=== PATIENT | female | born 1985 | race Caucasian/White ===

== ENCOUNTER → 2017-06-23 10:08 | Outpatient (CLI) | payer MEDICAID, SELFPAY ==
[2017-06-27 20:08] LABS: Alternaria tenuis <0.10 kU/L (Class 0); Ash, White <0.10 kU/L (Class 0); Aspergillus fumigatus <0.10 kU/L (Class 0); Bermuda Grass <0.10 kU/L (Class 0); Birch <0.10 kU/L (Class 0); Black Walnut <0.10 kU/L (Class 0); Cat Hair / Dander,Stand 5.62 kU/L (Class IV); Cedar, Mountain <0.10 kU/L (Class 0); Cladosporium herbarum <0.10 kU/L (Class 0); Cockroach, American <0.10 kU/L (Class 0); Cottonwood <0.10 kU/L (Class 0); D farinae Mite 0.44 kU/L (Class I); D pteronyssinus <0.10 kU/L (Class 0); Dog Epithelia 3.47 kU/L (Class III); Elm, American White <0.10 kU/L (Class 0); Immunoglobulin E 83 IU/mL (0-100); Maple/Box Elder <0.10 kU/L (Class 0); Mulberry, White <0.10 kU/L (Class 0); Oak, White <0.10 kU/L (Class 0); Pecan <0.10 kU/L (Class 0); Penicillium Notatum <0.10 kU/L (Class 0); Pigweed, Rough <0.10 kU/L (Class 0); Ragweed, Short/Common 0.79 kU/L (Class II); Russian Thistle <0.10 kU/L (Class 0); Sheep Sorrel <0.10 kU/L (Class 0); Sycamore, American <0.10 kU/L (Class 0); Timothy Grass 0.29 kU/L (Class 0/I)
[2017-06-28 13:19] LABS: Mouse Urine <0.10 kU/L (Class 0)
== END ==
PROVIDERS: Family Provider Family Medicine; PCP Family Medicine; Visit Provider Otolaryngology
DX: T78.40XA Allergy, unspecified, initial encounter (principal)
CPT/HCPCS: 36415; 82785; 86003

== ENCOUNTER → 2017-07-23 12:04 | Outpatient (CLI) | payer MEDICAID, SELFPAY ==
--- NOTE | 2017-07-23 12:05 | CT_ITS ---
STUDY: CT MAXILLOFACIAL SINUSES REASON FOR EXAM: Female, 31 years old. Sinusitis. RADIATION DOSAGE (If Supplied By Facility): CTDIvol = ( 33.06 ) mGy, DLP = ( 813.19 ) mGycm TECHNIQUE: The patient was scanned in a multi detector CT scanner. High resolution axial imaging was performed without the administration of intravenous contrast material. Sagittal and coronal images were reconstructed. Individualized dose optimization techniques were used for this CT. COMPARISON: None. FINDINGS: FRONTAL SINUSES: Normal aeration, without mucosal inflammatory disease. ETHMOIDAL SINUSES: Minimal mucoperiosteal reaction within the anterior air cells. MAXILLARY SINUSES: Small mucous retention cyst in the right maxillary sinus. SPHENOIDAL SINUSES: Normal aeration, without mucosal inflammatory disease. There is patency of the bilateral maxillary infundibuli with normal uncinate processes, ethmoid bullae, and hiatus semilunaris. There is engorgement of the right middle turbinate. Normal bilateral inferior turbinates. There is a left sided nasal septal deviation with a left sided nasal septal spur. There is narrowing of the left upper nasal airway. The visualized osseous structures are normal. The visualized bilateral orbital contents are normal. CT/Sinus/Facial Bone IMPRESSION: Minimal ethmoid and right maxillary sinusitis. Electronically Signed: Wes De La Vega DO at 12:44 EDT Tel [phone], Service support ,
== END ==
PROVIDERS: Family Provider Family Medicine; PCP Family Medicine; Visit Provider Otolaryngology
DX: J32.9 Chronic sinusitis, unspecified (principal)
CPT/HCPCS: 70486

== ENCOUNTER → 2017-08-05 11:10 | Outpatient (CLI) | payer MEDICAID, SELFPAY ==
[2017-08-05 15:46] LABS: Absolute Lymphocyte Count 1.82 X10^3/ul (0.83-4.51); Absolute Neutrophil Count 3.2 X10^3/uL (2.0-7.7); Basophil# 0.01 X10^3/uL; Basophil% 0.2 % (0-1); Eosinophil# 0.28 X10^3/uL; Eosinophils% 4.9 % (0-5); Hematocrit 38.4 % (37-47); Hemoglobin 12.4 g/dl (12.0-15.0); Lymphocyte # 1.82 X10^3/ul (4.0); Lymphocyte % 31.8 % (19-41); Mean Corp Hgb Conc 32.3 g/gl (32-36); Mean Corpuscular Hgb 24.9 pg (27.0-32.0); Mean Corpuscular Volume 77.1 fL (81-99); Mean Platelet Vol. 10.3 fl (6.2-12.0); Monocyte# 0.39 X10^3/uL; Monocyte% 6.8 % (0-10); Neutrophil # 3.21 X10^3/uL (2.7-7.7); Neutrophil % 56.1 % (47-70); Platelet Count 306 K/mm3 (150-450); RBC Distribution Width CV 14.3 % (11.6-14.6); RBC Distribution Width SD 40.4 fl (35.1-43.9); Red Blood Count 4.98 M/mm3 (4.2-5.4); White Blood Count 5.7 K/mm3 (4.4-11.0)
[2017-08-05 15:52] LABS: POSITIVE COUNT NO; POSITIVE DIFFERENTIAL NO; POSITIVE MORPHOLOGY NO
[2017-08-05 16:28] LABS: ALB/GLOB Ratio 0.7 RATIO (0.9-2.4); AST(SGOT) 23 U/L (15-37); Alanine Aminotransfer ALT/SGPT 31 U/L (13-56); Albumin, Serum 3.1 g/dL (3.2-5.0); Alkaline Phosphatase 87 U/L (45-117); Anion Gap 8 (5-15); BUN 9 mg/dL (7-18); BUN/Creat Ratio 12.1 RATIO (10-20); Calcium,Total 8.2 mg/dL (8.5-10.1); Chloride 106 mmol/L (98-107); Creatinine, Serum 0.74 mg/dL (0.55-1.02); EST Glomerular Filtration Rate 96 mL/min (>60); Est Glom Filt Rate - Afr Amer 116 mL/min (>60); Globulin 4.2 g/dL (2.2-4.2); Glucose 74 mg/dL (74-106); Potassium 4.1 mmol/L (3.5-5.1); Protein, Total 7.3 g/dL (6.4-8.2); Sodium Level 139 mmol/L (136-145); T4 Free Direct 1.23 ng/dL (0.76-1.46); Thyroid Stim Hormone (TSH) 0.98 uIU/mL (0.358-3.74)
[2017-08-06 08:39] LABS: Vitamin D,25 Hydroxy 24.2 ng/mL (29.95-100.01)
== END ==
PROVIDERS: Family Provider Family Medicine; PCP Family Medicine; Visit Provider Family Medicine
DX: L93.0 Discoid lupus erythematosus (principal); E55.9 Vitamin D deficiency, unspecified; E03.9 Hypothyroidism, unspecified
CPT/HCPCS: 36415; 80053; 82306; 84439; 84443; 85025

== ENCOUNTER → 2018-10-14 | Outpatient (CLI) | payer MEDICAID, SELFPAY ==
[2018-10-14 08:06] VITALS: BMI 46.5
--- NOTE | 2018-10-14 08:15 | RAD_ITS ---
STUDY: X-RAY - RIGHT KNEE REASON FOR EXAM: Female, 33 years old. Chronic pain. TECHNIQUE: 4 view(s) of the knee. COMPARISON: None. FINDINGS: Normal visualized distal femur. Normal visualized proximal tibia and fibula. Normal proximal tibiofibular articulation. Normal medial femorotibial compartment. Normal lateral femorotibial compartment. Normal patellofemoral articulation. Small joint effusion. RAD/Knee 4 or More Views IMPRESSION: Small joint effusion. Electronically Signed: Yasmany Oquendo, at 13:47 EDT , Service support ,
== END | disposition home or self-care (01) ==
LOC: HPRAD 08:14
PROVIDERS: Family Provider Family Medicine; PCP Family Medicine; Referring Provider Orthopaedic Surgery; Visit Provider Orthopaedic Surgery
DX: M25.561 Pain in right knee (principal)
CPT/HCPCS: 73564

== ENCOUNTER 2018-10-22 20:56 | Observation (INO) | payer MEDICAID, SELFPAY ==
[2018-10-15 14:38] VITALS: BMI 46.5
[2018-10-22 21:00] VITALS: BP 124/86; PULSE 102; RESP 16; TEMP 37.7; O2SAT 98; BMI 48.0
[2018-10-22 21:14] VITALS: BMI 48.0
--- NOTE | 2018-10-22 21:22 | PCM.HP.STD ---
History of Present Illness Date of Admission: 10/22/18 Chief Complaint: transfer from [facility] The patient is a 33 year old F with past medical history of GERD, Graves' disease and suspected lupus. She was admitted as a transfer from [facility] on 10/22/2018. Patient had EGD and colonoscopy as part of work-up for lupus and GERD and [place] on day of admission. She states she woke up from the procedure coughing. She was discharged home also on the way home started having severe chills and worsening cough which was nonproductive. She also had mild fever. She therefore went to [facility] where she was also found to be tachycardic as well. She also complained of chest pain which was pressure-like. She denied any nausea or vomiting or palpitations. CT of the chest done in [place] was negative for any PE but showed a left-sided upper and lower broad lobe pneumonia which was suspicious for aspiration pneumonia. CBC done in [place] showed elevated white cell count of 13.8 with a left shift. Initial lactic acid was 2.3 but trended down to 1.1. BMP was unremarkable at [place]. She was started on IV Unasyn and transferred to [facility]. Patient seen and examined. Shortness of breath is improved though she still had mild chest pain. Still had a cough which was nonproductive. She denied any fever chills, diarrhea vomiting. Review of systems otherwise negative. [] Past Medical History Medical History: Medical History (Last Updated 10/15/18 @ 13:45 by Susy Arauz) Anemia D64.9 Anxiety and depression F41.9, F32.9 Asthma J45.909 Back problem M53.9 Frequent headaches R51 Lupus M32.9 Seasonal allergies J30.2 UTI (urinary tract infection) N39.0 Vitamin deficiency E56.9 Allergies No Known Allergies Allergy (Verified 10/15/18 13:40) Home Medications: Ambulatory Orders Medication Instructions Recorded Albuterol Inhaler [Ventolin Hfa 1 - 2 puff INHALATION Q4H PRN PRN 04/13/14 (SP)] diphenhydramine 25 mg tablet 25 mg PO DAILY PRN tab 10/15/18 Surgical History: Surgical History (Last Updated 10/15/18 @ 13:46 by Susy Arauz) History of knee surgery Z98.890 History of tubal ligation Z98.51 Psychiatric History: No pertinent psych hx Lives: Alone Smoking Status: Never smoker Alcohol: None Drugs: None - *Family History Maternal Family History: Family History (Last Updated 10/15/18 @ 13:48 by Susy Arauz) Other Anxiety Depressed Diabetes Psychiatric care Suicide attempt Thyroid disorder Review of Systems Constitutional: Reports: Chills, Fever. Denies: Anorexia, Malaise, Weakness, Fatigue Eyes: Denies: Blurred vision HEENT: Denies: Head Aches, Sinus Congestion, Sinus Drainage Cardiovascular: Reports: Chest Pain, Chest Pressure. Denies: Chest Tightness, Heaviness, Light Headedness, Orthopnea, Palpitations Respiratory: Reports: Cough, Shortness of Breath, Shortness of breath at rest, Shortness of breath upon exertion. Denies: Pleuritic Pain, Sputum production, Wheezing Gastrointestinal: Denies: Abdominal Pain, Nausea, Vomiting Genitourinary: Denies: Dysuria Musculoskeletal: Denies: Joint Pain, Joint Tenderness Skin: Denies: Rash, Wounds Neurological: Denies: Numbness, Tingling, Focal weakness Psychiatric: Denies: Anxiety, Depression, Homicidal Ideations, Suicidal Ideations Hematologic/ Lymphatic: Denies: Easy Bruising, Easy Bleeding VTE Information - Inpt Only VTE Present on Admission: No VTE Pharm Prophylaxis ordered?: Yes - Physical Exam General: Alert, Oriented x3, Cooperative, No apparent distress, Non-Cooperative, - - super morbid obesity HEENT: Atraumatic, PERRLA, EOMI, Normocephalic Oral: Moist Mucosa Neck: Supple, No JVD, Negative Carotid Bruits Lungs: - - Decreased breath sounds bibasilarly. No wheezes or crackles. Cardiovascular: Regular rate, Regular Rhythm, Normal S1, Normal S2, No murmurs Abdomen: Bowel Sounds Present, Soft, Non Tender, Non-Distended, No Hepato-splenomegaly Extremities: No clubbing, No cyanosis, No edema, Capillary Refill Less than 3 Seconds Skin: No rashes, No breakdown Musculoskeletal: No Tenderness to Palpation of Joints or Extremities Lymphatic: No Cervical, Supraclavicular, or Inguinal Adenopathy Neurological: Cranial nerves II-XII grossly intact, Neuro grossly intact, Motor Exam 5/5 strength throughout Psych/Mental Status: Normal Affect, Appropriate, Alert and oriented to time, place, person, mood and affect Vital Signs Temp Pulse Resp BP Pulse Ox 99.8 F H 102 H 16 124/86 H 98 10/22/18 21:00 10/22/18 21:00 10/22/18 21:00 10/22/18 21:00 10/22/18 21:00 Oxygen Delivery Method Room Air Weight: 288 lb 9.361 oz Body Mass Index (BMI) 48.0 Assessment/Plan 33-year-old admitted as a transfer from [place] with a complaint of fever and chills as well as shortness of breath was started after she had EGD and colonoscopy in the early hours of day of presentation. 1. Aspiration pneumonia admit to med surg with telemetry patient likely aspirated during EGD and colonoscopy. Says she woke up with a severe cough CTA done at [place] was negative for PE, but showed left upper and lower lobe pneumonia wbc was 13.8 at [place] started on IV unasyn; will continue hydrate gently with IVF 2.GERD: had EGD and colonoscopy today. Stable 3. SLE: stable. 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 Graves disease: stable DVT prophylaxis: lovenox Code Visit OBSV E&M: 64618 Initial observation care L3
[2018-10-22 22:00] VITALS: PULSE 105
[2018-10-22] MEDS: 0.9% Normal Saline 1,000 ML 75 ML IV (22:13)
[2018-10-23 02:42] VITALS: BP 94/55; PULSE 85; RESP 18; TEMP 36.6; O2SAT 94
[2018-10-23 03:16] VITALS: PULSE 81
[2018-10-23 06:08] LABS: Absolute Lymphocyte Count 1.71 X10^3/uL (0.83-4.51); Absolute Neutrophil Count 8.5 X10^3/uL (2.0-7.7); Basophil# 0.03 X10^3/uL; Basophil% 0.3 % (0-1); Eosinophil# 0.09 X10^3/uL; Eosinophils% 0.8 % (0-5); Hematocrit 33.4 % (37-47); Hemoglobin 10.6 g/dL (12.0-15.0); Lymphocyte # 1.71 X10^3/ul (4.0); Lymphocyte % 15.7 % (19-41); Mean Corp Hgb Conc 31.7 g/dL (32-36); Mean Corpuscular Hgb 23.9 pg (27.0-32.0); Mean Corpuscular Volume 75.2 fL (81-99); Mean Platelet Vol. 10.3 fl (6.2-12.0); Monocyte# 0.55 X10^3/uL; NRBC Flagged by Analyzer 0 % (0-5); Neutrophil # 8.48 X10^3/uL (2.7-7.7); Neutrophil % 77.7 % (47-70); Platelet Count 303 K/mm3 (150-450); RBC Distribution Width CV 14.9 % (11.6-14.6); RBC Distribution Width SD 40.7 fl (35.1-43.9); Red Blood Count 4.44 M/mm3 (4.2-5.4); White Blood Count 10.9 K/mm3 (4.4-11.0)
[2018-10-23 06:28] LABS: Anion Gap 5 (5-15); BUN 7 mg/dL (7-18); BUN/Creat Ratio 9.8 RATIO (10-20); Calcium,Total 7.8 mg/dL (8.5-10.1); Chloride 112 mmol/L (98-107); Creatinine, Serum 0.72 mg/dL (0.55-1.02); EST Glomerular Filtration Rate 99 mL/min (>60); Est Glom Filt Rate - Afr Amer 120 mL/min (>60); Estimated Creatinine Clearance 99.07 ml/min; Glucose 88 mg/dL (74-106); Potassium 3.5 mmol/L (3.5-5.1); Sodium Level 141 mmol/L (136-145)
[2018-10-23 06:56] VITALS: PULSE 81
--- NOTE | 2018-10-23 07:29 | PCM.PN.HOSP ---
Subjective: 33-year-old lady admitted with fever chills and shortness of breath following EGD and colonoscopy imaging studies demonstrated findings consistent with aspiration pneumonia Objective: GENERAL: cooperative HEENT: Atraumatic; moist oral mucosa EYES; Anicteric, Normal Conjunctiva NECK; supple, normal thyroid, RESPIRATORY: Diminished to auscultation CARDIOVASCULAR: Regular S1 S2, GI: soft, non-tender, normoactive bowel sounds, : No Renal angle tenderness; EXTREMITIES: No edema, no clubbing, MUSCULOSKELETAL: No Joint Tenderness; NEURO: Awake; no lateralizing signs. SKIN: No Rash PSYCH; Normal affect Vitals/I&O's: Vital Signs Temp Pulse Resp BP Pulse Ox 97.9 F 81 18 94/55 L 94 10/23/18 02:42 10/23/18 03:16 10/23/18 02:42 10/23/18 02:42 10/23/18 02:42 Oxygen Delivery Method Room Air Weight: 130.9 kg Body Mass Index (BMI) 48.0 Intake and Output for Last 24 Hours 10/21/18 10/22/18 10/23/18 23:59 23:59 23:59 Intake Total 730 / 730 Balance 730 / 730 Laboratory Results 10/23/18 05:50: WBC 10.9, RBC 4.44, Hgb 10.6 L, Hct 33.4 L, MCV 75.2 L, MCH 23.9 L, MCHC 31.7 L, RDW Std Deviation 40.7, RDW Coeff of Rosas 14.9 H, Plt Count 303, MPV 10.3, Immature Gran % (Auto) 0.500, Neut % (Auto) 77.7 H, Lymph % (Auto) 15.7 L, [place] % (Auto) 5.0, Eos % (Auto) 0.8, Baso % (Auto) 0.3, Absolute Neuts (auto) 8.5 H, Absolute Lymphs (auto) 1.71, Nucleated RBC % 0 10/23/18 05:50: Sodium 141, Potassium 3.5, Chloride 112 H, Carbon Dioxide 24.0, Anion Gap 5, BUN 7, Creatinine 0.72, Estim Creat Clear Calc 99.07, Est GFR (MDRD) Af Amer 120, Est GFR (MDRD) Non-Af 99, BUN/Creatinine Ratio 9.8 L, Glucose 88, Calcium 7.8 L Current Medications Albuterol Sulfate (Ventolin Aerosols) 2.5 mg INHALATION Q2H PRN PRN PRN Reason: Shortness of Breath/Wheezing Dextrose (D50w Syringe) 0 gm IV X1 PRN; Protocol PRN Reason: Hypoglycemia Diphenhydramine HCl (Benadryl) 25 mg PO DAILY PRN PRN PRN Reason: ALLERGIES Enoxaparin Sodium (Lovenox) 40 mg SC DAILY@1000 LY Glucagon () 1 mg IM .X1 PRN PRN Reason: Hypoglycemia Sodium Chloride () 1,000 mls @ 75 mls/hr IV .[id number] LY Stop: 10/23/18 10:54 Last Admin: 10/22/18 22:13 Dose: 75 mls/hr Documented by: Ampicillin Sodium/Sulbactam Sodium 3,000 mg/ Sodium Chloride 100 mls @ 150 mls/hr IV Q8 LY Last Admin: 10/23/18 05:34 Dose: 150 mls/hr Documented by: Ondansetron HCl (Zofran) 4 mg IV Q8H PRN PRN PRN Reason: NAUSEA/VOMITING Medical Necessity - Tobacco Use Smoking Status: Never smoker Assessment/Plan 33-year-old lady admitted with fever chills and shortness of breath following EGD and colonoscopy imaging studies demonstrated findings consistent with aspiration pneumonia 1. Aspiration pneumonia: Following EGD. Admitted to regular nursing floor started on broad-spectrum antibiotic therapy with Unasyn. Patient was also placed on breathing treatment as well as supplemental oxygen 2. GERD patient had EGD as a result apparently no pathological findings were present 3. Graves' disease: Per history 4. SLE really not on any immunosuppressant agent 5. Moderate intermittent asthma patient uses aerosol treatments at home 6. Obesity with BMI of 48 weight loss advised 7. DVT prophylaxis SC Lovenox Active Medications Albuterol Sulfate (Ventolin Aerosols) 2.5 mg INHALATION Q2H PRN PRN PRN Reason: Shortness of Breath/Wheezing Dextrose (D50w Syringe) 0 gm IV X1 PRN; Protocol PRN Reason: Hypoglycemia Diphenhydramine HCl (Benadryl) 25 mg PO DAILY PRN PRN PRN Reason: ALLERGIES Enoxaparin Sodium (Lovenox) 40 mg SC DAILY@1000 LY Glucagon () 1 mg IM .X1 PRN PRN Reason: Hypoglycemia Sodium Chloride () 1,000 mls @ 75 mls/hr IV .[id number] [facility] Stop: 10/23/18 10:54 Last Admin: 10/22/18 22:13 Dose: 75 mls/hr Documented by: Ampicillin Sodium/Sulbactam Sodium 3,000 mg/ Sodium Chloride 100 mls @ 150 mls/hr IV Q8 LY Last Admin: 10/23/18 05:34 Dose: 150 mls/hr Documented by: Ondansetron HCl (Zofran) 4 mg IV Q8H PRN PRN PRN Reason: NAUSEA/VOMITING Code Visit Inpatient E&M: 85540 Subs Hosp L3
[2018-10-23 09:00] VITALS: BP 148/74; PULSE 85; RESP 18; TEMP 36.6; O2SAT 97
--- NOTE | 2018-10-23 10:19 | DCINST_ITS ---
You will use the following diet at home:: No restrictions Discharge Activity: Return to Normal Activity Call your doctor if you observe: Fever of 101 or Higher, Shortness of breath, Chest pain Allergies/Adverse Reactions: Allergies No Known Allergies Allergy (Verified 10/15/18 13:40) Medications to take at Discharge Albuterol Inhaler [Ventolin Hfa] 1 - 2 puff INHALATION Q4H PRN PRN 04/13/14 diphenhydramine 25 mg tablet 25 mg PO DAILY PRN tab 10/15/18 Amoxicillin/Potassium Clav [Augmentin 875-125 Tablet] 1 ea PO BIDCM #14 tab 10/23/18 The following prescriptions were given: Amoxicillin/Potassium Clav [Augmentin 875-125 Tablet] 1 ea PO BIDCM #14 tab Transmission Status: Pending to [facility] Primary Care Physician: Adriano Uriostegui MD [Primary Care Provider] - Please follow up with your Primary Care Physician in: [place] 5-7 DAYS Test Results: Test results from this visit will be discussed in further detail at your follow- up appointment, if applicable. Proposed Discharge Date: 10/23/18
--- NOTE | 2018-10-23 10:22 | DS.PCM_ITS ---
Discharge Date and Diagnosis - Problem List Patient Problems: Active and Suspected Problems (Last Updated 10/15/18 @ 13:45 by Susy Arauz) Aspiration pneumonia (Acute) Date of Admission: 10/22/18 Date of Discharge: 10/23/18 - Primary Discharge Diagnosis Active and Suspected Problems (Last Updated 10/15/18 @ 13:45 by Susy Arauz) Aspiration pneumonia (Acute) - Secondary Discharge Diagnosis Chronic Problems (Last Updated 10/15/18 @ 13:45 by Susy Arauz) Asthma (Chronic) Hospital Course and Treatment Summary of Care Provided: 33-year-old lady admitted with fever chills and shortness of breath following EGD and colonoscopy imaging studies demonstrated findings consistent with aspiration pneumonia 1. Aspiration pneumonia: Following EGD. Admitted to regular nursing floor started on broad-spectrum antibiotic therapy with Unasyn. Patient was also placed on breathing treatment as well as supplemental oxygen and did experience rapid improvement in the condition after her admission. She requested to be discharged home she was discharged home on Augmentin 875 mg p.o. twice daily for 7 days 2. GERD patient had EGD as a result apparently no pathological findings were present 3. Graves' disease: Per history 4. SLE really not on any immunosuppressant agent 5. Moderate intermittent asthma patient uses aerosol treatments at home 6. Obesity with BMI of 48 weight loss advised 7. DVT prophylaxis SC Lovenox Patient Problems: Active and Suspected Problems (Last Updated 10/15/18 @ 13:45 by Susy Arauz) Aspiration pneumonia (Acute) Objective: GENERAL: cooperative HEENT: Atraumatic; moist oral mucosa EYES; Anicteric, Normal Conjunctiva NECK; supple, normal thyroid, RESPIRATORY: Diminished to auscultation CARDIOVASCULAR: Regular S1 S2, GI: soft, non-tender, normoactive bowel sounds, : No Renal angle tenderness; EXTREMITIES: No edema, no clubbing, MUSCULOSKELETAL: No Joint Tenderness; NEURO: Awake; no lateralizing signs. SKIN: No Rash PSYCH; Normal affect - Physical Exam Vital Signs Temp Pulse Resp BP Pulse Ox 97.9 F 85 18 148/74 H 97 10/23/18 09:00 10/23/18 09:00 10/23/18 09:00 10/23/18 09:00 10/23/18 09:00 Oxygen Delivery Method Room Air Weight: 130.9 kg Body Mass Index (BMI) 48.0 Intake and Output for Last 24 Hours 10/21/18 10/22/18 10/23/18 23:59 23:59 23:59 Intake Total 730 / 730 Balance 730 / 730 Laboratory Tests Past 24 Hrs 10/23/18 10/23/18 05:50 05:50 WBC 10.9 RBC 4.44 Hgb 10.6 L Hct 33.4 L MCV 75.2 L MCH 23.9 L MCHC 31.7 L RDW Std Deviation 40.7 RDW Coeff of Rosas 14.9 H Plt Count 303 MPV 10.3 Immature Gran % (Auto) 0.500 Neut % (Auto) 77.7 H Lymph % (Auto) 15.7 L [place] % (Auto) 5.0 Eos % (Auto) 0.8 Baso % (Auto) 0.3 Absolute Neuts (auto) 8.5 H Absolute Lymphs (auto) 1.71 Nucleated RBC % 0 Sodium 141 Potassium 3.5 Chloride 112 H Carbon Dioxide 24.0 Anion Gap 5 BUN 7 Creatinine 0.72 Estim Creat Clear Calc 99.07 Est GFR (MDRD) Af Amer 120 Est GFR (MDRD) Non-Af 99 BUN/Creatinine Ratio 9.8 L Glucose 88 Calcium 7.8 L Discharge Diet: No Restrictions Discharge Activity: Return to Normal Activity Call your doctor if you observe: Fever of 101 or Higher, Shortness of breath, Chest pain Home Medications: Medications to take at Discharge Albuterol Inhaler [Ventolin Hfa] 1 - 2 puff INHALATION Q4H PRN PRN 04/13/14 diphenhydramine 25 mg tablet 25 mg PO DAILY PRN tab 10/15/18 Amoxicillin/Potassium Clav [Augmentin 875-125 Tablet] 1 ea PO BIDCM #14 tab 10/23/18 Following Prescrptions Were Given to Patient: Amoxicillin/Potassium Clav [Augmentin 875-125 Tablet] 1 ea PO BIDCM #14 tab Transmission Status: Pending to [facility] Primary Care Physician: Adriano Uriostegui MD [Primary Care Provider] - Please follow up with your Primary Care Physician in: [place] 5-7 DAYS Disposition: Home Minutes spent on discharge:: 45 Patient Condition:: Stable Medical Necessity - Tobacco Use Smoking Status: Never smoker Meaningful Use Info Meaningful Use Diagnoses (Choose all that apply): None applicable Code Visit OBSV E&M: 87047 Observation care discharge
== END 2018-10-23 11:33 | disposition home or self-care (01) ==
PROVIDERS: Admitting Provider Student in an Organized Health Care Education/Training Program; Family Provider Family Medicine; PCP Family Medicine; Visit Provider Internal Medicine
DX: J69.0 Pneumonitis due to inhalation of food and vomit (principal); K21.9 Gastro-esophageal reflux disease without esophagitis; M32.9 Systemic lupus erythematosus, unspecified; E05.00 Thyrotoxicosis with diffuse goiter without thyrotoxic crisis or storm; F41.9 Anxiety disorder, unspecified; F32.9 Major depressive disorder, single episode, unspecified; R51 Headache; E56.9 Vitamin deficiency, unspecified; J45.20 Mild intermittent asthma, uncomplicated; E66.9 Obesity, unspecified; Z68.42 Body mass index [BMI] 45.0-49.9, adult; Z79.899 Other long term (current) drug therapy; M94.261 Chondromalacia, right knee; M25.561 Pain in right knee
CPT/HCPCS: 36415; 73721; 80048; 85025; 96361; 96365; 96366; 99218; J7030; G0378

== ENCOUNTER → 2018-10-23 | Outpatient (CLI) | payer MEDICAID, SELFPAY ==
[2018-10-15 14:38] VITALS: BMI 46.5
[2018-10-22 21:00] VITALS: BMI 48.0
--- NOTE | 2018-10-23 16:58 | MRI_ITS ---
STUDY: MRI RIGHT KNEE REASON FOR EXAM: Female, 33 years old. Right knee locks. Prior surgery to repair torn patellar tendon. TECHNIQUE: Standardized fat and water weighted pulse sequences were obtained in all 3 orthogonal planes. COMPARISON: X-ray 10/14/2018. MRI 04/06/2014. FINDINGS: Normal medial meniscus. Normal hyaline cartilage of the medial femorotibial compartment. Normal medial femoral condyle and tibial plateau. Normal medial collateral ligamentous complex (MCL). Normal distal semimembranosus, gracilis and semitendinosus tendons. Mild narrowing of the lateral compartment. Normal lateral meniscus. There is signal heterogeneity in the lateral tibial cartilage without significant thinning and with an intact articular cartilage surface. Normal lateral femoral condyle and tibial plateau. Mild lateral spurring. Normal proximal tibiofibular articulation. Normal lateral collateral (fibular) ligament. Normal popliteus tendon. Normal biceps femoris tendon. Normal anterior cruciate ligament (ACL). Normal posterior cruciate ligament (PCL). Mild lateral patellar subluxation and moderate lateral tilt. Screw tract in the patella from prior surgery. Normal hyaline cartilage of the patellofemoral compartment. Normal medial and lateral patellar retinaculum. Normal quadriceps tendon. Normal patellar tendon. Normal Hoffa's fat pad. Small joint effusion. MRI/Lower Ext Joint Only (Routine) IMPRESSION: 1. Small joint effusion. 2. Heterogeneous lateral tibial cartilage, possible contusion or low-grade chondromalacia. 3. Lateral patellar subluxation and tilt. Electronically Signed: Mag Reid MD at 22:41 EDT Tel , Service support ,
== END | disposition home or self-care (01) ==
LOC: MRI 16:57
PROVIDERS: Family Provider Family Medicine; PCP Family Medicine; Referring Provider Orthopaedic Surgery; Visit Provider Orthopaedic Surgery
DX: M94.261 Chondromalacia, right knee (principal); M25.561 Pain in right knee
CPT/HCPCS: 73721

== ENCOUNTER 2018-11-27 05:19 | Day surgery (SDC) | payer MEDICAID, SELFPAY ==
--- NOTE | 2018-11-26 23:55 | PCM.HP.BLA ---
History and Physical Date of Admission: 11/27/18 HISTORY OF PRESENT ILLNESS 33 year old woman presents with painful soft tissue masses left parietal scalp and left top of scalp that have increased in size over the last several months. She states there has been intermittent drainage. She denies fever. She denies trauma. She denies recent infection. She presents at this time for further evaluation and treatment. PAST MEDICAL HISTORY Anemia Anxiety and depression Asthma Back problem Frequent headaches Lupus UTI (urinary tract infection) Vitamin deficiency PAST SURGICAL HISTORY knee surgery tubal ligation ALLERGIES No Known Allergies MEDICATIONS Albuterol Inhaler [Ventolin Hfa] diphenhydramine Amoxicillin/Potassium Clav [Augmentin 875-125 Tablet] FAMILY HISTORY Other - Anxiety, Depressed, Diabetes, Psychiatric care, Suicide attempt, Thyroid disorder SOCIAL HISTORY Smoking Status: Never smoker alcohol intake: never substance use type: does not use REVIEW OF SYSTEMS General - Denies fever, fatigue, and weight loss. Eyes - Denies cataracts and glaucoma. ENT - Denies nasal congestion and sore throat. Has chronic sinus problems. Endocrine - Denies excessive thirst and urination. Skin - Denies skin cancer. Has painful enlarging soft tissue mases scalp. Musculoskeletal - Has joint pain, joint stiffness, weakness of muscles and joints, back pain. Denies arthritis. Neuro - Denies headaches. Cardiovascular - Denies chest pain, fatigue, and shortness of breath with exertion. Psych - Denies anxiety. Has depression. Respiratory - Denies chronic cough and shortness of breath. Has asthma. Gastrointestinal - Denies nausea, vomiting, and constipation. Has diarrhea. Hematologic - Denies abnormal bruising and bleeding. Has anemia. Genitourinary - Denies hematuria and urinary frequency. PHYSICAL EXAMINATION General - Alert and Oriented. Bra size is 40 DDD. HEENT - PERRL. EOMI. Throat is clear. On the left parietal scalp is a soft tissue mass that measures 2 cm. Mobile. Minimal alopecia noted. Mild tenderness to palpation. No evidence of infection. No ulceration. On the left top of scalp is a soft tissue mass that measures 1.5 cm. Mobile. Minimal alopecia noted. Mild tenderness to palpation. No evidence of infection. No ulceration. Neck - Supple and nontender. No cervical adenopathy. No suspicious lesions noted. Lungs - Clear to auscultation. Heart - Regular rate and rhythm. Abdomen - Soft and nondistended. Extremities - FROM. No axillary adenopathy. Radial pulses are palpable. No suspicious lesions noted. Neuro - CN II-XII grossly intact. Psych - Normal mood and affect. ASSESSMENT 1. 2 cm painful soft tissue mass left parietal scalp. 2. 1.5 cm painful soft tissue mass left top of scalp. PLAN Recommend excision of these painful soft tissue masses left parietal scalp and left top of scalp and send them to Pathology for analysis to rule out carcinoma. If pus is seen then a culture will be obtained. A positive culture will necessitate antibiotic therapy. If carcinoma is present then further excision will be done with skin grafting reconstruction. Depending on how much overlying skin is adherent and would need to be removed to minimize recurrence, will determine if primary closure can be done or if we need skin grafting or skin flap reconstruction. Surgery will be done under local anesthesia and IV sedation on an outpatient basis. Patient was informed of the risks and complications of the procedure including alternatives to surgery. These were discussed with the patient personally. Patient voices understanding and wishes to proceed. Some of the risks and complications were included in a form from the [employer]. She is also interested in a breast reduction. After healing has occurred with these scalp masses, will continue our discussion about breast reduction mammaplasty surgery. She states she has seen a Chiropractor in the past.
[2018-11-27] VITALS (8 sets, daily range): BP systolic 104–117; BP diastolic 63–72; PULSE 74–82; RESP 14–16; TEMP 36.1–36.5; O2SAT 95–100; BMI 47.2
[2018-11-27] MEDS: Lactated Ringers 1,000 ML 100 ML IV (06:18)
--- NOTE | 2018-11-27 07:30 | SOF_PTH ---
PATIENT: CAR YEH LOC: [facility] [place] U#:[id number] AGE/SX: 33/F ROOM: RE11/27/[address]: Dr. Bc Vallejo MD : 1985 BED: DIS: 11/27/2018 SPEC #: [id number] RECD: 11/27/18 09:28 STATUS: MARIA TERESA BELLA #: [id number] SHIRLEY: 11/27/18 07:[address]: Bc Vallejo DEPT: SURGICAL PATHOLOGY RECD BY: Zia Benoit ENTERED: 11/27/18 13:00 SP TYPE: SOFT TISS OTHR DR: Dr. Adriano Uriostegui MD Tissues: A - Scalp, NOS B - Scalp, NOS Procedures: Surgery Specimen Level III HEADER OPERATION: Excision soft tissue masses, parietal scalp and top scalp PRE-OP DIAGNOSIS: 2 cm painful soft tissue mass left parietal scalp; 1.5 cm painful soft tissue mass left top of scalp TISSUE SUBMITTED: A - 2 cm painful soft tissue mass left parietal scalp, B - 1.5 cm painful soft tissue mass left top of scalp MICROSCOPIC DIAGNOSIS A. 2 cm painful soft tissue mass left parietal scalp, biopsy: Trichilemmal cyst. B. 1.5 cm painful soft tissue mass left top of scalp, biopsy: Trichilemmal cyst with focal calcifications. SJ:lia 11/30/18 MICROSCOPIC DESCRIPTION Slides are reviewed. GROSS DESCRIPTION A - Received in fixative is one container labeled with the patient's name and designated 2 cm painful soft tissue mass left parietal scalp. The specimen consists of an irregular fragment of light pink-white soft tissue measuring 1 cm in diameter. The specimen is bisected and totally submitted in one cassette. B - Received in fixative is one container labeled with the patient's name and designated 1.5 cm painful soft tissue mass left top of scalp. The specimen consists of an irregular fragment of pink-yellow soft tissue measuring 1 x 1 x 0.5 cm. The specimen is bisected and totally submitted in one cassette. / AM:lia 11/27/18 TC:5 CPT: 20612 x2
--- NOTE | 2018-11-27 08:24 | PCM.OPRPT ---
Report of Operation Date of Procedure: 11/27/18 Pre-Operative Diagnosis: 1. 2 cm painful soft tissue mass left parietal scalp. 2. 1.5 cm painful soft tissue mass left top of scalp. Post-Operative Diagnosis: Same. Surgery/Procedure Performed:: 1. Excision 2 cm painful soft tissue mass left parietal scalp with 2 cm layered closure. 2. Excision 1.5 cm painful soft tissue mass left top of scalp with 1.5 cm layered closure. Description of Surgical Findings:: 33 year old woman presents with painful soft tissue masses left parietal scalp and left top of scalp that have increased in size over the last several months. She states there has been intermittent drainage. She denies fever. She denies trauma. She denies recent infection. Patient was informed of the risks and complications of the procedure including alternatives to surgery. These were discussed with the patient personally. Patient voices understanding and wishes to proceed. Some of the risks and complications were included in a form from the [employer]. 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 Specimen's removed: 1. Painful soft tissue mass left parietal scalp to Pathology. 2. Painful soft tissue mass left top of scalp to Pathology. Drains: None. Estimated Blood Loss (mL): 20 ml. Description of Procedure: Patient was taken to OR in supine position and was given IV sedation. She was placed in the lateral position. Excess hair was cut around the masses on the left parietal scalp and left top of scalp. The left scalp was prepped and draped in the usual fashion. SCD's were placed for DVT prophylaxis. Perioperative antibiotics were given intravenously. The soft tissue masses on the left temporal scalp and left top of scalp were infiltrated with xylocaine and epinephrine. After waiting 5 minutes for the anesthetic to take effect, oblique excisions were made over the masses. Dissection was carried into the subcutaneous tissue. The masses were well encapsulated and dissected off the underlying galea. Lesions were marked with suture at the 12 oclock position for pathology orientation. The masses were sent to Pathology separately for analysis to rule out carcinoma. Hemostasis was obtained with electrocautery. The wounds were irrigated with saline. The wounds were then closed in a layered fashion with 4-0 Monocryl interrupted sutures for the deep dermis and subcutaneous tissue. The skin was approximated with 5-0 Monocryl simple interrupted sutures. Antibiotic ointment was applied to the suture lines. The length of the layered closure for the left parietal scalp area was 2 cm and for the left top of scalp area was 1.5 cm. Patient tolerated the procedure well and was sent to PACU in satisfactory condition. Patient will be sent home on antibiotics and pain medication. She will keep her head elevated during the initial postop period. Patient will followup in a week for a wound check and for discussion of the pathology report. Grafts/Implants Used: None. - Complications None. - Admit VTE Documentation VTE Present on Admission: No VTE Mechan Device Prophylaxis: SCD's VTE Pharm Prophylaxis ordered?: No Code Visit Surgery Charges CPT - 49876 ICD-10 - R22.0, R20.8 02270 R22.0, R20.8 48401 R22.0, R20.8
--- NOTE | 2018-11-27 08:31 | DCINST_ITS ---
You will use the following diet at home:: No restrictions Discharge Activity: May not drive while taking narcotic pain medications., May Shower - in two days., - - keep head elevated. no heavy lifting. May shower in (days): 2 May resume sexual activity in: No Restrictions Weight Bearing Status: Weight bearing as tolerated Lifting Restrictions: 20 lbs. Keep extremity elevated above heart level: - - elevate head. Call your doctor if your incision/area has: Continuous Slow Oozing, Sudden Increased Bleeding, Increased Pain/ Swelling, Increased Redness, Foul Smelling Discharge, Swelling at the incision site Call your doctor if you observe: Fever of 101 or Higher, Coldness, Increased Pain, Shortness of breath, Chest pain, Calf discomfort, Uncontrolled pain Suture Line Care: - - apply bactroban ointment to suture ilne daily. Cleanse incision/area with: - - may get incisions wet in the shower in two days. Allergies/Adverse Reactions: Allergies No Known Allergies Allergy (Verified 11/27/18 06:05) Medications to take at Discharge Albuterol Inhaler [Ventolin Hfa] 1 - 2 puff INHALATION Q4H PRN PRN 04/13/14 Clindamycin HCl [Cleocin] 300 mg PO TID #15 cap 11/27/18 Oxycodone HCl/Acetaminophen [Percocet 5/325] 1 tab PO TID PRN PRN 7 Days #20 tab 11/27/18 The following prescriptions were given: Clindamycin HCl [Cleocin] 300 mg PO TID #15 cap Prescription Printed Oxycodone HCl/Acetaminophen [Percocet 5/325] 1 tab PO TID PRN PRN 7 Days #20 tab PRN Reason: Pain Prescription Printed Primary Care Physician: Adriano Uriostegui MD [Primary Care Provider] - Test Results: Test results from this visit will be discussed in further detail at your follow- up appointment, if applicable. Please Follow Up With: Bc Vallejo MD When: one week. call [phone] for appt. Proposed Discharge Date: 11/27/18
== END 2018-11-27 09:46 | disposition home or self-care (01) ==
LOC: SDC 05:20 → AC 05:21
PROVIDERS: Family Provider Family Medicine; PCP Family Medicine; Referring Provider Surgery; Visit Provider Surgery
PROC: (CPT 11424; principal; 2018-11-27 07:15)
DX: L72.12 Trichodermal cyst (principal); J45.909 Unspecified asthma, uncomplicated; M32.9 Systemic lupus erythematosus, unspecified; Z86.2 Personal history of diseases of the blood and blood-forming organs and certain disorders involving the immune mechanism; Z87.440 Personal history of urinary (tract) infections
CPT/HCPCS: 11424; 12032; 88304; 88305; J7120

== ENCOUNTER → 2019-01-12 16:18 | Outpatient (CLI) | payer MEDICAID, SELFPAY ==
[2018-12-18 15:26] VITALS: BMI 47.2
--- NOTE | 2019-01-12 16:20 | RAD_ITS ---
STUDY: X-RAY - LUMBAR SPINE REASON FOR EXAM: Female, 33 years old. Lumbar strain TECHNIQUE: 5 view(s) of the lumbar spine were obtained. COMPARISON: None FINDINGS: Normal lumbar lordosis. There is no substantial scoliosis. There is a normal alignment of the vertebrae. Normal vertebral bodies and endplates. Normal disc space heights. There is no demonstrated fracture. The soft tissue structures are unremarkable. RAD/L/S Spine Min 4 Views IMPRESSION: Normal x-ray examination of the lumbar spine. Electronically Signed: Carlos Dial MD at 22:54 EST , Service support ,
--- NOTE | 2019-01-12 16:25 | RAD_ITS ---
STUDY: X-RAY - CERVICAL SPINE REASON FOR EXAM: Female, 33 years old. Pain. TECHNIQUE: 5 view(s) of the cervical spine were obtained. COMPARISON: None FINDINGS: Normal anterior atlantoaxial articulation. Normal odontoid process. Normal cervical lordosis. Normal vertebral bodies and endplates. Normal disc space heights. Normal visualized intervertebral neuroforamina. The soft tissue structures are unremarkable. There is no demonstrated fracture of the cervical spine. RAD/Cerv Spine 4 or 5 Views IMPRESSION: Normal x-ray examination of the visualized cervical spine. Electronically Signed: Carlos Dial MD at 22:49 EST , Service support ,
== END ==
PROVIDERS: Family Provider Family Medicine; PCP Family Medicine; Referring Provider Chiropractor; Visit Provider Chiropractor
DX: S13.4XXA Sprain of ligaments of cervical spine, initial encounter (principal); S33.5XXA Sprain of ligaments of lumbar spine, initial encounter
CPT/HCPCS: 72050; 72110

== ENCOUNTER → 2021-09-24 | Outpatient (CLI) | payer MEDICAID, SELFPAY ==
--- NOTE | 2021-09-24 11:42 | US_ITS ---
STUDY: THYROID ULTRASOUND REASON FOR EXAM: Female, 36 years old. NODULES TECHNIQUE: Ultrasound evaluation of the thyroid was performed with real-time and static peraza-scale imaging. COMPARISON: 07/23/2016 FINDINGS: RIGHT LOBE: The right lobe of the thyroid gland measures 4.7 x 2.0 x 1.5 cm. There is a heterogeneous echotexture. Nodule 1: No change in the 5 x 3 x 3 mm solid hypoechoic wider than tall ill-defined marginated nodule with no echogenic foci (TR 4) in the mid right lobe consistent with a small adenoma. LEFT LOBE: The left lobe of the thyroid gland measures 4.9 x 1.5 x 1.3 cm. There is a heterogeneous echotexture. There are no demonstrated solid, cystic or complex lesions. ISTHMUS: The isthmus measures 3 mm thick. . The regional lymph nodes are normal. US/Thyroid IMPRESSION: Thyroiditis with no change in the small adenoma in the right lobe. Electronically Signed: Saul Carrasco MD at 17:06 EDT ,
== END | disposition home or self-care (01) ==
LOC: US 11:41
PROVIDERS: PCP Family Medicine; Referring Provider Family Medicine; Visit Provider Family Medicine
DX: E04.2 Nontoxic multinodular goiter (principal)
CPT/HCPCS: 76536

== ENCOUNTER 2021-10-05 10:01 | Outpatient (CLI) | payer MEDICAID, SELFPAY ==
--- NOTE | 2021-10-05 10:03 | MRI_ITS ---
STUDY: MRI LEFT KNEE REASON FOR EXAM: Left knee pain, decreased range of motion, popping, and locking for 2 weeks. TECHNIQUE: Standardized fat and water weighted pulse sequences were obtained in all 3 orthogonal planes. COMPARISON: Radiographs 09/24/2021. FINDINGS: Normal medial meniscus. Normal hyaline cartilage of the medial femorotibial compartment. There is a very small focus of subchondral bone edema of the medial tibial plateau (T2 coronal images 10-15), a stress phenomenon. Normal medial collateral ligamentous complex (MCL). Normal distal semimembranosus, gracilis and semitendinosus tendons. Normal lateral meniscus. There is a focal chondral defect of the lateral femoral condyle (T2 sagittal image 17) measuring approximately 1.3 x 0.7 cm (AP x transverse). There is a small focal chondral defect of the mesial aspect of the lateral tibial plateau (T2 coronal image 13) measuring 0.4 cm in transverse and AP dimensions. Normal lateral femoral condyle and tibial plateau. Normal proximal tibiofibular articulation. Normal lateral collateral (fibular) ligament. Normal popliteus tendon. Normal biceps femoris tendon. Normal anterior cruciate ligament (ACL). Normal posterior cruciate ligament (PCL). There is lateral subluxation and mild lateral tilt of the patella (T2 axial image 11). Normal hyaline cartilage of the patellofemoral compartment. Normal medial and lateral patellar retinaculum. Normal quadriceps tendon. Normal patellar tendon. Normal Hoffa''s fat pad. There is a moderate-sized joint effusion. There is edema in the anterior subcutis adipose space. The otherwise visualized osseous structures are unremarkable. MRI/Lower Ext Joint Only (Routine) IMPRESSION: Focal chondral defect of the lateral femoral condyle and small focal chondral defect of the lateral tibial plateau. Lateral subluxation and mild lateral tilt of the patella. Very small focus of subchondral bone edema of the medial tibial plateau, a stress phenomenon. Joint effusion. The TT-TG distance is 11 mm. Electronically Signed: Miller Jonas MD at 11:18 EDT ,
== END 2021-10-05 23:59 | disposition home or self-care (01) ==
LOC: MRI 10:03
PROVIDERS: PCP Family Medicine; Referring Provider Nurse Practitioner; Visit Provider Nurse Practitioner
DX: M23.92 Unspecified internal derangement of left knee (principal)
CPT/HCPCS: 73721

== ENCOUNTER 2022-03-07 07:30 | Outpatient (RCR) | payer MEDICAID, SELFPAY ==
--- NOTE | 2021-10-22 15:35 | HP.PTEVAL ---
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 Date of Evaluation: 10/22/21 Physical Therapist: Brenna Corona DPT - Visit Plan Frequency: 2x /Week Duration: 4 Weeks Plan: Focus on LE and core strength/stabilization with functional mobility - Subjective Patient reports that her left knee cap dislocated- first time was about a month pushing a clutch in the truck- and has happened a few times since then. She was able to get home from her trip in the [place] and went to see the MD. They did x-rays and checked mobility- sent her for an MRI. The MRI said the knee cap was out of position and damaged the cartilage and think the knee cap will continue to dislocate. The goal is to strengthen to decrease the subluxation. She sees the surgeon in 2 weeks. She was here for her right knee before for the same thing- thinking that she probably dislocated. She is currently still doing exercises. VMO straight leg raise, SLR, hamstring stool scoots. Currently she feels pain that radiates on the outside of the knee. She feels that the knee cap pops it feels unstable. Has been using crutches and cane to help her get around. Is not currently wearing a knee brace due to the fact that they are not fitting. Describes the pain as sharp. She is now dislocating more than weekly- any possibly daily. She walks on it until it goes back in. Worst: -09/16. Agg: stairs (up), sleep, uneven terrain. Eases: relocation of the patella into place. Best: 05/17. No N/T. She has hip pain bilateral- but no ankle pains. Sleep: disturbed when she rolls side to side and when the muscle spasm. 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 They think aquatic therapy- to strengthen as they are already doing a home exercise program. She is not currently in the correct alignment. PMHx/Meds: no changes since she saw ortho 10/11/21 - Objective Posture: FH, RS- can correct with verbal cues but does not maintain. Gait: straight cane- antalgic- decreased stance on the left LE- poor heel/toe pattern. Stairs: asc/desc 8 non-recip with 2 HR per pt report HR/TR: able pain with TR. SLS: weight shift but was unable to SLS- increased pain with increased instability. Sit to Stand: no UE A- mild weight shift to the right. Palpation: tender to touch throughout lateral knee joint- moderate patellar instability ROM: 10-120 degrees. Strength: Core: fair minus, Hip: 4+/5, Knee: 4+/5, Ankle: 5/5. Flex:HS: severe, Gastroc: moderate - Special Tests L Knee Valgus - MCL: Positive L Knee Varus - LCL: Positive L Knee Patellar Apprehension - PFS: Positive L Knee Patellar Grind - PFS: Positive - Balance/Special Test Scores Lower Extremity Functional Score: 31 - Goals Goal 1:: Patient will be I with HEP and progression Goal Time Frame: 4-6 Weeks Goal 2:: Patient will report 80% improvement Goal Time Frame: 4-6 Weeks Goal 3:: Patient will demo full extension in the left knee Goal Time Frame: 4-6 Weeks Goal 4:: Patient will maintain proper posture t/o tx session to demo increased core s/s Goal Time Frame: 4-6 Weeks - Rehabilitation Potential Physical Therapy Diagnosis: Patient presents with hypomobility- she has decreased LE and core strength/stabilization, flex, proprioception, ROM and muscular endurance leading to poor posture and increased pain with ADL's. Rehabilitation Potential: Fair - Anticipated Interventions Patient/Client Instruction: Educate patient on: Benefits of Fitness Program Therapeutic Exercise to Include: Strength training, Endurance training, Balance training, Coordination, Agility training, Body mechanics, Postural training, Flexibilty training, Gait and locomotor training, Neuromotor development, In an aquatic setting, Passive ROM, Active ROM, Dynamic Lumbar Stabilization, Scapular Strength/Stabilization For the Purpose of:: To improve muscle performance and motor function Thank you for the opportunity to evaluate your patient. For Medicare and Medicare HMO plans, please review the plan of care and approve it. It will need to be FAXED BACK to us at [phone] for Medicare purposes. For Medicare only, by signing this I certify the plan of care. Please let me know if there are questions or concerns regarding this plan of care. Physician Signature: Date:
--- NOTE | 2021-12-12 12:49 | HP.PTREVAL_ITS ---
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 Please see the progress note below for an update on the physical therapy plan of care! Subjective: Patient reports that the knee is still snap crackling and popping- gave out on her the other day. Went to see ortho if he does anything its elective so it won't cover it- she plans to get a second opinion. She is not able to do her job. She has not had any severe dislocatoins but it does sublux. Wants to do it the most at night so sleep is hard. ADL's are okay but working is impossible. She is not back to work. She feels that she is getting stronger and feels that PT is helping. Objective/Function: Posture: FH, RS- can correct with verbal cues but does not maintain. Gait: straight cane into clinic but can ambulate without- antalgic- decreased stance on the left LE- poor heel/toe pattern. Stairs: asc/desc 8 non- recip with 2 HR per pt report HR/TR: able. SLS: 5 seconds- increased pain with increased instability. Sit to Stand: no UE A- mild weight shift to the right. Palpation: tender to touch throughout lateral knee joint- moderate patellar instability ROM: 0-120 degrees. Strength: Core: fair minus, Hip: 4+/5, Knee: 4+/5, Ankle: 5/5. Flex:HS: severe, Gastroc: moderate Plan Plan: 12/12/21: Working towards progression to land- 1x a week aquatic and 1x a week land- gentle on land! *f/u with supervising PT next. Would recommend continued AT at this time. However, has been given all pages and ed. on I pool program. Leaning towards this option when formal PT concludes, however, has also been given significant land HEP also. *f/u with new HEP tasks. Focus on LE and core strength/stabilization with functional mobility Balance/Gait/Functional tests - Balance/Special Test Scores Lower Extremity Functional Score: 39 Goals Goal 1:: Patient will be I with HEP and progression Goal Time Frame: 4-6 Weeks Goal Progress: Progressing Goal 2:: Patient will report 80% improvement Goal Time Frame: 4-6 Weeks Goal Progress: Progressing Goal 3:: Patient will demo full extension in the left knee Goal Time Frame: 4-6 Weeks Goal Progress: Goal Met Goal 4:: Patient will maintain proper posture t/o tx session to demo increased core s/s Goal Time Frame: 4-6 Weeks Goal Progress: Progressing Anticipated Interventions Patient/Client Instruction: Educate patient on: Benefits of Fitness Program Therapeutic Exercise to Include: Strength training, Endurance training, Balance training, Coordination, Agility training, Body mechanics, Postural training, Flexibilty training, Gait and locomotor training, Neuromotor development, In an aquatic setting, Passive ROM, Active ROM, Dynamic Lumbar Stabilization, Scapular Strength/Stabilization For the Purpose of:: To improve muscle performance and motor function Please do not hesitate to contact me at [phone] by phone or if you have questions or concerns regarding this new plan of care! Sincerely, Brenna Corona DPT
--- NOTE | 2022-03-07 07:44 | HP.PTDCSUM ---
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 Discharge Date: Please see the following information for a summary of their discharge status. Subjective: Patient reports that her knee still hates her. The knee is still dislocating a couple of times a week. She is waiting to get an apt with the second opinion MD. this morning and its located on the inside and the quad is tight L knee Pain Intensity (Out of 10): 0 L thigh Pain Intensity (Out of 10): 6 RLE Pain Intensity (Out of 10): 0 Lumbar Spine Pain Intensity (Out of 10): 0 % Improvement: 25 Objective/Function: Posture: FH, RS- can correct with verbal cues but does not maintain. Gait: no AD- no deviation noted Stairs: asc/desc 8 recip with reports of pain with asc HR/TR: able. SLS: 30 secondsSit to Stand: no UE A Palpation: tender to touch throughout lateral and medial knee joint- ROM: 0-120 degrees. Strength: Core: fair minus, Hip: 4+/5, Knee: Flexion: 18 lbs of force Extn: 14 lbs of forceeAnkle: 5/5. Flex:HS: severe, Gastroc: moderate Goal 1:: Patient will be I with HEP and progression Goal Progress: Progressing Goal 2:: Patient will report 80% improvement Goal Progress: Progressing Goal 3:: Patient will demo full extension in the left knee Goal Progress: Goal Met Goal 4:: Patient will maintain proper posture t/o tx session to demo increased core s/s Goal Progress: Progressing Plan: 03/07/22: Discharge and return to MD for further evaluation. *12/12/21: Working towards progression to land- 1x a week aquatic and 1x a week land- gentle on land! Focus on LE and core strength/stabilization with functional mobility If there are questions or concerns regarding this patient's physical therapy, please feel free to call me at [phone]. Thank you for the referral of this patient. Sincerely, Brenna Corona, DPT Balance/Gait/Functional tests - Balance/Special Test Scores Lower Extremity Functional Score: 33
== END 2022-03-07 10:11 | disposition home or self-care (01) ==
LOC: PT 07:30
PROVIDERS: PCP Family Medicine; Referring Provider Nurse Practitioner; Visit Provider Nurse Practitioner
DX: M94.8X6 Other specified disorders of cartilage, lower leg (principal); S83.09 Other subluxation and dislocation of patella
CPT/HCPCS: 97110; 97113; 97162; 97164

== ENCOUNTER → 2022-05-06 | Outpatient (CLI) | payer MEDICAID, SELFPAY ==
[2022-05-06 12:10] LABS: Erythrocyte Sedimentation Rate 17 mm/hr (0-30)
[2022-05-06 12:12] LABS: Absolute Lymphocyte Count 1.63 X10^3/uL (0.83-4.51); Absolute Neutrophil Count 4.2 X10^3/uL (2.0-7.7); Basophil# 0.03 X10^3/uL; Basophil% 0.5 % (0-1); Eosinophil# 0.22 X10^3/uL; Eosinophils% 3.4 % (0-5); Hematocrit 39.9 % (37-47); Hemoglobin 12.4 g/dL (12.0-15.0); Lymphocyte # 1.63 X10^3/ul (0.83-4.51); Mean Corp Hgb Conc 31.1 g/dL (32-36); Mean Corpuscular Hgb 24.2 pg (27.0-32.0); Mean Corpuscular Volume 77.9 fL (81-99); Mean Platelet Vol. 10.3 fl (6.2-12.0); Monocyte# 0.43 X10^3/uL; Monocyte% 6.6 % (0-10); NRBC Flagged by Analyzer 0 % (0-5); Neutrophil % 64.2 % (47-70); Platelet Count 323 K/mm3 (150-450); RBC Distribution Width CV 16.4 % (11.6-14.6); RBC Distribution Width SD 46.3 fl (35.1-43.9); Red Blood Count 5.12 M/mm3 (4.2-5.4); White Blood Count 6.5 K/mm3 (4.4-11.0)
[2022-05-06 12:30] LABS: T3 Total - Triiodothyronine 1.28 ng/mL (0.6-1.81)
[2022-05-06 12:52] LABS: ALB/GLOB Ratio 0.8 RATIO (0.9-2.4); AST(SGOT) 9 U/L (15-37); Alanine Aminotransfer ALT/SGPT 17 U/L (13-56); Albumin, Serum 3.3 g/dL (3.2-5.0); Alkaline Phosphatase 82 U/L (45-117); Anion Gap 2 (5-15); BUN 12 mg/dL (7-18); BUN/Creat Ratio 17.3 RATIO (10-20); CRP 3.51 mg/L (0.0-3.0); Calcium,Total 8.8 mg/dL (8.5-10.1); Chloride 107 mmol/L (98-107); Creatinine, Serum 0.69 mg/dL (0.55-1.02); EST Glomerular Filtration Rate 101 mL/min (>60); Est Glom Filt Rate - Afr Amer 122 mL/min (>60); Glucose 77 mg/dL (74-106); Potassium 3.8 mmol/L (3.5-5.1); Protein, Total 7.3 g/dL (6.4-8.2); Sodium Level 136 mmol/L (136-145); T4 Free Direct 1.11 ng/dL (0.76-1.46); Thyroid Stim Hormone (TSH) 2.08 uIU/mL (0.358-3.74)
[2022-05-07 15:08] LABS: ANTINUCLEAR ANTIBODIES DIRECT Positive (Negative); Anti-Centromere B Ab <0.2 AI (0.0-0.9); Anti-Chromatin 0.3 AI (0.0-0.9); Anti-Jo 0.9 AI (0.0-0.9); Anti-Scleroderma-70 AB 1.4 AI (0.0-0.9); RNP Ab 0.2 AI (0.0-0.9); SJOGREN'S Anti-SS-A test 0.8 AI (0.0-0.9); SJOGREN'S Anti-SS-B test < 0.2 AI (0.0-0.9); Smith Ab 1.7 AI (0.0-0.9)
[2022-05-07 19:42] LABS: Anti-dsDNA Ab 4 IU/mL (0-9)
== END | disposition home or self-care (01) ==
LOC: BIMLAB 11:06
PROVIDERS: PCP Internal Medicine; Visit Provider Internal Medicine
DX: M25.50 Pain in unspecified joint (principal)
CPT/HCPCS: 36415; 80053; 84439; 84443; 84480; 85025; 85652; 86038; 86140; 86225; 86235

== ENCOUNTER 2022-05-24 14:16 | Emergency (ER) | payer MEDICAID, SELFPAY ==
[2022-05-24 14:17] VITALS: BP 136/102; PULSE 90; RESP 16; TEMP 36.6; O2SAT 100; BMI 46.5
[2022-05-24 15:01] LABS: Squamous Epithelial Cells - UA 0 SEEN /hpf (5-10)
[2022-05-24 15:13] LABS: Color, Urine Yellow (Yellow); Glucose, Dipstick Normal (Normal); Ketone-Dipstick 5 mg/dl (Negative); Leukocyte Esterase-Dipstick 25 /ul (Negative); Nitrite-Dipstick Negative (Negative); Occult Blood-Urine 250 /ul (Negative); Protein-Dipstick 30 mg/dl (Negative); Urine Bilirubin Dipstick Negative (Negative); Urine Clarity Sl. Cloudy (Clear); Urine Urobilinogen 1 mg/dl (Normal); Urine pH 6.5 (5.0 - 8.0)
[2022-05-24 15:19] LABS: Mucous, Urine 2+ /hpf (<or=2+); Red Blood Cells-Urine 25-50 SEEN /hpf (0-5); White Blood Cells 0-5 SEEN /hpf (0-5)
[2022-05-24 15:20] LABS: Bacteria 1+ /hpf (None Seen)
[2022-05-24 15:50] LABS: Internal QC Validated? YES +Cl - CLEAR BKGD; Pregnancy, Serum, hCG Quali. NEGATIVE Negative
--- NOTE | 2022-05-24 16:01 | CT_ITS ---
EXAM: CT ABDOMEN AND PELVIS WITHOUT INTRAVENOUS CONTRAST CLINICAL INDICATION: Pain TECHNIQUE: Helically acquired images were obtained of the abdomen and pelvis without intravenous contrast. This CT exam was performed using one or more of the following dose reduction techniques: automated exposure control, adjustment of the mA and/or kV according to patient size, and/or use of iterative reconstruction technique. This report was created using [employer] report generation technology. COMPARISON: None. FINDINGS: LOWER THORAX: There is a small hiatal hernia. Lung bases are clear. No cardiomegaly. No significant pericardial effusion. ABDOMEN: LIVER: Unremarkable. Homogeneous. GALLBLADDER AND BILE DUCTS: Unremarkable. No calcified gallstones. No gallbladder distention or wall edema. No intra- or extrahepatic biliary ductal dilation. PANCREAS: Unremarkable. No focal cystic mass. SPLEEN: Unremarkable. Normal size without focal cystic or solid mass. ADRENALS: Unremarkable. No nodules. KIDNEYS AND URETERS: There is right-sided hydronephrosis and hydroureter. There is a 3 mm stone at the right UVJ. Normal renal size and position. STOMACH AND BOWEL: Unremarkable. No stomach or bowel distention. No focal inflammatory change. PELVIS: APPENDIX: No evidence of acute appendicitis. BLADDER: Unremarkable. REPRODUCTIVE: Unremarkable as visualized. No mass. ABDOMEN and PELVIS: INTRAPERITONEAL SPACE: Unremarkable. No ascites or other fluid collection. No free air. BONES/JOINTS: Unremarkable. No suspicious lytic or blastic abnormality. SOFT TISSUES: Unremarkable. No discrete abdominal or pelvic wall hernia. VASCULATURE: Unremarkable. Abdominal aorta is non-dilated. LYMPH NODES: Unremarkable. No enlarged lymph nodes. CT/Abdomen/Pelvis without Cont IMPRESSION: Obstruction of the right collecting system due to a 3 mm stone at the UVJ. There is mild right-sided hydronephrosis and hydroureter. There is a nonobstructing calyceal stone in the right kidney. Electronically Signed: Suhail Perez MD at 16:56 EDT ,
--- NOTE | 2022-05-24 16:05 | EDS_ITS ---
HPI <CHRISTIANA Lewis - Last Filed: 05/24/22 18:27> HPI - Female History of Present Illness Chief Complaint: Flank Pain Narrative Narrative: Patinent presents today with right-sided flank pain that started around 2 PM this afternoon. She states that the pain came on suddenly and is sharp and radiates somewhat into the right side of her abdomen. Patient also reports urinary hesitancy and nausea. She denies any dysuria, vomiting, abdominal pain, history of kidney stones, fever, and diarrhea. PMH includes lupus. PFSH <CHRISTIANA Lewis - Last Filed: 05/24/22 18:27> PFSH Medical History Anemia Anxiety and depression Articular cartilage disorder of left knee Aspiration pneumonia Asthma Back problem Derangement of left knee Dysesthesia of scalp Frequent headaches Lupus Seasonal allergies Subluxation of left patella Trichilemmal cyst UTI (urinary tract infection) Vitamin deficiency Home Medications amitriptyline 10 mg tablet 5 mg PO QHS 05/24/22 [History Last Taken Unknown] ondansetron 4 mg disintegrating tablet 4 mg PO Q8H PRN PRN Nausea #10 tabs 05/24/22 [Rx Last Taken Unknown] oxycodone-acetaminophen 5 mg-325 mg tablet (Percocet) 1 tab PO Q8H PRN pain 3 days #10 tabs 05/24/22 [Rx Last Taken Unknown] tamsulosin 0.4 mg capsule (Flomax) 0.4 mg PO DAILY #7 caps 05/24/22 [Rx Last Taken Unknown] Allergy/AdvReac Type Severity Reaction Status Date / Time No Known Allergies Allergy Verified 05/24/22 14:18 Family History Mother Anxiety Depressed Psychiatric care Suicide attempt Thyroid disorder Father Diabetes Surgical History H/O sinus surgery History of knee surgery History of tubal ligation Social History household members: significant other current occupational status: employed 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 [employer] Smoking Status: Never smoker Electronic Cigarette Use: not used alcohol intake: never substance use type: does not use what type of physical activity do you participate in: other details: CARDIOVASCULAR frequency: 5-6 times per week seatbelt use: always do you feel safe at home: Yes ROS <CHRISTIANA Lewis - Last Filed: 05/24/22 18:27> ROS ED Constitutional Constitutional ED: Denies chills, fever(s) or sweats Eyes Eyes: Denies blurry vision or diplopia Cardiovascular Cardiovascular: Denies chest pain or palpitations Respiratory/Chest Respiratory/Chest: Denies cough or dyspnea Gastrointestinal Gastrointestinal: Reports abdominal pain and nausea; Denies constipation, diarrhea or vomiting Genitourinary Genitourinary ED: Denies dysuria, hematuria or urinary urgency Musculoskeletal Musculoskeletal: Reports back pain; Denies arthralgias, myalgias or neck pain Integumentary Denies abscess, Abrasions or rash Neurologic Neurologic: Denies confusion, dizziness or paresthesias Psychiatric Psychiatric: Denies anxiety, depression, suicidal ideation or suicidal thoughts EXAM <CHRISTIANA Lewis - Last Filed: 05/24/22 18:27> Physical Exam Const Vital Signs: 05/24/22 14:17 05/24/22 16:11 05/24/22 17:50 Temperature 98 F Temperature Source Temporal Pulse Rate 90 65 Respiratory Rate 16 18 Respiratory Effort Normal Respiratory Pattern Normal Blood Pressure 136/102 H 137/90 H Blood Pressure Mean 113 Pulse Ox 100 Oxygen Delivery Method Room Air Positive well nourished, well developed and no apparent distress General Appearance ED: well developed HEENT Reports normocephalic and head/scalp atraumatic Mouth ED: Yes moist mucous membranes normal Eyes PERRL and EOMs intact bilaterally Neck full ROM and supple Chest Wall inspection of chest normal Resp normal respiratory effort and clear to auscultation bilaterally Cardio regular rate and regular rhythm GI soft to palpation, non-tender, non-distended and no masses Back/Spine normal ROM and normal to inspection General Back: CVA tenderness right Extremity normal to inspection and full ROM Neuro oriented x3, CN's II-XII intact bilaterally, moves all extremities, no focal motor deficits and no sensory deficits noted Sensorium / Orientation: awake and alert Psych mental status grossly normal and thought process normal Skin no rashes or lesions noted and no wounds <Dr. Jerome Yao DO - Last Filed: 05/24/22 18:29> Physical Exam Const Vital Signs: 05/24/22 14:17 05/24/22 16:11 05/24/22 17:50 Temperature 98 F Temperature Source Temporal Pulse Rate 90 65 Respiratory Rate 16 18 Respiratory Effort Normal Respiratory Pattern Normal Blood Pressure 136/102 H 137/90 H Blood Pressure Mean 113 Pulse Ox 100 Oxygen Delivery Method Room Air [facility] <CHRISTIANA Lewis - Last Filed: 05/24/22 18:27> [facility] Narrative Medical decision making narrative: Patient presenting with right-sided flank pain that started earlier this afternoon. She has been given Zofran, IV fluids, and morphine. CT of the abdomen pelvis without contrast will be obtained to rule out kidney stones and other abdominal etiology. CT scan shows a?3 mm stone at the UVJ. There is mild right-sided hydronephrosis and hydroureter. Patient was given additional pain control. On reexamination she states she is feeling much better. She will be discharged home with pain control, Flomax, Zofran. She has been given return precautions. She is agreeable with plan. Lab Data Attestation: I reviewed the patient's lab results. Lab results narrative: No leukocytosis, BMP unremarkable for any electrolyte abnormality or DIMITRI. Labs: Laboratory Results - last 24 hr 05/24/22 05/24/22 05/24/22 14:18 14:18 14:18 WBC RBC Hgb Hct MCV MCH MCHC RDW Std Deviation RDW Coeff of Rosas Plt Count MPV Immature Gran % (Auto) Neut % (Auto) Lymph % (Auto) [place] % (Auto) Eos % (Auto) Baso % (Auto) Absolute Neuts (auto) Absolute Lymphs (auto) Nucleated RBC % Sodium 139 Potassium 3.9 Chloride 107 Carbon Dioxide 25.0 Anion Gap 7 BUN 10 Creatinine 0.85 Estim Creat Clear Calc 81.54 Est GFR (MDRD) Af Amer 96 Est GFR (MDRD) Non-Af 79 BUN/Creatinine Ratio 11.7 Glucose 105 Calcium 9.0 Serum , Qual NEGATIVE Urine Color Yellow Urine Clarity Sl. Cloudy Urine pH 6.5 Ur Specific Eckley 1.020 Urine Protein 30 H Urine Glucose (UA) Normal Urine Ketones 5 H Urine Occult Blood 250 H Urine Nitrite Negative Urine Bilirubin Negative Urine Urobilinogen 1 H Ur Leukocyte Esterase 25 H Urine RBC 25-50 SEEN Urine WBC 0-5 SEEN Ur Squamous Epith Cells 0 SEEN Urine Bacteria 1+ Urine Mucus 2+ 05/24/22 16:19 WBC 6.7 RBC 5.52 H Hgb 13.2 Hct 42.5 MCV 77.0 L MCH 23.9 L MCHC 31.1 L RDW Std Deviation 45.4 H RDW Coeff of Rosas 16.1 H Plt Count 368 MPV 10.8 Immature Gran % (Auto) 0.400 Neut % (Auto) 69.0 Lymph % (Auto) 21.7 [place] % (Auto) 5.2 Eos % (Auto) 3.0 Baso % (Auto) 0.7 Absolute Neuts (auto) 4.7 Absolute Lymphs (auto) 1.46 Nucleated RBC % 0 Sodium Potassium Chloride Carbon Dioxide Anion Gap BUN Creatinine Estim Creat Clear Calc Est GFR (MDRD) Af Amer Est GFR (MDRD) Non-Af BUN/Creatinine Ratio Glucose Calcium Serum , Qual Urine Color Urine Clarity Urine pH Ur Specific Eckley Urine Protein Urine Glucose (UA) Urine Ketones Urine Occult Blood Urine Nitrite Urine Bilirubin Urine Urobilinogen Ur Leukocyte Esterase Urine RBC Urine WBC Ur Squamous Epith Cells Urine Bacteria Urine Mucus Radiography Chest X-Ray - ED: Read by ED Physician and Read by Radiologist Diagnostic Testing: Clinical Impression(s) from Imaging Studies Abdomen/Pelvis CT 05/24/22 16:01 IMPRESSION: Obstruction of the right collecting system due to a 3 mm stone at the UVJ. There is mild right-sided hydronephrosis and hydroureter. There is a nonobstructing calyceal stone in the right kidney. Electronically Signed: Suhail Perez MD at 16:56 EDT , <Dr. Jerome Yao, DO - Last Filed: 05/24/22 18:29> [facility] Narrative Medical decision making narrative: Patient presenting with right-sided flank pain that started earlier this afternoon. She has been given Zofran, IV fluids, and morphine. CT of the abdomen pelvis without contrast will be obtained to rule out kidney stones and other abdominal etiology. CT scan shows a?3 mm stone at the UVJ. There is mild right-sided hydronephrosis and hydroureter. Patient was given additional pain control. On reexamination she states she is feeling much better. She will be discharged home with pain control, Flomax, Zofran. She has been given return precautions. She is agreeable with plan. This patient was seen with a PA/SHEET ROCK TAPER HELPER Individually assessed they patient including history and physical. I have reviewed everything on the chart that is available and agree with the documentation provided by the PA/SHEET ROCK TAPER HELPER including discussion about the assessment, treatment plan, discussion, and return precautions. Patient with acute onset flank pain. High suspicion for renal or ureteral calculi. Differential includes nephritis, UTI, colitis. Patient medicated with morphine and Zofran. She feels improved. Urinalysis notes no evidence of infection. There is occult blood. Function electrolytes normal. Patient given follow-up with urology. Return precautions discussed. Lab Data Labs: Laboratory Results - last 24 hr 05/24/22 05/24/22 05/24/22 14:18 14:18 14:18 WBC RBC Hgb Hct MCV MCH MCHC RDW Std Deviation RDW Coeff of Rsoas Plt Count MPV Immature Gran % (Auto) Neut % (Auto) Lymph % (Auto) [place] % (Auto) Eos % (Auto) Baso % (Auto) Absolute Neuts (auto) Absolute Lymphs (auto) Nucleated RBC % Sodium 139 Potassium 3.9 Chloride 107 Carbon Dioxide 25.0 Anion Gap 7 BUN 10 Creatinine 0.85 Estim Creat Clear Calc 81.54 Est GFR (MDRD) Af Amer 96 Est GFR (MDRD) Non-Af 79 BUN/Creatinine Ratio 11.7 Glucose 105 Calcium 9.0 Serum , Qual NEGATIVE Urine Color Yellow Urine Clarity Sl. Cloudy Urine pH 6.5 Ur Specific Eckley 1.020 Urine Protein 30 H Urine Glucose (UA) Normal Urine Ketones 5 H Urine Occult Blood 250 H Urine Nitrite Negative Urine Bilirubin Negative Urine Urobilinogen 1 H Ur Leukocyte Esterase 25 H Urine RBC 25-50 SEEN Urine WBC 0-5 SEEN Ur Squamous Epith Cells 0 SEEN Urine Bacteria 1+ Urine Mucus 2+ 05/24/22 16:19 WBC 6.7 RBC 5.52 H Hgb 13.2 Hct 42.5 MCV 77.0 L MCH 23.9 L MCHC 31.1 L RDW Std Deviation 45.4 H RDW Coeff of Rosas 16.1 H Plt Count 368 MPV 10.8 Immature Gran % (Auto) 0.400 Neut % (Auto) 69.0 Lymph % (Auto) 21.7 [place] % (Auto) 5.2 Eos % (Auto) 3.0 Baso % (Auto) 0.7 Absolute Neuts (auto) 4.7 Absolute Lymphs (auto) 1.46 Nucleated RBC % 0 Sodium Potassium Chloride Carbon Dioxide Anion Gap BUN Creatinine Estim Creat Clear Calc Est GFR (MDRD) Af Amer Est GFR (MDRD) Non-Af BUN/Creatinine Ratio Glucose Calcium Serum , Qual Urine Color Urine Clarity Urine pH Ur Specific Eck[place] Urine Protein Urine Glucose (UA) Urine Ketones Urine Occult Blood Urine Nitrite Urine Bilirubin Urine Urobilinogen Ur Leukocyte Esterase Urine RBC Urine WBC Ur Squamous Epith Cells Urine Bacteria Urine Mucus Radiography Diagnostic Testing: Clinical Impression(s) from Imaging Studies Abdomen/Pelvis CT 05/24/22 16:01 IMPRESSION: Obstruction of the right collecting system due to a 3 mm stone at the UVJ. There is mild right-sided hydronephrosis and hydroureter. There is a nonobstructing calyceal stone in the right kidney. Electronically Signed: Suhail Perez MD at 16:56 EDT , Discharge Plan Triage Chief Complaint: Flank Pain ED Midlevel Provider: Jessica Santos ED Provider: Jerome Yao Dx/Rx/DC Orders Clinical Impression: Kidney stone Instructions: ED Kidney Stone w/ Colic Prescriptions: New oxycodone-acetaminophen [Percocet] 5-325 mg tablet 1 tab PO Q8H PRN (Reason: pain) 3 Days Qty: 10 0RF tamsulosin [Flomax] 0.4 mg capsule 0.4 mg PO DAILY Qty: 7 0RF Rx Instructions: Take with food. ondansetron 4 mg tablet,disintegrating 4 mg PO Q8H PRN PRN (Reason: Nausea) Qty: 10 0RF No Action amitriptyline 10 mg tablet 5 mg PO QHS Primary Care Provider: Virgie Donahue Referrals: Virgie Donahue MD [Primary Care Provider] - Hasmukh Barnett MD [Med Staff - Active Staff] - 5-7 Days Activity Restrictions/Additional Instructions: Please return for any worsening of symptoms. Disposition Disposition: Home, Self Care Discharge Date/Time: 05/24/22 18:12
[2022-05-24] MEDS: Morphine 4 MG/ML Syringe IV ×2 (16:10→17:45)
[2022-05-24] MEDS: Ondansetron 4 MG/2 ML Vial IV (16:10)
[2022-05-24] MEDS: 0.9% Normal Saline 1,000 ML 999 ML IV (16:15)
[2022-05-24 16:18] LABS: Absolute Lymphocyte Count 1.46 X10^3/uL (0.83-4.51); Absolute Neutrophil Count 4.7 X10^3/uL (2.0-7.7); Basophil# 0.05 X10^3/uL; Basophil% 0.7 % (0-1); Hematocrit 42.5 % (37-47); Hemoglobin 13.2 g/dL (12.0-15.0); Lymphocyte # 1.46 X10^3/ul (0.83-4.51); Lymphocyte % 21.7 % (19-41); Mean Corp Hgb Conc 31.1 g/dL (32-36); Mean Corpuscular Hgb 23.9 pg (27.0-32.0); Mean Platelet Vol. 10.8 fl (6.2-12.0); Monocyte# 0.35 X10^3/uL; Monocyte% 5.2 % (0-10); NRBC Flagged by Analyzer 0 % (0-5); Neutrophil # 4.65 X10^3/uL (2.7-7.7); Platelet Count 368 K/mm3 (150-450); RBC Distribution Width CV 16.1 % (11.6-14.6); RBC Distribution Width SD 45.4 fl (35.1-43.9); Red Blood Count 5.52 M/mm3 (4.2-5.4); White Blood Count 6.7 K/mm3 (4.4-11.0)
[2022-05-24 16:21] LABS: Anion Gap 7 (5-15); BUN 10 mg/dL (7-18); BUN/Creat Ratio 11.7 RATIO (10-20); Chloride 107 mmol/L (98-107); Creatinine, Serum 0.85 mg/dL (0.55-1.02); EST Glomerular Filtration Rate 79 mL/min (>60); Est Glom Filt Rate - Afr Amer 96 mL/min (>60); Estimated Creatinine Clearance 81.54 ml/min; Glucose 105 mg/dL (74-106); Potassium 3.9 mmol/L (3.5-5.1); Sodium Level 139 mmol/L (136-145)
[2022-05-24 17:50] VITALS: BP 137/90; PULSE 65; RESP 18
== END 2022-05-24 18:12 | disposition home or self-care (01) ==
PROVIDERS: Physician Assistant; Emergency Provider Student in an Organized Health Care Education/Training Program; PCP Internal Medicine; Visit Provider Student in an Organized Health Care Education/Training Program
DX: N13.2 Hydronephrosis with renal and ureteral calculous obstruction (principal); F41.8 Other specified anxiety disorders; Z79.899 Other long term (current) drug therapy
CPT/HCPCS: 74176; 80048; 81001; 84703; 85025; 96374; 96375; 96376; 99283; J7030; A4216; J2405

== ENCOUNTER → 2022-06-25 | Outpatient (CLI) | payer MEDICAID, SELFPAY ==
--- NOTE | 2022-06-25 12:49 | US_ITS ---
STUDY: THYROID ULTRASOUND REASON FOR EXAM: Female, 36 years old. Thyromegaly. TECHNIQUE: Ultrasound evaluation of the thyroid was performed with real-time and static peraza-scale imaging. COMPARISON: September 24, 2021 FINDINGS: RIGHT LOBE: The right lobe of the thyroid gland measures 5.0 x 1.9 x 1.6 cm. There is a homogeneous echotexture. In the upper medial aspect of the right lobe there is a 0.4 x 0.2 x 0.4 cm hypoechoic nodule. In the mid thyroid there is a 0.3 x 0.1 x 0.3 cm hypoechoic nodule. Normal vascularity on Doppler imaging. LEFT LOBE: The left lobe of the thyroid gland measures 5.2 x 1.5 x 1.4 cm. There is a homogeneous echotexture. There are no demonstrated solid, cystic or complex lesions. Normal vascularity on Doppler imaging. ISTHMUS: The isthmus measures 0.3 cm. The regional lymph nodes are normal. US/Thyroid IMPRESSION: Stable findings when compared to a study of September 24, 2021. The thyroid nodules on the right are considered moderately suspicious, TR 4 by TI-RADS categorization. No FNA or follow-up is necessary due to their small size. Electronically Signed: Wes De La Vega DO at 17:06 EDT ,
== END | disposition home or self-care (01) ==
LOC: US 12:48
PROVIDERS: PCP Internal Medicine; Referring Provider Internal Medicine; Visit Provider Internal Medicine
DX: E04.9 Nontoxic goiter, unspecified (principal)
CPT/HCPCS: 76536

== ENCOUNTER → 2022-06-26 | Outpatient (CLI) | payer MEDICAID, SELFPAY ==
--- NOTE | 2022-06-26 12:11 | RAD_ITS ---
STUDY: X-RAY - LUMBAR SPINE REASON FOR EXAM: Female, 36 years old. Radiating low back pain TECHNIQUE: 2 view(s) of the lumbar spine were obtained. COMPARISON: None FINDINGS: Normal lumbar lordosis. There is no substantial scoliosis. There is a normal alignment of the vertebrae. Normal vertebral bodies and endplates. Mild disc space narrowing throughout the lumbar spine.. There is no demonstrated fracture. The soft tissue structures are unremarkable. RAD/Lumbar Spine 2 or 3 Views IMPRESSION: Mild disc space narrowing throughout the lumbar spine. Electronically Signed: Mazin Lobato MD at 13:15 EDT ,
--- NOTE | 2022-06-26 12:15 | RAD_ITS ---
STUDY: X-RAY - CERVICAL SPINE REASON FOR EXAM: Female, 36 years old. Neck pain and headache TECHNIQUE: 3 view(s) of the cervical spine were obtained. COMPARISON: None FINDINGS: Normal anterior atlantoaxial articulation. Normal odontoid process. Normal cervical lordosis. Normal vertebral bodies and endplates. Normal disc space heights. Normal visualized intervertebral neuroforamina. The soft tissue structures are unremarkable. RAD/Cerv Spine 2 or 3 Views IMPRESSION: Normal x-ray examination of the visualized cervical spine. Electronically Signed: Mazin Lobato MD at 13:16 EDT ,
== END | disposition home or self-care (01) ==
LOC: RAD 12:04
PROVIDERS: PCP Internal Medicine; Referring Provider Anesthesiology Pain Medicine; Visit Provider Anesthesiology Pain Medicine
DX: M50.30 Other cervical disc degeneration, unspecified cervical region (principal); M54.30 Sciatica, unspecified side
CPT/HCPCS: 72040; 72100

== ENCOUNTER 2022-10-09 14:00 | Outpatient (RCR) | payer MEDICAID, SELFPAY ==
--- NOTE | 2022-08-02 16:22 | HP.PTEVAL_ITS ---
Patient's Visit Information CAR SANTOYO is a 37 year old F referred to Physical Therapy by Dr. Syed Casper MD with a diagnosis of Back Pain. Date of Evaluation: 08/02/22 Physical Therapist: Jt Mckeon PT, REGLA, SCS, CSCS - Visit Plan Frequency: 2x /Week Duration: 6 Weeks Plan: Intiate a aquatic program then transition to land if possible. - Subjective Mrs Santoyo was referred to our care by Dr Casper with a dx of back pain. Car said that she has been diagnosed previously lupus and that she has a lot of pain. Most of her pain now is B knee which she is seeing a joint preservation specialist in September and low back. We had previously treated her for a knee dislocation. 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 Side bending L/R increase appears to increase her pain. I did not appreciate a decrease in strength in her lower extremity. Negative slump but positive R SLR referred to r toe and mild L SLR to hip. In prone, compression of her spine at L4-S1 increased her familiar pain across buttocks. - Balance/Special Test Scores Oswestry Low Back Score: 31 - Goals Goal 1:: Return DEMo her HEP Goal Time Frame: 1 Week Goal 2:: Initiate a water based dynamic stabilization with emphasize on abdominals Goal Time Frame: 4-6 Weeks Goal 3:: Reduce Oswestry score by 105 Goal Time Frame: 4-6 Weeks - Rehabilitation Potential Physical Therapy Diagnosis: Primarily LBP with R Referral Rehabilitation Potential: Fair - Anticipated Interventions Patient/Client Instruction: Educate patient on: Condition, Plan of Care For the Purpose of:: To decrease pain, To increase ROM, To assume or resume ADL's Therapeutic Exercise to Include: Strength training, Coordination, In an aquatic setting, Dynamic Lumbar Stabilization For the Purpose of:: To decrease pain, To increase ROM, To assume or resume ADL's Ultrasound (thermal/non thermal): Yes For the Purpose of:: To decrease pain, To increase ROM, To assume or resume ADL's Thank you for the opportunity to evaluate your patient. For Medicare and Medicare HMO plans, please review the plan of care and approve it. It will need to be FAXED BACK to us at [phone] for Medicare purposes. For Medicare only, by signing this I certify the plan of care. Please let me know if there are questions or concerns regarding this plan of care. Physician Signature: Date:
--- NOTE | 2022-10-09 14:20 | HP.PTDCSUM ---
Discharge Summary D/C summary: It has been my pleasure to treat CAR YEH referred by Dr. Syed Casper MD, with the diagnosis of Back Pain for a total of 14 visit(s). Discharge Date: Please see the following information for a summary of their discharge status. Subjective Subjective: I am better than at beginning. feels much stronger in core strength adn balance but pain still present. 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 Does 2x/week. Hurts on off days at 5/10 no matter what she does. Sleep is OK most of time but wakes every 4-5 hours. Had visit with doctor this morning but she cancelled it. Is awaiting MRI but doctor forgot to order it. Feels MRI and injections are next step but none approved yet. May seek another pain doctor. Going to gym [employer] 3x/week. Pain Back: Pain Intensity (Out of 10): 5 BLE: Pain Intensity (Out of 10): 5 Overall Improvement % Improvement: 25 Objective Objective/Function: Walks slowly but without antalgia today. LB arom mod to max limited in ext with pain centrally, min limited flexion without hesitation, SB are full and painfree. Overall strength and funciton are slowly better but pain not improving. Pt missed doctor appointment this am but is awaiting MRI and injections and this is a good next step due to her lack of improvement. Goals Goal 1:: Return DEMo her HEP Goal Progress: gym with list Goal 2:: Initiate a water based dynamic stabilization with emphasize on abdominals Goal Progress: gym Goal 3:: Reduce Oswestry score by 105 Goal Progress: Not Progressing Plan Plan: d/c to I gym program.list given D/C Information d/c sentence: If there are questions or concerns regarding this patient's physical therapy, please feel free to call me at [phone]. Thank you for the referral of this patient. Sincerely, Del Cantu, DPT, OCS, CSCS Balance/Gait/Functional tests Balance/Special Test Scores Oswestry Low Back Score: 25
== END 2022-10-09 19:00 | disposition home or self-care (01) ==
LOC: PT 14:00
PROVIDERS: PCP Internal Medicine; Referring Provider Anesthesiology Pain Medicine; Visit Provider Anesthesiology Pain Medicine
DX: M54.9 Dorsalgia, unspecified (principal)
CPT/HCPCS: 97110; 97113; 97162; 97164

== ENCOUNTER → 2022-11-06 | Outpatient (CLI) | payer MEDICAID, SELFPAY ==
--- NOTE | 2022-11-06 10:00 | MRI_ITS ---
STUDY: MRI LUMBAR SPINE WITHOUT CONTRAST REASON FOR EXAM: Female, 37 years old. chronic pain TECHNIQUE: Standardized fat and water weighted pulse sequences were obtained in the sagittal and axial planes. Noncontrast images obtained. Contrast: No contrast administered COMPARISON: Plain film examination of 06/26/2022 FINDINGS: Vertebral bodies and alignment. 1. Vertebral body height and alignment are maintained. No evidence of marrow edema or occult fracture. Small hemangioma noted at L2. 2. Paraspinous soft tissue planes have normal appearance. Normal appearance of the muscular fascial planes of the erector spinae. 3. Normal appearance of the sacrum and sacroiliac joints. Intervertebral disks levels. T11-12: Disc desiccation, loss disc height, broad-based disc bulge/borderline protrusion osteophyte complex without cord compression. T12-L1: Disc desiccation, broad-based disc bulge without evidence canal stenosis or cord compression. L1-2: Normal endplates. Normal disc height, hydration and morphology. Normal bilateral facet joints. Normal central canal and bilateral lateral recesses. Normal bilateral intervertebral neural foramina. L2-3: Normal endplates. Normal disc height, hydration and morphology. Normal bilateral facet joints. Normal central canal and bilateral lateral recesses. Normal bilateral intervertebral neural foramina. L3-4: Normal endplates. Normal disc height, hydration and morphology. Normal bilateral facet joints. Normal central canal and bilateral lateral recesses. Normal bilateral intervertebral neural foramina. L4-5: Mild facet hypertrophic changes, no disc herniation or canal stenosis. Mild crowding of nerve roots in the lateral recesses. L5-S1: Disc desiccation, broad-based concentric disc protrusion, small central annular tear. There is compression of lateral recesses and crowding of nerve roots particularly on the LEFT including the LEFT S1 nerve root. No canal stenosis. Facet and ligamentum flavum hypertrophic changes are present. The neural foramina are widely patent. Spinal cord: Normal appearance of the spinal cord and conus. Conus is located at L1. Cauda equina has normal appearance. No evidence of cord compression or edema. No intramedullary signal abnormality noted. MRI/Spine Lumbar (Routine) IMPRESSION: 1. Broad-based disc protrusion at L5-S1, no evidence canal stenosis, however crowding of nerve roots in the lateral recesses greater on LEFT than RIGHT including the LEFT S1 nerve roots. 2. No other evidence of disc herniation or canal stenosis. 3. Mild multilevel facet hypertrophic changes. 4. Chronic disc changes at T11-12 and T12-L1. Broad-based disc bulge/borderline protrusion osteophyte complexes noted at these levels without canal stenosis or cord compression. 5. Normal appearance of visualized spinal cord and conus. Electronically Signed: Saul Calderon MD at 21:28 EDT ,
== END | disposition home or self-care (01) ==
LOC: MRI 09:16
PROVIDERS: PCP Internal Medicine; Referring Provider Internal Medicine; Visit Provider Internal Medicine
DX: M54.50 Low back pain, unspecified (principal); G89.29 Other chronic pain
CPT/HCPCS: 72148

== ENCOUNTER 2024-05-20 09:37 | Outpatient (RCR) | payer MEDICAID, SELFPAY | END 2024-06-07 23:59 | LOC: NS 09:37 | PROVIDERS: PCP Internal Medicine; Referring Provider Internal Medicine; Visit Provider Internal Medicine | DX: Z71.3 Dietary counseling and surveillance (principal); E66.01 Morbid (severe) obesity due to excess calories; Z68.42 Body mass index [BMI] 45.0-49.9, adult | CPT/HCPCS: 97802 ==

== ENCOUNTER → 2024-06-03 | Outpatient (CLI) | payer MEDICAID, SELFPAY ==
[2024-06-03 12:45] LABS: Absolute Lymphocyte Count 1.19 X10^3/uL (0.83-4.51); Absolute Neutrophil Count 2.8 X10^3/uL (2.0-7.7); Basophil# 0.04 X10^3/uL; Basophil% 0.9 % (0-1); Eosinophil# 0.11 X10^3/uL; Eosinophils% 2.4 % (0-5); Hematocrit 36.3 % (37-47); Hemoglobin 11.3 g/dL (12.0-15.0); Lymphocyte # 1.19 X10^3/ul (0.83-4.51); Lymphocyte % 26.4 % (19-41); Mean Corp Hgb Conc 31.1 g/dL (32-36); Mean Corpuscular Hgb 23.4 pg (27.0-32.0); Mean Corpuscular Volume 75.2 fL (81-99); Mean Platelet Vol. 11.1 fl (6.2-12.0); Monocyte# 0.37 X10^3/uL; Monocyte% 8.2 % (0-10); NRBC Flagged by Analyzer 0 % (0-5); Neutrophil # 2.79 X10^3/uL (2.7-7.7); Neutrophil % 61.9 % (47-70); Platelet Count 264 K/mm3 (150-450); RBC Distribution Width CV 16.9 % (11.6-14.6); RBC Distribution Width SD 45.3 fl (35.1-43.9); Red Blood Count 4.83 M/mm3 (4.2-5.4); White Blood Count 4.5 K/mm3 (4.4-11.0)
[2024-06-03 13:22] LABS: Iron 27 ug/dL (50-170); Iron Binding Capacity,Total 357 ug/dL (250-450); Iron Binding Capacity,Unsat 330 ug/dL (228-428)
[2024-06-03 13:25] LABS: Ferritin 7 ng/mL (22-378); Vitamin D,25 Hydroxy 19.9 ng/mL (30-100)
== END | disposition home or self-care (01) ==
LOC: BIMLAB 11:14
PROVIDERS: PCP Internal Medicine; Referring Provider Internal Medicine; Visit Provider Internal Medicine
DX: Z01.84 Encounter for antibody response examination (principal); E61.1 Iron deficiency; E55.9 Vitamin D deficiency, unspecified
CPT/HCPCS: 36415; 82306; 82728; 83540; 83550; 85025; 86765

== ENCOUNTER 2024-07-22 09:34 | Outpatient (RCR) | payer MEDICAID, SELFPAY | END 2024-08-07 23:59 | LOC: NS 09:34 | PROVIDERS: PCP Internal Medicine; Referring Provider Internal Medicine; Visit Provider Internal Medicine | DX: Z71.3 Dietary counseling and surveillance (principal); E66.01 Morbid (severe) obesity due to excess calories; Z68.42 Body mass index [BMI] 45.0-49.9, adult | CPT/HCPCS: 97803 ==

== ENCOUNTER 2024-08-17 12:04 | Outpatient (CLI) | payer MEDICAID, SELFPAY ==
[2024-08-17 12:45] VITALS: BP 141/74; PULSE 67; RESP 16; TEMP 36.3; O2SAT 99; BMI 48.2
[2024-08-17] MEDS: Sodium Ferric Gluconat/Sucrose 125 MG in 0.9% Normal Saline (100mL Bag) 100 ML 110 MG IV (12:52)
[2024-08-17 14:36] VITALS: BP 123/78; PULSE 65; RESP 16; TEMP 36.4; O2SAT 100
== END 2024-08-17 23:59 | disposition home or self-care (01) ==
LOC: MEDOUTP 12:04
PROVIDERS: PCP Internal Medicine; Referring Provider Internal Medicine; Visit Provider Internal Medicine
DX: D50.9 Iron deficiency anemia, unspecified (principal)
CPT/HCPCS: 96365; A4216; J2916

== ENCOUNTER → 2024-11-18 | Outpatient (CLI) | payer MEDICAID, SELFPAY ==
[2024-11-18 12:30] LABS: Hematocrit 37.5 % (37-47); Hemoglobin 11.8 g/dL (12.0-15.0); Immature Granulocytes Count 0.010 X10^3/uL (0.0-0.0); Mean Corp Hgb Conc 31.5 g/dL (32-36); Mean Corpuscular Volume 78.0 fL (81-99); Mean Platelet Vol. 10.8 fl (6.2-12.0); NRBC Flagged by Analyzer 0 % (0-5); Platelet Count 300 K/mm3 (150-450); RBC Distribution Width CV 15.8 % (11.6-14.6); RBC Distribution Width SD 45.0 fl (35.1-43.9); Red Blood Count 4.81 M/mm3 (4.2-5.4); White Blood Count 4.4 K/mm3 (4.4-11.0)
[2024-11-18 13:13] LABS: AST(SGOT) 16 U/L (<=31); Alanine Aminotransfer ALT/SGPT 11 U/L (<=34); Albumin, Serum 3.9 g/dL (3.5-5.0); Alkaline Phosphatase 66 U/L (35-104); Anion Gap 9 (5-15); BUN 8 mg/dL (4-19); BUN/Creat Ratio 11.1 RATIO (10-20); Calcium,Total 8.7 mg/dL (7.6-11.0); Carbon Dioxide 24.3 mmol/L (21.0-32.0); Chloride 106 mmol/L (98-108); Ferritin 13 ng/mL (22-378); Globulin 3.0 g/dL (2.2-4.2); Glucose 81 mg/dL (70-99); Iron 36 ug/dL (50-170); Iron Binding Capacity,Total 365 ug/dL (250-450); Iron Binding Capacity,Unsat 329 ug/dL (228-428); Potassium 3.9 mmol/L (3.3-5.1); Vitamin D,25 Hydroxy 24.6 ng/mL (30-100)
== END | disposition home or self-care (01) ==
LOC: BIMLAB 09:42
PROVIDERS: PCP Internal Medicine; Referring Provider Internal Medicine; Visit Provider Internal Medicine
DX: E61.1 Iron deficiency (principal); E55.9 Vitamin D deficiency, unspecified
CPT/HCPCS: 36415; 80053; 82306; 82728; 83540; 83550; 85025

== ENCOUNTER 2024-12-01 10:55 | Outpatient (CLI) | payer MEDICAID, SELFPAY ==
[2024-12-01 11:13] VITALS: BP 134/79; PULSE 71; RESP 16; TEMP 36.6; O2SAT 98; BMI 49.4
[2024-12-01] MEDS: 0.9% NaCl Peripheral Flush Adult IV (11:17)
[2024-12-01] MEDS: 0.9% NaCl IVPB Med Flush (100mL) 15 ML IV (11:17)
[2024-12-01] MEDS: Sodium Ferric Gluconat/Sucrose 125 MG in 0.9% Normal Saline (100mL Bag) 100 ML 110 MG IV (11:36)
[2024-12-01 13:13] VITALS: BP 108/71; PULSE 81; RESP 16; O2SAT 100
== END 2024-12-01 23:59 | disposition home or self-care (01) ==
LOC: MEDOUTP 10:55
PROVIDERS: PCP Internal Medicine; Referring Provider Internal Medicine; Visit Provider Internal Medicine
DX: D50.9 Iron deficiency anemia, unspecified (principal); M54.50 Low back pain, unspecified
CPT/HCPCS: 96365; 87086; 87088; A4216; J2916

== ENCOUNTER → 2024-12-01 | Outpatient (CLI) | payer MEDICAID, SELFPAY ==
--- OUTSIDE RECORDS SUMMARY | 2024-12-01 13:24 | XMS RPT_ITS | CCD ---
Author Organization [facility] Care Team Providers Care Hospice Nurse Practitioner Name Role Phone Dr. Adriano Uriostegui Primary Care Provider Dr. Adriano Uriostegui Referring Provider PACO Sousa Attending Provider [phone] Dr. Juan Morgan Attending Provider Dr. Adriano Uriostegui Primary Care Provider Dr. Adriano Uriostegui Referring Provider MD Adriano George Attending Provider Dr. Adriano Uriostegui Referring Provider Dr. Ap Donahue Primary Care Provider Dr. Ap Donahue Attending Provider Dr. Adriano Uriostegui Referring Provider Dr. Ap Donahue Primary Care Provider Dr. Ap Donahue Attending Provider [phone] Dr. Ap Donahue Referring Provider Adriano Uriostegui MD Primary Care Provider Dr. Ap Donahue Primary Care Provider Dr. Ap Donahue Attending Provider Ap Donahue MD Primary Care Provider Adriano Uriostegui MD Primary Care Provider [phone] Ap Donahue MD Primary Care Provider [phone] ROWAN, AP G Primary Care Unavailable NANCY LUKE Attending Unavailable ROWAN, AP G Primary Care Unavailable FABRICE STONE Referring Unavailable Nikki Gomez MD Unavailable [phone] NIKKI GOMEZ Attending Unavailable NIKKI GOMEZ Referring Unavailable ROWAN, AP G Primary Care Unavailable SANDRITA CHEN Admitting Unavailabl e SANDRITA CHEN Attending Unavailabl e CHEN, SANDRITA NESTOR Referring Unavailabl e ROWAN, AP G Primary Care Unavailable SANDRITA CHEN Attending Unavailabl e CHEN, SANDRITA NESTOR Referring Unavailabl e ROWAN, AP G Primary Care Unavailable ROWAN, AP G Primary Care Unavailable DUGLAS FISHER Attending Unavailable SANDRITA CHEN Attending Unavailabl e CHEN, SANDRITA NESTOR Referring Unavailabl e ROWAN, AP G Primary Care Unavailable GUSTAVO, SANDRITA NESTOR Referring Unavailabl e ROWAN, AP G Primary Care Unavailable FABRICE STONE Attending Unavailable ROWAN, AP G Primary Care Unavailable NIKKI GOMEZ Attending Unavailable ROWAN, AP G Primary Care Unavailable Rowan, Ap Attending Unavailable [place], Ap Primary Care Unavailable Rowan, Ap Referring Unavailable Rowan, Ap Referring Unavailable [place], Ap Attending Unavailable Rowan, Ap Primary Care Unavailable [place], Ap Referring Unavailable [place], Ap Attending Unavailable Rowan, Ap Primary Care Unavailable [place], Ap Attending Unavailable [place], Ap Referring Unavailable [place], Ap Primary Care Unavailable [place], Ap Referring Unavailable Rowan, Ap Primary Care Unavailable [place], Ap Attending Unavailable Rowan, Ap Primary Care Unavailable Dick Gordon Attending Unavailable Rowan, Ap Attending Unavailable Rowan, Ap Referring Unavailable [place], Ap Primary Care Unavailable [place], Ap Primary Care Unavailable Dick Gordon Attending Unavailable [place], Ap Attending Unavailable Rowan, Ap Primary Care Unavailable Rowan, Ap Referring Unavailable Rowan, Ap Attending Unavailable [place], Ap Primary Care Unavailable [place], Pa Referring Unavailable Rowan, Ap Attending Unavailable Rowan, Ap Referring Unavailable [place], Ap Primary Care Unavailable Rowan, Ap Attending Unavailable [place], Ap Referring Unavailable Rowan, Ap Primary Care Unavailable [place], Ap Attending Unavailable Rowan, Ap Referring Unavailable [place], Ap Primary Care Unavailable [place], Ap Attending Unavailable [place], Ap Referring Unavailable [place], Ap Primary Care Unavailable Rowan, Ap Attending Unavailable [place], Ap Referring Unavailable [place], Ap Primary Care Unavailable Allergies Allergy Classification Reported Allergen(s) Allergy Type Date of Onset Reaction(s) Facility Pollen (2 sources) Grass pollen Substance Allergy 4 Cough [facility] Work Phone: (6 sources) environmental allergies [Other] Propensity to adverse reactions 6 [facility] Work Phone: (13 sources) Grass pollen; Translations: [GRASS POLLEN] Drug Allergy 4 Cough [facility] Work Phone: Medications Current Medications Medication Drug Class(es) Dates Sig (Normalized) Sig (Original) 200 actuat albuterol 0.09 mg/actuat dry powder inhaler (20 sources) beta2-Adrenergic Agonist Start: 06-24-2022 Albuterol Sulfate Active 2 INH INHALATION EVERY 6 HOURS June 24, 2022 12:00am Start: 04-13-2014 End: 09-24-2021 take 1 puff(s) by inhalation every four hours as needed Albuterol Sulfate Discontinued 1 - 2 PUFF INHALATION EVERY 4 HOURS NEEDED April 13, 2014 1:00am September 24, 2021 8:59am Start: 09-02-2005 take 2 puff(s) by in halation every four hours as needed for cough ALBUTEROL 90 MCG/ACTUATION AEROSOL INHALER Indications: Extrinsic asthma, unspecified 2 puffs every four hours as needed for cough, wheezing , chest tightness or shortness of breath and 15-20 minutes pre-exercise. Use with spacer. 1 2 09/02/2005 Active Comment on above: 2 puffs every four h ours as needed for cough, wheezing , chest tightness or shortness of breath and 15-20 minutes pre-exercise. Use with spacer. amoxicillin 875 mg / clavulanate 125 mg oral tablet (1 source) Penicillin-class Antibacterial Start: 4 End: 4 take 1 tablet by mouth twice daily amoxicillin-clavul anate potassium (AUGMENTIN) 875-125 mg per tablet Take 1 tablet by mouth two times a day. 0 10/06/2023 10/16/2023 Active cetirizine hydrochloride 10 mg oral tablet (20 sources) Histamine-1 Receptor Antagonist Start: 3 cetirizine (ZYRTEC) 10 mg tablet Oral for 10 10/08/2022 Active Start: 04-13-2014 End: 10-15-2018 Cetirizine Discontinued 10 M G PO NEEDED April 13, 2014 1:00am October 15, 2018 1:41pm cholecalciferol 1.25 mg oral capsule (6 sources) Vitamin D Start: 04-14-2024 End: 09-28-2024 take 1 capsule by mouth every week cholecalciferol, Vitamin D3, (VITAMIN D3) 1,250 mcg (50,000 unit) cap capsule Take 1 capsule by mouth once a week 4 capsule 09/28/2024 Active diphenhydrAMINE (20 sources) Histamine-1 Receptor Antagonist diphenhydramine HCl (BENADRYL ALLERGY ORAL) Benadryl Allergy Oral Active diphenhydramine HCl (BENADRYL ALLERGY ORAL) Benadryl Allergy Oral 0 Active Comment on above: Benadryl Allergy Ora l fluticasone propionate 0.05 mg/actuat metered dose nasal spray (20 sources) Corticosteroid fluticasone (LIZZY NASE) 50 mcg/actuation nasal spray Nasal for 30 Active handicap placard (1 source) Start: 2022 handicap placard Active 0 .ROUTE .MEDSUPPLY August 06, 2022 12:00am Length of time: 6 months Dx: Impaired physical mobility Z74.09 hydrocortisone 25 mg/ml topical cream (3 sources) Corticosteroid Start: 2022 Hydrocortisone Active 1 APPLIC TOPICAL TWICE A DAY June 24, 2022 12:00am hydroxychloroquine sulfate 200 mg oral tablet (20 sources) Antimalarial, Antirheumatic Agent Start: 2023 End: 2024 take 1 tablet by mouth twice daily hydrOXYchloroQUINE (PLAQUENIL) 200 mg tablet Take 1 tablet by mouth two times a day. 180 tablet 1 11/24/2024 Active Comment on above: Take 1 tablet by slime th two times a day. methylphenidate hydrochloride 5 mg oral tablet (3 sources) Central Nervous System Stimulant Start: 2024 take 1 tablet by mouth once daily methylphenidate (RITALIN) 5 mg tablet Take 1 tablet by mouth once daily. 07/08/2024 Active pantoprazole 40 mg delayed release oral tablet (1 source) Proton Pump Inhibitor Start: 2022 take 1 tablet by mouth once daily Pantoprazole (Protonix) 40 mg tablet,delayed release (DR/EC) Active 40 MG PO DAILY October 08, 2022 12:00am pregabalin 75 mg oral capsule (20 sources) Start: 2023 pregabalin (LYRICA) 75 mg capsule 05/12/2023 Active proparacaine hydrochloride 5 mg/ml ophthalmic solution (2 sources) Local Anesthetic Start: 2024 End: 2024 proparacaine 0.5 % 1 drop (ALCAINE) Start: 07-26-2024 End: 07-27-2024 1 drop, BOTH EYES, DIRECT ED, Starting on Fri07/26/24 at 1330, Until Fri07/27/24 at 0129, Administer for pneumo tonometry, tonopen tonometry, or pachymetry. In the event of a proparacaine shortage, administer tetracaine 0.5% ophthalmic drops 1 drop in the left eye as directed for pneumo tonometry, tonopen tonometry, or pachymetry traZODone hydrochloride 50 mg oral tablet (20 sources) Serotonin Reuptake Inhibitor Start: 04-17-2023 traZODone (DESYREL) 50 mg tablet 04/17/2023 Active Completed/Discontinued Medications Medication Drug Class(es) Dates Sig (Normalized) Sig (Original) acetaminophen 325 mg / oxyCODONE hydrochloride 5 mg oral tablet (12 sources) Opioid Agonist Start: 05-24-2022 End: 06-24-2022 take 1 tablet by mouth every eight hours Oxycodone-Acetamino phen (Percocet) 5-325 mg tablet Discontinued 1 TABLET PO Q8H 10 3 May 24, 2022 June 24, 2022 10:30am Start: 11-27-2018 End: 12-07-2018 take 1 tablet by mouth three times daily as needed Oxycodone-Acetaminophen Discontinued 1 TABLET PO 3 TIMES DAILY NEEDED 26 09November 27, 2018 December 07, 2018 12:09am 20 tabs (twenty) amitriptyline hydrochloride 10 mg oral tablet (9 sources) Tricyclic Antidepressant Start: 05-24-2022 End: 06-24-2022 take 5 mg by mouth at bedtime Amitriptyline Discontinued 5 MG PO AT BEDTIME May 24, 2022 4:12pm June 24, 2022 10:29am Start: 05-06-2022 End: 05-24-2022 take 10 mg by mouth at bedtime Amitriptyline Discontin ued 10 MG PO AT BEDTIME May 06, 2022 1:00am May 24, 2022 4:12pm benoxinate hydrochloride 4 mg/ml / fluorescein sodium 2.5 mg/ml ophthalmic solution (2 sources) Diagnostic Dye Start: 07-26-2024 End: 07-26-2024 fluorescein-benoxinate 0.25-0.4 % 1 drop (FLURESS) Start: 07-26-2024 End: 07-26-2024 1 drop, BOTH EYES, ONCE, 1 d ose, On Fri07/26/24 at 1430, FOR THE EYE betamethasone 3 mg/ml / betamethasone acetate 3 mg/ml injectable suspension (2 sources) Corticosteroid Start: 04-14-2023 End: 04-14-2023 betamethasone acetate-betamethasone sodium phosphate 6 mg injection (CELESTONE) clindamycin 300 mg oral capsule (8 sources) Lincosamide Antibacterial Start: 11-27-2018 End: 09-24-2021 take 300 mg by mouth three times daily Clindamycin Hcl Discontinued 300 MG PO THREE TIMES A DAY November 27, 2018 12:00am September 24, 2021 8:59am ergocalciferol 1.25 mg oral capsule (8 sources) Provitamin D2 Compound Start: 09-06-2016 End: 10-15-2018 take 5000 [IU] by mouth once daily Ergocalciferol (Vitamin D2) Discontinued 5000 UNIT PO DAILY September 06, 2016 12:00am October 15, 2018 1:41pm escitalopram 5 mg oral tablet (3 sources) Serotonin Reuptake Inhibitor Start: 06-24-2022 End: 08-06-2022 take 1 tablet by mouth once daily Escitalopram Oxalate (Lexapro) 5 mg tablet Discontinued 5 MG PO DAILY June 24, 2022 12:00am August 06, 2022 10:37am Fluticasone Propion-Salmeterol (8 sources) Corticosteroid, beta2-Adrenergic Agonist Start: 04-13-2014 End: 10-15-2018 Fluticasone Propion-Salmeterol Discontinued 1 PUFF INHALATION NEEDED April 13, 2014 12:00am October 15, 2018 12:41pm Start: 04-13-2014 End: 10-15-2018 Fluticasone Propion-Salmeter ol Discontinued 1 PUFF INHALATION NEEDED April 13, 2014 1:00am October 15, 2018 1:41pm leucovorin 5 mg oral tablet (5 sources) Folate Analog Start: 06-08-2019 End: 10-23-2022 leucovorin (LEUCOVORIN) 5 mg tablet Take once weekly, 10 to 12 hours after methotrexate administration 12 tablet 3 06/08/2019 10/23/2022 Discontinued (Course of therapy completed) Comment on above: Take once weekly, 10 to 12 hours after methotrexate administration 10 ml lidocaine hydrochloride 10 mg/ml injection (2 sources) Antiarrhythmic, Amide Local Anesthetic Start: 04-14-2023 End: 04-14-2023 lidocaine (PF) 10 mg/mL (1 %) 5 mL injection (XYLOCAINE) MEDICATION, NON-DATABASE (17 sources) End: 04-14-2024 MEDICATION, NON-DATABASE [facility] medical marijuana card, gummies 04/14/2024 Discontinued (Other) MEDICATION, NON- DATABASE [facility] medical marijuana card, gummies Active MEDICATION, NON- DATABASE [facility] medical marijuana card, gummies 0 Active Comment on above: [employer] marilaly na card, gummies meloxicam 7.5 mg oral tablet (14 sources) Nonsteroidal Anti-inflammatory Drug Start: 2 End: take 7.5 mg by mouth once daily Meloxicam Discontinued 7.5 MG PO DAILY October 11, 2021 12:00am November 13, 2021 9:50am Take once daily, not in conjunction with other NSAIDS. Start: 09-24-2021 End: 11-13-2021 take 15 mg by mouth once daily for pain Meloxicam Discontinued 15 MG PO DAILY September 24, 2021 12:00am November 13, 2021 9:50am Take once daily, do not take in conjunction with other NSAIDS. Okay to take Tylenol for breakthrough pain. methotrexate 25 mg/ml injectable solution (5 sources) Folate Analog Metabolic Inhibitor Start: 09-27-2019 End: 10-23-2022 inject 10 mg by subcutaneous injection every week methotrexate sodium 25 mg/mL soln INJECT 10 MG (0.4ML) SUBCUTANEOUSLY ONCE WEEKLY 0 09/27/2019 10/23/2022 Discontinued (Course of therapy completed) Comment on above: INJECT 10 MG (0.4ML) SUBCUTANEOUSLY ONCE WEEKLY naproxen 500 mg oral tablet (8 sources) Nonsteroidal Anti-inflammatory Drug Start: 09-06-2016 End: 10-15-2018 take 500 mg by mouth twice daily as needed Naproxen Discontinued 500 MG PO TWICE DAILY NEEDED September 06, 2016 12:00am October 15, 2018 1:40pm ondansetron 4 mg disintegrating oral tablet (4 sources) Serotonin-3 Receptor Antagonist Start: 05-24-2022 End: 06-24-2022 take 4 mg by mouth every eight hours as needed Ondansetron Discontinued 4 MG PO EVERY 8 HOURS NEEDED May 24, 2022 12:00am June 24, 2022 10:30am phenylephrine hydrochloride 25 mg/ml ophthalmic solution (4 sources) alpha-1 Adrenergic Agonist Start: 07-26-2024 End: 07-26-2024 1 drop, BOTH EYES, ONCE, 1 dose, On Fri07/26/24 at 1430, FOR OPHTHALMIC USE ONLY PROTECT FROM LIGHT Start: 07-26-2024 End: 07-27-2024 PHENYLephrine 2.5 % 1 drop ( AK-DILATE, YUMI-SYNEPHRINE) Start: 07-26-2024 End: 07-27-2024 1 drop, BOTH EYES, DIRECT ED, Starting on Fri07/26/24 at 1330, Until Fri07/27/24 at 0129, Administer for dilation PROTECT FROM LIGHT predniSONE 5 mg oral tablet (6 sources) Start: 07-15-2022 End: 10-08-2022 take 5 mg by mouth once daily Prednisone Discontinued 5 MG PO DAILY July 15, 2022 12:00am October 08, 2022 1:03pm Start: 05-06-2022 take 5 mg by mouth e very other day Prednisone Active 5 MG PO every other day May 06, 2022 12:00am Start: 09-24-2021 Prednisone Act aminah 10 MG PO September 23, 2021 11:00pm tamsulosin hydrochloride 0.4 mg oral capsule (4 sources) alpha-Adrenergic [facility] Start: 05-24-2022 End: 06-24-2022 take 1 capsule by mouth once daily at mealtime Tamsulosin (Flomax) 0.4 mg capsule Discontinued 0.4 MG PO DAILY May 24, 2022 12:00am June 24, 2022 10:30am Take with food. tropicamide 10 mg/ml ophthalmic solution (4 sources) Anticholinergic Start: 07-26-2024 End: 07-26-2024 1 drop, BOTH EYES, ONCE, 1 dose, On Fri07/26/24 at 1430, FOR THE EYE Start: 07-26-2024 End: 07-27-2024 tropicamide 1 % 1 drop (MYDR IACYL) Start: 07-26-2024 End: 07-27-2024 1 drop, BOTH EYES, DIRECT ED, Starting on Fri07/26/24 at 1330, Until Fri07/27/24 at 0129, Administer for dilation venlafaxine 25 mg oral tablet (8 sources) Serotonin and Norepinephrine Reuptake Inhibitor Start: 09-06-2016 End: 10-15-2018 take 25 mg by mouth once daily Venlafaxine Discontinued 25 MG PO DAILY September 06, 2016 12:00am October 15, 2018 1:40pm Problems Active Problems Problem Classification Problem Date Documented Da te Episodic/Chronic Administrative/social admission (11 sources) Persons encountering health services in other specified circumstances; Translations: [Lack of adequate sleep] 05-06-2022 Episodic Anxiety disorders (20 sources) Mixed anxiety and depressive disorder; Translations: [Anxiety disorder, unspecified] Onset: 10-21-2018 10-21-2018 Chronic Asthma (20 sources) Asthma; Translations: [Unspecified asthma, uncomplicated] Onset: 10-21-2018 11-27-2018 Chronic Attention-deficit, conduct, and disruptive behavior disorders (1 source) Attention-deficit hyperactivity disorder, unspecified type; Translations: [Attention-deficit hyperactivity disorder, unspecified type] Onset: 07-08-2024 Chronic Blindness and vision defects (4 sources) Bilateral regular astigmatism; Translations: [Regular astigmatism, bilateral] Onset: 07-26-2024 07-26-2024 Episodic Calculus of urinary tract (10 sources) Kidney stone; Translations: [Calculus of kidney] 05-24-2022 Episodic Deficiency and other anemia (2 sources) Iron deficiency anemia; Translations: [Iron deficiency anemia, unspecified] 04-28-2024 Episodic Joint disorders and dislocations; trauma-related (19 sources) Derangement of left knee; Translations: [Unspecified internal derangement of left knee] Chronic Joint disorders and dislocations; trauma-related (10 sources) Subluxation of patellofemoral joint; Translations: [Unspecified subluxation of left patella, initial encounter] Episodic Malaise and fatigue (1 source) Malaise and fatigue; Translations: [Other malaise] 10-23-2022 Episodic Menstrual disorders (5 sources) Irregular menstruation, unspecified; Translations: [Irregular menstrual cycle] 06-24-2022 Chronic Mood disorders (9 sources) Mild depression; Translations: [Depression with somatization] 05-06-2022 Chronic Mood disorders (1 source) Mood disorders; Translations: [Depression, unspecified] Onset: 11-18-2024 Nutritional deficiencies (3 sources) Vitamin D deficiency; Translations: [Vitamin D deficiency, unspecified] Onset: 11-18-2024 10-23-2022 Chronic Nutritional deficiencies (1 source) Iron deficiency; Translations: [Iron deficiency] Onset: 11-30-2024 Episodic Osteoarthritis (4 sources) Osteoarthritis of left knee joint; Translations: [Unilateral primary osteoarthritis, left knee] Chronic Other aftercare (4 sources) Long-term current use of steroid; Translations: [Full-term infant] 05-06-2022 Episodic Other aftercare (4 sources) Encounter for therapeutic drug level monitoring; Translations: [Encounter for therapeutic drug monitoring] 05-06-2022 Episodic Other aftercare (3 sources) Drug therapy finding; Translations: [Other exterminator (current) drug therapy] Onset: 11-24-2024 04-14-2024 Episodic Other aftercare (1 source) Taking high risk medication; Translations: [Other exterminator (current) drug therapy] 07-26-2024 Episodic Other connective tissue disease (7 sources) Fibromyalgia; Translations: [Fibromyalgia] 05-06-2022 Episodic Other connective tissue disease (12 sources) Fibromyalgia; Translations: [Myalgia and myositis, unspecified] Onset: 04-14-2024 05-06-2022 Episodic Other connective tissue disease (1 source) Cramp and spasm; Translations: [Cramp of limb] 08-06-2022 Episodic Other connective tissue disease (2 sources) Hypermobility syndrome; Translations: [Hypermobility syndrome] Onset: 11-24-2024 11-24-2024 Episodic Other eye disorders (1 source) Unspecified disorder of eye and adnexa; Translations: [Other eye problems] 10-08-2022 Episodic Other female genital disorders (15 sources) Abnormal uterine bleeding; Translations: [Abnormal uterine and vaginal bleeding, unspecified] Onset: 01-12-2024 08-01-2023 Chronic Other female genital disorders (2 sources) Abnormal uterine and vaginal bleeding, unspecified; Translations: [Abnormal uterine bleeding] Onset: 11-27-2023 Chronic Other gastrointestinal disorders (2 sources) Heartburn; Translations: [Heartburn] Onset: 11-18-2024 10-08-2022 Episodic Other inflammatory condition of skin (1 source) Pruritus, unspecified; Translations: [Unspecified pruritic disorder] 10-08-2022 Episodic Other nervous system disorders (1 source) Other chronic pain; Translations: [Other chronic pain] Onset: 11-18-2024 Chronic Other nervous system disorders (8 sources) Dysesthesia of scalp; Translations: [Other disturbances of skin sensation] 05-06-2022 Episodic Other non-traumatic joint disorders (18 sources) Pain in right knee; Translations: [Pain in both knees] Onset: 11-18-2024 05-06-2022 Episodic Other non-traumatic joint disorders (12 sources) Pain in unspecified joint; Translations: [Pain in joint, multiple sites] Onset: 04-14-2024 05-06-2022 Episodic Other non-traumatic joint disorders (3 sources) Multiple joint pain; Translations: [Pain in unspecified joint] 10-23-2022 Episodic Other non-traumatic joint disorders (1 source) Joint pain Onset: 11-24-2024 Episodic Other non-traumatic joint disorders (1 source) Pain in left knee; Translations: [Pain in left knee] Onset: 11-18-2024 Episodic Other nutritional; endocrine; and metabolic disorders (20 sources) Morbid obesity; Translations: [Morbid (severe) obesity due to excess calories] Onset: 10-21-2018 10-21-2018 Chronic Other nutritional; endocrine; and metabolic disorders (8 sources) Body mass index 40+ - severely obese; Translations: [Morbid (severe) obesity due to excess calories] Onset: 12-25-2023 01-12-2024 Chronic Other nutritional; endocrine; and metabolic disorders (3 sources) Morbid (severe) obesity due to excess calories; Translations: [Obesity, Class III, BMI 40-49.9 (morbid obesity) (HCC)] Onset: 12-25-2023 Chronic Other screening for suspected conditions (not mental disorders or infectious disease) (1 source) Cancer cervix screening status; Translations: [Encounter for screening for malignant neoplasm of cervix] 08-01-2023 Episodic Other skin disorders (8 sources) Mass of head; Translations: [Localized swelling, mass and lump, head] 05-06-2022 Episodic Other skin disorders (8 sources) Trichilemmal cyst; Translations: [Trichodermal cyst] 05-06-2022 Episodic Other skin disorders (4 sources) Eruption; Translations: [Rash and other nonspecific skin eruption] 10-23-2022 Episodic Systemic lupus erythematosus and connective tissue disorders (20 sources) Autoimmune disease; 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 involvement of connective tissue, unspecified] Onset: 10-21-2018 10-21-2018 Chronic Thyroid disorders (20 sources) Nontoxic goiter, unspecified; Translations: [Goiter, unspecified] Onset: 10-21-2018 06-24-2022 Chronic Unclassified (1 source) Low back pain, unspecified; Translations: [Low back pain, unspecified] Onset: 11-18-2024 Past or Other Problems Problem Classification Problem Date Documented Date Episodic/Chronic Aspiration pneumonitis; food/vomitus (17 sources) Aspiration pneumonia; Translations: [Pneumonitis due to inhalation of food and vomit] Onset: 01-13-2024 05-02-2022 Episodic Deficiency and other anemia (1 source) Iron deficiency anemia, unspecified; Translations: [Iron deficiency anemia, unspecified] Onset: 08-20-2024 Episodic Immunizations and screening for infectious disease (6 sources) Anti-nuclear factor positive; Translations: [Other specified abnormal immunological findings in serum] Onset: 04-14-2024 10-13-2023 Episodic Other aftercare (3 sources) Other exterminator (current) drug therapy; Translations: [High risk medication use] Onset: 04-14-2024 Episodic Other ear and sense organ disorders (1 source) Unspecified acute noninfective otitis externa, bilateral; Translations: [Acute otitis externa of both ears, unspecified type] Onset: 05-16-2024 Episodic Other skin disorders (5 sources) Rash and other nonspecific skin eruption; Translations: [Rash and other nonspecific skin eruption] Onset: 04-14-2024 06-24-2022 Episodic Pneumonia (except that caused by tuberculosis or sexually transmitted disease) (1 source) Pneumonia, unspecified organism; Translations: [Community acquired pneumonia of right lower lobe of lung] Onset: 05-16-2024 Episodic Spondylosis; intervertebral disc disorders; other back problems (20 sources) Backache; Translations: [Dorsalgia, unspecified] Onset: 10-14-2005 10-14-2005 Episodic Results Test Name Value Interpretation Reference Range Facility Inital Evaluation (1) - PT 11-30-2024 Inital Evaluation (1) - PT [facility] [address] [place] [address]. [address] [place] [address] / REHABILITATION SERVICES INITIAL EVALUATION MR#: [id number] Acct: [id number] Name: CAR SANTOYO Rep #: [id number] : 1985 39 From: William Hamilton PT, ATC Referring Dr.: Dr. Ap Donahue MD Status: R EG RCR Insurance: [facility] S[employer] INSURANCE Patient's Visit Information Visit Information Visit Information: CAR SANTOYO is a 39 year old F referred to Physical Therapy by Dr. Ap Donahue MD with a diagnosis of B knee pain. Date of Evaluation: 11/30/24 Physical Therapist: William Hamilton, PT, ATC Visit Plan Frequency: 2x /Week Duration: 4-6 Weeks Plan: B LE strengthening, core stab ex's, HS stretching, nustep, and HEP Subjective Subjective: Pt notes B knee pain this date. Pt reports her L knee subluxes numerous times a day. Pt reports it happens when she is walking, and when she is just standing. Pt notes she has the same pain in R knee. Pt had surgery in R knee for this very reason in the past. Pt notes she has stairs at home which ar very difgficult to negotiate. 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 Pt also notes she has difficulty with getting into her truck. Pt notes she is limited with prolonged walking secondary to pain. Pt is also limited with house chores secondary to pain. Pt reports sleep difficulty at this time secondary to pain. Pt reports she has LBP that also radiates down her L LE to the mid calf region. Pt reports minimal pain at rest 6/10, increases to 9/10 at worst. Pain L knee: Pain Intensity (Out of 10): 6 Pain Intensity Range: 9 Objective Objective: TU sec Neuro: B LE sensation is WNL to light touch. ROM: R knee 0-10-115 degrees; L knee 0-10-115 degrees MMT: L knee flex= 32, ext= 47; R knee flex= 47, ext= 47 #F Special testing: Pos McConnels sign Balance/Special Test Scores Lower Extremity Functional Score: 23 Goals Goal 1:: Decrease B knee pain x 50% to aid with sleep Goal Time Frame: 4-6 Weeks Goal 2:: Increase L knee strength to equal R knee strength x 90% to aid with work duties Goal Time Frame: 4-6 Weeks Goal 3:: I with HEP Goal Time Frame: 4-6 Weeks Goal 4:: Return to work performing all required duties without limitaton Goal Time Frame: 4-6 Weeks Rehabilitation Potential Physical Therapy Diagnosis: Pt has B knee pain and 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 secondary to B patellar femoral syndrome Rehabilitation Potential: Good Anticipated Interventions Patient/Client Instruction: Educate patient on: Condition and Plan of Care For the Purpose of:: To improve self management Therapeutic Exercise to Include: Strength training, Flexibilty training, Active ROM and Dynamic Lumbar Stabilization For the Purpose of:: To decrease pain, To improve muscle performance and motor function and To increase tolerance to activity/condition/po sition Cryotherapy (ice pack, ice massage): Yes For the Purpose of:: To decrease pain Text: Thank you for the opportunity to evaluate your patient. For Medicare and Medicare HMO plans, please review the plan of care and approve it. It will need to be FAXED BACK to us at [phone] for Medicare purposes. For Medicare only, by signing this I certify the plan of care. Please let me know if there are questions or concerns regarding this plan of care. Physician Signature: Date : 11/30/24 1320 CC: Dr. Ap Donahue MD [facility] Signed Normal [facility] CBC W/Diff, Automatedon 11-08 Absolute Lymph 1.42 X10 3/uL Normal 0.83-4.[address] [facility] Comment on above: Performed By: #### L 500.4050, L503.6030, L503.6550, L506.1001, L100.0100 #### [facility] [address] [place], [address] Absolute Neut 2.5 X10 3/uL Normal 2.0-7.[address] [facility] Comment on above: Performed By: #### L 500.4050, L503.6030, L503.6550, L506.1001, L100.0100 #### [facility] [address] [place], [address] Basophils/100 WBC (Bld) 0.9 % Normal 0-[address] [facility] Comment on above: Performed By: #### L 500.4050, L503.6030, L503.6550, L506.1001, L100.0100 #### [facility] [address] [place], [address] Eosinophils/100 WBC (Bld) 4.3 % Normal 0-[address] [facility] Comment on above: Performed By: #### L 500.4050, L503.6030, L503.6550, L506.1001, L100.0100 #### [facility] [address] [place], [address] Erythrocyte distribution width (RBC) [Ratio] 15.8 % High 11.6-14.[address] [facility] Comment on above: Performed By: #### L 500.4050, L503.6030, L503.6550, L506.1001, L100.0100 #### [facility] [address] [place], [address] Hematocrit (Bld) [Volume fraction] 37.5 % Normal 37-[address] [facility] Comment on above: Performed By: #### L 500.4050, L503.6030, L503.6550, L506.1001, L100.0100 #### [facility] [address] [place], [address] Hemoglobin (Bld) [Mass/Vol] 11.8 g/dL Low 12.0-15.[address] [facility] Comment on above: Performed By: #### L 500.4050, L503.6030, L503.6550, L506.1001, L100.0100 #### [facility] [address] [place], [address] IG% 0.200 Normal 0.0-0.[address] [facility] Comment on above: Result Comment: IG% - Immature Granulocytes (promyelocytes, myelocytes and metamyelocytes) > 1% indicates that a LEFT SHIFT is Present. Performed By: #### L 500.4050, L503.6030, L503.6550, L506.1001, L100.0100 #### [facility] [address] [place], [address] Lymphocytes/100 WBC (Bld) 32.0 % Normal 19-[address] [facility] Comment on above: Performed By: #### L 500.4050, L503.6030, L503.6550, L506.1001, L100.0100 #### [facility] [address] [place], [address] MCH (RBC) [Entitic mass] 24.5 pg Low 27.0-32.[address] [facility] Comment on above: Performed By: #### L 500.4050, L503.6030, L503.6550, L506.1001, L100.0100 #### [facility] [address] [place], [address] MCHC (RBC) [Mass/Vol] 31.5 g/dL Low 32-36 [facility] Comment on above: Performed By: #### L 500.4050, L503.6030, L503.6550, L506.1001, L100.0100 #### [facility] [address] [place], [address] MCV (RBC) [Entitic vol] 78.0 fL Low 81-[address] [facility] Comment on above: Performed By: #### L 500.4050, L503.6030, L503.6550, L506.1001, L100.0100 #### [facility] [address] [place], [address] Monocytes/100 WBC (Bld) 7.0 % Normal 0-[address] [facility] Comment on above: Performed By: #### L 500.4050, L503.6030, L503.6550, L506.1001, L100.0100 #### [facility] [address] [place], [address] Neutrophils/100 WBC (Bld) 55.6 % Normal 47-[address] [facility] Comment on above: Performed By: #### L 500.4050, L503.6030, L503.6550, L506.1001, L100.0100 #### [facility] [address] [place], [address] Nucleated RBC (Bld) [#/Vol] 0 10*3/uL Normal 0-[address] [facility] Comment on above: Performed By: #### L 500.4050, L503.6030, L503.6550, L506.1001, L100.0100 #### [facility] [address] [place], [address] Platelet mean volume (Bld) [Entitic vol] 10.8 fL Normal 6.2-12.[address] [facility] Comment on above: Performed By: #### L 500.4050, L503.6030, L503.6550, L506.1001, L100.0100 #### [facility] [address] [place], [address] Platelets (Bld) [#/Vol] 300 10*3/uL Normal 150-[address] [facility] Comment on above: Performed By: #### L 500.4050, L503.6030, L503.6550, L506.1001, L100.0100 #### [facility] [address] [place], [address] RBC (Bld) [#/Vol] 4.81 10*6/uL Normal 4.2-5.4 [facility] Comment on above: Performed By: #### L 500.4050, L503.6030, L503.6550, L506.1001, L100.0100 #### [facility] [address] [place], [address] RDW SD 45.0 fl High 35.1-43.[address] [facility] Comment on above: Performed By: #### L 500.4050, L503.6030, L503.6550, L506.1001, L100.0100 #### [facility] [address] [place], [address] WBC (Bld) [#/Vol] 4.4 10*3/uL Normal 4.4-11.0 [facility] Comment on above: Performed By: #### L 500.4050, L503.6030, L503.6550, L506.1001, L100.0100 #### [facility] [address] [place], [address] Comprehensive Metabolic Prof [facility] 11-18-2024 Albumin [Mass/Vol] 3.9 g/dL Normal 3.5-5.0 [facility] Comment on above: Performed By: #### L 500.4050, L503.6030, L503.6550, L506.1001, L100.0100 #### [facility] [address] [place], [address] Albumin/Globulin [Mass ratio] 1.3 {ratio} Normal 0.9-2.[address] [facility] Comment on above: Performed By: #### L 500.4050, L503.6030, L503.6550, L506.1001, L100.0100 #### [facility] [address] [place], [address] ALK PHOS 66 U/L Normal 35-[address] [facility] Comment on above: Performed By: #### L 500.4050, L503.6030, L503.6550, L506.1001, L100.0100 #### [facility] [address] [place], [address] ALT [Catalytic activity/Vol] 11 U/L Normal <=[address] [facility] Comment on above: Performed By: #### L 500.4050, L503.6030, L503.6550, L506.1001, L100.0100 #### [facility] [address] [place], [address] AST [Catalytic activity/Vol] 16 U/L Normal <=[address] [facility] Comment on above: Performed By: #### L 500.4050, L503.6030, L503.6550, L506.1001, L100.0100 #### [facility] [address] [place], [address] Bilirubin [Mass/Vol] 0.38 mg/dL Normal 0.00-1.30 [facility] Comment on above: Performed By: #### L 500.4050, L503.6030, L503.6550, L506.1001, L100.0100 #### [facility] [address] [place], [address] BUN/CRE 11.1 RATIO Normal 10-[address] [facility] Comment on above: Performed By: #### L 500.4050, L503.6030, L503.6550, L506.1001, L100.0100 #### [facility] [address] [place], [address] Calcium [Mass/Vol] 8.7 mg/dL Normal 7.6-11.0 [facility] Comment on above: Performed By: #### L 500.4050, L503.6030, L503.6550, L506.1001, L100.0100 #### [facility] [address] [place], [address] Chloride [Moles/Vol] 106 mmol/L Normal 98-108 [facility] Comment on above: Performed By: #### L 500.4050, L503.6030, L503.6550, L506.1001, L100.0100 #### [facility] [address] [place], [address] CO2 [Moles/Vol] 24.3 mmol/L Normal 21.0-32.[address] [facility] Comment on above: Performed By: #### L 500.4050, L503.6030, L503.6550, L506.1001, L100.0100 #### [facility] [address] [place], [address] Creatinine [Mass/Vol] 0.76 mg/dL Normal 0.70-1.20 [facility] Comment on above: Performed By: #### L 500.4050, L503.6030, L503.6550, L506.1001, L100.0100 #### [facility] [address] [place], [address] GAP 9 Normal 5-[address] [facility] Comment on above: Performed By: #### L 500.4050, L503.6030, L503.6550, L506.1001, L100.0100 #### [facility] [address] [place], [address] GFR/1.73 sq M.predicted among non-blacks MDRD (S/P/Bld) [Vol rate/Area] 102 mL/min/{1.73_m2} Normal >[address] [facility] Comment on above: Result Comment: mL/m in/1.73m2 CKD-EPI Creatinine Equation (2020) Performed By: #### L 500.4050, L503.6030, L503.6550, L506.1001, L100.0100 #### [facility] [address] [place], [address] Globulin (S) [Mass/Vol] 3.0 g/dL Normal 2.2-4.2 [facility] Comment on above: Performed By: #### L 500.4050, L503.6030, L503.6550, L506.1001, L100.0100 #### [facility] [address] [place], [address] Glucose [Mass/Vol] 81 mg/dL Normal 70-99 [facility] Comment on above: Performed By: #### L 500.4050, L503.6030, L503.6550, L506.1001, L100.0100 #### [facility] [address] [place], [address] Potassium [Moles/Vol] 3.9 mmol/L Normal 3.3-5.1 [facility] Comment on above: Performed By: #### L 500.4050, L503.6030, L503.6550, L506.1001, L100.0100 #### [facility] [address] [place], [address] Sodium [Moles/Vol] 139 mmol/L Normal 133-145 [facility] Comment on above: Performed By: #### L 500.4050, L503.6030, L503.6550, L506.1001, L100.0100 #### [facility] [address] [place], [address] T PROT 6.9 g/dL Normal 5.9-8.[address] [facility] Comment on above: Performed By: #### L 500.4050, L503.6030, L503.6550, L506.1001, L100.0100 #### [facility] [address] [place], [address] Urea nitrogen [Mass/Vol] 8 mg/dL Normal 4-[address] [facility] Comment on above: Performed By: #### L 500.4050, L503.6030, L503.6550, L506.1001, L100.0100 #### [facility] [address] [place], [address] Ferritinon 11-18-2024 Ferritin [Mass/Vol] 13 ng/mL Low 22-378 [facility] Comment on above: Performed By: #### L 500.4050, L503.6030, L503.6550, L506.1001, L100.0100 ####[facility] [address] [place], [address] Iron+Iron Binding Capacityon 11-18-2024 Iron [Mass/Vol] 36 ug/dL Low 50-[address] [facility] Comment on above: Performed By: #### L 500.4050, L503.6030, L503.6550, L506.1001, L100.0100 ####[facility] [address] [place], [address] IRON SATURATION 10.0 Low 13-[address] [facility] Comment on above: Performed By: #### L 500.4050, L503.6030, L503.6550, L506.1001, L100.0100 ####[facility] [address] [place], [address] TIBC 365 ug/dL Normal 250-[address] [facility] Comment on above: Performed By: #### L 500.4050, L503.6030, L503.6550, L506.1001, L100.0100 ####[facility] [address] [place], [address] UIBC 329 ug/dL Normal 228-[address] [facility] Comment on above: Performed By: #### L 500.4050, L503.6030, L503.6550, L506.1001, L100.0100 ####[facility] [address] [place], [address] Vitamin D,25 Hydroxyon 11-18 Vitamin D 25-OH 24.6 ng/mL Low 30-[address] [facility] Comment on above: Result Comment: Holley min D Status Deficiency: <20 ng/mL (50nmol/L) Insufficiency: 20-30 ng/mL (50-75 nmol/L) Sufficiency: 30-100 ng/mL (75-250 nmol/L) Toxicity: >100 ng/mL (>250 nmol/L) Performed By: #### L 500.4050, L503.6091, L503.6550, L506.1001, L100.0100 ####[facility] [address] [place], [address] Internal Medicine Office Vis iton 11-16-2024 Internal Medicine Office Visit [facility] [address] [place] [address] [place] [address] OFFICE VISIT Date of Service: 11/18/24 MR#: [id number] Acct: [id number] Name: CAR SANTOYO Rep #: [id number] : 1985 Provider: Dr. Ap gonsalez MD Age/Sex: 39/F Location: [facility] Status: Signed Intake Vital Signs 08/17/24 12:45 11/18/24 09:09 Height 5 ft 5 in 5 ft 5 in Weight: 294 lb BMI 48.9 BP 136/90 H Blood Pressure Location Lt brachial Position Sitting Respiration 16 Pulse 64 Pulse Source Monitor Temp 97.2 F L Temp Source Temporal Pulse Oximetry (%) 99 Oxygen Delivery Method room air Intake Visit Reasons: MED FOLLOW UP Chief Complaint: 3M F/U Garnett Feeder Required: No Accompanied by: Is patient in pain?: Yes (general) Pain scale (1-10): 7 Allergies No Known Allergies Allergy (Verified 11/18/24 09:01) Medications ???Medication ???Instructions ???Recorded ???Confirmed ???Type hydrocortisone 2.5 % topical cream 1 applic topical BID PRN rash #2 0 06/24/22 11/18/24 Rx grams cetirizine 10 mg tablet (Zyrtec) 10 mg PO DAILY #10 tabs 10/08/22 0 11/18/24 Rx handicap placard #1 ea 04/17/23 11/18/24 Rx hydroxychloroquine 200 mg tablet 200 mg PO DAILY 04/17/23 11/18/24 History (Plaquenil) mometasone 50 mcg/actuation nasal 2 spray intranasal BID 11/14/23 0 11/18/24 History spray albuterol sulfate 90 mcg/actuation 2 inh inhalation Q6H PRN shortne ss 03/05/24 11/18/24 Rx breath activated powder inhaler of breath or wheezing #1 ea betamethasone valerate 0.1 % lotion 1 applic topical BID PRN rash # 60 04/29/24 11/18/24 Rx mL cyclobenzaprine 5 mg tablet 5 mg PO BID PRN muscle spasm #20 0 11/18/24 11/18/24 Rx tabs pregabalin 75 mg capsule 75 mg PO BID #60 caps 11/18/2402/01 Rx trazodone 50 mg tablet 25 mg (1/2 x 50 mg) PO QHS #15 02/0111/18/24 Rx TABLETS Nurse's Note: Pt states she is having a rough time w/ pain all over due to the weather being cold. Pt needs trazadone and lyrica- Pt states that she has missed refills as she was in a depression states but has been doing better and has no concerns PFSH Medical History ADHD Hx of renal calculi Articular cartilage disorder of left knee Subluxation of left patella Derangement of left knee Trichilemmal cyst Dysesthesia of scalp Aspiration pneumonia Vitamin deficiency Lupus Frequent headaches Anxiety and depression UTI (urinary tract infection) Back problem Asthma Anemia Seasonal allergies Surgical History History of endometrial ablation H/O sinus surgery History of knee surgery History of tubal ligation Family History Mother Anxiety Depressed Psychiatric care Suicide attempt Thyroid disorder Bipolar 1 disorder Father Diabetes Social History household members: significant other current occupational status: employed current occupation: [employer] Smoking Status: Never smoker Electronic Cigarette Use: not used alcohol intake: never substance use type: former substance user Date of last use: used marijuana what type of physical activity do you participate in: other details: CARDIOVASCULAR frequency: 5-6 times per week seatbelt use: always do you feel safe at home: Yes HPI HPI Chief Complaint: 3M F/U Details: CAR SANTOYO, is a 39 F who presents to the office today for a follow up.??? She is up to date on her routine blood work and screening. She isn't due for any immunizations.??? She doesn't smoke and does need refills today.??? She has been trying to eat healthy. She hasn't been very active nor exercising. The patient reports her pain is in the 7-8/10 range currently. She reports she hasn't taken her lyrica for about 3 weeks, but resumed it about a week ago. She states resuming it has helped a little. She continues to follow with the [facility] and gets plaquenil through them. She does get regular eye exams with the medication. She reports she wasn't able to see the orthopedist stating the [facility] was not in network. She states she plans on getting in to see somebody else for a second opinion and would like a new referral. She reports her back has been bothering her over the last week. She denies any falls or injuries. She reports it is in her lower back bilaterally. Aside from her prescription medications, she did use a TENS device which helped some. She denies any changes to her leg weakness/numbness/tin gling. She denies any bowel/bladder incontinence. She reports her heartburn has been doing alright. She still just uses as ne (more content not included)... Normal [facility] Internal Medicine Office Vis tyrone 08-10-2024 Internal Medicine Office Visit [facility] [address] [place] [address] [place] [address] OFFICE VISIT Date of Service: 08/11/24 MR#: [id number] Acct: [id number] Name: CAR SANTOYO Rep #: [id number] : 1985 Provider: Dr. Ap gonsalez MD Age/Sex: 39/F Location: [facility] Status: Signed Intake Vital Signs 04/29/24 12:50 07/22/24 09:39 08/11/24 13:11 Height 5 ft 5 in 5 ft 5 in 5 ft 5 in Weight: 290 lb 6 oz BMI 48.3 BP 128/74 H Blood Pressure Location Rt brachial Position Sitting Respiration 16 Pulse 80 Pulse Source Monitor Temp 96.4 F L Temp Source Temporal Pulse Oximetry (%) 95 Oxygen Delivery Method room air Intake Visit Reasons: 3 M FU Chief Complaint: 3M F/U Garnett Feeder Required: No Accompanied by: Is patient in pain?: No Allergies No Known Allergies Allergy (Verified 08/11/24 13:14) Medications ???Medication ???Instructions ???Recorded ???Confirmed ???Type hydrocortisone 2.5 % topical cream 1 applic topical BID PRN rash #2 0 06/24/22 08/11/24 Rx grams cetirizine 10 mg tablet (Zyrtec) 10 mg PO DAILY #10 tabs 10/08/22 0 08/11/24 Rx handicap placard #1 ea 04/17/23 08/11/24 Rx hydroxychloroquine 200 mg tablet 200 mg PO DAILY 04/17/23 08/11/24 History (Plaquenil) mometasone 50 mcg/actuation nasal 2 spray intranasal BID 11/14/23 0 08/11/24 History spray albuterol sulfate 90 mcg/actuation 2 inh inhalation Q6H PRN shortne ss 03/05/24 08/11/24 Rx breath activated powder inhaler of breath or wheezing #1 ea betamethasone valerate 0.1 % lotion 1 applic topical BID PRN rash # 60 04/29/24 08/11/24 Rx mL trazodone 50 mg tablet 25 mg (1/2 x 50 mg) PO QHS #15 08/0108/11/24 Rx TABLETS pregabalin 75 mg capsule 75 mg PO BID #60 caps 07/29/2407/02 Rx PFSH Medical History ADHD Hx of renal calculi Articular cartilage disorder of left knee Subluxation of left patella Derangement of left knee Trichilemmal cyst Dysesthesia of scalp Aspiration pneumonia Vitamin deficiency Lupus Frequent headaches Anxiety and depression UTI (urinary tract infection) Back problem Asthma Anemia Seasonal allergies Surgical History History of endometrial ablation H/O sinus surgery History of knee surgery History of tubal ligation Family History Mother Anxiety Depressed Psychiatric care Suicide attempt Thyroid disorder Bipolar 1 disorder Father Diabetes Social History household members: significant other current occupational status: employed current occupation: [employer] Smoking Status: Never smoker Electronic Cigarette Use: not used alcohol intake: never substance use type: former substance user Date of last use: used marijuana what type of physical activity do you participate in: other details: CARDIOVASCULAR frequency: 5-6 times per week seatbelt use: always do you feel safe at home: Yes HPI HPI Chief Complaint: 3M F/U Details: CAR SANTOYO, is a 39 F who presents to the office today for a follow up.??? She is up to date on her routine blood work and screening. She isn't due for any immunizations.??? She doesn't smoke and does need refills today.??? She has been trying to eat healthy. She hasn't been very active nor exercising. The patient reports her pain is in the 6-7/10 range currently. She states her pain seems to be getting worse. She reports her pain has progressed up into her hips now, which she was told would happen. She reports the medication does help and continues to follow with the [facility] digestive. She does still feel her medications are helping. She reports her heartburn has been doing better with adjusting her diet. She is no longer on the protonix. She will occasionally take a TUMS, but hasn't really needed much recently. Since the patient was last seen, she established with psychiatry for her mental health and ADHD. She has recently been placed on ritalin. She reports that she is struggling with when to take it in order to help with sleep. She does think her sleep is doing worse. She denies any concerns about her mood nor any thoughts of suicide. She reports she never heard anything about her iron infusions. Her rash has resolved. The patient reports she saw the component engineer for her weight. She states she feels like she is eating all of the time and just doesn't feel full. She has been doing better in terms of eating healthy. ROS Const Constitutional: Positive for headache(s), weight change (4 pound weight gain) and sleep problems; No body ache, excessive sweating, fatigue, fever(s), frequent falls, snoring, weakness or caballero (more content not included)... Normal [facility] OCT MACULA CIRRUS OU (BOTH E YES)on 07-26-2024 [facility] Radiology Study observation (narrative) [facility] VISUAL FIELD 10-2 OU (BOTH E YES)on 07-26-2024 [facility] Radiology Study observation (narrative) [facility] MR/BMS.BPon 07-08-2024 MR/BMS.BP [address], [address] [place] [address] OFFICE VISIT Date of Service: 07/08/24 MR#: [id number] Acct: [id number] Name: CAR SANTOYO Rep #: [id number] : 1985 Provider: Dr. Dick Lucas se, DO Age/Sex: 38/F Location: [facility] Status: Signed Intake Vital Signs 05/27/24 08:36 06/03/24 10:32 07/08/24 10:47 Height 5 ft 5 in 5 ft 5 in 5 ft 5 in Weight: 286 lb 286 lb BMI 47.5 47.5 BP 116/70 109/62 Blood Pressure Location Lt brachial Lt brachial Position Sitting Sitting Respiration 16 16 Pulse 76 77 Pulse Source Monitor Monitor Temp 97.1 F L Pulse Oximetry (%) 99 Oxygen Delivery Method room air BP Intake Visit Reasons: 6 wk FU Accompanied by: Partner Allergies No Known Allergies Allergy (Verified 07/08/24 10:49) Medications ???Medication ???Instructions ???Recorded ???Confirmed ???Type hydrocortisone 2.5 % topical cream 1 applic topical BID PRN rash #2 0 06/24/22 07/08/24 Rx grams cetirizine 10 mg tablet (Zyrtec) 10 mg PO DAILY #10 tabs 10/08/22 0 07/08/24 Rx handicap placard #1 ea 04/17/23 07/08/24 Rx hydroxychloroquine 200 mg tablet 200 mg PO DAILY 04/17/23 07/08/24 History (Plaquenil) mometasone 50 mcg/actuation nasal 2 spray intranasal BID 11/14/23 0 07/08/24 History spray albuterol sulfate 90 mcg/actuation 2 inh inhalation Q6H PRN shortne ss 03/05/24 07/08/24 Rx breath activated powder inhaler of breath or wheezing #1 ea betamethasone valerate 0.1 % lotion 1 applic topical BID PRN rash # 60 04/29/24 07/08/24 Rx mL pregabalin 75 mg capsule 75 mg PO BID #60 caps 04/29/2404/03 Rx methylphenidate HCl 5 mg tablet 5 mg PO DAILY 30 days #30 tabs 04/0307/08/24 Rx (Ritalin) trazodone 50 mg tablet 25 mg (1/2 x 50 mg) PO QHS #15 08/01 Rx TABLETS PFSH Medical History ADHD Hx of renal calculi Articular cartilage disorder of left knee Subluxation of left patella Derangement of left knee Trichilemmal cyst Dysesthesia of scalp Aspiration pneumonia Vitamin deficiency Lupus Frequent headaches Anxiety and depression UTI (urinary tract infection) Back problem Asthma Anemia Seasonal allergies Surgical History History of endometrial ablation H/O sinus surgery History of knee surgery History of tubal ligation Family History Mother Anxiety Depressed Psychiatric care Suicide attempt Thyroid disorder Bipolar 1 disorder Father Diabetes Social History household members: significant other current occupational status: employed current occupation: [employer] Smoking Status: Never smoker Electronic Cigarette Use: not used alcohol intake: never substance use type: former substance user Date of last use: used marijuana what type of physical activity do you participate in: other details: CARDIOVASCULAR frequency: 5-6 times per week seatbelt use: always do you feel safe at home: Yes HPI History of Present Illness History provided by: patient HPI: Car Santoyo is a 38 year old female who presents today for follow up evaluation. Presents today with significant other Mac. Admits to having taken atomoxetine for 4 days then discontinued after experiencing insomnia and side effects. Took about 3 days off, restarted medication again and caused similar symptoms. Has been sleeping much worse in recent past. Sleep has been poor, getting about 7 hours of sleep. Continues to endorse difficulty with detail oriented symptoms. No significant improvement since previous appointment. Review of Systems Constitutional Reports: fatigue Eyes Denies: change in vision or blurry vision Ears, Nose, Mouth, Throat Denies: throat pain, neck pain or change in hearing Cardiovascular Denies: chest pain, palpitations or dyspnea Respiratory Denies: dyspnea, cough or wheezing Gastrointestinal Denies: abdominal pain, nausea, vomiting, diarrhea or constipation Genitourinary Denies: dysuria or urinary frequency Musculoskeletal Denies: back pain, neck pain, joint pain or muscle weakness Integumentary/Breast Reports: rash (with temperature changes) Neurological Denies: headache(s), dizziness or confusion Psychiatric Reports: anxiety, mood swings, panic attacks, change in sleep pattern, hopelessness, loss of interest, paranoia, difficulty concentrating and suicidal ideation Endocrine Reports: fatigue, cold intolerance and heat intolerance Hematologic/Lymphatic Reports: easy bruising Allergic/Immunologic Denies: wheezing Exam Mental Status Exam - Psych Appeara (more content not included)... Normal [facility] Rubeola IgG Abon 06-04-2024 RUBEOLA Ab, IgG 223.0 AU/mL Normal Immune >16.4 [facility] Comment on above: Result Comment: Nega tive <13.5 Equivocal 13.5 - 16.4 Positive >16.4 Presence of antibodies to Rubeola is presumptive evidence of immunity except when acute infection is suspected. Performed at: - [facility] [id number] Vest Baster: Johan Pang PhD, Phone: [phone] Performed By: #### L 503.1645, L100.0100, L3100.3300, L506.1001, L503.3350 ####[facility] [address] [place], [address] CBC W/Diff, Automatedon 05-09 Absolute Lymph 1.19 X10 3/uL Normal 0.83-4.[address] [facility] Comment on above: Performed By: #### L 503.6030, L100.0100, L3100.3300, L506.1001, L503.6550 ####[facility] [address] [place], [address] Absolute Neut 2.8 X10 3/uL Normal 2.0-7.[address] [facility] Comment on above: Performed By: #### L 503.6030, L100.0100, L3100.3300, L506.1001, L503.6550 ####[facility] [address] [place], [address] Basophils/100 WBC (Bld) 0.9 % Normal 0-[address] [facility] Comment on above: Performed By: #### L 503.6030, L100.0100, L3100.3300, L506.1001, L503.6550 ####[facility] [address] [place], [address] Eosinophils/100 WBC (Bld) 2.4 % Normal 0-[address] [facility] Comment on above: Performed By: #### L 503.6030, L100.0100, L3100.3300, L506.1001, L503.6550 ####[facility] [address] [place], [address] Erythrocyte distribution width (RBC) [Ratio] 16.9 % High 11.6-14.[address] [facility] Comment on above: Performed By: #### L 503.6030, L100.0100, L3100.3300, L506.1001, L503.6550 ####[facility] [address] [place], [address] Hematocrit (Bld) [Volume fraction] 36.3 % Low 37-[address] [facility] Comment on above: Performed By: #### L 503.6030, L100.0100, L3100.3300, L506.1001, L503.6550 ####[facility] [address] [place], [address] Hemoglobin (Bld) [Mass/Vol] 11.3 g/dL Low 12.0-15.[address] [facility] Comment on above: Performed By: #### L 503.6030, L100.0100, L3100.3300, L506.1001, L503.6550 ####[facility] [address] [place], [address] IG% 0.200 Normal 0.0-0.[address] [facility] Comment on above: Result Comment: IG% - Immature Granulocytes (promyelocytes, myelocytes and metamyelocytes) > 1% indicates that a LEFT SHIFT is Present. Performed By: #### L 503.6030, L100.0100, L3100.3300, L506.1001, L503.6550 ####[facility] [address] [place], [address] Lymphocytes/100 WBC (Bld) 26.4 % Normal 19-[address] [facility] Comment on above: Performed By: #### L 503.6030, L100.0100, L3100.3300, L506.1001, L503.6550 ####[facility] [address] [place], [address] MCH (RBC) [Entitic mass] 23.4 pg Low 27.0-32.[address] [facility] Comment on above: Performed By: #### L 503.6030, L100.0100, L3100.3300, L506.1001, L503.6550 ####[facility] [address] [place], [address] MCHC (RBC) [Mass/Vol] 31.1 g/dL Low 32-36 [facility] Comment on above: Performed By: #### L 503.6030, L100.0100, L3100.3300, L506.1001, L503.6550 ####[facility] [address] [place], [address] MCV (RBC) [Entitic vol] 75.2 fL Low 81-[address] [facility] Comment on above: Performed By: #### L 503.6030, L100.0100, L3100.3300, L506.1001, L503.6550 ####[facility] [address] [place], [address] Monocytes/100 WBC (Bld) 8.2 % Normal 0-[address] [facility] Comment on above: Performed By: #### L 503.6030, L100.0100, L3100.3300, L506.1001, L503.6550 ####[facility] [address] [place], [address] Neutrophils/100 WBC (Bld) 61.9 % Normal 47-[address] [facility] Comment on above: Performed By: #### L 503.6030, L100.0100, L3100.3300, L506.1001, L503.6550 ####[facility] [address] [place], [address] Nucleated RBC (Bld) [#/Vol] 0 10*3/uL Normal 0-[address] [facility] Comment on above: Performed By: #### L 503.6030, L100.0100, L3100.3300, L506.1001, L503.6550 ####[facility] [address] [place], [address] Platelet mean volume (Bld) [Entitic vol] 11.1 fL Normal 6.2-12.[address] [facility] Comment on above: Performed By: #### L 503.6030, L100.0100, L3100.3300, L506.1001, L503.6550 ####[facility] [address] [place], [address] Platelets (Bld) [#/Vol] 264 10*3/uL Normal 150-[address] [facility] Comment on above: Performed By: #### L 503.6030, L100.0100, L3100.3300, L506.1001, L503.6550 ####[facility] [address] [place], [address] RBC (Bld) [#/Vol] 4.83 10*6/uL Normal 4.2-5.4 [facility] Comment on above: Performed By: #### L 503.6030, L100.0100, L3100.3300, L506.1001, L503.6550 ####[facility] [address] [place], [address] RDW SD 45.3 fl High 35.1-43.[address] [facility] Comment on above: Performed By: #### L 503.6030, L100.0100, L3100.3300, L506.1001, L503.6550 ####[facility] [address] [place], [address] WBC (Bld) [#/Vol] 4.5 10*3/uL Normal 4.4-11.0 [facility] Comment on above: Performed By: #### L 503.6030, L100.0100, L3100.3300, L506.1001, L503.6550 ####[facility] [address] [place], [address] Ferritinon 06-03-2024 Ferritin [Mass/Vol] 7 ng/mL Low 22-378 [facility] Comment on above: Performed By: #### L 503.6030, L100.0100, L3100.3300, L506.1001, L503.6550 ####[facility] [address] [place], [address] Iron+Iron Binding Capacityon 06-03-2024 Iron [Mass/Vol] 27 ug/dL Low 50-[address] [facility] Comment on above: Performed By: #### L 503.6030, L100.0100, L3100.3300, L506.1001, L503.6550 ####[facility] [address] [place], [address] IRON SATURATION 8.0 Low 13-[address] [facility] Comment on above: Performed By: #### L 503.6030, L100.0100, L3100.3300, L506.1001, L503.6550 ####[facility] [address] [place], [address] TIBC 357 ug/dL Normal 250-[address] [facility] Comment on above: Performed By: #### L 503.6030, L100.0100, L3100.3300, L506.1001, L503.6550 ####[facility] [address] [place], [address] UIBC 330 ug/dL Normal 228-[address] [facility] Comment on above: Performed By: #### L 503.6030, L100.0100, L3100.3300, L506.1001, L503.6550 ####[facility] [address] [place], [address] L506.1001on 06-03-2024 Vitamin D 25-OH 19.9 ng/mL Low 30-[address] [facility] Comment on above: Result Comment: Holley min D Status Deficiency: <20 ng/mL (50nmol/L) Insufficiency: 20-30 ng/mL (50-75 nmol/L) Sufficiency: 30-100 ng/mL (75-250 nmol/L) Toxicity: >100 ng/mL (>250 nmol/L) Performed By: #### L 503.6030, L100.0100, L3100.3300, L506.1001, L503.6550 ####[facility] [address] [place], [address] Internal Medicine Office Vis iton 06-02-2024 Internal Medicine Office Visit [facility] [address] [place] [address] OFFICE VISIT Date of Service: 06/03/24 MR#: [id number] Acct: [id number] Name: CAR SANTOYO Rep #: [id number] : 1985 Provider: Dr. Ap gonsalez MD Age/Sex: 38/F Location: [facility] Status: Signed Intake Vital Signs 05/20/24 09:39 05/27/24 08:36 06/03/24 10:32 Height 5 ft 5 in 5 ft 5 in 5 ft 5 in Weight: 286 lb BMI 47.5 BP 116/70 Blood Pressure Location Lt brachial Position Sitting Respiration 16 Pulse 76 Pulse Source Monitor Temp 97.1 F L Temp Source Temporal Pulse Oximetry (%) 99 Oxygen Delivery Method room air Intake Visit Reasons: IRON INFUSION DISCUSSION Garnett Feeder Required: No Is patient in pain?: No Allergies No Known Allergies Allergy (Verified 06/03/24 10:27) Medications ???Medication ???Instructions ???Recorded ???Confirmed ???Type hydrocortisone 2.5 % topical cream 1 applic topical BID PRN rash #2 0 06/24/22 06/03/24 Rx grams cetirizine 10 mg tablet (Zyrtec) 10 mg PO DAILY #10 tabs 10/08/22 0 06/03/24 Rx handicap placard #1 ea 04/17/23 06/03/24 Rx hydroxychloroquine 200 mg tablet 200 mg PO DAILY 04/17/23 06/03/24 History (Plaquenil) mometasone 50 mcg/actuation nasal 2 spray intranasal BID 11/14/23 0 06/03/24 History spray trazodone 50 mg tablet 25 mg (1/2 x 50 mg) PO QHS #15 05/3106/03/24 Rx TABLETS albuterol sulfate 90 mcg/actuation 2 inh inhalation Q6H PRN shortne ss 03/05/24 06/03/24 Rx breath activated powder inhaler of breath or wheezing #1 ea betamethasone valerate 0.1 % lotion 1 applic topical BID PRN rash # 60 04/29/24 06/03/24 Rx mL pregabalin 75 mg capsule 75 mg PO BID #60 caps 04/29/24 Rx atomoxetine 10 mg capsule 20 mg (2 x 10 mg) PO QDAY #60 caps 05/27/24 06/03/24 Rx Nurse's Note: States she wants to go through [facility] to do iron infusion rather [facility] states the rn digestive ( Fabrice roberts) ordered it and she has never done them before. The drive would be too far to do. Has always had anemia. [facility] Medical History ADHD Hx of renal calculi Articular cartilage disorder of left knee Subluxation of left patella Derangement of left knee Trichilemmal cyst Dysesthesia of scalp Aspiration pneumonia Vitamin deficiency Lupus Frequent headaches Anxiety and depression UTI (urinary tract infection) Back problem Asthma Anemia Seasonal allergies Surgical History History of endometrial ablation H/O sinus surgery History of knee surgery History of tubal ligation Family History Mother Anxiety Depressed Psychiatric care Suicide attempt Thyroid disorder Bipolar 1 disorder Father Diabetes Social History household members: significant other current occupational status: employed current occupation: [employer] Smoking Status: Never smoker Electronic Cigarette Use: not used alcohol intake: never substance use type: former substance user Date of last use: used marijuana what type of physical activity do you participate in: other details: CARDIOVASCULAR frequency: 5-6 times per week seatbelt use: always do you feel safe at home: Yes HPI HPI Details: CAR SANTOYO, is a 38 F who presents to the office today for an acute visit. She has concerns about her iron levels. The patient had labs done by her rn digestive and was told she had iron deficiency. She has tried taking OTC supplements, but has not tolerated them reporting that she will get stomach upset. She states she did try a flinstone's supplement, which she tolerated better, but her iron level did not improve. She states they were recommending an iron infusion, but would prefer to get it done through this office stating they wanted her to go to [facility]. The patient would like to have her immunity tested for measles as she is traveling for work and has been in areas where it has been high. She was seen in the ED at [place] on 05/16 and was treated for pneumonia. She is still feeling tired, but overall feeling better. She has no other questions or concerns at this time. ROS Const Constitutional: Positive for fatigue and weight change (5 pound weight gain); No body ache, chills, excessive sweating, fever(s), frequent falls, headache(s), snoring, weakness, sleep problems or change in appetite Eyes Eyes: No blurry vision, change in vision, eye pain or Light sensitivity ENT ENT: No abnormal hearing, ear or mastoid pain, tinnitus, nasal congestion, headache(s), neck pain or sore throat Resp Respiratory: No cough, shortness (more content not included)... Normal [facility] MR/BMS.BPon 05-27-2024 MR/BMS.BP [facility] [address], [address] [place] [address] OFFICE VISIT Date of Service: 05/27/24 MR#: [id number] Acct: [id number] Name: CAR SANTOYO Rep #: [id number] : 1985 Provider: Dr. Dick Lucas se, Age/Sex: 38/F Location: [facility] Status: Signed Intake Vital Signs 02/10/24 12:50 05/20/24 09:39 05/27/24 08:36 Height 5 ft 5 in 5 ft 5 in 5 ft 5 in Weight: 279 lb BMI 46.4 BP 133/84 H Blood Pressure Location Lt brachial Position Sitting Respiration 16 Pulse 80 Pulse Source Monitor BP Intake Visit Reasons: New PT Accompanied by: Significant Other Allergies No Known Allergies Allergy (Verified 05/27/24 08:39) Medications ???Medication ???Instructions ???Recorded ???Confirmed ???Type hydrocortisone 2.5 % topical cream 1 applic topical BID PRN rash #2 0 06/24/22 05/27/24 Rx grams cetirizine 10 mg tablet (Zyrtec) 10 mg PO DAILY #10 tabs 10/08/22 0 05/27/24 Rx handicap placard #1 ea 04/17/23 05/27/24 Rx hydroxychloroquine 200 mg tablet 200 mg PO DAILY 04/17/23 05/27/24 History (Plaquenil) mometasone 50 mcg/actuation nasal 2 spray intranasal BID 11/14/23 0 05/27/24 History spray trazodone 50 mg tablet 25 mg (1/2 x 50 mg) PO QHS #15 05/3105/27/24 Rx TABLETS albuterol sulfate 90 mcg/actuation 2 inh inhalation Q6H PRN shortne ss 03/05/24 05/27/24 Rx breath activated powder inhaler of breath or wheezing #1 ea betamethasone valerate 0.1 % lotion 1 applic topical BID PRN rash # 60 04/29/24 05/27/24 Rx mL pregabalin 75 mg capsule 75 mg PO BID #60 caps 04/29/24 Rx atomoxetine 10 mg capsule 20 mg (2 x 10 mg) PO QDAY #60 caps 05/27/24 05/27/24 Rx PFSH Medical History Hx of renal calculi Articular cartilage disorder of left knee Subluxation of left patella Derangement of left knee Trichilemmal cyst Dysesthesia of scalp Aspiration pneumonia Vitamin deficiency Lupus Frequent headaches Anxiety and depression UTI (urinary tract infection) Back problem Asthma Anemia Seasonal allergies Surgical History History of endometrial ablation H/O sinus surgery History of knee surgery History of tubal ligation Family History (Updated 05/27/24 @ 08:41 by Theresa Fletcher) Mother Anxiety Depressed Psychiatric care Suicide attempt Thyroid disorder Bipolar 1 disorder Father Diabetes Social History household members: significant other current occupational status: employed current occupation: [employer] Smoking Status: Never smoker Electronic Cigarette Use: not used alcohol intake: never substance use type: former substance user Date of last use: used marijuana what type of physical activity do you participate in: other details: CARDIOVASCULAR frequency: 5-6 times per week seatbelt use: always do you feel safe at home: Yes HPI History of Present Illness History provided by: patient Chief complaint: ADHD HPI: Car Santoyo is a 38 year old female who presents today for new patient evaluation.Presents today with significant other Mac. They have been together for 10-12 years. Patient presents today for ADHD. Patient describes difficulty with concentration and focus. States that she can't life. Patient admits to having a history of fibromyalgia and lupus, which was diagnosed with about 4-5 years ago. Admits to having some significant fatigue. Describes mood as really tired. Recently had pneumonia. Admits to having depression intermittently. 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 Admits to history of being treated for depression in the past, but cannot remember medications. Admits to having intermittent anxiety. Feels like there is not specific things that she worries about but will get stuck in a loop. Has had panic attacks in the past. Does feel better when she takes steroids and does feel more energized at these times. Admits to frequently forgetting where things are. Admits to doing ok in school. Admits to having tutoring for math when growing up. Per significant other, she spends a significant amount of time preparing to do something, and won't ever finish the task she started. Feels like she can hyperfixate on things such as reading, but will neglect duties otherwise. Didn't get a tax form completed on time for first time and this caused a large fee. Can hold several conversations at once over long periods of time, but doesn't necessarily feel blunt or intrusive. Sleep: doesn't have a sleep schedule.; gets about 5-8 hours of sleep at night Interest: admits to being interested in Home[employer] Guilt: intermittent symptoms of guilt or (more content not included)... Normal [facility] ALLIED HEALTHon 05-16-2024 ALLIED HEALTH HNO ID: [id number] Author: THONG GRANADOS RT(R) Service: Radiology Author Type: Technologist Type: Allied Health Filed: 05/16/2024 16:01 Note Text: Radiology Service Progress Note PATIENT NAME: Car Santoyo DATE OF SERVICE: May 16, 2024 TIME: 4:01 PM PATIENT IDENTITY VERIFICATION COMPLETED USING TWO (2) IDENTIFIERS: Name and Date of confirmed by patient verbally. FALL SCREENING: Has the patient had 2 falls in the last year or 1 fall with injury or currently using an Ambulatory Assistive Device (Walker, Cane, Wheelchair, Crutches, etc.)? Emergency Room Patient: Screened in ED PATIENT GENDER DATA: Assigned female at . status: : No status: NO. PATIENT RELEVANT IMPLANT DATA REVIEWED: Not Applicable PATIENT PRESENTS WITH AN IMPLANTABLE OR ATTACHED TOASTER OPERATOR: No RADIOLOGY DEPARTMENT: General X-ray: Exam(s) Completed: Chest X-Ray PERIPHERAL IV DATA: Not applicable SIGNED BY: RT Kar(R) May 16, 2024 4:01 PM Normal [facility] Basic metabolic 2000 panelon 05-16-2024 Anion gap [Moles/Vol] 10 mmol/L Normal 8-15 [facility] Comment on above: Order Comment: Speci tuan Type: BLOOD SPECIMENOrdering Facility: [facility] Address: [address] [place] [address] Performed By: #### 2 4321-2 ####[facility] [id number] [place] [address] [place] Calcium [Mass/Vol] 8.5 mg/dL Normal 8.5-10.2 [facility] Comment on above: Order Comment: Amanda dickerson Type: BLOOD SPECIMENOrdering Facility: [facility] Address: [address] [place] [address] Performed By: #### 2 4321-2 ####[facility] LABCLIA [id number] [place] [address] [place] Chloride [Moles/Vol] 103 mmol/L Normal 98-107 [facility] Comment on above: Order Comment: Speci men Type: BLOOD SPECIMENOrdering Facility: [facility] Address: [address] [place] [address] Performed By: #### 2 4321-2 ####[facility] LABCLIA [id number] [place] [address] [place] CO2 [Moles/Vol] 25 mmol/L Normal 22-30 [facility] Comment on above: Order Comment: Speci men Type: BLOOD SPECIMENOrdering Facility: [facility] Address: [address] [place] [address] Performed By: #### 2 4321-2 ####[facility] [id number] [place] [address] [place] Creatinine [Mass/Vol] 0.72 mg/dL Normal 0.58-0.96 [facility] Comment on above: Order Comment: Speci men Type: BLOOD SPECIMENOrdering Facility: [facility] Address: [address] [place] [address] Performed By: #### 2 4321-2 ####[facility] LABCLIA [id number] [place] [address] [facility] Creatinine and Glomerular filtration rate.predicted panel (S/P/Bld) 109 mL/min/1.73m??? Normal >=60 [facility] Comment on above: Order Comment: Speci men Type: BLOOD SPECIMENOrdering Facility: [facility] Address: [address] [place] [address] Result Comment: Puja mated Glomerular Filtration Rate (eGFR) is calculated using the 2020 CKD-EPI creatinine equation. This equation utilizes serum creatinine, sex, and age as parameters. The creatinine assay has traceable calibration to isotope dilution-mass spectrometry. Refer to KDIGO guidelines for clinical interpretation. In patients with unstable renal function, e.g. those with acute kidney injury, the eGFR may not accurately reflect actual GFR. Performed By: #### 2 4321-2 ####[facility] LABCLIA [id number] [place] [address] [place] Glucose [Mass/Vol] 79 mg/dL Normal 74-99 [facility] Comment on above: Order Comment: Speci tuan Type: BLOOD SPECIMENOrdering Facility: [facility] Address: [address] [place] [address] Result Comment: The [place] Diabetes Association (ADA) provides guidance for cutoff values for fasting glucose and random glucose. The ADA defines fasting as no caloric intake for at least 8 hours. Fasting plasma glucose results between 100 to 125 mg/dL indicate increased risk for diabetes (prediabetes). Fasting plasma glucose results greater than or equal to 126 mg/dL meet the criteria for diagnosis of diabetes. In the absence of unequivocal hyperglycemia, results should be confirmed by repeat testing. In a patient with classic symptoms of hyperglycemia or hyperglycemic crisis, random plasma glucose results greater than or equal to 200 mg/dL meet the criteria for diagnosis of diabetes. Reference: Standards of Medical Care in Diabetes 2016, [place] Diabetes Association. Diabetes Care. 2016.39(Suppl 1). Performed By: #### 2 4321-2 ####[facility] [place] LABCLIA [id number] [place] [address] [place] Potassium [Moles/Vol] 3.9 mmol/L Normal 3.7-5.1 [facility] Comment on above: Order Comment: Speccarmen dickerson Type: BLOOD SPECIMENOrdering Facility: [facility] Address: [address] [place] [address] Performed By: #### 2 4321-2 ####[facility] LABCLIA [id number] [place] [address] [place] Sodium [Moles/Vol] 138 mmol/L Normal 136-144 [facility] Comment on above: Order Comment: Amanda dickerson Type: BLOOD SPECIMENOrdering Facility: [facility] Address: [address] [place] [address] Performed By: #### 2 4321-2 ####[facility] LABCLIA [id number] [place] [address] [place] [facility] Urea nitrogen [Mass/Vol] 4 mg/dL Low 7-21 [facility] Comment on above: Order Comment: Amanda dickerson Type: BLOOD SPECIMENOrdering Facility: [facility] Address: [facility] [place] [address] Performed By: #### 2 4321-2 ####[facility] [place] LABCLIA [id number] [place] [address] [place] CBC W Auto Differential pane l (Bld)on 05-16-2024 Basophils (Bld) [#/Vol] 0.04 10*3/uL Normal <0.11 [facility] Comment on above: Order Comment: Speci men Type: BLOOD SPECIMENOrdering Facility: [facility] Address: [address] [place] [address] Performed By: #### 5 7021-8 ####[facility] [place] LABCLIA [id number] [place] [address] [place] Basophils/100 WBC (Bld) 0.7 % Normal [facility] Comment on above: Order Comment: Speci men Type: BLOOD SPECIMENOrdering Facility: [facility] Address: [address] [place] [address] Performed By: #### 5 7021-8 ####[facility] [place] LABCLIA [id number] [place] [address] [place] Differential cell count method Nom (Bld) Auto Normal [facility] Comment on above: Order Comment: Speci men Type: BLOOD SPECIMENOrdering Facility: [facility] Address: [address] [place] [address] Performed By: #### 5 7021-8 ####[facility] [place] LABCLIA [id number] [place] [address] [place] Eosinophils (Bld) [#/Vol] 0.21 10*3/uL Normal <0.46 [facility] Comment on above: Order Comment: Speci men Type: BLOOD SPECIMENOrdering Facility: [facility] Address: [address] [place] [address] Performed By: #### 5 7021-8 ####[facility] [place] LABCLIA [id number] [place] [address] [place] Eosinophils/100 WBC (Bld) 3.8 % Normal [facility] Comment on above: Order Comment: Speci men Type: BLOOD SPECIMENOrdering Facility: [facility] Address: [address] [place] [address] Performed By: #### 5 7021-8 ####[facility] [place] LABCLIA [id number] [facility] [place] [address] [place] Erythrocyte distribution width (RBC) [Ratio] 17.3 % High 11.5-15.0 [facility] Comment on above: Order Comment: Speci men Type: BLOOD SPECIMENOrdering Facility: [facility] Address: [address] [place] [address] Performed By: #### 5 7021-8 ####[facility] [place] LABCLIA [id number] [place] [address] [place] Hematocrit (Bld) [Volume fraction] 34.6 % Low 36.0-46.0 [facility] Comment on above: Order Comment: Speci men Type: BLOOD SPECIMENOrdering Facility: [facility] Address: [address] [place] [address] Performed By: #### 5 7021-8 ####[facility] LABCLIA [id number] [facility] [place] [address] [place] Hemoglobin (Bld) [Mass/Vol] 11.0 g/dL Low 11.5-15.5 [facility] Comment on above: Order Comment: Speci men Type: BLOOD SPECIMENOrdering Facility: [facility] Address: [address] [place] [address] Performed By: #### 5 7021-8 ####[facility] LABCLIA [id number] [place] [address] [place] Immature granulocytes (Bld) [#/Vol] 10*3/uL Normal <0.10 [facility] Comment on above: Order Comment: Speci men Type: BLOOD SPECIMENOrdering Facility: [facility] Address: [address] [place] [address] Performed By: #### 5 7021-8 ####[facility] [place] LABCLIA [id number] [facility] [place] [address] [place] Immature granulocytes/100 WBC (Bld) 0.2 % Normal [facility] Comment on above: Order Comment: Speci men Type: BLOOD SPECIMENOrdering Facility: [facility] Address: [address] [place] [address] Performed By: #### 5 7021-8 ####[facility] [place] LABCLIA [id number] [place] [address] [facility] Lymphocytes (Bld) [#/Vol] 0.58 10*3/uL Low 1.00-4.00 [facility] Comment on above: Order Comment: Speci men Type: BLOOD SPECIMENOrdering Facility: [facility] Address: [address] [place] [address] Performed By: #### 5 7021-8 ####[facility] LABCLIA [id number] [place] [id number] [facility] Lymphocytes/100 WBC (Bld) 10.4 % Normal [facility] Comment on above: Order Comment: Speci men Type: BLOOD SPECIMENOrdering Facility: [facility] Address: [address] [place] [address] Performed By: #### 5 7021-8 ####[facility] LABCLIA [id number] [place] [address] [place] MCH (RBC) [Entitic mass] 23.7 pg Low 26.0-34.0 [facility] Comment on above: Order Comment: Speci men Type: BLOOD SPECIMENOrdering Facility: [facility] Address: [address] [place] [address] Performed By: #### 5 7021-8 ####[facility] [place] LABCLIA [id number] [place] [address] [place] MCHC (RBC) [Mass/Vol] 31.8 g/dL Normal 30.5-36.0 [facility] Comment on above: Order Comment: Speci men Type: BLOOD SPECIMENOrdering Facility: [facility] Address: [address] [place] [address] Performed By: #### 5 7021-8 ####[facility] [place] LABCLIA [id number] [place] [address] [facility] OF [place] MCV (RBC) [Entitic vol] 74.4 fL Low 80.0-100.0 A [facility] Comment on above: Order Comment: Speci men Type: BLOOD SPECIMENOrdering Facility: [facility] Address: [address] [place] [address] Performed By: #### 5 7021-8 ####[facility] [place] LABCLIA [id number] [facility] [place] [address] [place] Monocytes (Bld) [#/Vol] 0.38 10*3/uL Normal <0.87 [facility] Comment on above: Order Comment: Speci men Type: BLOOD SPECIMENOrdering Facility: [facility] Address: [address] [place] [address] Performed By: #### 5 7021-8 ####[facility] [place] LABCLIA [id number] [place] [address] [facility] [place] Monocytes/100 WBC (Bld) 6.8 % Normal A [facility] Comment on above: Order Comment: Speci men Type: BLOOD SPECIMENOrdering Facility: [facility] Address: [address] [place] [address] Performed By: #### 5 7021-8 ####[facility] [place] LABCLIA [id number] [place] [address] [facility] OF [place] Neutrophils (Bld) [#/Vol] 4.38 10*3/uL Normal 1.45-7.50 [facility] Comment on above: Order Comment: Speci men Type: BLOOD SPECIMENOrdering Facility: [facility] Address: [address] [place] [address] Performed By: #### 5 7021-8 ####[facility] [place] LABCLIA [id number] [place] [address] [facility] OF [place] Neutrophils/100 WBC (Bld) 78.1 % Normal [facility] Comment on above: Order Comment: Speci men Type: BLOOD SPECIMENOrdering Facility: [facility] Address: [address] [place] [address] Performed By: #### 5 7021-8 ####[facility] [place] LABCLIA [id number] [place] [address] [place] Nucleated RBC (Bld) [#/Vol] Normal [facility] Comment on above: Order Comment: Speci men Type: BLOOD SPECIMENOrdering Facility: [facility] Address: [address] [place] [address] Performed By: #### 5 7021-8 ####[facility] [place] LABCLIA [id number] [place] [address] [place] Nucleated RBC/100 WBC (Bld) [Ratio] Normal [facility] Comment on above: Order Comment: Speci men Type: BLOOD SPECIMENOrdering Facility: [facility] Address: [address] [place] [address] Performed By: #### 5 7021-8 ####[facility] [place] LABCLIA [id number] [place] [address] [place] Platelet mean volume (Bld) [Entitic vol] 9.7 fL Normal 9.0-12.7 [facility] Comment on above: Order Comment: Speci men Type: BLOOD SPECIMENOrdering Facility: [facility] Address: [address] [place] [address] Performed By: #### 5 7021-8 ####[facility] [place] LABCLIA [id number] [place] [address] [place] Platelets (Bld) [#/Vol] 257 10*3/uL Normal 150-400 [facility] Comment on above: Order Comment: Speci men Type: BLOOD SPECIMENOrdering Facility: [facility] Address: [address] [place] [address] Performed By: #### 5 7021-8 ####[facility] [place] LABCLIA [id number] [place] [address] [place] RBC (Bld) [#/Vol] 4.65 10*6/uL Normal 3.90-5.20 [facility] Comment on above: Order Comment: Amanda dickerson Type: BLOOD SPECIMENOrdering Facility: [facility] Address: [address] [place] [id number] Performed By: #### 5 7021-8 ####[facility] ERWIN BURNHAM [id number] [place] [address] [facility] WBC (Bld) [#/Vol] 5.60 10*3/uL Normal 3.70-11.00 [facility] Comment on above: Order Comment: Aideecarmen dickerson Type: BLOOD SPECIMENOrdering Facility: [facility] Address: [address] [place] [id number] Performed By: #### 5 7021-8 ####[facility] [facility] ERWIN BURNHAM [id number] [place] [address] [facility] CTA CHEST (NON GATED) W IVCO N PEon 05-16-2024 CTA CHEST (NON GATED) W IVCON PE * * *Final Report* * * DATE OF EXAM: May 16 2024 5:29PM [facility] 0564 - CTA CHEST (NON GATED) W IVCON PE / PROCEDURE REASON: Pulmonary embolism (PE) suspected, high prob * * * * Physician Interpretation * * * * EXAMINATION: CHEST CTA (NON GATED) WITH CONTRAST (PULMONARY EMBOLISM PROTOCOL) Clinical History: Shortness breath Technique: Spiral CT acquisition of the chest from the thoracic inlet to the upper abdomen following IV contrast. Axial 1 and 3 mm thick slices plus coronal and sagittal reformatted images. MQ: CTCP_5 Contrast: 100 mL Omnipaque [address] Radiation dose: Integrated Dose-length product (DLP) for this visit = 689.62 mGy*cm CT Dose Reduction Employed: Automated exposure control(AEC) and iterative recon CTA: Post-processed images (Maximum intensity Projection (MIP), Volume-rendered (VR), or Surface shaded display images (SSD) were created, reviewed and archived. Comparison: Chest radiograph from earlier today RESULT: Limitations: None. Evaluation for thromboembolic disease: - Right heart chambers: No thromboembolic disease. - Main pulmonary arteries: No thromboembolic disease. - Lobar pulmonary arteries: No thromboembolic disease. - Segmental pulmonary arteries: No thromboembolic disease. - Subsegmental pulmonary arteries: No thromboembolic disease. - Additional pulmonary artery findings: The main pulmonary artery is normal in caliber. Lines, tubes, and devices: None. Lung parenchyma and airways: Very small somewhat triangular peripheral opacity at the right lung base on axial images 178 through 180 and on sagittal image 47. This likely represents a small area of inflammation or infection. No large airspace opacity or mass. No significant bronchial wall thickening. Pleural space: No pleural effusion. No pleural thickening. Lower neck, lymph nodes, and mediastinum: The imaged thyroid gland is normal. No lymphadenopathy in the supraclavicular, axillary, mediastinal, or hilar regions. Heart, pericardium, and thoracic vessels: The thoracic aorta is normal in caliber. The cardiac chambers are normal in size. No coronary artery atherosclerotic calcifications are noted, although the study is not optimized for coronary assessment. No pericardial effusion or thickening. Bones and soft tissues: No destructive bone lesion. Chest wall is unremarkable. Upper abdomen: Moderate hiatal hernia. The spleen is borderline enlarged. Localizer images: No additional findings. IMPRESSION: 1. No CT evidence of pulmonary embolism. 2. Very small opacity at the right lung base likely representing a region of infiltration or infection. 3. Hiatal hernia. 4. Borderline splenomegaly. Valet Runner: [facility] Transcribe Date/Time: May 16 2024 6:27P Dictated by : LEO BECK MD This examination was interpreted and the report reviewed and electronically signed by: LEO BECK MD on May 16 2024 6:35PM EST [id number] Normal [facility] D dimer FEU PPP-mCncon 05-16 Fibrin D-dimer FEU (PPP) [Mass/Vol] 530 ng/mL FEU High <500 [facility] Comment on above: Order Comment: Speci men Type: BLOOD SPECIMENOrdering Facility: [facility] Address: [address] [place] [address] Performed By: #### 4 8065-7 ####[facility] [id number] [place] [address] [place] ECG COMPLETEon 05-16-2024 ECG COMPLETE Ventricular Rate : 7 9 BPM Atrial Rate : 79 BPM P-R Interval : 154 ms QRS Duration : 94 ms Q-T Interval : 372 ms QTC Calculation(Bazett) : 426 ms Calculated P [place] : 67 degrees Calculated R [place] : 56 degrees Calculated T [place] : 46 degrees NORMAL SINUS RHYTHM NORMAL ECG WHEN COMPARED WITH ECG OF 22-Oct-2018 13:53, NO SIGNIFICANT CHANGE WAS FOUND Confirmed by MD CARDENAS VINAYAK ([id number]) on 05/19/2024 4:18:46 PM NAME : CAR SANTOYO PID : [id number] : 1985 Gender : Female Race : ORD : [id number] Procedure Date : May 16 2024 15:35:44 Edit Date : May 19 2024 16:18:47 Diagnosis: NORMAL SINUS RHYTHM NORMAL ECG WHEN COMPARED WITH ECG OF 22-Oct-2018 13:53, NO SIGNIFICANT CHANGE WAS FOUND Confirmed by MD CARDENAS VINAYAK ([id number]) on 05/19/2024 4:18:46 PM Test Reason : Chest Pain Location : 191 : [facility] ED Overread By : MD CARDENAS VINAYAK Edited By : MD CARDENAS VINAYAK Referred By : , Acquired by : SANDRITA REID [facility] ED NOTEon 05-16-2024 ED NOTE HNO ID: [id number] Author: DARREN MILTON RN Service: ? Author Type: Registered Nurse Type: ED Notes Filed: 05/16/2024 16:43 Note Text: RT paged for DuJemmaanaya [facility] ED NOTE HNO ID: [id number] Author: DARREN MILTON RN Service: ? Author Type: Registered Nurse Type: ED Notes Filed: 05/16/2024 16:32 Note Text: Patient informed: the name of medication, why we are giving it, possible side effects, what they may expect to feel, and was offered a chance to ask questions, prior to the administration of Solu-Medrol [facility] ED NOTE HNO ID: [id number] Author: DARREN MILTON RN Service: ? Author Type: Registered Nurse Type: ED Notes Filed: 05/16/2024 15:07 Note Text: Pt arrives with recent illness for which she went to a [facility]. That facility recommended she be evaluated at the ED for possible pneumonia. Pt tested negative for influenza. Doesn't think she was tested for anything else. Pt reports illness initially started with nasal drainage. Pt reports chest pressure all across that is worse when I cough. Pt reports non-productive cough. Normal [facility] ED PROV NOTEon 05-16-2024 ED PROV NOTE HNO ID: [id number] Author: DUGLAS FISHER MD Service: Emergency Medicine Author Type: Physician Type: ED Provider Notes Filed: 05/16/2024 19:01 Note Text: ED Provider Note Patient Name: Car Santoyo : 1985 SERVICE DATE: 05/16/24 History Patient presents with: Difficulty Breathing Car Santoyo is a 38 year old female with history of asthma who presents with Difficulty Breathing. Patient took nothing for this prior to arrival. - Symptoms began 3 days prior to arrival. - Severity: mild - Timing: constant - Quality: Shortness of breath cough and chest pressure - Difficulty Breathing is exacerbated by exertion. - Difficulty Breathing is not exacerbated by palpation. - Symptoms are associated with URI symptoms. - Symptoms are not associated with chills and fever. - Improved by nothing. - Not improved by rest Patient went to urgent care this morning had negative flu swab. History of asthma does have an inhaler at home but continued to be short of breath. 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 PAST MEDICAL HISTORY Diagnosis Date - Anxiety - Asthma - GERD (gastroesophageal reflux disease) - Graves disease 2010 only treated for 2 years - Lupus PAST SURGICAL HISTORY Procedure Laterality Date - COLONOSCOPY SCREENING 10/22/2018 - HYSTEROSCOPY ENDOMETRIAL ABLATION 01/14/2024 - KNEE SURGERY HX 03/10/2014 - PAST SURGICAL HISTORY OF ABLATION, ENDOMETRIAL - TUBAL LIGATION HX 03/10/2008 FAMILY HISTORY Problem Relation Age of Onset - Thyroid Mother - Psychiatry Mother depression - Heart Maternal Grandfather of [place] - Heart Paternal Grandmother AL - Hypertension Paternal Grandfather - Heart Paternal Grandfather AL - Allergies Paternal Uncle - Asthma Paternal Uncle - Diabetes Paternal Uncle - No Ocular Disease No Family History Social History Tobacco Use - Smoking status: Never - Smokeless tobacco: Never Vaping Use - Vaping status: Never Used Substance and Sexual Activity - Alcohol use: Yes Comment: rare - Drug use: Not Currently Frequency: 7.0 times per week Types: Marijuana Comment: medical gummies - Sexual activity: Not on file Comment: not asked ALLERGIES No Known Allergies Review of Systems Constitutional: Negative for chills and fever. HENT: Positive for congestion and ear pain. Negative for sore throat. Respiratory: Positive for cough, chest tightness and shortness of breath. Cardiovascular: Negative for palpitations and leg swelling. Gastrointestinal: Negative for abdominal pain, nausea and vomiting. Allergic/Immunologic: Negative for environmental allergies, food allergies and immunocompromised state. Neurological: Negative for syncope and light-headedness. Psychiatric/Behaviora l: Negative for confusion. The patient is not nervous/anxious. Physical Exam Vitals [05/16/24 1459] BP Pulse Temp Temp src Resp SpO2 Weight Height 148/91 90 37.2 ?C (99 ?F) Temporal 17 100 % 127 kg (280 lb) 1.651 m (5' 5) Physical Exam Vitals and nursing note reviewed. Constitutional: General: She is not in acute distress. Appearance: She is well-developed. She is not ill-appearing, toxic-appearing or diaphoretic. HENT: Head: Normocephalic and atraumatic. Comments: Bilateral otitis media left worse than right Mouth/Throat: Pharynx: No pharyngeal swelling or oropharyngeal exudate. Pulmonary: Effort: Pulmonary effort is normal. No respiratory distress. Breath sounds: Examination of the right-middle field reveals wheezing. Examination of the left-middle field reveals wheezing. Examination of the right-lower field reveals wheezing. Examination of the left-lower field reveals wheezing. Wheezing present. Musculoskeletal: Cervical back: Normal range of motion and neck supple. Right lower leg: No edema. Left lower leg: No edema. Skin: General: Skin is warm and dry. Capillary Refill: Capillary refill takes less than 2 seconds. Findings: No rash. Neurological: General: No focal deficit present. Mental Status: She is alert. Psychiatric: Mood and Affect: Mood normal. Mood is not anxious. Behavior: Behavior normal. Behavior is not agitated. Diagnostic Testing ED Labs Ordered and Reviewed BASIC METABOLIC PANEL - Abnormal; Notable for the following components: Result Value Ref Range BUN 4 (*) 7 - 21 mg/dL All other components within normal limits COMPLETE BLOOD COUNT AND DIFFERENTIAL - Abnormal; Notable for the following components: Hemoglobin 11.0 (*) 11.5 - 15.5 g/dL Hematocrit 34.6 (*) 36.0 - 46.0 % MCV 74.4 (*) 80.0 - 100.0 fL MCH 23.7 (*) 26.0 - 34.0 pg RDW-CV 17.3 (*) 11.5 - 15.0 % Abs Lymph 0.58 (*) 1.00 - 4.00 k/uL All other components within normal limits D-DIMER - Abnormal; Notable for the following components: D Dimer 530 (*) <500 ng/mL FEU All other components within normal limits Narrative: 500 ng/mL FEU is the D Dimer cutof (more content not included)... Normal [facility] HIGH SENSITIVITY TROPONIN To n 05-16-2024 Troponin T.cardiac High sensitivity method [Mass/Vol] <6 Normal <12 [facility] Comment on above: Order Comment: Speci men Type: BLOOD SPECIMENOrdering Facility: [facility] Address: [address] [place] [address] Performed By: #### H STNT ####[facility] [place] LABCLIA [id number] [place] [address] [facility] XR CHEST 1V FRONTALon 2024 XR CHEST 1V FRONTAL * * *Final Report* * * DATE OF EXAM: May 16 2024 4:00PM LDX 5290 - XR CHEST 1V FRONTAL / PROCEDURE REASON: Shortness of breath * * * * Physician Interpretation * * * * EXAMINATION: CHEST RADIOGRAPH (SINGLE VIEW AP OR PA) CLINICAL HISTORY: Shortness of breath MQ: XC1_5 Comparison: None RESULT: Lines, tubes, and devices: None. Lungs and pleura: No consolidation. No lung mass. No pleural effusion. Cardiomediastinal silhouette: Normal cardiomediastinal silhouette. Other: . IMPRESSION: No acute radiographic abnormality. Valet Runner: PSCB Transcribe Date/Time: May 16 2024 5:02P Dictated by : LEO BECK MD This examination was interpreted and the report reviewed and electronically signed by: LEO BECK MD on May 16 2024 5:02PM EST [id number] Normal [facility] Internal Medicine Office Vis iton 04-28-2024 Internal Medicine Office Visit [facility] [place] [phone] OFFICE VISIT Date of Service: 04/29/24 MR#: [id number] Acct: [id number] Name: CAR SANTOYO Rep #: [id number] 06 : 1985 Provider: Dr. Ap gonsalez MD Age/Sex: 38/F Location: [facility] [place] Status: Signed Intake Vital Signs 02/10/24 12:50 04/29/24 12:50 Height 5 ft 5 in 5 ft 5 in Weight: 281 lb BMI 46.7 BP 132/78 H Blood Pressure Location Rt brachial Position Sitting Respiration 16 Pulse 69 Pulse Source Monitor Temp 97.8 F Temp Source Temporal Pulse Oximetry (%) 99 Oxygen Delivery Method room air Intake Visit Reasons: 3 M FU Chief Complaint: 3M F/U Garnett Feeder Required: No Accompanied by: Self Is patient in pain?: No Allergies No Known Allergies Allergy (Verified 04/29/24 12:44) Medications ???Medication ???Instructions ???Recorded ???Confirmed ???Type hydrocortisone 2.5 % topical cream 1 applic topical BID PRN rash #2 0 06/24/22 04/29/24 Rx grams cetirizine 10 mg tablet (Zyrtec) 10 mg PO DAILY #10 tabs 10/08/22 0 04/29/24 Rx handicap placard #1 ea 04/17/23 04/29/24 Rx hydroxychloroquine 200 mg tablet 200 mg PO DAILY 04/17/23 04/29/24 History (Plaquenil) mometasone 50 mcg/actuation nasal 2 spray intranasal BID 11/14/23 0 04/29/24 History spray trazodone 50 mg tablet 25 mg (1/2 x 50 mg) PO QHS #15 05/3104/29/24 Rx TABLETS albuterol sulfate 90 mcg/actuation 2 inh inhalation Q6H PRN shortne ss 03/05/24 04/29/24 Rx breath activated powder inhaler of breath or wheezing #1 ea betamethasone valerate 0.1 % lotion 1 applic topical BID PRN rash # 60 04/29/24 04/29/24 Rx mL pregabalin 75 mg capsule 75 mg PO BID #60 caps 04/29/24 Rx Have you fallen in the past year?: No Nurse's Note: forearm right side scratch from indoor cat has rash around PFSH Medical History Hx of renal calculi Articular cartilage disorder of left knee Subluxation of left patella Derangement of left knee Trichilemmal cyst Dysesthesia of scalp Aspiration pneumonia Vitamin deficiency Lupus Frequent headaches Anxiety and depression UTI (urinary tract infection) Back problem Asthma Anemia Seasonal allergies Surgical History History of endometrial ablation H/O sinus surgery History of knee surgery History of tubal ligation Family History Mother Anxiety Depressed Psychiatric care Suicide attempt Thyroid disorder Father Diabetes Social History household members: significant other current occupational status: employed current occupation: [employer] Smoking Status: Never smoker Electronic Cigarette Use: not used alcohol intake: never substance use type: former substance user Date of last use: used marijuana what type of physical activity do you participate in: other details: CARDIOVASCULAR frequency: 5-6 times per week seatbelt use: always do you feel safe at home: Yes HPI HPI Chief Complaint: 3M F/U Details: CAR SANTOYO, is a 38 F who presents to the office today for a follow up.??? She is up to date on her routine blood work and screening. She previously declined a flu shot.??? She doesn't smoke and does need refills today.??? She reports she is still trying to eat healthier and has lost 12 pounds since she was last seen.??? She hasn't been as active with the weather change. The patient reports her pain is in the 6-7/10 range currently. As above, she feels the pain has been worse with the cold weather. She is no longer seeing pain management. She reports the medication does help and continues to follow with the rn digestive. She reports her heartburn has been doing better with adjusting her diet. She is no longer on the protonix. She will occasionally take a TUMS, but hasn't really needed much recently. At the patient's last office visit, she felt that her mental health has been up and down. She was maintained on trazodone at that time. She did schedule with psychiatry and has an appointment next month. She reports that at this time, she would like to just maintain her current dosing/medications. She denies any thoughts of suicide. She also had concerns about her weight. Discussed diet and exercise and a referral to a component engineer was provided. Discussed GLP-1 inhibitors, but she wanted to think about it. She reports that The patient reports she has a rash on her right arm. It started about 3 weeks ago. She reports she had a scratch in that area. She reports it started to itch then. The scratch has since resolved, but the rash and itching has been persistent. She has tried an O (more content not included)... Normal [facility] CBC W Auto Differential pane l (Bld)on 04-26-2024 Basophils (Bld) [#/Vol] 0.05 10*3/uL Normal <0.11 [facility] Comment on above: Order Comment: Amanda dickerson Type: BLOOD SPECIMEN Ordering Facility: [facility] Address: [address] [place] [address] Performed By: #### 5 7021-8 #### [facility] CLIA [id number] [address] [place] [address] [place] Basophils/100 WBC (Bld) 0.9 % Normal C [facility] Comment on above: Order Comment: Amanda dickerson Type: BLOOD SPECIMEN Ordering Facility: [facility] Address: [address] [place] [address] Performed By: #### 5 7021-8 #### [facility] CLIA [id number] [address] [place] [address] [place] Differential cell count method Nom (Bld) Auto Normal [facility] Comment on above: Order Comment: Amanda dickerson Type: BLOOD SPECIMEN Ordering Facility: [facility] Address: [address] [place] [address] Performed By: #### 5 7021-8 #### [facility] CLIA [id number] [address] [place] [address] [place] Eosinophils (Bld) [#/Vol] 0.31 10*3/uL Normal <0.46 [facility] Comment on above: Order Comment: Speci men Type: BLOOD SPECIMEN Ordering Facility: [facility] Address: [address] [place] [address] Performed By: #### 5 7021-8 #### [facility] CLIA [id number] [address] [place] [address] [place] Eosinophils/100 WBC (Bld) 5.5 % Normal [facility] Comment on above: Order Comment: Speci men Type: BLOOD SPECIMEN Ordering Facility: [facility] Address: [address] [place] [address] Performed By: #### 5 7021-8 #### [facility] CLIA [id number] [address] [place] [address] [place] Erythrocyte distribution width (RBC) [Ratio] 17.6 % High 11.5-15.0 [facility] Comment on above: Order Comment: Speci men Type: BLOOD SPECIMEN Ordering Facility: [facility] Address: [address] [place] [address] Performed By: #### 5 7021-8 #### [facility] CLIA [id number] [address] [place] [address] [place] Hematocrit (Bld) [Volume fraction] 35.9 % Low 36.0-46.0 [facility] Comment on above: Order Comment: Speci men Type: BLOOD SPECIMEN Ordering Facility: [facility] Address: [address] [place] [address] Performed By: #### 5 7021-8 #### [facility] [id number] [address] [place] [address] [place] Hemoglobin (Bld) [Mass/Vol] 11.5 g/dL Normal 11.5-15.5 [facility] Comment on above: Order Comment: Speci men Type: BLOOD SPECIMEN Ordering Facility: [facility] Address: [address] [place], [place] [address] Performed By: #### 5 7021-8 #### [facility] CLIA [id number] [address] [place] [address] [place] Immature granulocytes (Bld) [#/Vol] 10*3/uL Normal <0.10 [facility] Comment on above: Order Comment: Speci men Type: BLOOD SPECIMEN Ordering Facility: [facility] Address: [address] [place] [address] Performed By: #### 5 7021-8 #### [facility] CLIA [id number] [address] [place] [address] [place] Immature granulocytes/100 WBC (Bld) 0.2 % Normal [facility] Comment on above: Order Comment: Speci men Type: BLOOD SPECIMEN Ordering Facility: [facility] Address: [address] [place] [address] Performed By: #### 5 7021-8 #### [facility] CLIA [id number] [address] [place] [address] [place] Lymphocytes (Bld) [#/Vol] 1.55 10*3/uL Normal 1.00-4.00 [facility] Comment on above: Order Comment: Speci men Type: BLOOD SPECIMEN Ordering Facility: [facility] Address: [address] [place], [place] [address] Performed By: #### 5 7021-8 #### [facility] CLIA [id number] [address] [place] [address] [place] Lymphocytes/100 WBC (Bld) 27.3 % Normal [facility] Comment on above: Order Comment: Speci men Type: BLOOD SPECIMEN Ordering Facility: [facility] Address: [address] [place] [address] Performed By: #### 5 7021-8 #### [facility] CLIA [id number] [address] [place] [address] [place] MCH (RBC) [Entitic mass] 23.6 pg Low 26.0-34.0 [facility] Comment on above: Order Comment: Speci men Type: BLOOD SPECIMEN Ordering Facility: [facility] Address: [address] [place] [address] Performed By: #### 5 7021-8 #### [facility] CLIA [id number] [address] [place] [address] [place] MCHC (RBC) [Mass/Vol] 32.0 g/dL Normal 30.5-36.0 [facility] Comment on above: Order Comment: Speci men Type: BLOOD SPECIMEN Ordering Facility: [facility] Address: [address] [place] [address] Performed By: #### 5 7021-8 #### [facility] CLIA [id number] [address] [place] [address] [place] MCV (RBC) [Entitic vol] 73.6 fL Low 80.0-100.0 C [facility] Comment on above: Order Comment: Speci men Type: BLOOD SPECIMEN Ordering Facility: [facility] Address: [address] [place] [address] Performed By: #### 5 7021-8 #### [facility] CLIA [id number] [address] [place] [address] [place] Monocytes (Bld) [#/Vol] 0.48 10*3/uL Normal <0.87 [facility] Comment on above: Order Comment: Speci men Type: BLOOD SPECIMEN Ordering Facility: [facility] Address: [address] [place] [address] Performed By: #### 5 7021-8 #### [facility] CLIA [id number] [address] [place] [address] [place] Monocytes/100 WBC (Bld) 8.5 % Normal C [facility] Comment on above: Order Comment: Speci men Type: BLOOD SPECIMEN Ordering Facility: [facility] Address: [address] [place] [address] Performed By: #### 5 7021-8 #### [facility] CLIA [id number] [address] [place] [address] [place] Neutrophils (Bld) [#/Vol] 3.27 10*3/uL Normal 1.45-7.50 [facility] Comment on above: Order Comment: Speci men Type: BLOOD SPECIMEN Ordering Facility: [facility] Address: [address] [place] [address] Performed By: #### 5 7021-8 #### [facility] CLIA [id number] [address] [place] [address] [place] Neutrophils/100 WBC (Bld) 57.6 % Normal [facility] Comment on above: Order Comment: Speci men Type: BLOOD SPECIMEN Ordering Facility: [facility] Address: [address] [place] [address] Performed By: #### 5 7021-8 #### [facility] CLIA [id number] [address] [place] [address] [place] Nucleated RBC (Bld) [#/Vol] 10*3/uL Normal <0.01 [facility] Comment on above: Order Comment: Speci men Type: BLOOD SPECIMEN Ordering Facility: [facility] Address: [address] [place] [address] Performed By: #### 5 7021-8 #### [facility] CLIA [id number] [address] [place] [address] [place] Nucleated RBC/100 WBC (Bld) [Ratio] 0.0 /100 WBC Normal [facility] Comment on above: Order Comment: Speci men Type: BLOOD SPECIMEN Ordering Facility: [facility] Address: [address] [place] [address] Performed By: #### 5 7021-8 #### [facility] CLIA [id number] [address] [place] [address] [place] Platelet mean volume (Bld) [Entitic vol] 10.1 fL Normal 9.0-12.7 [facility] Comment on above: Order Comment: Speci men Type: BLOOD SPECIMEN Ordering Facility: [facility] Address: [address] [place] [address] Performed By: #### 5 7021-8 #### [facility] CLIA [id number] [address] [place] [address] [place] Platelets (Bld) [#/Vol] 296 10*3/uL Normal 150-400 [facility] Comment on above: Order Comment: Speci men Type: BLOOD SPECIMEN Ordering Facility: [facility] Address: [address] [place] [address] Performed By: #### 5 7021-8 #### [facility] CLIA [id number] [address] [place] [address] [place] RBC (Bld) [#/Vol] 4.88 10*6/uL Normal 3.90-5.20 [facility] Comment on above: Order Comment: Speci men Type: BLOOD SPECIMEN Ordering Facility: [facility] Address: [address] [place] [address] Performed By: #### 5 7021-8 #### [facility] CLIA [id number] [address] [place] [address] [place] WBC (Bld) [#/Vol] 5.67 10*3/uL Normal 3.70-11.00 [facility] Comment on above: Order Comment: Speci men Type: BLOOD SPECIMEN Ordering Facility: [facility] Address: [address] [place] [address] Performed By: #### 5 7021-8 #### [facility] CLIA [id number] [address] [place] [address] [place] CRP SerPl-mCncon 04-26-2024 CRP [Mass/Vol] mg/L Normal <0.9 [facility] Comment on above: Order Comment: Speci men Type: BLOOD SPECIMEN Ordering Facility: [facility] Address: [address] [place] [address] Performed By: #### 1 988-5, 58624-8 #### [facility] CLIA [id number] [address] [place], [place] [address] [address] [place] Comprehensive metabolic 2000 panelon 04-26-2024 Albumin [Mass/Vol] 4.1 g/dL Normal 3.9-4.9 [facility] Comment on above: Order Comment: Speci men Type: BLOOD SPECIMEN Ordering Facility: [facility] Address: [address] [place] [address] Performed By: #### 2 4323-8 #### [facility] CLIA [id number] [address] [place] [address] [place] ALP [Catalytic activity/Vol] 66 U/L Normal 34-123 [facility] Comment on above: Order Comment: Speci men Type: BLOOD SPECIMEN Ordering Facility: [facility] Address: [address] [place] [address] Performed By: #### 2 4323-8 #### [facility] CLIA [id number] [address] [place] [address] [place] ALT [Catalytic activity/Vol] 9 U/L Normal 7-38 [facility] Comment on above: Order Comment: Speci men Type: BLOOD SPECIMEN Ordering Facility: [facility] Address: [address] [place] [address] Performed By: #### 2 4323-8 #### [facility] CLIA [id number] [address] [place] [address] [place] Anion gap [Moles/Vol] 8 mmol/L Normal 8-15 [facility] Comment on above: Order Comment: Speci men Type: BLOOD SPECIMEN Ordering Facility: [facility] Address: [address] [place] [address] Performed By: #### 2 4323-8 #### [facility] CLIA [id number] [address] [place] [address] [place] AST [Catalytic activity/Vol] 12 U/L Low 13-35 [facility] Comment on above: Order Comment: Speci men Type: BLOOD SPECIMEN Ordering Facility: [facility] Address: [address] [place] [address] Performed By: #### 2 4323-8 #### [facility] CLIA [id number] [address] [place] [address] [place] Bilirubin [Mass/Vol] 0.4 mg/dL Normal 0.2-1.3 [facility] Comment on above: Order Comment: Speci men Type: BLOOD SPECIMEN Ordering Facility: [facility] Address: [address] [place] [address] Performed By: #### 2 4323-8 #### [facility] CLIA [id number] [address] [place] [address] [place] Calcium [Mass/Vol] 9.2 mg/dL Normal 8.5-10.2 [facility] Comment on above: Order Comment: Speci men Type: BLOOD SPECIMEN Ordering Facility: [facility] Address: [address] [place] [address] Performed By: #### 2 4323-8 #### [facility] CLIA [id number] [address] [place] [address] [place] Chloride [Moles/Vol] 105 mmol/L Normal 98-107 [facility] Comment on above: Order Comment: Speci men Type: BLOOD SPECIMEN Ordering Facility: [facility] Address: [address] [place] [address] Performed By: #### 2 4323-8 #### [facility] CLIA [id number] [address] [place] [address] [place] CO2 [Moles/Vol] 26 mmol/L Normal 22-30 [facility] Comment on above: Order Comment: Amanda dickerson Type: BLOOD SPECIMEN Ordering Facility: [facility] Address: [address] [place] [address] Performed By: #### 2 4323-8 #### [facility] [id number] [address] [place] [address] [place] Creatinine [Mass/Vol] 0.71 mg/dL Normal 0.58-0.96 [facility] Comment on above: Order Comment: Amanda dickerson Type: BLOOD SPECIMEN Ordering Facility: [facility] Address: [address] [place] [address] Performed By: #### 2 4323-8 #### [facility] [id number] [address] [place] [address] [place] Creatinine and Glomerular filtration rate.predicted panel (S/P/Bld) 111 mL/min/1.73m??? Normal >=60 [facility] Comment on above: Order Comment: Amanda dickerson Type: BLOOD SPECIMEN Ordering Facility: [facility] Address: [address] [place] [address] Result Comment: Puja mated Glomerular Filtration Rate (eGFR) is calculated using the 2020 CKD-EPI creatinine equation. This equation utilizes serum creatinine, sex, and age as parameters. The creatinine assay has traceable calibration to isotope dilution-mass spectrometry. Refer to KDIGO guidelines for clinical interpretation. In patients with unstable renal function, e.g. those with acute kidney injury, the eGFR may not accurately reflect actual GFR. Performed By: #### 2 4323-8 #### [facility] [id number] [address] [place] [address] [place] Glucose [Mass/Vol] 71 mg/dL Low 74-99 [facility] Comment on above: Order Comment: Amanda dickerson Type: BLOOD SPECIMEN Ordering Facility: [facility] Address: [address] [place] [address] Result Comment: The [place] Diabetes Association (ADA) provides guidance for cutoff values for fasting glucose and random glucose. The ADA defines fasting as no caloric intake for at least 8 hours. Fasting plasma glucose results between 100 to 125 mg/dL indicate increased risk for diabetes (prediabetes). Fasting plasma glucose results greater than or equal to 126 mg/dL meet the criteria for diagnosis of diabetes. In the absence of unequivocal hyperglycemia, results should be confirmed by repeat testing. In a patient with classic symptoms of hyperglycemia or hyperglycemic crisis, random plasma glucose results greater than or equal to 200 mg/dL meet the criteria for diagnosis of diabetes. Reference: Standards of Medical Care in Diabetes 2016, [place] [employer] Association. Diabetes Care. 2016.39(Suppl 1). Performed By: #### 2 4323-8 #### [facility] [id number] [address] [place] [address] [place] Potassium [Moles/Vol] 3.9 mmol/L Normal 3.7-5.1 [facility] Comment on above: Order Comment: Speci men Type: BLOOD SPECIMEN Ordering Facility: [facility] Address: [address] [place] [address] Performed By: #### 2 4323-8 #### [facility] [id number] [address] [place] [address] [place] Protein [Mass/Vol] 7.1 g/dL Normal 6.3-8.0 [facility] Comment on above: Order Comment: Speci men Type: BLOOD SPECIMEN Ordering Facility: [facility] Address: [address] [place] [address] Performed By: #### 2 4323-8 #### [facility] [id number] [address] [place] [address] [place] Sodium [Moles/Vol] 139 mmol/L Normal 136-144 [facility] Comment on above: Order Comment: Speci men Type: BLOOD SPECIMEN Ordering Facility: [facility] Address: [address] [place] [address] Performed By: #### 2 4323-8 #### [facility] CLIA [id number] [address] [place] [address] [place] Urea nitrogen [Mass/Vol] 11 mg/dL Normal 7-21 [facility] Comment on above: Order Comment: Speci men Type: BLOOD SPECIMEN Ordering Facility: [facility] Address: [address] [place] [address] Performed By: #### 2 4323-8 #### [facility] CLIA [id number] [address] [place] [address] [place] ESR Westergren method (Bld) [Velocity]on 04-26-2024 ESR (Bld) [Velocity] 8 mm/h Normal 0-20 [facility] Comment on above: Order Comment: Speci men Type: BLOOD SPECIMEN Ordering Facility: [facility] Address: [address] [place] [address] Performed By: #### 4 537-7 #### [facility] CLIA [id number] [address] [place] [address] [place] Iron and Iron binding capaci ty panelon 04-26-2024 Iron [Mass/Vol] 30 ug/dL Low 41-186 [facility] Comment on above: Order Comment: Speci men Type: BLOOD SPECIMEN Ordering Facility: [facility] Address: [address] [place] [address] Performed By: #### 1 988-5, 07488-8 #### [facility] CLIA [id number] [address] [place] [address] [place] Iron binding capacity [Mass/Vol] 389 ug/dL High 232-386 [facility] Comment on above: Order Comment: Speci men Type: BLOOD SPECIMEN Ordering Facility: [facility] Address: [address] [place] [address] Performed By: #### 1 [id number] #### [facility] CLIA [id number] [address] [place], [place] [address] [address] [place] Iron/TIBC [Molar ratio] 7.7 % Low 15.0-57.0 C [facility] Comment on above: Order Comment: Speci men Type: BLOOD SPECIMEN Ordering Facility: [facility] Address: [address] [place] [address] Performed By: #### 1 [id number], [id number] #### [facility] CLIA [id number] [address] [place] [address] [place] CNOVon 04-14-2024 CNOV Office Visit (RHBATH ) CAR SANTOYO ([id number]) 1985 F Date Time Provider Department 04/14/24 2:00 PM FABRICE STONE During your visit today, we recorded the following information about you: Temperature Pulse Respiration Blood pressure 97.8 degrees 83/minute 14/minute 114/75 Weight Height 129.5 kg 1.664 m Fabrice Stone PA-C 04/14/2024 3:05 PM Signed [facility] Fabrice Stone [address] [place] [address] Subjective Last OV: 10/13/23 HPI: Car Santoyo is a 38 year old female who presents for follow up of pos MARKUS, arthralgia, rash. She reports she has pain all over. Hands feel swollen, legs feel swollen. Everything feels swollen. Her knees are the worst, but knees are bad. She reports the swelling feeling has been ongoing for about a month, usually goes away pretty quickly but has been staying. 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 Long distances without stopping. She takes a vitamin D supplement occasionally, feels like she is getting kidney stones from it. She reports she kind of has rashes. She had a scratch on her arm and scratched it in her sleep and got a rash from that. She has tried oral iron in the past but does not tolerate it - causes significant GI upset. Next exam is scheduled for 05/2024. Rheumatologic disease summary: First OV date: 10/23/22 Diagnosis: pos MARKUS, rash, arthralgia, fibro Serologies: SCL-70 1.8, MARKUS 1:640, DSDNA neg, ADULT CARE PROVIDER-Sm neg, SSA/SSB neg, centromere neg, chromatin neg, CCP neg, crithidia neg, endomysial neg, IgM 242 (elevated), IgG normal, IgA low 16, Salima-1 neg, RF neg, vit D low Erosions: none Current therapy: Plaquenil 400 mg daily Prior therapy: MTX (nausea), pred (worsened pain), medrol (improvement), SSZ (mood changes, itching) Initial rheumatology visit HPI (10/23/22 Dr. Gomez): 37 year old female seen for joint pain. Knee pain. Needs replaced. Saw ortho. Not on Plaquenil or MTX. Reviewed last note main [facility] rheum. 2019. Photosensitive rash, joint pain. Started on Plaquenil. Nausea with MTX. prednisone (worsened joint pain) and medrol (resolved joint pain). gastric biopsy with chronic inactive gastritis. Started on SSZ. Had to stop after about 2-3 weeks of use due to rage attacks, sore throat, itching, drowsiness and increased appetite. All symptoms resolved off SSZ Fibromyalgia Family h/o autoimmune disease - none Smoking - Interval Review of Systems CONSTITUTIONAL: Recent Weight change: No Fever: No EENT: Dryness in eyes: No Dryness of mouth: No Oral ulcers: No CARDIOVASCULAR: Pain in chest: No RESPIRATORY: Shortness of breath: No Cough: No GASTROINTESTINAL: Nausea: No Vomiting: No Changes in bowel movements: No Heartburn: No MUSCULOSKELETAL: Per HPI INTEGUMENTARY: Rash: No NEUROLOGICAL SYSTEM: Headaches: No All other ROS reviewed, pertinent positives in HPI PAST MEDICAL HISTORY Diagnosis Date Anxiety Asthma GERD (gastroesophageal reflux disease) Graves disease 2009 only treated for 2 years Lupus PAST SURGICAL HISTORY Procedure Laterality Date COLONOSCOPY SCREENING 10/22/2018 HYSTEROSCOPY ENDOMETRIAL ABLATION 01/14/2024 KNEE SURGERY HX 03/10/2014 PAST SURGICAL HISTORY OF ABLATION, ENDOMETRIAL TUBAL LIGATION HX 03/10/2008 History Review: I have reviewed and modified as needed, the following during this visit: Allergies, Past Medical History, Past Surgical History, Past Family History, Past Social History. Physical Exam BP 114/75 Pulse 83 Temp 36.6 ?C (97.8 ?F) (Temporal) Resp 14 Ht 166.4 cm (5' 5.51) Wt 129.5 kg (285 lb 6.2 oz) LMP 01/07/2024 (Approximate) BMI 46.75 kg/m? GENERAL: Well appearing, alert, comfortable, in no acute distress, well-hydrated, well nourished. HEENT: Negative for external ears normal. Canals are clear. Eye Exam normal. External nose normal, no nasal ulcer or throat ulcer. NECK: NECK Supple, no adenopathy CARDIAC: regular rate and rhythm, No murmur asculated., and Equal peripheral pulses RESPIRATORY: Lungs clear to auscultation. No wheezing, rhonchi, rales NEURO: Motor and sensory exam normal MOTOR: Normal; including tone, gait, stressed gait, power and coordination. SKIN: Negative for alopecia, skin rash, malar rash, skin lesion, skin ulcer, pits, thickening, color changes, telangiectasias, nail changes, nail ridging, nail pitting, onycholysis; papular rash R forearm MUSCULOSKELETAL: tenderness of the PIPs and DIPs; no synovitis Pertinent Serologies: SCL-70 1.8, MARKUS 1:640, DSDNA neg, ADULT CARE PROVIDER-Sm neg, SSA/SSB neg, centromere neg, chromatin neg, CCP neg, crithidia neg, endomysial neg, IgM 242 (elevated), IgG normal, IgA low 16, Salima-1 neg, RF neg, vit D low Recent Lab Results: (more content not included)... [facility] 02-10-2024 LAITHN Telephone (OBGWMA) RUBACAR ([id number]) 1985 F Date Time Provider Department 02/10/24 SANDRITA CHEN During your visit today, we recorded the following information about you: Prema Serrano RN 02/10/2024 1:21 PM Signed Pts calling, he would like a list of the medication that his was given int he hospital both pre and post op. FRANCIS Nunez Eric Joseph, MD 02/10/2024 4:02 PM Signed Yes, that is what we ordered by anesthesia may have ordered other meds. Why does he ask? Allergies As of Date: 02/10/2024 (No Known Allergies) Date Reviewed: 01/14/2024 Reviewed by: Duglas Ugarte RN - Fully Assessed Reason for Visit: Patient Update [1234] Prescriptions as of 02/10/2024 - hydrOXYchloroQUINE (PLAQUENIL) 200 mg tablet Take 200 mg by mouth. - pregabalin (LYRICA) 75 mg capsule - traZODone (DESYREL) 50 mg tablet - fluticasone (FLONASE) 50 mcg/actuation nasal spray Nasal for 30 - cetirizine (ZYRTEC) 10 mg tablet Oral for 10 - MEDICATION, NON-DATABASE [place] medical marijuana card, gummies - Syringe with Needle, Disp, (MONOJECT TB SAFETY SYRINGE) 1 mL 25 gauge x 5/8 syrg Use as directed to inject methotrexate. - diphenhydramine HCl (BENADRYL ALLERGY ORAL) Benadryl Allergy Oral - ALBUTEROL 90 MCG/ACTUATION AEROSOL INHALER 2 puffs every four hours as needed for cough, wheezing , chest tightness or shortness of breath and 15-20 minutes pre-exercise. Use with spacer. Problem List As Of Date 02/10/2024 Noted Resolved BACKACHE NOS [M54.9] 10/14/2005 Morbid obesity (HCC) [E66.01] 10/21/2018 Graves disease [E05.00] 10/21/2018 Anxiety and depression [F41.9, F32.A] 10/21/2018 Mild intermittent asthma without complication [*10/21/2018 Autoimmune disease (HCC) [M35.9] 10/21/2018 Obesity, Class III, BMI >= 40 [E66.01] 12/25/2023 Pre-op examination [Z01.818] 01/12/2024 Abnormal uterine bleeding [N93.9] 01/12/2024 Lupus (systemic lupus erythematosus) (HCC) [M32*01/13/2024 Aspiration pneumonia (HCC) [J69.0] 01/13/2024 Encounter Status:Closed by SANDRITA CHEN on 02/10/24 [facility] Internal Medicine Office Vis iton 02-09-2024 Internal Medicine Office Visit [facility] [address] [place] [address] [place] [address] OFFICE VISIT Date of Service: 02/10/24 MR#: [id number] Acct: [id number] Name: CAR SANTOYO Rep #: [id number] : 1985 Provider: Dr. Ap gonsalez MD Age/Sex: 38/F Location: [facility] Status: Signed Intake Vital Signs 08/13/23 14:56 02/10/24 12:50 Height 5 ft 5 in 5 ft 5 in Weight: 293 lb BMI 48.7 BP 124/80 H Blood Pressure Location Lt brachial Position Sitting Respiration 16 Pulse 78 Pulse Source Monitor Temp 98.2 F Temp Source Temporal Pulse Oximetry (%) 99 Oxygen Delivery Method room air Intake Visit Reasons: 3 M FU Chief Complaint: 3M F/U Garnett Feeder Required: No Accompanied by: Self Is patient in pain?: No Allergies No Known Allergies Allergy (Verified 02/10/24 12:46) Medications ???Medication ???Instructions ???Recorded ???Confirmed ???Type hydrocortisone 2.5 % topical cream 1 applic topical BID PRN rash #20 06/24/22 02/10/24 Rx grams cetirizine 10 mg tablet (Zyrtec) 10 mg PO DAILY #10 tabs 10/08/22 02/10/24 Rx albuterol sulfate 90 mcg/actuation 2 inh inhalation Q6H PRN shortness 12/30/22 02/10/24 Rx breath activated powder inhaler of breath or wheezing #1 ea handicap placard #1 ea 04/17/23 02/10/24 Rx hydroxychloroquine 200 mg tablet 200 mg PO DAILY 04/17/23 02/10/24 History (Plaquenil) mometasone 50 mcg/actuation nasal 2 spray intranasal BID 11/14/23 02/10/24 History spray pregabalin 75 mg capsule 75 mg PO BID #60 caps 02/10/24 02/10/24 Rx trazodone 50 mg tablet 25 mg (1/2 x 50 mg) PO QHS #15 02/10/24 02/10/24 Rx TABLETS PFSH Medical History Hx of renal calculi Articular cartilage disorder of left knee Subluxation of left patella Derangement of left knee Trichilemmal cyst Dysesthesia of scalp Aspiration pneumonia Vitamin deficiency Lupus Frequent headaches Anxiety and depression UTI (urinary tract infection) Back problem Asthma Anemia Seasonal allergies Surgical History History of endometrial ablation H/O sinus surgery History of knee surgery History of tubal ligation Family History Mother Anxiety Depressed Psychiatric care Suicide attempt Thyroid disorder Father Diabetes Social History (Updated 02/10/24 @ 13:[address] Ap Donahue MD) household members: significant other current occupational status: employed current occupation: [employer] Smoking Status: Never smoker Electronic Cigarette Use: not used alcohol intake: never substance use type: former substance user Date of last use: used marijuana what type of physical activity do you participate in: other details: CARDIOVASCULAR frequency: 5-6 times per week seatbelt use: always do you feel safe at home: Yes HPI HPI Chief Complaint: 3M F/U Details: CAR SANTOYO, is a 38 F who presents to the office today for a follow up.??? She is up to date on her routine blood work and screening. She doesn't want a flu shot.??? She doesn't smoke and does need refills today.??? She reports she is still trying to eat healthy.??? She hasn't been as active with the weather change. The patient reports her pain is in the 6-7/10 range currently. As above, she feels the pain has been worse with the cold weather. She is no longer seeing pain management. She reports the medication does help and continues to follow with the rn digestive. She recently had surgery and reports during that admission, she was prescribed something for pain. She doesn't recall what it was, but found it to be helpful. She reports her heartburn has been doing better with the pantoprazole. She reports she has been trying to monitor her diet. She reports her mental health seems to be getting worse with the weather change. She hasn't yet scheduled with psychiatry. She continues to take the trazodone which she does feel helps with her sleep, but isn't sure if it helps with her mood. The patient did see ENT for her continued ear pain. She reports that she underwent a sinuplasty, but doesn't find it was helpful. She reports she is still having pain. She doesn't have any follow up scheduled with them. The patient also has concerns about her weight. She reports she is trying to stay in a calorie deficit stating she is sticking to 1300 calories daily. She doesn't typically eat breakfast. Lunch will be variable depending on work, but is often a fast food stop. Dinner is typically pastas and breads when at home. ROS Const Constitutional: Positive for weight change (10 pound weight loss); No body ache, chills, excessive sweating, fatigue, fever(s), frequent falls, headache(s), snoring, w (more content not included)... Normal [facility] ANES POSTPROC EVALon 024 ANES POSTPROC EVAL HNO ID: [id number] Author: CLEM MARQUEZ MD Service: Anesthesiology Author Type: Anesthesiologist Type: Anesthesia Postprocedure Evaluation Filed: 01/14/2024 11:00 Note Text: POST ANESTHESIA EVALUATION NOTE : 1985 Procedure Summary Date: 01/14/24 Room / Location: OR OR OR Anesthesia Start: 853 Anesthesia Stop: 948 Procedures: HYSTEROSCOPY, D AND C (Uterus) HYSTEROSCOPY WITH ENDOMETRIAL ABLATION (Uterus) Diagnosis: Abnormal uterine bleeding (Abnormal uterine bleeding [N93.9]) Surgeons: Sandrita Chen MD Responsible Provider: Clem Marquez MD Anesthesia Type: general ASA Status: 3 Anesthesia Type: general Airway Type: ETT Last Vitals Vitals Value Taken Time BP 113/58 01/14/24 1055 Temp 36.2 ?C (97.2 ?F) 01/14/24 1045 HR SpO2 72 01/14/24 1055 Resp 17 01/14/24 1055 SpO2 98 % 01/14/24 1055 Vitals shown include unfiled device data. Post Anesthesia Patient Status Patient Evaluation: PACU. PACU/ICU Patient Condition: stable. Neurological Status: aware and responsive. Pulmonary Status: breathing comfortably on room air Airway Control: returned to baseline unsupported. Cardiovascular Status: stable. Pain Management: clinically adequate Postoperative Hydration: acceptable. Intraoperative Events: no significant anesthesia events Post Operative Nausea/Vomiting Status: no significant post operative nausea or vomiting Recommendation: continue current plan of care. Anesthesia Observations No Documentation SIGNATURE: Clem Marquez MD PATIENT NAME: Car Santoyo DATE: January 14, 2024 TIME: 10:59 AM CSN: [id number] [facility] ANES PRE-OPon 01-14-2024 ANES PRE-OP HNO ID: [id number] Author: BRUNILDA VELARDE MD Service: Anesthesiology Author Type: Anesthesiologist Type: Anesthesia Preprocedure Evaluation Filed: 01/14/2024 09:24 Note Text: ANESTHESIOLOGY DAY OF SURGERY NOTE : 1985 Procedure Information Anesthesia Start Date/Time: 01/14/24 0854 Procedures: HYSTEROSCOPY, D AND C (Uterus) HYSTEROSCOPY WITH ENDOMETRIAL ABLATION (Uterus) Location: OR OR / OR OR Surgeons: Sandrita Chen MD Estimated body mass index is 47.59 kg/m? as calculated from the following: Height as of 01/13/24: 165.1 cm (5' 5). Weight as of 01/13/24: 129.7 kg (286 lb). Most recent hematocrit and potassium results: Hematocrit 37.8 10/13/2023 Potassium 3.9 10/13/2023 Other history: Obesity class III, BMI 48 Lupus - plaquenil GERD Anxiety Endoscopy in 2019 c/b aspiration - planning for RSI and gastric decompression Relevant Problems PULMONARY (+) Aspiration pneumonia (HCC) (+) Mild intermittent asthma without complication I - PHYSICAL EVALUATION AIRWAY Patient intubated: No. Tracheostomy tube not present Mallampati: III. TM distance: >3 FB. Neck ROM: full ROM without neurological symptoms. Mouth opening: adequate. Short neck: yes. Thick neck: yes DENTAL Dental findings: teeth intact. II - ANESTHESIA PLAN ASA Score: 3 Anesthetic Plan: general Airway type: ETT The patient is not a current smoker. NPO Status: adequate [place] Monitoring Plan Monitoring plan: standard ASA. Post Procedure Analgesic Plan Postoperative analgesic plan: multimodal analgesia. Informed Consent Anesthetic risks, benefits, alternatives, personnel and consent discussed: yes. Patient / Responsible Libertarian agrees to proceed: yes Patient / Surrogate agrees to blood products: blood products not planned Significant changes in the patient condition since the History and Physical, not otherwise documented in primary service progress note: no. Potential Anesthesia issues that may suggest increased risk of complications or contraindication to planned procedure: potential difficult IV access. Vitals Value Taken Time BP 127/88 01/14/24733 Pulse 77 01/14/24733 Resp 18 01/14/24733 Temp 36.5 ?C (97.7 ?F) 01/14/24733 SpO2 98 % 01/14/24733 Facility-Administered Medications as of 01/14/2024 Medication Dose Route Frequency lidocaine (PF) 10 mg/mL (1 %) 1-2 mg injection (XYLOCAINE) 0.1-0.2 mL INTRADERMAL PRN NaCl 0.9% iv flush bag 20 mL INTRAVENOUS PRN [COMPLETED] acetaminophen 975 mg tab(s) (TYLENOL) 975 mg ORAL Pre-Op Once [COMPLETED] celecoxib 400 mg cap(s) (CeleBREX) 400 mg ORAL Pre-Op Once [COMPLETED] gabapentin 300 mg cap(s) (NEURONTIN) 300 mg ORAL Pre-Op Once Outpatient Medications as of 01/14/2024 Medication Sig hydrOXYchloroQUINE (PLAQUENIL) 200 mg tablet Take 200 mg by mouth. pregabalin (LYRICA) 75 mg capsule traZODone (DESYREL) 50 mg tablet fluticasone (FLONASE) 50 mcg/actuation nasal spray Nasal for 30 cetirizine (ZYRTEC) 10 mg tablet Oral for 10 diphenhydramine HCl (BENADRYL ALLERGY ORAL) Benadryl Allergy Oral [] hydrOXYchloroQUINE (PLAQUENIL) 200 mg tablet Take 1 tablet by mouth two times a day. MEDICATION, NON-DATABASE [place] medical marijuana card, gummies Syringe with Needle, Disp, (MONOJECT TB SAFETY SYRINGE) 1 mL 25 gauge x 5/8 syrg Use as directed to inject methotrexate. ALBUTEROL 90 MCG/ACTUATION AEROSOL INHALER 2 puffs every four hours as needed for cough, wheezing , chest tightness or shortness of breath and 15-20 minutes pre-exercise. Use with spacer. I have interviewed and examined the patient. I have reviewed the medical record and/or the pre-anesthesia evaluation, pertinent labs, and test results. This contains updated information obtained within 48 hours of Surgery/Procedure. SIGNATURE: Brunilda Velarde MD PATIENT NAME: Car Santoyo DATE: January 14, 2024 TIME: 9:22 AM CSN: [id number] [facility] OPERATIVE NOon 01-14-2024 OPERATIVE NO HNO ID: [id number] Author: SANDRITA CHEN MD Service: Gynecology Author Type: Physician Type: Operative Report Filed: 01/14/2024 09:48 Note Text: Date of Surgery: 01/14/24 Procedure: Hysteroscopy with DANDC and Lexus Endometrial Ablation Pre-Op/Pre-Procedure Diagnosis: Abnormal Uterine Bleeding Post-Op/Post-Procedur e Diagnosis: Same as pre-op diagnosis Antibiotic: None Procedure Details: Patient was taken to the operating room where the sign-in and time out were completed. General anesthesia was induced and found to be adequate. She was placed in dorsal lithotomy position with her feet in Yellow[place] stirrups with careful attention not to hyperflex or hyperextend the knees or hips. SCDs were placed and turned on for DVT prophylaxis. Examination under anesthesia was performed to ascertain the position of the uterus which noted to be anteverted. Patient was prepped and draped in the usual fashion. A weighted speculum was placed in the patient's vagina with clear visualization of the cervix. The anterior lip of the cervix was grasped with a single tooth tenaculum. Cervix was dilated to 14 Thai with Hughes dilator. A 5 mm 12-degree hysteroscope was introduced under direct visualization, and the uterus was distended with normal saline. The hysteroscope was then used for initial survey revealing below findings. The uterine cavity was well visualized. The fallopian tube ostia were visualized bilaterally. Findings: Endometrium: Normal endometrium Endometrial cavity: Normal Polyps: No polyps Fibroids: No fibroids Additional techniques Include: DANDC: A curette was introduced into the uterus without difficulty. A sharp curettage was performed gently. The endometrium curettings were collected on a telfa dressing. LEXUS ENDOMETRIAL ABLATION: The cavity length (4 cm) was determined after finding the sounding length (9 cm) as well as the cervical length (5 cm). The Lexus device was then placed intrauterine and engaged. The device was gently moved with anterior, posterior and lateral movements and advanced to the fundus. The array opening indicator was noted to be in the green zone. The cervical sealing balloon was inflated to seal the uterine cavity. The uterine integrity test was then performed, which passed on the first attempt. The device was then engaged for 2 minutes. After the cycle was completed, the cervical sealing balloon was deflated and the device was removed. All instruments were removed from vagina and uterine cavity. Sign-out was completed. Distention Media: Normal saline IV Fluids: 150 Urine Output: 100 mL Estimated Blood Loss: < 10 mL Specimens: Endometrial curettings [facility] SURGICAL PATHOLOGYon 024 CASE REPORT [facility] Comment on above: Order Comment: Speci men Type: TISSUE SPECIMENOrdering Facility: [facility] Address: [address] [place] [address] Result Comment: Surg ica Pathology Report Case: [id number] Authorizing Provider: Sandrita Chen MD Collected: 01/14/2024 09:26 AM Ordering Location: OR SURGERY OR Received: 01/14/2024 12:08 PM Pathologist: Mervat Yun MD Specimen: Endometrium, Curettings Performed By: #### S ####[facility] [id number] [address] [place] CLINICAL HISTORY [facility] Comment on above: Order Comment: Speci men Type: TISSUE SPECIMENOrdering Facility: [facility] Address: [address] [place] [address] Result Comment: Pre- op diagnosis: Abnormal uterine bleeding [N93.9] Performed By: #### S ####[facility] [id number] [address] FINAL DIAGNOSIS [facility] Comment on above: Order Comment: Speci men Type: TISSUE SPECIMENOrdering Facility: [facility] Address: [address] [place] [address] Result Comment: A. E ndometrium, curettage: -- Fragments of proliferative phase endometrium. -- Benign endocervical stroma and epithelium. Performed By: #### S ####[facility] [id number] [address] FINAL PERFORMING LAB Normal [facility] Comment on above: Order Comment: Speci men Type: TISSUE SPECIMENOrdering Facility: [facility] Address: [address] [place] [address] Result Comment: Diag nostic interpretation performed at [facility], [address] [place] [address] CLIA# [id number] Lead Relay Tester: Sandrita Salamanca M.D. Performed By: #### S ####[facility] [id number] [address] GROSS DESCRIPTION [facility] Comment on above: Order Comment: Speci men Type: TISSUE SPECIMENOrdering Facility: [facility] Address: [address] [place] [address] Result Comment: A. E ndometrium, Curettings Received in formalin labeled as endometrium curettings are multiple segments of red soft tissue aggregating to 2.0 x 1.0 x 0.3 cm. The specimen is totally submitted in formalin in 1 cassette. Gross examination performed at [facility], [address] [place] [address] CLIA#[id number] [facility] January 14, 2024 3:16 PM Performed By: #### S ####[facility]ORY[facility]IA [id number] [place] [address] [place] HISTORY PHYSICALon HISTORY PHYSICAL HNO ID: [id number] Author: HERMELINDA YATES APRN.TECHNICAL INTERN Service: ? Author Type: Nurse Practitioner Type: H&P Filed: 01/13/2024 10:26 Note Text: [facility] HISTORY AND PHYSICAL EXAMINATION SERVICE DATE: 01/13/2024 SERVICE TIME: 10:00 AM PRIMARY CARE PHYSICIAN: Ap Donahue MD Assessment Patient has the following medical conditions which may affect checo-operative course: Pre-op examination see note for medical conditions which may affect checo-operative course that were addressed at today's visit. Abnormal uterine bleeding Surgery scheduled 01/14/24. Mild intermittent asthma without complication Albuterol. Patient uses rescue inhaler once a month, but more frequently in the colder months. Denies hospitalization in the last year due to respiratory issues. Instructed to use inhaler as prescribed and to being inhaler to surgery. Obesity, Class III, BMI >= 40 BMI 47.59 Lupus (systemic lupus erythematosus) (HCC) Plaquenil- instructed to follow prescribing physician's pre-op instructions. Follows with Rheumatology every 6 months. Graves disease No medication. She reports she was previously on medication years ago. She reports having thyroid nodules that she gets US for every 2 years at [facility]. No results in Epic or Care Everywhere. Aspiration pneumonia (HCC) Patient reports that after colonoscopy in 2019, she coded on the table and was discharged home. She reports that she ended up in the ER that same evening and was diagnosed with aspiration pneumonia. Email communication sent to anesthesia office. Fraire Activity Status Index: METS: Climb a flight of stairs or walk up a hill (5.50 METs) DASI Score: 5.5 Patient denies any chest pain or undue shortness of breath with the above physical activity. ARISCAT Score: Age: <=50 Preoperative SpO2: >=96% Respiratory infection in the last month: No Preoperative anemia: Yes Surgical incision: peripheral Duration of surgery: <2 hrs Emergency procedure: No ARISCAT Score: 11 ANESTHESIA FINDINGS: Intubation History: No history of difficult intubation. No abnormal airway history Significant Anesthesia Considerations: patient states that during a colonoscopy/EGD she coded on the table and had aspiration pneumonia. potential postop nausea/vomiting Airway History: No history of difficult airway No abnormal airway history I - PHYSICAL EVALUATION AIRWAY Patient intubated: No. DENTAL Dental findings: teeth intact. II - ANESTHESIA PLAN Anesthetic Plan: general [place] Monitoring Plan Post Procedure Analgesic Plan Prepared for Surgery: CONSULTS: Patient does not require consults for optimization at this time Planned Anesthetic: general The Following Tests/Procedures Have Been Initiated: No orders entered in [facility] per surgeon. REASON FOR VISIT: Car Santoyo is a 38 year old female who is scheduled for Procedure(s): HYSTEROSCOPY, D AND C (N/A) HYSTEROSCOPY WITH ENDOMETRIAL ABLATION (N/A) at the request of Dr. Sandrita Chen for routine HANDP. My final recommendation will be communicated back to the requesting physician by way of shared medical record or letter. Subjective The patient has the following: COVID-19 Immunization Status Overdue - Covid-19 Vaccine ( season) Never done No completion, postpone, frequency change, or communication history exists for this topic. CHIEF COMPLAINT: The reason for this visit is to perform a comprehensive review of the patients past medical history, assess their current health status and obtain any additional testing required based on anesthesia guidelines. To assess and identify potential anesthesia problems, particularly those that may suggest potential complications or contraindications to the planned procedure. HPI: Patient is a 38 year old female who presents for presurgical testing. Patient has a history of abnormal uterine bleeding. She reports having heavy menstruals. She reports saturating a heavy pad within 1.5 hours. She denies any current bleeding. Denies any pain at PAT visit. Denies any recent fever or chills. Patient denies any other problems or concerns at this time. Risks and benefits of the procedure discussed by Surgeon and patient agreed to proceed with planned procedure. REVIEW OF SYSTEMS: General: Negative for: weight loss >10% of BW in last 6 months, malaise and fever. Neurological: Negative for: seizures and strokes. Respiratory: Positive for: asthma. Negative for: COPD, pneumonia within 6 weeks, URI < 2 weeks and obstructive sleep apnea. Cardiovascular: Negative for: atrial fibrillation, CAD, chest pain, CHF, DVT/PE, hyperlipidemia and hypertension. GI: Negative for: GERD and liver disease. : Negative for: frequent urination, hematuria and urgency. 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 Endocrine: Positive for: hyperthyro (more content not included)... [facility] CNPNon 12-22-2023 CNPN Telephone (AGOBGRN) CAR SANTOYO ([id number]) 1985 F Date Time Provider Department 12/22/23 SANDRITA CHEN MANASBGFRANCIS During your visit today, we recorded the following information about you: Hermelinda Darnell 12/22/2023 2:52 PM Signed Left Pt Vm to call back to schedule surgery Hermelinda Darnell December 22, 2023 2:51 PM Allergies As of Date: 12/22/2023 Noted Allergy Reaction GRASS POLLEN 04/07/2023 3 - Cough Date Reviewed: 12/18/2023 Reviewed by: Mag Lowery MA - Fully Assessed Reason for Visit: Patient Update [1234] Cmt: Left Pt Vm to call back to schedule surgery Hermelinda Darnell December 22, 2023 2:51 PM Prescriptions as of 12/22/2023 - hydrOXYchloroQUINE (PLAQUENIL) 200 mg tablet Take 1 tablet by mouth two times a day. - pregabalin (LYRICA) 75 mg capsule - traZODone (DESYREL) 50 mg tablet - fluticasone (FLONASE) 50 mcg/actuation nasal spray Nasal for 30 - cetirizine (ZYRTEC) 10 mg tablet Oral for 10 - MEDICATION, NON-DATABASE [place] medical marijuana card, gummies - Syringe with Needle, Disp, (MONOJECT TB SAFETY SYRINGE) 1 mL 25 gauge x 5/8 syrg Use as directed to inject methotrexate. - diphenhydramine HCl (BENADRYL ALLERGY ORAL) Benadryl Allergy Oral - ALBUTEROL 90 MCG/ACTUATION AEROSOL INHALER 2 puffs every four hours as needed for cough, wheezing , chest tightness or shortness of breath and 15-20 minutes pre-exercise. Use with spacer. Problem List As Of Date 12/22/2023 Noted Resolved BACKACHE NOS [M54.9] 10/14/2005 Morbid obesity (HCC) [E66.01] 10/21/2018 Graves disease [E05.00] 10/21/2018 Anxiety and depression [F41.9, F32.A] 10/21/2018 Mild intermittent asthma without complication [*10/21/2018 Autoimmune disease (HCC) [M35.9] 10/21/2018 Encounter Status:Closed by HERMELINDA DARNELL on 12/22/23 [facility] CNOVon 11-27-2023 CNOV Office Visit (AGOBST ) CAR SANTOYO ([id number]) 1985 F Date Time Provider Department 11/27/23 10:30 AM SANDRITA CHEN During your visit today, we recorded the following information about you: Blood pressure Weight Height 126/82 131.4 kg 1.676 m Sandrita Chen MD 11/27/2023 11:30 AM Signed YOUR RECOVERY After your biopsy you may have: Vaginal bleeding (less than a normal menstrual period) Mild cramping Do NOT put anything in the vagina for 1 week after your endometrial biopsy. This includes: tampons douches and refraining from having sexual intercourse If you have any discomfort, you may take an over the counter pain medication (motrin, advil, ibuprofen, tylenol, etc). If this does not relieve your discomfort, contact the office. It is okay to wear a sanitary pad until the discharge and spotting stops. RISKS Although problems seldom occur with endometrial biopsies, there can be some complications. You may feel faint during and shortly after the procedure as well as have some bleeding after the procedure. There is also a risk of infection after the procedure. These complications are rare and can be easily treated. You should contact you doctor is you have any of the following: Heavy bleeding (more than your normal period) Bleeding with clots Severe abdominal pain Fever (more than 100.4F) Foul smelling vaginal discharge RESULTS We will have the results of your biopsy in 1-2 weeks. If you do not hear the results of your biopsy after 2 weeks, please contact the office for the results. If you have any additional questions or concerns please do not hesitate to contact the office. Sandrita Chen MD 11/27/2023 11:31 AM Signed ENDOMETRIAL BIOPSY PROCEDURE Date/Time: 11/27/2023 11:30 AM Performed by: Sandrita Chen MD Authorized by: Sandrita Chen MD Diagnosis: (N93.9) Abnormal uterine bleeding (AUB) (primary encounter diagnosis) Patient's last menstrual period was 11/17/2023 (exact date). Informed Consent Consent Obtained: Written [place] Protocol A moment to CARE was completed. SIGN IN Sign in communication not applicable due to emergent procedure. Personnel directly involved with the procedure wore the appropriate PPE. Special Equipment: Yes Patient/Surrogate Stated/Verified: Patient name, Date of , Relevant allergies and Intended procedure TIME OUT Intended patient and procedure match the source document(s). Consent documented and matches the intended procedure. No relevant labs, photos, and/or imaging studies were applicable for review. No correct side/site applicable for marking and visibility. No medications required for procedure. No fire risk assessment and interventions applicable. No implant(s) inserted. Pre-Procedure Details: Site Prep: Povidone Iodine (Betadine) Analgesia (see MAR): Medications: N/A Procedure Details: External Genitalia: Normal in appearance without lesions Vagina: Normal in appearance without lesions Procedure: endometrial biopsy with Pipelle A bivalve speculum was placed in the vagina. Cervix cleaned and prepped A paracervical block was not performed. noAn intracervical block was not performed. The cervix was not dilated. Uterus sounded. Uterus sound depth (cm): 9 Curettes used: 1 Findings: Pelvic exam was not performed. Patient Education: side effects discussed with patient Follow-up includes calling patient with results, follow-up appointment. Indication: Abnormal uterine bleeding Post-Procedure Details: Patient tolerated the procedure with difficulty Estimated Blood Loss: None Specimens Sent: EMB SIGN OUT All specimen containers correctly labeled. All instruments, equipment, possible retained foreign bodies accounted for. Post-procedure follow-up management communicated and Plan of Care Visit completed when applicable [place] preop appt virtually. Sandrita Chen MD, MD Referring Provider: SANDRITA CHEN [[id number]] Allergies As of Date: 11/27/2023 Noted Allergy Reaction GRASS POLLEN 04/07/2023 3 - Cough Date Reviewed: 11/27/2023 Reviewed by: Radha Lion LPN - Fully Assessed Reason for Visit: Procedure [88] Cmt: EMB Primary Visit Diagnosis:Abnormal uterine bleeding (AUB) [N93.9] Order(s):ENDOMETRIAL BIOPSY PROCEDURE (W NOTE) [PRO73] Order #: [id number] SURGICAL PATHOLOGY [XWH3900] Order #: [id number]. #[id number] Prescriptions as of 11/27/2023 - hydrOXYchloroQUINE (PLAQUENIL) 200 mg tablet Take 1 tablet by mouth two times a day. - pregabalin (LYRICA) 75 mg capsule - traZODone (DESYREL) 50 mg tablet - fluticasone (FLONASE) 50 mcg/actuation nasal spray Nasal for 30 - cetirizine (ZYRTEC) 10 mg tablet Oral for 10 - MEDICATION, NON-DATABASE [place] medical marijuana card, gummies - Syringe with Needle, Disp, ( (more content not included)... [facility] ENDOMETRIAL BIOPSY PROCEDURE (W NOTE)on 11-27-2023 [facility] SURGICAL PATHOLOGYon 024 CASE REPORT [facility] Comment on above: Order Comment: Amanda dickerson Type: TISSUE SPECIMENOrdering Facility: [facility] Address: [address] [place] [address] Result Comment: Surg ica Pathology Report Case: [id number] Authorizing Provider: Sandrita Chen MD Collected: 11/27/2023 11:31 AM Ordering Location: [facility] Received: 11/28/2023 12:02 PM General Obstetrics & Gynecology Pathologist: Nir Cole DO Specimen: Endometrium, Biopsy Performed By: #### S ####[facility] LABORATORYCLIA [id number] [place] [address] [place] CLINICAL HISTORY 11/17/23 [facility] Comment on above: Order Comment: Speci men Type: TISSUE SPECIMENOrdering Facility: [facility] Address: [address] [place] [address] Performed By: #### S ####[facility] LABORATORYCLIA [id number] [address] FINAL DIAGNOSIS [facility] Comment on above: Order Comment: Speci men Type: TISSUE SPECIMENOrdering Facility: [facility] Address: [address] [place] [address] Result Comment: A. E ndometrium, biopsy: - Proliferative phase endometrium. - Benign endocervical glandular epithelium. Performed By: #### S ####[facility] LABORATORYCLIA [id number] [address] FINAL PERFORMING LAB Normal [facility] Comment on above: Order Comment: Speci men Type: TISSUE SPECIMENOrdering Facility: [facility] Address: [address] [place] [address] Result Comment: Diag nostic interpretation performed at [facility], [address] [place] [address] CLIA# [id number] Lead Relay Tester: Sandrita Salamanca M.D. Performed By: #### S ####[facility] LABORATORYCLIA [id number] [address] GROSS DESCRIPTION [facility] Comment on above: Order Comment: Speci men Type: TISSUE SPECIMENOrdering Facility: [facility] Address: [address] [place] [address] Result Comment: A. E ndometrium, Biopsy Received in formalin labeled endometrium biopsy are multiple irregular pink-lopez soft tissue fragments aggregating to 2 x 1.5 x 0.3 cm. The specimen is submitted entirely in A1. Gross examination performed at [facility], [address] [place] [address] CLIA#[id number] [facility] November 28, 2023 1:03 PM Performed By: #### S ####[facility]ORATORYCLIA [id number] [place] [address] [place] US Pelvison 11-21-2023 Indication Abnormal uterine bleeding (AUB) Impression Normal appearing axial uterus that measures 83 mm x 41 mm x 50 mm. Endometrium measures 6.6mm. Left ovary appears WNL. Right ovary was not visualized. No adnexal masses were observed. There is no free fluid visualized in the peritoneal cavity. Recommendations Normal pelvic ultrasound. Menstrual History LMP on 11/17/2023 Method Transvaginal ultrasound examination. View: Suboptimal view: limited by maternal body habitus Uterus Uterus: Visualized Uterus position: axial Myometrium: heterogeneous Cervix details: normal Uterus length 83 mm Uterus width 50 mm Uterus height 41 mm Uterus Vol 88.5 cm Endometrial thickness, total 6.6 mm Right Ovary Rt ovary: Not visualized Left Ovary Lt ovary: Not visualized Lt ovary morphology: normal Lt ovary D1 28 mm Lt ovary D2 23 mm Lt ovary D3 19 mm Lt ovary Vol 6.2 cm [place] no free fluid visualized Performed By: Juliana Abraham RDMS Read By: Sandrita Chen M.D. MATERNAL MEDICINE [facility] Radiology Study observation (narrative) [facility] 25-hydroxyvitamin D3 [Mass/V ol]on 10-13-2023 Interpretation and review of laboratory results Abnormal [facility] CBC W Auto Differential pane l (Bld)on 10-13-2023 Basophils (Bld) [#/Vol] 0.06 10*3/uL [facility] Basophils/100 WBC (Bld) 0.9 % C [facility] Differential cell count method Nom (Bld) Auto [facility] Eosinophils (Bld) [#/Vol] 0.24 10*3/uL [facility] Eosinophils/100 WBC (Bld) 3.7 % [facility] Erythrocyte distribution width (RBC) [Ratio] 16.6 % High 11.5 - 15.0 % [facility] Hematocrit (Bld) [Volume fraction] 37.8 % 36.0 - 46.0 % [facility] Hemoglobin (Bld) [Mass/Vol] 11.5 g/dL 11.5 - 15.5 g/dL [facility] Immature granulocytes (Bld) [#/Vol] 0.03 10*3/uL [facility] Immature granulocytes/100 WBC (Bld) 0.5 % [facility] Interpretation and review of laboratory results Abnormal [facility] Lymphocytes (Bld) [#/Vol] 2.15 10*3/uL [facility] Lymphocytes/100 WBC (Bld) 32.9 % [facility] MCH (RBC) [Entitic mass] 22.8 pg Low 26. 0 - 34.0 pg [facility] MCHC (RBC) [Mass/Vol] 30.4 g/dL Low 30.5 - 36.0 g/dL [facility] MCV (RBC) [Entitic vol] 75.0 fL Low 80.0 - 100.0 fL [facility] Monocytes (Bld) [#/Vol] 0.48 10*3/uL [facility] Monocytes/100 WBC (Bld) 7.3 % C [facility] Neutrophils (Bld) [#/Vol] 3.58 10*3/uL [facility] Neutrophils/100 WBC (Bld) 54.7 % [facility] Nucleated RBC (Bld) [#/Vol] NINF [facility] Nucleated RBC/100 WBC (Bld) [Ratio] 0.0 % /100 WBC [facility] Platelet mean volume (Bld) [Entitic vol] 10.9 fL 9.0 - 12.7 fL [facility] Platelets (Bld) [#/Vol] 374 10*3/uL [facility] RBC (Bld) [#/Vol] 5.04 10*6/uL 3.90 - 5.2 0 m/uL [facility] WBC (Bld) [#/Vol] 6.54 10*3/uL [facility] CK [Catalytic activity/Vol]o n 10-13-2023 Interpretation and review of laboratory results Normal [facility] CREATINE KINASE/CKon 024 CK [Catalytic activity/Vol] 55 U/L 42 - 196 U/L [facility] Comprehensive metabolic 2000 panelon 10-13-2023 Albumin [Mass/Vol] 3.7 g/dL Low 3.9 - 4.9 g/dL [facility] ALP [Catalytic activity/Vol] 99 U/L 34 - 123 U/L [facility] ALT With P-5'-P [Catalytic activity/Vol] 13 U/L 7 - 38 U/L [facility] Anion gap [Moles/Vol] 13 mmol/L 8 - 15 mmol/L [facility] AST With P-5'-P [Catalytic activity/Vol] 15 U/L 13 - 35 U/L [facility] Bilirubin [Mass/Vol] 0.2 mg/dL 0.2 - 1 .3 mg/dL [facility] Calcium [Mass/Vol] 8.9 mg/dL 8.5 - 10. 2 mg/dL [facility] Chloride [Moles/Vol] 106 mmol/L 98 - 10 7 mmol/L [facility] CO2 [Moles/Vol] 23 mmol/L 22 - 30 mmol/L [facility] Creatinine [Mass/Vol] 0.73 mg/dL 0.58 - 0.96 mg/dL [facility] GFR/1.73 sq M.predicted among non-blacks MDRD (S/P/Bld) [Vol rate/Area] 107 mL/min/{1.73_m2} - PINF [facility] Comment on above: Estimated Glomerular Filtration Rate (eGFR) is calculated using the 2020 CKD-EPI creatinine equation. This equation utilizes serum creatinine, sex, and age as parameters. The creatinine assay has traceable calibration to isotope dilution-mass spectrometry. Refer to KDIGO guidelines for clinical interpretation. In patients with unstable renal function, e.g. those with acute kidney injury, the eGFR may not accurately reflect actual GFR. Glucose [Mass/Vol] 79 mg/dL 74 - 99 mg/dL [facility] Comment on above: The [place] Diabete s Association (ADA) provides guidance for cutoff values for fasting glucose and random glucose. The ADA defines fasting as no caloric intake for at least 8 hours. Fasting plasma glucose results between 100 to 125 mg/dL indicate increased risk for diabetes (prediabetes). Fasting plasma glucose results greater than or equal to 126 mg/dL meet the criteria for diagnosis of diabetes. In the absence of unequivocal hyperglycemia, results should be confirmed by repeat testing. In a patient with classic symptoms of hyperglycemia or hyperglycemic crisis, random plasma glucose results greater than or equal to 200 mg/dL meet the criteria for diagnosis of diabetes. Reference: Standards of Medical Care in Diabetes 2016, [place] Diabetes Association. Diabetes Care. 2016.39(Suppl 1). Interpretation and review of laboratory results Abnormal [facility] Potassium [Moles/Vol] 3.9 mmol/L 3.7 - 5.1 mmol/L [facility] Protein [Mass/Vol] 6.9 g/dL 6.3 - 8.0 g/dL [facility] Sodium [Moles/Vol] 142 mmol/L 136 - 144 mmol/L [facility] Urea nitrogen [Mass/Vol] 7 mg/dL 7 - 21 mg/d L [facility] No Panel Informationon 10-12 [facility] VITAMIN D 25 HYDROXYon 10-12 25-hydroxyvitamin D3 [Mass/Vol] 18.7 ng/mL Low 30.0 - PINF ng/mL [facility] Comment on above: Classification of 25 [place] Vitamin D status: Deficiency: <= 20.0 ng/ml. Insufficiency: 21.0-29.0 ng/ml. Sufficiency: >= 30.0 ng/ml. Urinalysis complete panel (U )on 10-24-2022 Bilirubin Ql (U) Negative Negative [facility] Clarity (Unsp spec) Clear Clear [facility] Color (U) Colorless Yellow [facility] Epithelial cells LM.HPF (Urine sed) [#/Area] Few [facility] Glucose Test strip (U) [Mass/Vol] Negative Trace, Negative [facility] Hemoglobin Ql (U) Negative Negative, Trace [facility] Ketones Ql (U) Negative Trace, Negative [facility] Leukocyte esterase Test strip Ql (U) Negative Negative, 25 Srinivasa/uL [facility] Nitrite Ql (U) Negative Negative [facility] pH (U) 6.5 [pH] 5.0 - 8.0 [facility] Protein (U) [Mass/Vol] Negative Trace , Negative [facility] RBC LM.HPF (Urine sed) [#/Area] 0-3 /HPF 0-3 /HPF [facility] Specific gravity (U) [Rel density] 1.007 1.005 - 1.030 [facility] Urobilinogen Ql (U) Negative Negative [facility] WBC LM.HPF (Urine sed) [#/Area] 0-5 /HPF 0-5 /HPF [facility] CBC W Auto Differential pane l (Bld)on 10-23-2022 Basophils (Bld) [#/Vol] 0.05 10*3/uL <0.11 k/uL [facility] Basophils/100 WBC (Bld) 0.7 % [facility] Differential cell count method Nom (Bld) Auto [facility] Eosinophils (Bld) [#/Vol] 0.24 10*3/uL <0.46 k/uL [facility] Eosinophils/100 WBC (Bld) 3.6 % [facility] Erythrocyte distribution width (RBC) [Ratio] 15.5 % High 11.5 - 15.0 % [facility] Hematocrit (Bld) [Volume fraction] 39.9 % 36.0 - 46.0 % [facility] Hemoglobin (Bld) [Mass/Vol] 12.8 g/dL 11.5 - 15.5 g/dL [facility] Immature granulocytes (Bld) [#/Vol] <0.10 k/uL [facility] Immature granulocytes/100 WBC (Bld) 0.3 % [facility] Lymphocytes (Bld) [#/Vol] 1.82 10*3/uL 1.00 - 4.00 k/uL [facility] Lymphocytes/100 WBC (Bld) 27.0 % [facility] MCH (RBC) [Entitic mass] 24.2 pg Low 26. 0 - 34.0 pg [facility] MCHC (RBC) [Mass/Vol] 32.1 g/dL 30.5 - 36.0 g/dL [facility] MCV (RBC) [Entitic vol] 75.4 fL Low 80.0 - 100.0 fL [facility] Monocytes (Bld) [#/Vol] 0.47 10*3/uL <0.87 k/uL [facility] Monocytes/100 WBC (Bld) 7.0 % [facility] Neutrophils (Bld) [#/Vol] 4.15 10*3/uL 1.45 - 7.50 k/uL [facility] Neutrophils/100 WBC (Bld) 61.4 % [facility] Nucleated RBC (Bld) [#/Vol] <0.01 k/uL [facility] Nucleated RBC/100 WBC (Bld) [Ratio] 0.0 /100 WBC [facility] Platelet mean volume (Bld) [Entitic vol] 9.9 fL 9.0 - 12.7 fL [facility] Platelets (Bld) [#/Vol] 384 10*3/uL 150 - 400 k/uL [facility] RBC (Bld) [#/Vol] 5.29 10*6/uL High 3.90 - 5.2 0 m/uL [facility] WBC (Bld) [#/Vol] 6.75 10*3/uL 3.70 - 11. 00 k/uL [facility] Comprehensive metabolic 2000 panelon 10-23-2022 Albumin [Mass/Vol] 3.8 g/dL Low 3.9 - 4.9 g/dL [facility] ALP [Catalytic activity/Vol] 80 U/L 34 - 123 U/L [facility] ALT [Catalytic activity/Vol] 10 U/L 7 - 38 U/L [facility] Anion gap [Moles/Vol] 10 mmol/L 9 - 18 mmol/L [facility] AST [Catalytic activity/Vol] 10 U/L Low 13 - 35 U/L [facility] Bilirubin [Mass/Vol] 0.3 mg/dL 0.2 - 1 .3 mg/dL [facility] Calcium [Mass/Vol] 9.2 mg/dL 8.5 - 10. 2 mg/dL [facility] Chloride [Moles/Vol] 106 mmol/L High 97 - 10 5 mmol/L [facility] CO2 [Moles/Vol] 21 mmol/L Low 22 - 30 mmol/L [facility] Creatinine [Mass/Vol] 0.80 mg/dL 0.58 - 0.96 mg/dL [facility] Estimated Glomerular Filtration Rate 97 mL/min/1.73m >=60 mL/min/1.73m [facility] Glucose [Mass/Vol] 86 mg/dL 74 - 99 mg/dL [facility] Potassium [Moles/Vol] 4.0 mmol/L 3.7 - 5.1 mmol/L [facility] Protein [Mass/Vol] 6.9 g/dL 6.3 - 8.0 g/dL [facility] Sodium [Moles/Vol] 137 mmol/L 136 - 144 mmol/L [facility] Urea nitrogen [Mass/Vol] 8 mg/dL 7 - 21 mg/d L [facility] Creatinine Unsp time (U) [Ma ss/Vol]on 10-23-2022 Creatinine (U) [Mass/Vol] 44.8 mg/dL 20.0 - 300.0 mg/dL [facility] IGA BLDon 10-23-2022 IgA [Mass/Vol] 16 mg/dL Low 70 - 400 mg/dL [facility] IGGon 10-23-2022 IgG [Mass/Vol] 1278 mg/dL 700 - 1,600 mg/dL [facility] IGMon 10-23-2022 IgM [Mass/Vol] 242 mg/dL High 40 - 230 mg/dL [facility] No Panel Informationon 10-23 [facility] PROTEIN RANDOM URon 10-24-19 Protein (U) [Mass/Vol] 0 - 20 mg/dL [facility] VITAMIN D 25 HYDROXYon 10-23 25-hydroxyvitamin D3 [Mass/Vol] 20.6 ng/mL Low 31.0 - 80.0 ng/mL [facility] XR HAND GENERAL 3V PA/LAT/OB L LEFTon 10-23-2022 [facility] XR HAND GENERAL 3V PA/LAT/OB L RIGHTon 10-23-2022 [facility] XR SACROILIAC JOINTS 2V AP P RICHELLE/FERGUESONon 10-23-2022 [facility] XR KNEE GENERAL 4V AP BOTH/P A BOTH/LAT/MERC BILATERALon 07-15-2022 [facility] Absolute lymphocyte countOrd ered By: Jessica Santos on 05-24-2022 Lymphocytes Auto (Unsp spec) [#/Vol] 1.46 10*3/uL 0.83-4.[address] [facility] Basophil percentageOrdered B y: Jessica Santos on 05-24-2022 Basophils/100 WBC (Bld) 0.7 % 0-[address] [facility] Eosinophils/100 WBC (Bld) 3.0 % 0-[address] [facility] Neutrophils (Bld) [#/Vol] 4.7 10*3/uL 2.0-7.[address] [facility] Neutrophils/100 WBC (Bld) 69.0 % 47-[address] [facility] WBC (Bld) [#/Vol] 6.7 10*3/uL 4.4-11.0 [facility] Chloride [Moles/Vol] 107 mmol/L 98-107 [facility] Glucose [Mass/Vol] 105 mg/dL 74-106 [facility] [facility] Comment on above: Fasting Glucose resu lt from 100 to 125 mg/dL suggests IMPAIRED HOMEOSTASIS per A.D.A. criteria. Potassium [Moles/Vol] 3.9 mmol/L 3.5-5.1 [facility] Sodium [Moles/Vol] 139 mmol/L 136-145 [facility] Basophil percentageOrdered B y: ED PROVIDER on 05-24-2022 Basophil percentage 0-5 SEEN /hpf 0-[address] [facility] Beta hCG serum qualOrdered B y: ED PROVIDER on 05-24-2022 Beta HCG ( test) Ql Negative [facility] Bilirubin Test strip Ql (U)O rdered By: ED PROVIDER on 05-24-2022 Bilirubin Ql (U) Negative Negative [facility] Blood erythrocytes count (nu mber/volume)Ordered By: Jessica Santos on 05-24-2022 RBC (Bld) [#/Vol] 5.52 10*6/uL 4.2-5.4 [facility] Blood hemoglobin measurement (mass/volume)Ordered By: Jessica Santos on 05-24-2022 Hemoglobin (Bld) [Mass/Vol] 13.2 g/dL 12.0-15.[address] [facility] Blood lymphocytes/100 leukoc ytesOrdered By: Jessica Santos on 05-24-2022 Lymphocytes/100 WBC (Bld) 21.7 % 19-[address] [facility] Blood monocytes/100 leukocyt esOrdered By: Jessica Santos on 05-24-2022 Monocytes/100 WBC (Bld) 5.2 % 0-[address] [facility] Blood platelet mean volumeOr dered By: Jessica Santos on 05-24-2022 Platelet mean volume (Bld) [Entitic vol] 10.8 fL 6.2-12.[address] [facility] Determination of erythrocyte mean corpuscular volume (MCV)Ordered By: Jessica Santos on 05-24-2022 MCV (RBC) [Entitic vol] 77.0 fL 81-[address] [facility] Hematocrit Auto (Bld) [Volum e fraction]Ordered By: Jessica Santos on 05-24-2022 Hematocrit (Bld) [Volume fraction] 42.5 % 37-[address] [facility] Ketones Test strip Ql (U)Ord ered By: ED PROVIDER on 05-24-2022 Ketones Ql (U) 5 mg/dl Negative [facility] Laboratory - Chemistry and C hemistry - challengeOrdered By: Jessica Santos on 05-24-2022 CO2 [Moles/Vol] 25.0 mmol/L 21.0-32.[address] [facility] Urea nitrogen/Creatinine [Mass ratio] 11.7 mg/mg 10-[address] [facility] Laboratory - Hematology and Cell countsOrdered By: Jessica Santos on 05-24-2022 Erythrocyte distribution width (RBC) [Entitic vol] 45.4 fL 35.1-43.[address] [facility] Erythrocyte distribution width (RBC) [Ratio] 16.1 % 11.6-14.[address] [facility] Immature granulocytes/100 WBC (Bld) 0.400 % 0.0-0.[address] [facility] Comment on above: IG% - Immature Granu locytes (promyelocytes, myelocytes and metamyelocytes) > 1% indicates that a LEFT SHIFT is Present. MCH (RBC) [Entitic mass] 23.9 pg 27.0-32.[address] [facility] Nucleated RBC/100 WBC (Bld) [Ratio] 0 % 0-[address] [facility] MCHC Auto (RBC) [Mass/Vol]Or dered By: Jessica Santos on 05-24-2022 MCHC (RBC) [Mass/Vol] 31.1 g/dL 32-36 [facility] Mucus LM Ql (Urine sed)Order ed By: ED PROVIDER on 05-24-2022 Mucus Ql (Urine sed) 2+ /hpf [facility] Nitrite Test strip Ql (U)Ord ered By: ED PROVIDER on 05-24-2022 Nitrite Ql (U) Negative Negative [facility] No Panel InformationOrdered By: Jessica Santos on 05-24-2022 Estimated Creatinine Clearance Calc 81.54 ml/min [facility] Estimated GFR (MDRD) Amer 96 mL/min >[address] [facility] Comment on above: GFR Calc Estimated GFR (MDRD) Non-Af Amer 79 mL/min >[address] [facility] Comment on above: Non- GFR Calc Platelets bldOrdered By: [place] Santos on 05-24-2022 Platelets (Bld) [#/Vol] 368 10*3/uL 150-[address] [facility] Protein Test strip Ql (U)Ord ered By: ED PROVIDER on 05-24-2022 Protein Ql (U) 30 mg/dl Negative [facility] Serum or plasma calcium edith urement (mass/volume)Ordered By: Jessica Santos on 05-24-2022 Calcium [Mass/Vol] 9.0 mg/dL 8.5-10.1 [facility] Serum or plasma creatinine m easurement (mass/volume)Ordered By: Jessica Santos on 05-24-2022 Creatinine [Mass/Vol] 0.85 mg/dL 0.55-1.02 [facility] Comment on above: The validity of the calculated GFR & GFRAA in patients over 70 years has not been determined. Clinical correlation is essential. Serum or plasma urea nitroge n measurement (mass/volume)Ordered By: Jessica Santos on 05-24-2022 Urea nitrogen [Mass/Vol] 10 mg/dL 7-[address] [facility] Squamous epithelial cells de tection in urine sediment by light microscopyOrdered By: ED PROVIDER on 05-24-2022 Epithelial cells.squamous LM Ql (Urine sed) 0 SEEN /hpf 5-[address] [facility] Thin prep Papanicolaou smear with manual screeningOrdered By: Jessica Santos on 05-24-2022 Thin prep Papanicolaou smear with manual screening 7 5-[address] [facility] Urine blood detectionOrdered By: ED PROVIDER on 05-24-2022 RBC Ql (U) 250 /ul Negative [facility] RBC Ql (U) 25-50 SEEN /hpf 0-[address] [facility] Urine clarityOrdered By: ED PROVIDER on 05-24-2022 Clarity (U) Sl. Cloudy Clear [facility] Urine color determinationOrd ered By: ED PROVIDER on 05-24-2022 Color (U) Yellow Yellow [facility] Urine glucose detectionOrder ed By: ED PROVIDER on 05-24-2022 Glucose Ql (U) Normal mg/dl Normal [facility] Urine leukocyte esterase det ection by dipstickOrdered By: ED PROVIDER on 05-24-2022 Leukocyte esterase Test strip Ql (U) 25 /ul Negative [facility] Urine pHOrdered By: ED PROVI DARRICK on 05-24-2022 pH (U) 6.5 [pH] 5.0 - 8.[address] [facility] Urine sediment bacteria coun t by microscopy (number/high power field)Ordered By: ED PROVIDER on 05-24-2022 Bacteria LM.HPF (Urine sed) [#/Area] 1 /[HPF] None Seen [facility] Urine specific gravity measu rementOrdered By: ED PROVIDER on 05-24-2022 Specific gravity (U) [Rel density] 1.020 1.002-1.[address] [facility] Urobilinogen Auto test strip Ql (U)Ordered By: ED PROVIDER on 05-24-2022 Urobilinogen Ql (U) 1 mg/dl Normal [facility] Absolute lymphocyte countOrd ered By: Dr. Donahue on 05-06-2022 Lymphocytes Auto (Unsp spec) [#/Vol] 1.63 10*3/uL 0.83-4.[address] [facility] Basophil percentageOrdered B y: Dr. Donahue on 05-06-2022 Basophil percentage 0.8 AI 0.0-0.9 [facility] Basophil percentage < 0.2 AI 0.0-0.9 [facility] Basophils/100 WBC (Bld) 0.5 % 0-1 [facility] Bilirubin [Mass/Vol] 0.40 mg/dL 0.20-1.00 [facility] Comment on above: For patients on eltr ombopag therapy, use of Dimension Shirley TBIL is not recommended. Chloride [Moles/Vol] 107 mmol/L 98-107 [facility] Eosinophils/100 WBC (Bld) 3.4 % 0-[address] [facility] Glucose [Mass/Vol] 77 mg/dL 74-106 [facility] Neutrophils (Bld) [#/Vol] 4.2 10*3/uL 2.0-7.[address] [facility] Neutrophils/100 WBC (Bld) 64.2 % 47-[address] [facility] Potassium [Moles/Vol] 3.8 mmol/L 3.5-5.1 [facility] Protein [Mass/Vol] 7.3 g/dL 6.4-8.2 [facility] Sodium [Moles/Vol] 136 mmol/L 136-145 [facility] WBC (Bld) [#/Vol] 6.5 10*3/uL 4.4-11.0 [facility] Blood erythrocytes count (nu mber/volume)Ordered By: Dr. Donahue on 05-06-2022 RBC (Bld) [#/Vol] 5.12 10*6/uL 4.2-5.4 [facility] Blood hemoglobin measurement (mass/volume)Ordered By: Dr. Donahue on 05-06-2022 Hemoglobin (Bld) [Mass/Vol] 12.4 g/dL 12.0-15.[address] [facility] Blood lymphocytes/100 leukoc ytesOrdered By: Dr. Donahue on 05-06-2022 Lymphocytes/100 WBC (Bld) 25.0 % 19-[address] [facility] Blood monocytes/100 leukocyt esOrdered By: Dr. Donahue on 05-06-2022 Monocytes/100 WBC (Bld) 6.6 % 0-[address] [facility] Blood platelet mean volumeOr dered By: Dr. Donahue on 05-06-2022 Platelet mean volume (Bld) [Entitic vol] 10.3 fL 6.2-12.[address] [facility] Determination of erythrocyte mean corpuscular volume (MCV)Ordered By: Dr. Donahue on 05-06-2022 MCV (RBC) [Entitic vol] 77.9 fL 81-[address] [facility] Erythrocyte sedimentation ra teOrdered By: Dr. Donahue on 05-06-2022 ESR (Bld) [Velocity] 17 mm/h 0-30 [facility] Hematocrit Auto (Bld) [Volum e fraction]Ordered By: Dr. Donahue on 05-06-2022 Hematocrit (Bld) [Volume fraction] 39.9 % 37-[address] [facility] Laboratory - Chemistry and C hemistry - challengeOrdered By: Dr. Donahue on 05-06-2022 ALP [Catalytic activity/Vol] 82 U/L 45-[address] [facility] ALT [Catalytic activity/Vol] 17 U/L 13-[address] [facility] CO2 [Moles/Vol] 27.0 mmol/L 21.0-32.[address] [facility] Free T4 [Mass/Vol] 1.11 ng/dL 0.76-1.46 [facility] Globulin (S) [Mass/Vol] 4.0 g/dL 2.2-4.[address] [facility] Urea nitrogen/Creatinine [Mass ratio] 17.3 mg/mg 10-[address] [facility] Laboratory - Hematology and Cell countsOrdered By: Dr. Donahue on 05-06-2022 Erythrocyte distribution width (RBC) [Entitic vol] 46.3 fL 35.1-43.[address] [facility] Erythrocyte distribution width (RBC) [Ratio] 16.4 % 11.6-14.[address] [facility] Immature granulocytes/100 WBC (Bld) 0.300 % 0.0-0.[address] [facility] Comment on above: IG% - Immature Granu locytes (promyelocytes, myelocytes and metamyelocytes) > 1% indicates that a LEFT SHIFT is Present. MCH (RBC) [Entitic mass] 24.2 pg 27.0-32.[address] [facility] Nucleated RBC/100 WBC (Bld) [Ratio] 0 % 0-[address] [facility] MCHC Auto (RBC) [Mass/Vol]Or dered By: Dr. Donahue on 05-06-2022 MCHC (RBC) [Mass/Vol] 31.1 g/dL 32-36 [facility] No Panel InformationOrdered By: Dr. Donahue on 05-06-2022 Anti-Nuclear Antibody Screen Positive Negative [facility] Centromere B Antibody <0.2 AI 0.0-0.9 [facility] Estimated GFR (MDRD) Amer 122 mL/min >[address] [facility] Comment on above: GFR Calc Estimated GFR (MDRD) Non-Af Amer 101 mL/min >[address] [facility] Comment on above: Non- GFR Calc ADULT CARE PROVIDER Antibody 0.2 AI 0.0-0.[address] [facility] Thyroid Stimulating Hormone (TSH) 2.08 uIU/mL 0.358-3.[address] [facility] Total Triiodothyronine 1.28 ng/mL 0.6-1.[address] [facility] Platelets bldOrdered By: Dr. Donahue on 05-06-2022 Platelets (Bld) [#/Vol] 323 10*3/uL 150-[address] [facility] Serum DNA double strand anti body assay (units/volume)Ordered By: Dr. Donahue on 05-06-2022 DNA double strand Ab Qn (S) 4 [IU]/mL 0-[address] [facility] Comment on above: Negative <5 Equivoca l 5 - 9 Positive >9 Serum Salima-1 antibody assay (u nits/volume)Ordered By: Dr. Donahue on 05-06-2022 Salima-1 extractable nuclear Ab Qn (S) 0.9 AI 0.0-0.[address] [facility] Serum Scl-70 extractable nuc lear antibody assay (units/volume)Ordered By: Dr. Donahue on 05-06-2022 SCL-70 extractable nuclear Ab Qn (S) 1.4 AI 0.0-0.[address] [facility] Serum Chow extractable nucl ear antibody detectionOrdered By: Dr. Donahue on 05-06-2022 Chow extractable nuclear Ab Ql (S) 1.7 AI 0.0-0.[address] [facility] Serum or plasma C reactive p rotein measurement (mass/volume)Ordered By: Dr. Donahue on 05-06-2022 CRP [Mass/Vol] 3.51 mg/L 0.0-3.[address] [facility] Comment on above: C-Reactive Protein ( CRP) provides useful information for thediagnosis, therapy and monitoring of inflammatory processesand associated diseases. For the evaluation of Relative Riskfor Cardiovascular Disease, a High Sensitivity CRP (HSCRP)should be ordered. Serum or plasma albumin edith urement (mass/volume)Ordered By: Dr. Donahue on 05-06-2022 Albumin [Mass/Vol] 3.3 g/dL 3.2-5.0 [facility] Serum or plasma albumin/glob ulin mass ratioOrdered By: Dr. Donahue on 05-06-2022 Albumin/Globulin [Mass ratio] 0.8 {ratio} 0.9-2.[address] [facility] Serum or plasma calcium edith urement (mass/volume)Ordered By: Dr. Donahue on 05-06-2022 Calcium [Mass/Vol] 8.8 mg/dL 8.5-10.1 [facility] Serum or plasma creatinine m easurement (mass/volume)Ordered By: Dr. Donahue on 05-06-2022 Creatinine [Mass/Vol] 0.69 mg/dL 0.55-1.02 [facility] Comment on above: The validity of the calculated GFR & GFRAA in patients over 70 years has not been determined. Clinical correlation is essential. Serum or plasma urea nitroge n measurement (mass/volume)Ordered By: Dr. Donahue on 05-06-2022 Urea nitrogen [Mass/Vol] 12 mg/dL 7-[address] [facility] Thin prep Papanicolaou smear with manual screeningOrdered By: Dr. Donahue on 05-06-2022 Thin prep Papanicolaou smear with manual screening 9 U/L 15-[address] [facility] Thin prep Papanicolaou smear with manual screening 2 5-[address] [facility] CTA ABD/PELV W IVCONon 10-22 CTA ABD/PELV W IVCON * * *Final Report* * * DATE OF EXAM: Oct 22 2018 3:25PM [facility] 0311 - CTA ABD/PELV W IVCON / PROCEDURE REASON: Post operative complication suspected * * * * Physician Interpretation * * * * EXAM TITLE: CT ANGIOGRAPHY OF THE CHEST, ABDOMEN AND PELVIS WITH INTRAVENOUS CONTRAST DATE: 10/22/2018 COMPARISON: None. CLINICAL INDICATION/HISTORY: The patient is status post endoscopy and colonoscopy earlier this morning. The patient complains of chest pain, epigastric pain and bilateral axillary pain. TECHNIQUE: Helical scanning is obtained from the basilar neck through the ischial tuberosities while the patient received a rapid intravenous bolus of iodinated contrast. Transaxial images are reconstructed at 0.625 and 2.5 mm intervals. Lung windows are reconstructed at 2.5 mm intervals. In addition sagittal and coronal reconstructed images are presented. CT Radiation dose: Integrated Dose-length Product (DLP) for this visit = 1851.09 mGy*cm. CT Dose Reduction Employed: Automated exposure control (AEC) Contrast: 100 cc Omnipaque 350 IV CHEST FINDINGS: There are patchy infiltrates throughout the left upper lobe. There is denser infiltrate/atelectasi s within the lingula. There are also patchy infiltrates in the basilar segments of the left lower lobe. With the recent history of endoscopy this raises the possibility of aspiration. No other pulmonary nodules, masses, infiltrates or effusions are identified. There is no mediastinal or axillary lymphadenopathy. There is no evidence of cardiomegaly. This no pericardial effusion. There is no definite coronary artery calcifications. The thoracic aorta is without evidence of aneurysmal dilatation or dissection. The ascending thoracic aorta measures 3.2 cm in diameter. The pulmonary artery measures 2.8 cm in diameter. ABDOMINAL FINDINGS: There is some diffuse fatty change of liver. No focal hepatic lesions are noted . The gallbladder is unremarkable. There is splenomegaly. Spleen measures 15.6 cm in greatest dimension. No focal splenic abnormalities are noted. The pancreas is within normal limits. The adrenal glands are unremarkable. The kidneys are of normal size and configuration. No renal calculi or hydronephrosis noted. The kidneys demonstrate normal perfusion bilaterally. No significant retrocrural or retroperitoneal lymphadenopathy. PELVIC FINDINGS: The uterus is unremarkable. There is an ovoid low-attenuation structure to the right of the uterus most consistent with the right ovary. The bladder is unremarkable and nearly collapsed. There is no significant pelvic or inguinal lymphadenopathy. There is a normal-appearing appendix. There is no evidence of diverticulosis or diverticulitis. The rectum is fluid-filled and mildly distended. There are no abnormally dilated bowel loops. No abnormal abdominal pelvic masses or fluid collections are noted. There is a small hiatal hernia. There is no evidence of free air or free fluid. ANGIOGRAPHIC FINDINGS: The thoracic aorta is without evidence of aneurysmal dilatation or dissection. The great vessels arising from the aortic arch appear to be widely patent. The pulmonary arteries are fairly well-opacified. No intraluminal filling defects or abrupt cutoffs consistent with pulmonary emboli are identified. The cardiac chambers appear unremarkable. There is no filling defects consistent with presence of thrombi. There is no evidence of right ventricular strain. The abdominal aorta is without evidence of aneurysmal dilatation or dissection. The celiac axis, superior mesenteric artery and inferior mesenteric arteries are all widely patent. There are 2 right and a single left renal artery. There is no evidence or renal artery stenosis. The pelvic runoff vessels appear to be widely patent. IMPRESSION: 1. There is no evidence of pulmonary embolus. 2. There is no evidence of aneurysmal dilatation or dissection involving the thoracic or abdominal aorta. 3. Patchy infiltrates within the left upper lobe as well as in the basilar segments of the left lower lobe . There is more focal area of infiltrates/consolida tion in the lingula. In a patient with a recent history of endoscopy this raises the possibility of aspiration. 4. Small hiatal hernia. 5. There are no abnormally appearing bowel loops and no evidence of free air. 6. Otherwise negative CT angiography of the chest, abdomen and pelvis with intravenous contrast. Valet Runner: PSCB Transcribe Date/Time: Oct 22 2018 3:32P Dictated by : BRITTNI MORRIS MD This examination was interpreted and the report reviewed and electronically signed by: BRITTNI MORRIS MD on Oct 22 2018 3:52PM EST Normal [facility] CTA CHEST (NONGATED) W IVCON on 10-22-2018 CTA CHEST (NONGATED) W IVCON * * *Final Report* * * DATE OF EXAM: Oct 22 2018 3:25PM [facility] 0123 - CTA CHEST (NONGATED) W IVCON / PROCEDURE REASON: Post operative complication suspected * * * * Physician Interpretation * * * * EXAM TITLE: CT ANGIOGRAPHY OF THE CHEST, ABDOMEN AND PELVIS WITH INTRAVENOUS CONTRAST DATE: 10/22/2018 COMPARISON: None. CLINICAL INDICATION/HISTORY: The patient is status post endoscopy and colonoscopy earlier this morning. The patient complains of chest pain, epigastric pain and bilateral axillary pain. TECHNIQUE: Helical scanning is obtained from the basilar neck through the ischial tuberosities while the patient received a rapid intravenous bolus of iodinated contrast. Transaxial images are reconstructed at 0.625 and 2.5 mm intervals. Lung windows are reconstructed at 2.5 mm intervals. In addition sagittal and coronal reconstructed images are presented. CT Radiation dose: Integrated Dose-length Product (DLP) for this visit = 1851.09 mGy*cm. CT Dose Reduction Employed: Automated exposure control (AEC) Contrast: 100 cc Omnipaque 350 IV CHEST FINDINGS: There are patchy infiltrates throughout the left upper lobe. There is denser infiltrate/atelectasi s within the lingula. There are also patchy infiltrates in the basilar segments of the left lower lobe. With the recent history of endoscopy this raises the possibility of aspiration. No other pulmonary nodules, masses, infiltrates or effusions are identified. There is no mediastinal or axillary lymphadenopathy. There is no evidence of cardiomegaly. This no pericardial effusion. There is no definite coronary artery calcifications. The thoracic aorta is without evidence of aneurysmal dilatation or dissection. The ascending thoracic aorta measures 3.2 cm in diameter. The pulmonary artery measures 2.8 cm in diameter. ABDOMINAL FINDINGS: There is some diffuse fatty change of liver. No focal hepatic lesions are noted . The gallbladder is unremarkable. There is splenomegaly. Spleen measures 15.6 cm in greatest dimension. No focal splenic abnormalities are noted. The pancreas is within normal limits. The adrenal glands are unremarkable. The kidneys are of normal size and configuration. No renal calculi or hydronephrosis noted. The kidneys demonstrate normal perfusion bilaterally. No significant retrocrural or retroperitoneal lymphadenopathy. PELVIC FINDINGS: The uterus is unremarkable. There is an ovoid low-attenuation structure to the right of the uterus most consistent with the right ovary. The bladder is unremarkable and nearly collapsed. There is no significant pelvic or inguinal lymphadenopathy. There is a normal-appearing appendix. There is no evidence of diverticulosis or diverticulitis. The rectum is fluid-filled and mildly distended. There are no abnormally dilated bowel loops. No abnormal abdominal pelvic masses or fluid collections are noted. There is a small hiatal hernia. There is no evidence of free air or free fluid. ANGIOGRAPHIC FINDINGS: The thoracic aorta is without evidence of aneurysmal dilatation or dissection. The great vessels arising from the aortic arch appear to be widely patent. The pulmonary arteries are fairly well-opacified. No intraluminal filling defects or abrupt cutoffs consistent with pulmonary emboli are identified. The cardiac chambers appear unremarkable. There is no filling defects consistent with presence of thrombi. There is no evidence of right ventricular strain. The abdominal aorta is without evidence of aneurysmal dilatation or dissection. The celiac axis, superior mesenteric artery and inferior mesenteric arteries are all widely patent. There are 2 right and a single left renal artery. There is no evidence or renal artery stenosis. The pelvic runoff vessels appear to be widely patent. IMPRESSION: 1. There is no evidence of pulmonary embolus. 2. There is no evidence of aneurysmal dilatation or dissection involving the thoracic or abdominal aorta. 3. Patchy infiltrates within the left upper lobe as well as in the basilar segments of the left lower lobe . There is more focal area of infiltrates/consolida tion in the lingula. In a patient with a recent history of endoscopy this raises the possibility of aspiration. 4. Small hiatal hernia. 5. There are no abnormally appearing bowel loops and no evidence of free air. 6. Otherwise negative CT angiography of the chest, abdomen and pelvis with intravenous contrast. Valet Runner: LINDA Transcribe Date/Time: Oct 22 2018 3:32P Dictated by : BRITTNI MORRIS MD This examination was interpreted and the report reviewed and electronically signed by: BRITTNI MORRIS MD on Oct 22 2018 3:52PM EST Normal [facility] Comprehensive Panelon 2018 Albumin [Mass/Vol] 3.5 g/dL Normal 3.4-5.0 [facility] Comment on above: Performed By: #### L P14 #### [facility] [address] [place] [address] ALP [Catalytic activity/Vol] 94 U/L Normal 46-116 [facility] Comment on above: Performed By: #### L P14 #### [facility] [address] [place] [address] ALT-SGPT Blood 26 U/L Normal 14-63 [facility] Comment on above: Performed By: #### L P14 #### [facility] [address] [place] [address] Anion gap [Moles/Vol] 14 mmol/L Normal 8-20 [facility] Comment on above: Performed By: #### L P14 #### [place] [address] AST-SGOT Blood 23 U/L Normal 15-37 [facility] Comment on above: Performed By: #### L P14 #### [place] [address] Bilirubin Ql (U) 0.6 mg/dL Normal 0.2-1.0 [facility] Comment on above: Performed By: #### L P14 #### [place] [address] Calcium [Mass/Vol] 9.0 mg/dL Normal 8.5-10.1 [facility] Comment on above: Performed By: #### L P14 #### [facility] [address] [address] CO2 Blood 26 mEq/L Normal 21-32 [facility] Comment on above: Performed By: #### L P14 #### [facility] [address] [place] [address] Creatinine [Mass/Vol] 0.68 mg/dL Normal 0.51-0.95 [facility] Comment on above: Performed By: #### L P14 #### [address] [place] [address] Glucose [Mass/Vol] 106 mg/dL High 70-99 [facility] Comment on above: Performed By: #### L P14 #### [facility] [address] [place], [place] [address] Protein [Mass/Vol] 7.6 g/dL Normal 6.4-8.2 [facility] Comment on above: Performed By: #### L P14 #### [facility] [address] [place] [address] Urea nitrogen [Mass/Vol] 6 mg/dL Low 7-18 [facility] Comment on above: Performed By: #### L P14 #### [facility] [address] [place] [address] Urea nitrogen/Creatinine [Mass ratio] 9 mg/mg Low 10-20 [facility] Comment on above: Performed By: #### L P14 #### [place] [address] Chloride [Moles/Vol] 101 mmol/L Normal 98-109 [facility] Comment on above: Result Comment: Test ing performed on an [place] i-STAT. Performed By: #### L P14 #### [place] [address] Potassium [Moles/Vol] 3.7 mmol/L Normal 3.5-4.9 [facility] Comment on above: Result Comment: Test ing performed on an [place] i-STAT. Performed By: #### L P14 #### [place] [address] Sodium [Moles/Vol] 137 mmol/L Low 138-146 [facility] Comment on above: Result Comment: Test ing performed on an [place] i-STAT. Performed By: #### L P14 #### [place] [id number] Cult Bloodon 10-22-2018 Cult Blood Test performed at [facility] No growth The blood cultures are under-filled. Adding volumes lower or higher than the key carrier?s recommended volume* may adversely affect recovery and/or detection of organisms. (*refer to individual bottle labels for correct volumes). Normal [facility] Comment on above: Performed By: #### L P14 #### [facility] [address] [place] [address] Cult Blood Test performed at [facility] No growth The blood cultures are under-filled. Adding volumes lower or higher than the key carrier?s recommended volume* may adversely affect recovery and/or detection of organisms. (*refer to individual bottle labels for correct volumes). Normal [facility] Comment on above: Performed By: #### L P14 #### [place] [address] Hemogram/Manual Diffon 10-22 Abs. Baso 0.00 thou/cmm Normal 0.00-0.08 [facility] Comment on above: Performed By: #### L MCBD #### [place] [address] Abs. Eosin 0.00 thou/cmm Normal 0.00-0.41 [facility] Comment on above: Performed By: #### L MCBD #### [place] [address] Abs. Lymph 0.41 thou/cmm Low 1.50-3.65 [facility] Comment on above: Performed By: #### L MCBD #### [place] [address] Abs. Nash 0.28 thou/cmm Normal 0.20-1.00 [facility] Comment on above: Performed By: #### L MCBD #### [place] [address] Abs. Neut (ANC) 13.11 thou/cmm High 3.00-5.67 [facility] Comment on above: Performed By: #### L MCBD #### [place] [address] Basophil 0.0 % Normal [facility] Comment on above: Performed By: #### L MCBD #### [place] [address] Diff Type Manual Diff Normal [facility] Comment on above: Performed By: #### L MCBD #### [facility] [address] [place] [address] Eosinophil 0.0 % Normal [facility] Comment on above: Performed By: #### L MCBD #### [facility] [address] [place] [address] Lymphocyte 3.0 % Normal [facility] Comment on above: Performed By: #### L MCBD #### [facility] [address] [place] [address] Monocyte 2.0 % Normal [facility] Comment on above: Performed By: #### L MCBD #### [facility] [address] [place] [address] Platelets (Bld) [#/Vol] Normal Normal [facility] Comment on above: Performed By: #### L MCBD #### [facility] [address] [place] [address] RBC morphology finding Nom (Bld) Normal Normal [facility] Comment on above: Performed By: #### L MCBD #### [facility] [address] [place] [address] Seg Neutrophil 95.0 % Normal [facility] Comment on above: Performed By: #### L MCBD #### [facility] [address] [place] [address] Erythrocyte distribution width (RBC) [Ratio] 15.1 % Normal 11.5-15.9 [facility] Comment on above: Performed By: #### L MCBD #### [facility] [address] [place] [address] Hematocrit (Bld) [Volume fraction] 38.7 % Normal 37.0-47.0 [facility] Comment on above: Performed By: #### L MCBD #### [facility] [address] [place] [address] Hemoglobin (Bld) [Mass/Vol] 12.4 g/dL Normal 12.0-16.0 [facility] Comment on above: Performed By: #### L MCBD #### [facility] [address] [place] [address] MCH (RBC) [Entitic mass] 23.7 pg Low 27.0-31.0 [facility] Comment on above: Performed By: #### L MCBD #### [facility] [address] [place], [place] [address] MCHC (RBC) [Mass/Vol] 32.0 % Normal 32.0-36.0 [facility] Comment on above: Performed By: #### L MCBD #### [facility] [address] [place] [address] MCV (RBC) [Entitic vol] 74.0 fl Low 81.0-99.0 [facility] Comment on above: Performed By: #### L MCBD #### [facility] [address] [place] [address] Platelet mean volume (Bld) [Entitic vol] 9.9 fl Normal 7.1-10.5 [facility] Comment on above: Performed By: #### L MCBD #### [place] [address] Platelets (Bld) [#/Vol] 345 thou/cmm Normal 150-400 [facility] Comment on above: Performed By: #### L MCBD #### [place] [address] RBC (Bld) [#/Vol] 5.23 mil/cmm Normal 4.20-5.40 [facility] Comment on above: Performed By: #### L MCBD #### [place] [address] WBC (Bld) [#/Vol] 13.8 thou/cmm High 4.8-10.5 [facility] Comment on above: Performed By: #### L MCBD #### [place] [address] Lactic acidon 10-22-2018 Lactate [Moles/Vol] 1.1 mmol/L Normal 0.4-2.0 [facility] Comment on above: Performed By: #### L P14 #### [place] [address] Lactate [Moles/Vol] 2.3 mmol/L Critically high 0.4-2.0 [facility] Comment on above: Performed By: #### L LA #### [facility] [address] [place], [place] [address] Lipase Bloodon 10-22-2018 Lipase Blood 91 U/L Normal 73-393 [facility] Comment on above: Performed By: #### L LIP #### [facility] [address] [place], [place] [address] MDRD eGFRon 10-22-2018 GFR/1.73 sq M predicted among non-blacks MDRD (S/P/Bld) [Vol rate/Area] mL/min/{1.73_m2} Normal >60mL/min/1. 73m2 [facility] Comment on above: Result Comment: If t he patient is , multiply the result by 1.210. Performed By: #### L GFR #### [facility] [address] [place], [place] [address] Protimeon 10-22-2018 INR Coag (PPP) [Relative time] 1.04 {INR} Normal 0.90-1.30 [facility] Comment on above: Result Comment: Note : Reference Range Change Vitamin K Antagonist (VKA) Therapeutic Range: INR 2 to 3 (Target INR of 2.5) Note: For patients treated with VKA drugs, such as warfarin, the [place] [employer] 2012 Guideline recommends a therapeutic INR range of 2 to 3 (target INR of 2.5). This recommendation includes high-risk patients with antiphospholipid syndrome with previous arterial or venous thromboembolism, current-generation mechanical or bioprosthetic aortic heart valve replacement. VKA Therapeutic Range for some Mechanical Valve Replacement: INR 2.5 to 3.5 (Target INR of 3) Note: Patients with mechanical aortic valve replacement and additional risk factors for thromboembolic events (atrial fibrillation, previous thromboembolism, LV dysfunction, hypercoagulable conditions) or an older generation mechanical AVR (i.e., ball in-Cage) or any mechanical MVR should have a INR therapeutic range of 2.5 to 3.5 target INR of 3). Waqas GH, et al. Chest 2012; 141:7S-47S Leydi RA et al. JACC 2017; 70: 252-289 Performed By: #### L PT #### [facility] [address] [place] [address] PT Coag (PPP) [Time] 10.6 s Normal 9.7-13.0 [facility] Comment on above: Result Comment: . Performed By: #### L PT #### [place] [address] Troponin Ion 10-22-2018 Troponin I.cardiac [Mass/Vol] ng/mL Normal <=0.07 [facility] Comment on above: Performed By: #### L TRP #### [place] [address] Urinalysis Routineon 019 Appearance (U) CLEAR Normal [facility] Comment on above: Performed By: #### L URIN #### [place] [address] Bacteria LM.HPF (Urine sed) [#/Area] FEW Abnormal None [facility] Comment on above: Performed By: #### L URIN #### [place] [address] Bilirubin Urine see below Normal Negative [facility] Comment on above: Result Comment: Dome cted (Unable to confirm). Performed By: #### L URIN #### [place] [address] Color (U) DARK YELLOW Normal [facility] Comment on above: Performed By: #### L URIN #### [place] [address] Ep Cells Urine 0-2 Normal 0-5 [facility] Comment on above: Performed By: #### L URIN #### [place] [address] Glucose Ql (U) Negative Normal Negative [facility] Comment on above: Performed By: #### L URIN #### [place] [address] Hemoglobin,Urine Negative Normal Negative [facility] Comment on above: Performed By: #### L URIN #### [address], [place] [address] Ketone Urine 2+ Abnormal Negative [facility] Comment on above: Performed By: #### L URIN #### [place] [address] Leukocytes Esterase Negative Normal Negative [facility] Comment on above: Performed By: #### L URIN #### [place] [address] Nitrites Urine Negative Normal Negative [facility] Comment on above: Performed By: #### L URIN #### [place] [address] pH (U) 6.5 [pH] Normal 5.0-8.0 [facility] Comment on above: Performed By: #### L URIN #### [place] [address] Protein (U) [Mass/Vol] TRACE Abnormal Negative [facility] Comment on above: Performed By: #### L URIN #### [place] [address] RBC LM.HPF (Urine sed) [#/Area] NONE Normal 0-3 [facility] Comment on above: Performed By: #### L URIN #### [place] [address] Specific Protem, Ur 1.020 Normal 1.005-1.030 [facility] Comment on above: Performed By: #### L URIN #### [place] [address] Urobilinogen,Ur 0.2 EU/dL Normal 0.2-1.0 [facility] Comment on above: Performed By: #### L URIN #### [place] [address] WBC LM.HPF (Urine sed) [#/Area] NONE Normal 0-5 [facility] Comment on above: Performed By: #### L URIN #### [place] [address] Urine HCG, Qual.on 9 Beta HCG ( test) Ql (U) Negative Normal Negative [facility] Comment on above: Performed By: #### L HCG2 #### [facility] [address] [place] [address] Large Joint Arthro/Inj: bila teral knee joints [facility] Vital Signs Date Time Vital Sign Value Performing Clinician Facility 04-14-2024 13:57-0500 Body height 166.4 cm Fabrice Sheldon PA-C Work Phone: [facility] 04-14-2024 13:57-0500 Body mass index (BMI) [Ratio] 46.75 kg/m2 Fabrice Bertha PA-C Work Phone: [facility] 04-14-2024 13:57-0500 Body temperature 97.81 [degF] Fabrice Sheldon PA-C Work Phone: [facility] 04-14-2024 13:57-0500 Body weight 129.45 kg Fabrice Sheldon PA-C Work Phone: [facility] 04-14-2024 13:57-0500 Diastolic blood pressure 75 mm[Hg] Fabrice Bertha PA-C Work Phone: [facility] Comment on above: Right wrist 04-14-2024 13:57-0500 Heart rate 83 /min Fabrcie Bertha PA-C Work Phone: [facility] 04-14-2024 13:57-0500 Respiratory rate 14 /min Fabrice Sheldon PA-C Work Phone: [facility] 04-14-2024 13:57-0500 Systolic blood pressure 114 mm[Hg] Fabrice Sheldon PA-C Work Phone: [facility] Comment on above: Right wrist 01-13-2024 10:02-0500 Body height 165.1 cm P[address] 1 [facility] 01-13-2024 10:02-0500 Body mass index (BMI) [Ratio] 47.59 kg/m2 Pst 1 [facility] 01-13-2024 10:02-0500 Body temperature 98.6 [degF] Pst 1 [facility] 01-13-2024 10:02-0500 Body weight 129.73 kg Pst 1 [facility] 01-13-2024 10:02-0500 Diastolic blood pressure 74 mm[Hg] Pst 1 [facility] 01-13-2024 10:02-0500 Heart rate 66 /min Pst 1 [facility] 01-13-2024 10:02-0500 Respiratory rate 18 /[facility] 01-13-[facility]24 10:02-0500 SaO2% (BldA) [Mass fraction] 97 % Pst 1 [facility] 01-13-2024 10:02-0500 Systolic blood pressure 109 mm[Hg] Pst 1 [facility] 12-18-2023 15:23-0400 Body height 165.1 cm Sandrita Chen MD Work Phone: [facility] 12-18-2023 15:23-0400 Body mass index (BMI) [Ratio] 47.59 kg/m2 Sandrita Chen MD Work Phone: [facility] 12-18-2023 15:23-0400 Body weight 129.73 kg Sandrita Chen MD Work Phone: [facility] 11-27-2023 10:53-0400 Body height 167.6 cm Sandrita Chen MD Work Phone: [facility] 11-27-2023 10:53-0400 Body mass index (BMI) [Ratio] 46.76 kg/m2 Sandrita Chen MD Work Phone: [facility] 11-27-2023 10:53-0400 Body weight 131.41 kg Sandrita Chen MD Work Phone: [facility] 11-27-2023 10:53-0400 Diastolic blood pressure 82 mm[Hg] Sandrita Chen MD Work Phone: [facility] 11-27-2023 10:53-0400 Systolic blood pressure 126 mm[Hg] Sandrita Chen MD Work Phone: [facility] 11-21-2023 11:11-0400 Body height 167.6 cm Sandrita Chen MD Work Phone: [facility] 11-21-2023 11:11-0400 Body mass index (BMI) [Ratio] 46.81 kg/m2 Sandrita Chen MD Work Phone: [facility] 11-21-2023 11:11-0400 Body weight 131.54 kg Sandrita Chen MD Work Phone: [facility] 11-21-2023 11:11-0400 Diastolic blood pressure 96 mm[Hg] Sandrita Chen MD Work Phone: [facility] 11-21-2023 11:11-0400 Systolic blood pressure 126 mm[Hg] Sandrita Chen MD Work Phone: [facility] 10-13-2023 08:08-0400 Body height 167.6 cm Nikki Gomez MD Work Phone: [facility] 10-13-2023 08:08-0400 Body mass index (BMI) [Ratio] 45.74 kg/m2 Nikki Gomez MD Work Phone: [facility] 10-13-2023 08:08-0400 Body temperature 97.81 [degF] Nikki Gomez MD Work Phone: [facility] 10-13-2023 08:08-0400 Body weight 128.55 kg Nikki Gomez MD Work Phone: [facility] 10-13-2023 08:08-0400 Diastolic blood pressure 78 mm[Hg] Nikki Gomez MD Work Phone: [facility] 10-13-2023 08:08-0400 Heart rate 71 /min Nikki Gomez MD Work Phone: [facility] 10-13-2023 08:08-0400 SaO2% (BldA) [Mass fraction] 99 % Nikki Gomez MD Work Phone: [facility] 10-13-2023 08:08-0400 Systolic blood pressure 114 mm[Hg] Nikki Gomez MD Work Phone: [facility] 08-01-2023 13:11-0400 Body height 165.1 cm Sandrita Chen MD Work Phone: [facility] 08-01-2023 13:11-0400 Body mass index (BMI) [Ratio] 46.59 kg/m2 Sandrita Chen MD Work Phone: [facility] 08-01-2023 13:11-0400 Body weight 127.01 kg Sandrita Chen MD Work Phone: [facility] 08-01-2023 13:11-0400 Diastolic blood pressure 77 mm[Hg] Sandrita Chen MD Work Phone: [facility] 08-01-2023 13:11-0400 Systolic blood pressure 115 mm[Hg] Sandrita Chen MD Work Phone: [facility] 10-08-2022 13:09-0400 Body height 1676.[address] Ap Donahue Work Phone: [facility] 10-08-2022 13:09-0400 Body mass index (BMI) [Ratio] 0.4 kg/m2 Dr. Ap Donahue Work Phone: [facility] 10-08-2022 13:09-0400 Body temperature 99 [degF] Dr. Ap Donahue Work Phone: [facility] 10-08-2022 13:09-0400 Body weight 127.[address] Ap Donahue Work Phone: [facility] 10-08-2022 13:09-0400 Diastolic blood pressure 88 mm[Hg] Dr. Ap Donahue Work Phone: [facility] 10-08-2022 13:09-0400 Heart rate 65 /min Dr. Ap Donahue Work Phone: [facility] 10-08-2022 13:09-0400 Respiratory rate 16 /min Dr. Ap Donahue Work Phone: [facility] 10-08-2022 13:09-0400 SaO2% (BldA) [Mass fraction] 98 % Dr. Ap Donahue Work Phone: [facility] 10-08-2022 13:09-0400 Systolic blood pressure 138 mm[Hg] Dr. Ap Donahue Work Phone: [facility] 08-06-2022 10:38-0400 Body mass index (BMI) [Ratio] 47.4 kg/m2 Dr. Ap Donahue Work Phone: [facility] 08-06-2022 10:38-0400 Body temperature 95.9 [degF] Dr. Ap Donahue Work Phone: [facility] 08-06-2022 10:38-0400 Body weight 129.[address] Ap Donahue Work Phone: [facility] 08-06-2022 10:38-0400 Diastolic blood pressure 84 mm[Hg] Dr. Ap Donahue Work Phone: [facility] 08-06-2022 10:38-0400 Heart rate 70 /min Dr. Ap Donahue Work Phone: [facility] 08-06-2022 10:38-0400 Respiratory rate 18 /min Dr. Ap Donahue Work Phone: [facility] 08-06-2022 10:38-0400 SaO2% (BldA) [Mass fraction] 100 % Dr. Ap Donahue Work Phone: [facility] 08-06-2022 10:38-0400 Systolic blood pressure 114 mm[Hg] Dr. Ap Donahue Work Phone: [facility] 06-24-2022 10:34-0400 Body height 165.[address] Adriano Uriostegui Work Phone: [facility] 06-24-2022 10:34-0400 Body mass index (BMI) [Ratio] 46.5 kg/m2 Dr. Adriano Uriostegui Work Phone: [facility] 06-24-2022 10:34-0400 Body temperature 97.1 [degF] Dr. Adriano Uriostegui Work Phone: [facility] 06-24-2022 10:34-0400 Body weight 126.[address] Adriano Uriostegui Work Phone: [facility] 06-24-2022 10:34-0400 Diastolic blood pressure 84 mm[Hg] Dr. Adriano Uriostegui Work Phone: [facility] 06-24-2022 10:34-0400 Heart rate 73 /min Dr. Adriano Uriostegui Work Phone: [phone] [place] [address] 06-24-2022 10:34-0400 Respiratory rate 18 /min Dr. Adriano Uriostegui Work Phone: [facility] 06-24-2022 10:34-0400 SaO2% (BldA) [Mass fraction] 99 % Dr. Adriano Uriostegui Work Phone: [facility] 06-24-2022 10:34-0400 Systolic blood pressure 106 mm[Hg] Dr. Adriano Uriostegui Work Phone: [facility] 05-24-2022 17:50-0400 Diastolic blood pressure 90 mm[Hg] Dr. Adriano Uriostegui Work Phone: [facility] 05-24-2022 17:50-0400 Heart rate 65 /min Dr. Adriano Uriostegui Work Phone: [facility] 05-24-2022 17:50-0400 Respiratory rate 18 /min Dr. Adriano Uriostegui Work Phone: [facility] 05-24-2022 17:50-0400 Systolic blood pressure 137 mm[Hg] Dr. Adriano Uriostegui Work Phone: [facility] 05-24-2022 14:17-0400 Body height 165.[address] Adriano Uriostegui Work Phone: [facility] 05-24-2022 14:17-0400 Body mass index (BMI) [Ratio] 46.5 kg/m2 Dr. Adriano Uriostegui Work Phone: [facility] 05-24-2022 14:17-0400 Body temperature 98 [degF] Dr. Adriano Uriostegui Work Phone: [facility] 05-24-2022 14:17-0400 Body weight 126.[address] Adriano Uriostegui Work Phone: [facility] 05-24-2022 14:17-0400 SaO2% (BldA) [Mass fraction] 100 % Dr. Adriano Uriostegui Work Phone: [facility] 05-06-2022 09:39-0500 Body height 165.[address] Adriano Uriostegui Work Phone: [facility] 05-06-2022 09:39-0500 Body mass index (BMI) [Ratio] 46.4 kg/m2 Dr. Adriano Uriostegui Work Phone: [facility] 05-06-2022 09:39-0500 Body temperature 98.2 [degF] Dr. Adriano Uriostegui Work Phone: [facility] 05-06-2022 09:39-0500 Body weight 126.[address] Adriano Uriostegui Work Phone: [facility] 05-06-2022 09:39-0500 Diastolic blood pressure 78 mm[Hg] Dr. Adriano Uriostegui Work Phone: [facility] 05-06-2022 09:39-0500 Heart rate 73 /min Dr. Adriano Uriostegui Work Phone: [facility] 05-06-2022 09:39-0500 Respiratory rate 16 /min Dr. Adriano Uriostegui Work Phone: [facility] 05-06-2022 09:39-0500 SaO2% (BldA) [Mass fraction] 98 % Dr. Adriano Uriostegui Work Phone: [facility] 05-06-2022 09:39-0500 Systolic blood pressure 132 mm[Hg] Dr. Adriano Uriostegui Work Phone: [facility] 09-24-2021 08:58-0400 Body height 165.[address] Adriano Uriostegui Work Phone: [facility] Work Phone: 09-24-2021 08:58-0400 Body mass index (BMI) [Ratio] 47 kg/m2 Dr. Adriano Uriostegui Work Phone: [facility] Work Phone: 09-24-2021 08:58-0400 Body weight 128.[address] Adriano Uriostegui Work Phone: [facility] Work Phone: Encounters Encounter Date Encounter Type Care Provider Facility Start: 12-23-2024 ambulatory Ap [place] Facility :[facility] Start: 12-01-2024 ambulatory Ap [place] Facility :[facility] Start: 11-30-2024 ambulatory Ap Rowan Facility :[facility] Start: 11-24-2024 End: 11-24-2024 Patient encounter procedure Nikik Gomez MD Work Phone: [facility] Comment on above: MARKUS positive (Primar y Dx); Hypermobility syndrome; Rash and other nonspecific skin eruption; Primary osteoarthritis involving multiple joints; Long-term use of Plaquenil; Undifferentiated connective tissue disease (HCC) Start: 11-24-2024 End: 11-24-2024 Telemedicine consultation with patient Nikki Gomez MD Work Phone: [facility] Start: 11-24-2024 End: 11-24-2024 ambulatory NIKKI GOMEZ Facility:[facility] Start: 11-18-2024 End: 11-18-2024 ambulatory Ap Rowan Facility:[facility] Start: 11-18-2024 End: 11-18-2024 ambulatory Ap [place] Facility:[facility] Start: 10-21-2024 ambulatory NIKKI GOMEZ Facilit y:[facility] Start: 09-28-2024 End: 09-28-2024 Refill Fabrice Stone PA-C Work Phone: [facility] Comment on above: Refill Request Start: 08-17-2024 End: 08-17-2024 ambulatory Ap [place] Facility:[facility] Start: 08-11-2024 End: 08-11-2024 ambulatory Ap [place] Facility:[facility] Start: 07-26-2024 End: 07-26-2024 Patient encounter procedure Nancy Luke OD Work Phone: Ophthalmology Comment on above: High risk medication use (Primary Dx); Regular astigmatism of both eyes; Amblyopia suspect, left eye Start: 07-26-2024 End: 07-26-2024 ambulatory AP G ROWAN Facility:[facility] Start: 07-22-2024 End: 08-07-2024 ambulatory Ap [place] Facility:[facility] Start: 07-08-2024 End: 07-08-2024 ambulatory Ap [place] Facility:[facility] Start: 06-08-2024 Encounter for antibo dy response examination Ap [place] [facility] Start: 06-03-2024 End: 06-03-2024 ambulatory Ap Rowan Facility:[facility] Start: 06-03-2024 End: 06-03-2024 ambulatory Ap Rowan Facility:[facility] Start: 05-27-2024 End: 05-27-2024 ambulatory Ap [place] Facility:[facility] Start: 05-20-2024 End: 06-07-2024 ambulatory Ap Rowan Facility:[facility] Start: 05-16-2024 End: 05-16-2024 Emergency department patient visit AP G ROWAN Facility:[facility] Start: 04-29-2024 End: 04-29-2024 ambulatory Ap Rowan Facility:[facility] Start: 04-28-2024 End: 04-28-2024 Follow-up encounter Fabrice Stone PA-C Work Phone: [facility] Comment on above: Iron deficiency anem ia, unspecified iron deficiency anemia type (Primary Dx) Start: 04-26-2024 End: 04-26-2024 ambulatory AP DONAHUE Facility:[facility] Start: 04-14-2024 End: 04-14-2024 Office outpatient visit 25 minutes Fabrice Stone PA-C Work Phone: [facility] Comment on above: Positive MARKUS (antinu clear antibody) (Primary Dx); Pain in joint, multiple sites; Rash and nonspecific skin eruption; Long-term use of Plaquenil; Fibromyalgia Start: 04-14-2024 End: 04-14-2024 ambulatory FABRICE STONE Facility:[facility] Start: 02-10-2024 End: 02-10-2024 Telephone encounter Sandrita Chen MD Work Phone: [facility] Comment on above: Patient Update Start: 02-10-2024 End: 02-10-2024 ambulatory Ap Donahue Facility:[facility] Start: 01-14-2024 End: 01-14-2024 ambulatory SANDRITA CHEN Facility:[facility] Start: 01-13-2024 End: 01-13-2024 Admission to establishment Pst [facility] [place] 1 Pre Surgical Testing Start: 01-13-2024 End: 01-13-2024 Preprocedural examination done Pst 1 [facility] Work Phone: Start: 01-13-2024 End: 01-13-2024 ambulatory SANDRITA CHEN Pre Surgical Testing Comment on above: Pre-op examination ( Primary Dx); Abnormal uterine bleeding; Mild intermittent asthma without complication; Obesity, Class III, BMI >= 40; Other forms of systemic lupus erythematosus, unspecified organ involvement status (HCC); Graves disease; Aspiration pneumonia, unspecified aspiration pneumonia type, unspecified laterality, unspecified part of lung (HCC) Start: 01-12-2024 Encounter for other preprocedural examination NIKKI GOMEZ [facility] Start: 01-12-2024 Preprocedural examin ation done Pst 1 [facility] Start: 12-23-2023 End: 12-23-2023 Orders Only Sandrita Chen MD Work Phone: [facility] Comment on above: Abnormal uterine ble eding (Primary Dx) Start: 12-22-2023 End: 12-22-2023 Telephone encounter Sandrita Chen MD Work Phone: [facility] Comment on above: Patient Update (Left Pt Vm to call back to schedule surgery Hermelinda Darnell/December 22, 2023 2:51 PM//) Start: 12-18-2023 End: 12-18-2023 Patient encounter procedure Sandrita Chen MD Work Phone: [facility] Comment on above: Abnormal uterine ble eding (AUB) (Primary Dx) Start: 12-18-2023 End: 12-18-2023 Telemedicine consultation with patient Sandrita Chen MD Work Phone: [facility] Start: 12-18-2023 End: 12-18-2023 ambulatory SANDRITA CHEN Facility:[facility] Start: 11-27-2023 End: 11-27-2023 Patient encounter procedure Sandrita Chen MD Work Phone: [facility] Comment on above: Abnormal uterine ble eding (AUB) (Primary Dx) Start: 11-27-2023 End: 11-27-2023 ambulatory SANDRITA CHEN Facility:[facility] Start: 11-21-2023 End: 11-21-2023 Patient encounter procedure Sandrita Chen MD Work Phone: [facility] Comment on above: Abnormal uterine ble eding (AUB) (Primary Dx) Abnormal uterine ble eding (AUB) Start: 11-06-2023 End: 11-06-2023 Telephone encounter Sandrita Chen MD Work Phone: [facility] Comment on above: Orders Start: 10-21-2023 Telephone encounter Nikki mckeon MD Work Phone: [facility] Comment on above: Results Start: 10-13-2023 End: 10-13-2023 Patient encounter procedure Nikki Gomez MD Work Phone: [facility] Comment on above: Positive MARKUS (antinu clear antibody) (Primary Dx); Vitamin D deficiency; Pain in joint, multiple sites Start: 08-08-2023 Refill Nikki marlow MD Work Phone: [facility] Comment on above: Refill Request Start: 08-07-2023 Telephone encounter Celi lam APRN.CNP Work Phone: [facility] Comment on above: Results Start: 08-01-2023 End: 08-01-2023 Patient encounter procedure [facility] Provider [facility] Department Comment on above: Encounter for gyneco logical examination (general) (routine) without abnormal findings (Primary Dx); Screening for cervical cancer; Abnormal uterine bleeding (AUB) Start: 08-01-2023 End: 08-01-2023 Patient encounter status Sandrita Chen MD Work Phone: [facility] Work Phone: Start: 04-14-2023 End: 04-14-2023 Patient encounter procedure Cheli Allen PA-C Work Phone: Orthopaedics Comment on above: Primary osteoarthrit is of left knee (Primary Dx); Patellar subluxation, left, initial encounter; Subluxation of patellofemoral joint, unspecified laterality, subsequent encounter Start: 10-23-2022 End: 10-23-2022 Subsequent hospital visit by physician Loreto [facility] Avril Hackett Work Phone: Radiology Comment on above: Rash and nonspecific skin eruption [R21] Start: 10-23-2022 End: 10-23-2022 ambulatory Nikki Gomez MD Work Phone: [facility] Comment on above: Rash and nonspecific skin eruption (Primary Dx); Vitamin D deficiency; Pain in joint, multiple sites; Malaise and fatigue; Fibromyalgia Start: 10-23-2022 End: 10-23-2022 Telemedicine consultation with patient Nikki Gomez MD Work Phone: [facility] Start: 10-09-2022 End: 10-09-[address] Ap Donahue Work Phone: [facility] Work Phone: Start: 10-09-2022 End: 10-09-[address] Ap Donahue Work Phone: [facility]-Physical Therapy Work Phone: Start: 10-08-2022 End: 10-08-[address] Ap Donahue Work Phone: [facility] Work Phone: Start: 09-24-2022 Telephone encounter Nhan otero MD Work Phone: Orthopaedics Comment on above: Appointment Start: 08-06-2022 End: 08-06-[address] Ap Donahue Work Phone: [facility] Work Phone: Start: 07-15-2022 End: 07-15-2022 Patient encounter procedure Cheli VILLEDA-C Work Phone: Orthopaedics Comment on above: Patellar subluxation , left, initial encounter (Primary Dx); Primary osteoarthritis of left knee; Post-traumatic osteoarthritis of right knee; Chronic pain of both knees Start: 07-15-2022 End: 07-15-2022 Subsequent hospital visit by physician [facility] Work Phone: Radiology Comment on above: Pain in both knees, unspecified chronicity [M25.561, M25.562] Start: 07-11-2022 Orders Only Cheli fontenot PA-C Work Phone: Orthopaedics Comment on above: Pain in both knees, unspecified chronicity (Primary Dx) Start: 06-26-2022 End: 06-26-[address] Adriano Uriostegui Work Phone: [facility] Work Phone: Start: 06-26-2022 End: 06-26-[address] Adriano Uriostegui Work Phone: [facility]-Radiology, [facility] Start: 06-25-2022 End: 06-25-[address] Adriano Uriostegui Work Phone: [facility] Work Phone: Start: 06-25-2022 End: 06-25-[address] Adriano Uriostegui Work Phone: [facility]-Ultrasound, [facility] Start: 06-24-2022 End: 06-24-[address] Adriano Uriostegui Work Phone: [facility] Start: 05-24-2022 End: 05-24-2022 Emergency department patient visit Dr. Adriano Uriostegui Work Phone: [facility]-Emergency Department Start: 05-06-2022 End: 05-06-[address] Adriano Uriostegui Work Phone: [facility] Work Phone: Start: 05-06-2022 End: 05-06-[address] Adriano Uriostegui Work Phone: [facility]-Laboratory, [facility] Start: 05-06-2022 End: 05-06-[address] Adriano Uriostegui Work Phone: [facility] Start: 03-07-2022 End: 03-07-[address] Adriano Uriostegui Work Phone: [facility] Work Phone: Start: 03-07-2022 End: 03-07-[address] Adriano Uriostegui Work Phone: [facility]-Physical Therapy Start: 12-04-2021 End: 12-04-[address] Adriano Uriostegui Work Phone: [facility] Start: 11-13-2021 End: 11-13-[address] Adriano Uriostegui Work Phone: [facility] Start: 10-05-2021 End: 10-05-[address] Adriano Uriostegui Work Phone: [facility]-MRI - [facility] Start: 09-24-2021 End: 09-24-[address] Adriano Uriostegui Work Phone: [facility]-Ultrasound, [facility] Start: 09-24-2021 End: 09-24-[address] Adriano Uriostegui Work Phone: [facility] Procedures Date Procedure Procedure Detail Performing Clinician Start: 07-26-2024 End: 07-26-2024 Computerized ophthalmic imaging retina Nancy Luke OD Work Phone: Start: 11-27-2023 Endometrial bx w/wo endocervix bx w/o dilat spx Sandrita Chen MD Work Phone: Start: 11-21-2023 Us pelvic nonobstetr ic real-time image complete Sandrita Chen MD Work Phone: Start: 04-14-2023 Arthrocentesis aspir &/inj major jt/bursa w/o us Cheli Vetovitz PA-C Work Phone: Start: 10-23-2022 End: 10-23-2022 Radex hand minimum 3 views Nikki Macias ma, MD Work Phone: Start: 07-15-2022 Radiologic exam knee complete 4/more views Cheli Vetovitz PA-C Work Phone: Start: 06-26-2022 X-ray of cervical spine Dr. Adriano Uriostegui Work Phone: Start: 06-26-2022 X-ray of lumbar spin e, two or three views Dr. Adriano Uriostegui Work Phone: Start: 06-25-2022 US scan of thyroid Dr. Adriano Uriostegui Work Phone: Start: 05-24-2022 CT of abdomen and pe lvis without contrast Dr. Adriano Uriostegui Work Phone: Start: 10-05-2021 MRI of joint of lowe r extremity Dr. Adriano Uriostegui Work Phone: Start: 09-24-2021 US scan of thyroid Dr. Adriano Uriostegui Work Phone: Start: 09-24-2021 Radiologic examinati on of knee Dr. Adriano Uriostegui Work Phone: Plan of Treatment Date Care Activity Detail Author Start: 07-31-2028 Screening for malignant neoplasm of cervix [facility] Start: 07-28-2025 End: 07-28-2025 Patient encounter procedure 07/28/2025 1:00 PM EDT Office Visit [facility] [address] [place] [address] Nancy Luke, OD [address] [place] [address] 1 YR F/U for plaquenil testing (30 min) Ophthalmology Comment on above: 1 YR F/U for plaquenil testing (30 min) Start: 07-07-2025 End: 07-07-2025 Patient encounter procedure 07/07/2025 11:20 AM EDT Office Visit [facility] [address] [facility] [address] [place], [place] [id number] Nikki Gomez MD [address] [place], [place] [id number] 7-8 months in office [facility] Comment on above: 7-8 months in office Start: 11-08-2024 Influenza vaccination [facility] Start: 10-21-2024 End: 10-21-2024 Patient encounter procedure 10/21/2024 11:00 AM EDT Office Visit [facility] [address] [place], [place] [id number] Nikki Gomez MD [address] [place] [address] Gomez [facility] Comment on above: [address] Gomez Start: 07-31-2024 Screening for malignant neoplasm of cervix Cervical Cancer Screening [facility] Start: 2024 Screening for malignant neoplasm of breast Mammogram Screening [facility] Start: 05-13-2024 End: 05-13-2024 Patient encounter procedure 05/13/2024 3:15 PM EST Office Visit [facility] [address] [place] [address] Nancy Luke, OD [address] [place] [address] 1yr for planquenil exam () Ophthalmology Comment on above: 1yr for planquenil exam ( mac) Start: 04-14-2024 End: 07-14-2024 C reactive protein [Mass/volume] in Serum or Plasma C-REACTIVE PROTEIN Lab Routine Positive MARKUS (antinuclear antibody) Pain in joint, multiple sites Rash and nonspecific skin eruption Long-term use of Plaquenil Fibromyalgia Expected: 04/14/2024, Expires: 07/14/2024 [facility] Work Phone: Comment on above: Expected: 04/14/2024, Expires: Start: 04-14-2024 End: 07-14-2024 CBC W Auto Differential panel - Blood COMPLETE BLOOD COUNT AND DIFFERENTIAL Lab Routine Positive MARKUS (antinuclear antibody) Pain in joint, multiple sites Rash and nonspecific skin eruption Long-term use of Plaquenil Fibromyalgia Expected: 04/14/2024, Expires: 07/14/2024 [facility] Comment on above: Expected: 04/14/2024, Expires: Start: 04-14-2024 End: 07-14-2024 Comprehensive metabolic 2000 panel - Serum or Plasma COMPREHENSIVE METABOLIC PANEL Lab Routine Positive MARKUS (antinuclear antibody) Pain in joint, multiple sites Rash and nonspecific skin eruption Long-term use of Plaquenil Fibromyalgia Expected: 04/14/2024, Expires: 07/14/2024 [facility] Comment on above: Expected: 04/14/2024, Expires: Start: 04-14-2024 End: 07-14-2024 Erythrocyte sedimentation rate SEDIMENTATION RATE, WESTERGREN Lab Routine Positive MARKUS (antinuclear antibody) Pain in joint, multiple sites Rash and nonspecific skin eruption Long-term use of Plaquenil Fibromyalgia Expected: 04/14/2024, Expires: 07/14/2024 [facility] Comment on above: Expected: 04/14/2024, Expires: Start: 04-14-2024 End: 07-14-2024 Iron and Iron binding capacity panel - Serum or Plasma IRON AND TIBC Lab Routine Positive MARKUS (antinuclear antibody) Pain in joint, multiple sites Rash and nonspecific skin eruption Long-term use of Plaquenil Fibromyalgia Expected: 04/14/2024, Expires: 07/14/2024 [facility] Comment on above: Expected: 04/14/2024, Expires: Start: 04-14-2024 End: 04-14-2024 Patient encounter procedure [facility] Comment on above: 6 mo f/up in office w/PAChidi pe Start: 01-27-2024 End: 01-27-2024 Patient encounter procedure 01/27/2024 11:00 AM EST Office Visit [facility] [address] [facility] [address] [place] [address] Sandrita Chen MD [address] [place] [address] Post Op- SX 01/14/24-HX D&C Endo Ablation [facility] Comment on above: Post Op- SX 01/14/24-HX D&C Endo Ablatio n Start: 01-14-2024 End: 01-14-2024 Admission to same day surgery center 01/14/2024 9:00 AM EST - 01/14/2024 10:35 AM EST Surgery [facility] [address] [facility] [place] [address] Sandrita Chen MD [address] [place] [address] HYSTEROSCOPY, D & C [facility] Comment on above: HYSTEROSCOPY, D & C Start: 01-14-2024 End: 01-14-2024 Hysteroscopy bx endometrium&/polypc w/wo d&c HYSTEROSCOPY, D & C Abnormal uterine bleeding 01/14/2024 9:00 AM EST [place] [facility] Start: 01-14-2024 End: 01-14-2024 Hysteroscopy endometrial ablation HYSTEROSCOPY WITH ENDOMETRIAL ABLATION Abnormal uterine bleeding 01/14/2024 9:00 AM EST [place] [facility] Start: 01-14-2024 Subsequent hospital visit by physician 01/14/2024 9:00 AM EST Hospital Encounter [facility] [place] [address] Sandrita Chen MD [address] [place] [address] Abnormal uterine bleeding [N93.9] [facility] Comment on above: Abnormal uterine bleeding [N93.9] Start: 01-07-2024 End: 01-07-2024 ambulatory 01/07/2024 10:00 AM EDT PAT Pre Surgical Testing [address] [facility] [place] [address] 1. HYSTEROSCOPY, D & C Pre Surgical Testing Comment on above: 1. HYSTEROSCOPY, D & C Start: 12-18-2023 End: 12-18-2023 Patient encounter procedure 12/18/2023 4:00 PM EDT [facility] [address] [facility] [address] [place] [id number] Sandrita Chen MD [address] [place] [address] results [facility] Comment on above: results Start: 11-27-2023 End: 11-27-2023 Patient encounter procedure 11/27/2023 10:30 AM EDT Office Visit [facility] [address] [place] [id number] Sandrita Chen MD [address] [place] [address] endo bx [facility] Comment on above: endo bx Start: 11-21-2023 End: 11-21-2023 Patient encounter procedure [facility] Comment on above: Pelvic Ultrasound Pelvic Ultrasound fo llow up Start: 11-09-2023 Covid-19 Vaccine ( season) Covid-19 Vaccine ( season) [facility] Start: 11-09-2023 Covid-19 Vaccine ( season) Covid-19 Vaccine ( season) [facility] Start: 11-09-2023 Influenza vaccination [facility] Start: 11-06-2023 End: 11-05-2024 US Pelvis PELVIC US [facility] Anc Imaging Routine Abnormal uterine bleeding (AUB) Expected: 11/06/2023, Expires: 11/05/2024 [facility] Work Phone: Comment on above: Expected: 11/06/2023, Expires: Start: 10-13-2023 End: 01-12-2024 Complement C3 [Mass/volume] in Serum or Plasma [facility] Work Phone: Comment on above: Expected: 10/13/2023, Expires: Start: 10-13-2023 End: 01-12-2024 Complement C4 [Mass/volume] in Serum or Plasma [facility] Comment on above: Expected: 10/13/2023, Expires: Start: 10-13-2023 End: 01-12-2024 Creatinine [Mass/volume] in Urine collected for unspecified duration CREATININE RANDOM URINE Lab Routine Positive MARKUS (antinuclear antibody) Vitamin D deficiency Expected: 10/13/2023, Expires: 01/12/2024 [facility] Comment on above: Expected: 10/13/2023, Expires: Start: 10-13-2023 End: 01-12-2024 DNA ANTIBODY DS BLD [facility] Comment on above: Expected: 10/13/2023, Expires: Start: 10-13-2023 End: 01-12-2024 Protein [Mass/volume] in Urine PROTEIN RANDOM URINE Lab Routine Positive MARKUS (antinuclear antibody) Vitamin D deficiency Expected: 10/13/2023, Expires: 01/12/2024 [facility] Comment on above: Expected: 10/13/2023, Expires: Start: 10-13-2023 End: 01-12-2024 Urinalysis complete panel - Urine URINALYSIS WITH MICROSCOPIC, REFLEX CULTURE Lab Routine Positive MARKUS (antinuclear antibody) Vitamin D deficiency Expected: 10/13/2023, Expires: 01/12/2024 [facility] Comment on above: Expected: 10/13/2023, Expires: Start: 10-06-2023 End: 10-06-2023 Patient encounter procedure 10/06/2023 11:00 AM EDT Office Visit [facility] [address] [facility] [address] [place] [address] Nikki Gomez MD [address] [facility] [address] [place] [address] 6 months in office [facility] Comment on above: 6 months in office Start: 08-29-2023 End: 08-29-2023 [facility] Comment on above: aub u/s prior Start: 11-08-2022 Covid-19 Vaccine () Covid-19 Vaccine () [facility] Start: 11-08-2022 Influenza vaccination [facility] Start: 10-23-2022 End: 12-23-2022 MARKUS BY IFA SCREEN [facility] Work Phone: Comment on above: Expected: 10/23/2022, Expires: 3 Start: 10-23-2022 End: 12-23-2022 Complement C3 [Mass/volume] in Serum or Plasma [facility] Work Phone: Comment on above: Expected: 10/23/2022, Expires: 3 Start: 10-23-2022 End: 12-23-2022 Complement C4 [Mass/volume] in Serum or Plasma [facility] Work Phone: Comment on above: Expected: 10/23/2022, Expires: 3 Start: 10-23-2022 End: 12-23-2022 Creatine kinase [Enzymatic activity/volume] in Serum or Plasma [facility] Work Phone: Comment on above: Expected: 10/23/2022, Expires: 3 Start: 10-23-2022 End: 12-23-2022 Cyclic citrullinated peptide IgG Ab [Units/volume] in Serum or Plasma [facility] Work Phone: Comment on above: Expected: 10/23/2022, Expires: 3 Start: 10-23-2022 End: 12-23-2022 DNA ANTIBODY DS BLD [facility] Work Phone: Comment on above: Expected: 10/23/2022, Expires: 3 Start: 10-23-2022 End: 12-23-2022 DNA double strand Ab [Presence] in Serum by Immunofluorescence (IF) Maryse deutsch [facility] Work Phone: Comment on above: Expected: 10/23/2022, Expires: 3 Start: 10-23-2022 End: 12-23-2022 IgE [Units/volume] in Serum or Plasma [facility] Work Phone: Comment on above: Expected: 10/23/2022, Expires: 3 Start: 10-23-2022 End: 12-23-2022 IMMUNOGLOBULIN D QUANT, SERUM [facility] Work Phone: Comment on above: Expected: 10/23/2022, Expires: 3 Start: 10-23-2022 End: 12-23-2022 Salima-1 extractable nuclear Ab [Units/volume] in Serum [facility] Work Phone: Comment on above: Expected: 10/23/2022, Expires: 3 Start: 10-23-2022 End: 12-23-2022 Rheumatoid factor [Units/volume] in Serum or Plasma [facility] Work Phone: Comment on above: Expected: 10/23/2022, Expires: 3 Start: 10-23-2022 End: 12-23-2022 Ribonucleoprotein extractable nuclear Ab [Units/volume] in Serum [facility] Work Phone: Comment on above: Expected: 10/23/2022, Expires: 3 Start: 10-23-2022 End: 12-23-2022 SJOGREN ABS SSA/SSB [facility] Work Phone: Comment on above: Expected: 10/23/2022, Expires: 3 Start: 10-23-2022 End: 12-23-2022 Chow extractable nuclear IgG Ab [Units/volume] in Serum [facility] Work Phone: Comment on above: Expected: 10/23/2022, Expires: 3 Start: 06-24-2022 Patient referral [facility] Work Phone: Start: 05-24-[address] [facility] Start: 05-06-2022 Patient referral [facility] Work Phone: Start: 05-06-2022 Evaluation of diagnostic study results [facility] Start: 04-11-2021 HPV TESTING HPV TESTING [facility] Start: 06-18-2020 PAP TESTING PAP TESTING [facility] Start: 06-18-2020 Screening for malignant neoplasm of cervix [facility] Start: 07-26-2011 HPV Vaccine (1 - Risk 3-dose SCDM series) HPV Vaccine (1 - Risk 3-dose SCDM series) [facility] Start: 07-26-2003 Hepatitis B Vaccine (1 of 3 - 19+ 3-dose series) Hepatitis B Vaccine (1 of 3 - 19+ 3-dose series) [facility] Start: 07-26-2003 SHINGRIX VACCINE (1 of 2) SHINGRIX VACCINE (1 of 2) [facility] Start: 07-26-2003 Urine microalbumin profile [facility] Start: 2002 ANNUAL PCP TEAM CHRONIC DISEASE VISIT ANNUAL PCP TEAM CHRONIC DISEASE VISIT [facility] Start: 2002 HIV SCREENING HIV SCREENING [facility] Start: 2002 HIV screening HIV Screening [facility] Start: 2002 SPIROMETRY SPIROMETRY [facility] Start: 1990 PNEUMOCOCCAL (1 - PCV) PNEUMOCOCCAL (1 - PCV) [facility] Start: 1990 [facility] Start: 01-25-1985 COVID-19 VACCINE (#1) COVID-19 VACCINE (#1) [facility] Start: 1984 HEPATITIS B (1 of 3 - 3-dose series) HEPATITIS B (1 of 3 - 3-dose series) [facility] Start: 1984 Hepatitis B Vaccine (1 of 3 - 3-dose series) Hepatitis B Vaccine (1 of 3 - 3-dose series) [facility] Start: 1984 HPV Vaccine: Recommended Based On Risk HPV Vaccine: Recommended Based On Risk [facility] MR Lower Extremity Joint [facility] Work Phone: MR Lumbar spine [facility] PAP TEST PAP TEST Lab Luis hoover Screening for cervical cancer Ordered: 08/01/2023 [facility] Work Phone: Comment on above: Ordered: 08/01/2023 Patient Education ED Kidney Ston e w/ Colic [facility] Work Phone: Patient referral [facility] Work Phone: End: 11-22-2023 Radiologic examination sacroiliac jnts <3 views XR SACROILIAC JOINTS 2V AP PELVIS/FERGUESON Radiology Routine Rash and nonspecific skin eruption 1 Occurrences starting 10/23/2022 until 11/22/2023 [facility] Work Phone: Comment on above: 1 Occurrences starting 10/23/2022 until 11/22/2023 Radiologic examinati on sacroiliac jnts <3 views XR SACROILIAC JOINTS 2V AP PELVIS/FERGUESON Radiology Routine Rash and nonspecific skin eruption 10/23/2022 3:40 PM EDT [facility] Work Phone: SURGICAL PATHOLOGY SURGICAL PATH OLOGY Lab Routine Abnormal uterine bleeding (AUB) Ordered: 11/27/2023 [facility] Work Phone: Comment on above: Ordered: 11/27/2023 End: 11-22-2023 XR HAND GENERAL 3V PA/LAT/OBL LEFT XR HAND GENERAL 3V PA/LAT/OBL LEFT Radiology Routine Rash and nonspecific skin eruption 1 Occurrences starting 10/23/2022 until 11/22/2023 [facility] Work Phone: Comment on above: 1 Occurrences starting 10/23/2022 until 11/22/2023 XR HAND GENERAL 3V PA/LAT/OBL LEFT XR HAND GENERAL 3V PA/LAT/OBL LEFT Radiology Routine Rash and nonspecific skin eruption 10/23/2022 3:35 PM EDT [facility] Work Phone: End: 11-22-2023 XR HAND GENERAL 3V PA/LAT/OBL RIGHT XR HAND GENERAL 3V PA/LAT/OBL RIGHT Radiology Routine Rash and nonspecific skin eruption 1 Occurrences starting 10/23/2022 until 11/22/2023 [facility] Work Phone: Comment on above: 1 Occurrences starting 10/23/2022 until 11/22/2023 XR HAND GENERAL 3V PA/LAT/OBL RIGHT XR HAND GENERAL 3V PA/LAT/OBL RIGHT Radiology Routine Rash and nonspecific skin eruption 10/23/2022 3:36 PM EDT [facility] Work Phone: End: 08-10-2023 XR KNEE GENERAL 4V AP BOTH/PA BOTH/LAT/MERC BILATERAL XR KNEE GENERAL 4V AP BOTH/PA BOTH/LAT/MERC BILATERAL Radiology Routine Pain in both knees, unspecified chronicity 1 Occurrences starting 07/11/2022 until 08/10/2023 [facility] Work Phone: Comment on above: 1 Occurrences starting 07/11/2022 until 08/10/2023 [facility] Payers Date Payer Category Payer Self-pay 2022 Medicaid [id number] 2015 Unknown [id number] 2015 Unknown [id number] Self-pay SELF PAY INSURANCE [id number] Unknown [id number] 2.16.8 [id number] Unknown [id number] 2.16.8 [id number] Unknown [id number] 2.16.8 [id number] Unknown [id number] 2.16.8 [id number] Unknown [id number] 2.16.8 [id number] Unknown [id number] 2.16.8 [id number] Unknown [id number] 2.16.8 [id number] Unknown [id number] 2.16.8 [id number] Unknown [id number] 2.16.8 [id number] Unknown [id number] 2.16.8 [id number] Unknown [id number] 2.16.8 [id number] Unknown [id number] 2.16.8 [id number] Unknown [id number] 2.16.8 [id number] Unknown [id number] 2.16.8 [id number] Unknown [id number] 2.16.8 [id number] Social History Date Type Detail Facility Start: 09-24-2021 End: 10-07-2022 Tobacco smoking status MEIS Unknown if ever smoked [facility] Start: 10-22-2018 None [facility] Start: 10-22-2018 Alone [facility] Start: 11-25-2018 Non-smoker [facility] Start: 1985 Sex Assigned At Female [facility] Start: 06-19-2015 End: 05-13-2023 Tobacco smoking status NHIS Never smoked tobacco [facility] Start: 06-19-2015 End: 05-13-2023 Tobacco use and exposure Smokeless tobacco non-user [facility] Start: 10-22-2018 End: 07-26-2024 Alcohol intake Current drinker of alcohol (finding) [facility] Start: 1985 Sex Assigned At Not on file [facility] Start: 10-22-2018 End: 07-15-2022 History of Social function [facility] Start: 10-22-2018 End: 07-15-2022 Tobacco use panel [facility] Start: 02-09-2012 PHQ2 Score 0 [facility] Start: 05-16-2024 Alcohol Comment rare [facility] NEGATED: Highlighted row [facility] Medical Equipment Procedure Code Equipment Code Equipment Origin al Text Equipment Identifier Dates Use as directed to inject methotrexate. [id number] Start: 02-10-2019 End: 04-14-2024 Comment on above: Use as directed to i nject methotrexate. Mental Status Date Assessment Result Facility 05-24-2022 Cognitive function Level Of Cons ciousness Awake;Alert;Appropriate;Follow s Commands [facility] Work Phone: Clinical Notes 07-15-2022 to 11-24-2024 Nikki Gomez MD - 11/24/2024 12:07 PM EDTTelephone Encounter - Siomara Godinez MA - 09/28/2024 10:54 AM EDTTelephone Encounter - Siomara Godinez MA - 09/28/2024 10:54 AM EDTPatient Instructions Note Date & Type Note Facility 11-24-2024 Note HNO ID: [id number] Author: NIKKI GOMEZ MD Service: ? Author Type: Physician Type: Progress Notes Filed: 11/24/2024 12:28 Note Text: I have communicated my name and active licensure. The patient's identity and physical location were verified at the time of this visit. Either the patient or their legal sales representative public utilities has been informed of the risks and benefits of -- and alternatives to -- treatment through a remote evaluation and consents to proceed with the evaluation remotely. Subjective Car Santoyo is a 39 year old female. Car Santoyo is a 39-year-old female with a history of osteoarthritis, presenting for follow-up on chronic pain and recurrent rashes. Car reports worsening lower back pain due to degenerative changes. She discontinued pain management due to scheduling conflicts and notes that previous injections provided only one week of relief. She is currently taking Lyrica. Car has a history of hyperflexible joints during childhood and has been experiencing recurrent rashes that begin early in the summer and resolve after tanning. She was unable to schedule a biopsy. She is currently taking hydroxychloroquine 1 tablet daily, which she believes helps with inflammation but not significantly. She occasionally forgets to take it and notices increased discomfort after a week of missed doses. She denies taking 2 tablets, stating that 1 tablet provides similar relief. She denies improvement in rashes while on hydroxychloroquine. She denies taking methotrexate due to lack of efficacy and sulfasalazine due to side effects. She denies symptoms of fatigue, stiffness, or swelling. Car had blood tests earlier this year, which were normal. Brief Rheumatological history - Knee pain. Needs replaced. Saw ortho. Not on Plaquenil or MTX. Reviewed last note main [facility] rheum. 2019. Photosensitive rash, joint pain. Started on Plaquenil. Nausea with MTX. prednisone (worsened joint pain) and medrol (resolved joint pain). gastric biopsy with chronic inactive gastritis. Started on SSZ. Had to stop after about 2-3 weeks of use due to rage attacks, sore throat, itching, drowsiness and increased appetite. All symptoms resolved off SSZ Fibromyalgia Family h/o autoimmune disease - none Smoking - Objective LMP 01/07/2024 (Approximate) GENERAL: alert and appropriate, in no distress, well-hydrated, well nourished, and happy, smiling, interactive Latest Reference Range AND Units 06/17/18 13:41 Hep C Antibody IA Negative Negative Hep B Surface Ag Negative Negative Hep B Surface Ab, Qual Negative Negative Hep B Core Ab, Total Negative Negative IgA 78 - 391 mg/dL 32 (L) MARKUS Negative Negative MARKUS Titer Negative Negative MARKUS Pattern Not applicable for negative result. DNA Antibody w/Confirmation <30 IU/mL <12 ADULT CARE PROVIDER Antibody <1.0 AI <0.2 Ribosomal ADULT CARE PROVIDER <1.0 AI <0.2 SSB Antibody <1.0 AI <0.2 Sm Antibody <1.0 AI <0.2 SSA Antibody <1.0 AI <0.2 Scleroderma Ab, IgG <1.0 AI 1.8 (H) Salima 1 Antibody <1.0 AI <0.2 Chromatin Antibody <1.0 AI <0.2 Centromere Ab <1.0 AI <0.2 Rheumatoid Factor <16 IU/mL <10 C4 13 - 46 mg/dL 27 C3 86 - 166 mg/dL 157 CCP Antibody, IgG <20 Units <15 Transglutaminase Ab, IgA <20 Units 2 Transglutaminase Ab, IgG <20 Units 2 Endomysial Ab, IgA <1:10 <1:10 Endomysial Antibody, IgG <1:10 <1:10 (L): Data is abnormally low (H): Data is abnormally high Radiology: FINDINGS: Right knee: Small suprapatellar joint effusion. No acute fracture. Mild medial compartmental joint space narrowing. Mild lateral patellar subluxation with mild patellofemoral compartmental joint space narrowing. Small tricompartmental osteophyte production. Left knee: Small suprapatellar joint effusion. No acute fracture. Mild medial compartmental joint space narrowing with small marginal osteophyte formation. Mild lateral patellar subluxation with mild patellofemoral compartmental joint space narrowing and small marginal osteophyte formation. Latest Reference Range AND Units 10/23/22 15:41 10/23/22 15:46 Creatinine, Ur Random (UCRR) 20.0 - 300.0 mg/dL 44.8 Protein, Urine Random 0 - 20 mg/dL <4 IgG 700 - 1,600 mg/dL 1,278 IgA 70 - 400 mg/dL 16 (L) IgM 40 - 230 mg/dL 242 (H) IgE <114.0 kU/l 39.7 MARKUS Negative Positive ! MARKUS Titer 1:640 MARKUS Pattern Nuclear fine speckled DNA Antibody <30 IU/mL <12 Crithidia lucillae Negative Negative Anti-ADULT CARE PROVIDER <1.0 AI <0.2 Anti-SSB <1.0 AI <0.2 Anti-Sm <1.0 AI <0.2 Sm Antibody Negative Negative Anti-SSA <1.0 AI 0.8 Salima 1 Antibody <1.0 AI <0.2 Rheumatoid Factor <16 IU/mL <10 C4 13 - 46 mg/dL 25 C3 86 - 166 mg/dL 150 CCP Antibody, IgG <20 Units <15 IgD, Quant <=15.3 mg/dL <1.3 ADULT CARE PROVIDER Antibody QUAL Negative Negative SSA Antibody Qual Negative Negative SALIMA 1 ANTIBODY QUAL Negative Negative CCP Antibody IgG Qualitative Negative Negative SSB Antibody Qual Negative Negative (L): Data is abnormally low (more content not included)... [facility] 11-24-2024 History of Present illness Narrative I have communicated my name and active licensure. The patient's identity and physical location were verified at the time of this visit. Either the patient or their legal sales representative public utilities has been informed of the risks and benefits of -- and alternatives to -- treatment through a remote evaluation and consents to proceed with the evaluation remotely. Subjective Car Santoyo is a 39 year old female. Car Santoyo is a 39-year-old female with a history of osteoarthritis, presenting for follow-up on chronic pain and recurrent rashes. Car reports worsening lower back pain due to degenerative changes. She discontinued pain management due to scheduling conflicts and notes that previous injections provided only one week of relief. She is currently taking Lyrica. Car has a history of hyperflexible joints during childhood and has been experiencing recurrent rashes that begin early in the summer and resolve after tanning. She was unable to schedule a biopsy. She is currently taking hydroxychloroquine 1 tablet daily, which she believes helps with inflammation but not significantly. She occasionally forgets to take it and notices increased discomfort after a week of missed doses. She denies taking 2 tablets, stating that 1 tablet provides similar relief. She denies improvement in rashes while on hydroxychloroquine. She denies taking methotrexate due to lack of efficacy and sulfasalazine due to side effects. She denies symptoms of fatigue, stiffness, or swelling. Car had blood tests earlier this year, which were normal. Brief Rheumatological history - Knee pain. Needs replaced. Saw ortho. Not on Plaquenil or MTX. Reviewed last note main [facility] rheum. 2019. Photosensitive rash, joint pain. Started on Plaquenil. Nausea with MTX. prednisone (worsened joint pain) and medrol (resolved joint pain). gastric biopsy with chronic inactive gastritis. Started on SSZ. Had to stop after about 2-3 weeks of use due to rage attacks, sore throat, itching, drowsiness and increased appetite. All symptoms resolved off SSZ Fibromyalgia Family h/o autoimmune disease - none Smoking - Objective LMP 01/07/2024 (Approximate) GENERAL: alert and appropriate, in no distress, well-hydrated, well nourished, and happy, smiling, interactive Latest Reference Range & Units 06/17/18 13:41 Hep C Antibody IA Negative Negative Hep B Surface Ag Negative Negative Hep B Surface Ab, Qual Negative Negative Hep B Core Ab, Total Negative Negative IgA 78 - 391 mg/dL 32 (L) MARKUS Negative Negative MARKUS Titer Negative Negative MARKUS Pattern Not applicable for negative result. DNA Antibody w/Confirmation <30 IU/mL <12 ADULT CARE PROVIDER Antibody <1.0 AI <0.2 Ribosomal ADULT CARE PROVIDER <1.0 AI <0.2 SSB Antibody <1.0 AI <0.2 Sm Antibody <1.0 AI <0.2 SSA Antibody <1.0 AI <0.2 Scleroderma Ab, IgG <1.0 AI 1.8 (H) Salima 1 Antibody <1.0 AI <0.2 Chromatin Antibody <1.0 AI <0.2 Centromere Ab <1.0 AI <0.2 Rheumatoid Factor <16 IU/mL <10 C4 13 - 46 mg/dL 27 C3 86 - 166 mg/dL 157 CCP Antibody, IgG <20 Units <15 Transglutaminase Ab, IgA <20 Units 2 Transglutaminase Ab, IgG <20 Units 2 Endomysial Ab, IgA <1:10 <1:10 Endomysial Antibody, IgG <1:10 <1:10 (L): Data is abnormally low (H): Data is abnormally high Radiology: FINDINGS: Right knee: Small suprapatellar joint effusion. No acute fracture. Mild medial compartmental joint space narrowing. Mild lateral patellar subluxation with mild patellofemoral compartmental joint space narrowing. Small tricompartmental osteophyte production. Left knee: Small suprapatellar joint effusion. No acute fracture. Mild medial compartmental joint space narrowing with small marginal osteophyte formation. Mild lateral patellar subluxation with mild patellofemoral compartmental joint space narrowing and small marginal osteophyte formation. Latest Reference Range & Units 10/23/22 15:41 10/23/22 15:46 Creatinine, Ur Random (UCRR) 20.0 - 300.0 mg/dL 44.8 Protein, Urine Random 0 - 20 mg/dL <4 IgG 700 - 1,600 mg/dL 1,278 IgA 70 - 400 mg/dL 16 (L) IgM 40 - 230 mg/dL 242 (H) IgE <114.0 kU/l 39.7 MARKUS Negative Positive ! MARKUS Titer 1:640 MARKUS Pattern Nuclear fine speckled DNA Antibody <30 IU/mL <12 Crithidia lucillae Negative Negative Anti-ADULT CARE PROVIDER <1.0 AI <0.2 Anti-SSB <1.0 AI <0.2 Anti-Sm <1.0 AI <0.2 Sm Antibody Negative Negative Anti-SSA <1.0 AI 0.8 Salima 1 Antibody <1.0 AI <0.2 Rheumatoid Factor <16 IU/mL <10 C4 13 - 46 mg/dL 25 C3 86 - 166 mg/dL 150 CCP Antibody, IgG <20 Units <15 IgD, Quant <=15.3 mg/dL <1.3 ADULT CARE PROVIDER Antibody QUAL Negative Negative SSA Antibody Qual Negative Negative SALIMA 1 ANTIBODY QUAL Negative Negative CCP Antibody IgG Qualitative Negative Negative SSB Antibody Qual Negative Negative (L): Data is abnormally low (H): Data is abnormally high !: Data is abnormal FINDINGS: Right knee: Small suprapatellar joint effusion. No acute fracture. Mild medial compartmental joint space narrowing. Mild lateral patellar subluxation with mild patellofemoral compartmental joint space narrowing. Small tricompartmental osteophyte production. Left knee: Small suprapatellar joint effusion. No acute fracture. Mild medial compartmental joint space narrowing with small marginal osteophyte formation. Mild lateral patellar subluxation with mild patellofemoral compartmental joint space narrowing and small marginal osteophyte formation. FINDINGS: There are five [id number] lumbar vertebrae. No fracture or subluxations are noted. T11-12 and T12-L1 disc space narrowing is demonstrated. There is mild osteophyte formation. RESULT: Joint spaces in the hand and wrist are maintained bilaterally. No chondrocalcinosis. Sacroiliac joints: Minimal degenerative change of the sacroiliac joints which are maintained. Maintained pubic symphysis and bilateral hip joints. No acute fracture or dislocation. There are no bony erosions. Right knee: Small suprapatellar joint effusion. No acute fracture. Mild medial compartmental joint space narrowing. Mild lateral patellar subluxation with mild patellofemoral compartmental joint space narrowing. Small tricompartmental osteophyte production. Left knee: Small suprapatellar joint effusion. No acute fracture. Mild medial compartmental joint space narrowing with small marginal osteophyte formation. Mild lateral patellar subluxation with mild patellofemoral compartmental joint space narrowing and small marginal osteophyte formation. Latest Reference Range & Units 03/22/19 14:57 10/23/22 15:41 10/23/22 15:46 10/13/23 09:31 CCP Antibody IgG Qualitative Negative Negative MARKUS Negative Positive ! MARKUS Pattern Nuclear fine speckled MARKUS Titer 1:640 Anti-ADULT CARE PROVIDER <1.0 AI <0.2 Anti-Sm <1.0 AI <0.2 Anti-SSA <1.0 AI 0.8 Anti-SSB <1.0 AI <0.2 C3 86 - 166 mg/dL 150 154 C4 13 - 46 mg/dL 25 20 CCP Antibody, IgG <20 Units <15 Crithidia lucillae Negative Negative DNA Antibody <=200 IU/mL <12 51 DNA Antibody Qualitative Interpretation Negative Negative IgA 70 - 400 mg/dL 16 (L) IgD, Quant <=15.3 mg/dL <1.3 IgE <114.0 kU/l 39.7 IgG 700 - 1,600 mg/dL 1,278 IgM 40 - 230 mg/dL 242 (H) Salima 1 Antibody <1.0 AI <0.2 SALIMA 1 ANTIBODY QUAL Negative Negative Mitogen minus Nil 5.06 Protein, Urine Random 0 - 20 mg/dL <4 Rheumatoid Factor <16 IU/mL <10 ADULT CARE PROVIDER Antibody QUAL Negative Negative Sm Antibody Negative Negative SSA Antibody Qual Negative Negative SSB Antibody Qual Negative Negative TB Interpretation No evidence of current or previous infection with Mycobacterium tuberculosis. TB Nil IU/mL 0.03 TB Result Negative Negative TB1 Ag minus Nil <0.35 IU/mL 0.00 TB2 Ag minus Nil <0.35 IU/mL 0.02 !: Data is abnormal (L): Data is abnormally low (H): Data is abnormally high 39-year-old female is here for follow up. Patient has chronic photosensitive rash and pain over her joints. She was diagnosed with knee osteoarthritis and recommended knee replacement surgeries. She was diagnosed with lupus in the past however MARKUS was negative in 2019 and did not have skin biopsy. She had side effects to methotrexate and sulfasalazine. Plaquenil may have helped her however she is unsure. Her symptoms sound noninflammatory likely due to osteoarthritis and fibromyalgia. She will benefit from a skin biopsy. Skin rash is better with Plaquenil. Also started Lyrica. 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 Imaging has shown degenerative changes in the knees and lower spine, with no evidence of inflammatory changes in the spine or SI joints. - Advised patient to resume pain management follow-up to explore additional options for pain control. 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 One positive MARKUS test was followed by a negative repeat, and no other autoimmune markers are present. - Advised patient to establish care with dermatology within the next few months and to obtain a skin biopsy during the next rash episode to clarify diagnosis. # Long-term use of Plaquenil (Z79.899) Patient is currently taking hydroxychloroquine 1 tablet daily, with inconsistent adherence. - Increase hydroxychloroquine to 2 tablets daily, to be taken with food; prescription sent. - Emphasized importance of annual ophthalmologic exams while on hydroxychloroquine. Visit was conducted via [employer] Patient Location: Patient Home or Place of Residence No orders found for this visit on 11/24/24. Medication orders placed this encounter hydrOXYchloroQUINE (PLAQUENIL) 200 mg tablet Sig: Take 1 tablet by mouth two times a day. Dispense: 180 tablet Refill: 1 Recording using [employer] software for draft documentation of the visit was discussed with the patient/authorized sales representative public utilities; all questions welcomed and answered. Patient/authorized sales representative public utilities agreed to proceed documented in this encounter [facility] 09-28-2024 Telephone encounter Note Pharmacy faxed requesting the following refill. Requested Prescriptions Pending Prescriptions Disp Refills cholecalciferol, Vitamin D3, (VITAMIN D3) 1,250 mcg (50,000 unit) cap capsule [Pharmacy Med Name: Vitamin D3 1.25 MG (66148 UT) Oral Capsule] 4 capsule 0 Sig: Take 1 capsule by mouth once a week Patient last appointment: 04/14/2024 Next Appointment: 10/21/2024 Patient Phone numbers: [phone] (home) Request is for script(s) to be escript to pharmacy. Siomara Godinez MA [facility] 09-28-2024 Miscellaneous Notes Pharmacy faxed requesting the following refill. Requested Prescriptions Pending Prescriptions Disp Refills cholecalciferol, Vitamin D3, (VITAMIN D3) 1,250 mcg (50,000 unit) cap capsule [Pharmacy Med Name: Vitamin D3 1.25 MG (08753 UT) Oral Capsule] 4 capsule 0 Sig: Take 1 capsule by mouth once a week Patient last appointment: 04/14/2024 Next Appointment: 10/21/2024 Patient Phone numbers: [phone] (home) Request is for script(s) to be escript to pharmacy. Siomara Godinez MA documented in this encounter [facility] 07-26-2024 Note HNO ID: [id number] Author: NANCY LUKE OD Service: ? Author Type: LOCKSTITCH MACHINE OPERATOR Type: Progress Notes Filed: 07/26/2024 15:26 Note Text: 1. High risk medication use - Indication: lupus - no signs of toxicity today on exam - OCT (07/26/24): normal - Visual Field 10-2 (07/26/24): no plaquenil toxicity - has been using plaquenil 200 mg daily since 05/03 - The recommended dosage is the lower of 5 mg/kg/day based on real body weight or 6.5 mg/kg/day based on ideal body weight as described in the most recent AAO plaquenil screening guidelines - Risk factors for toxicity include daily dose and duration of use, renal disease, tamoxifen use, history of retinal or macular disease - Patient is 130 kg which gives a maximum safe ophthalmic dose of 650mg daily by real body weight 2. Regular astigmatism of both eyes 3. Amblyopia suspect, left eye Finalized spec rx Patient notes blurred vision since she can remember left eye, more myopia and intermittent XT at near left eye Follow-up in 1 year or sooner as needed for plaquenil testing (30 min) Nancy Luke, OD July 26, 2024 at 3:26 PM [facility] 07-26-2024 History of Present illness Narrative 1. High risk medication use - Indication: lupus - no signs of toxicity today on exam - OCT (07/26/24): normal - Visual Field 10-2 (07/26/24): no plaquenil toxicity - has been using plaquenil 200 mg daily since 05/03 - The recommended dosage is the lower of 5 mg/kg/day based on real body weight or 6.5 mg/kg/day based on ideal body weight as described in the most recent AAO plaquenil screening guidelines - Risk factors for toxicity include daily dose and duration of use, renal disease, tamoxifen use, history of retinal or macular disease - Patient is 130 kg which gives a maximum safe ophthalmic dose of 650mg daily by real body weight 2. Regular astigmatism of both eyes 3. Amblyopia suspect, left eye Finalized spec rx Patient notes blurred vision since she can remember left eye, more myopia and intermittent XT at near left eye Follow-up in 1 year or sooner as needed for plaquenil testing (30 min) Nancy Luke, OD July 26, 2024 at 3:26 PM documented in this encounter [facility] 07-26-2024 Note Date of Procedure 07/26/2024. Passenger Conductor Information Site Leasing Agent: BP. Start time: 1:32 PM. Stop time: 1:34 PM. OCT Macula Interpretation Right Eye Normal without fluid. Left Eye Normal without fluid. Interval Change Right Eye Stable. Left Eye Stable. [facility] 07-26-2024 Note Date of Procedure 07/26/2024. Passenger Conductor Information Site Leasing Agent: BP. Start time: 1:36 PM. Stop time: 1:48 PM. Reliability Right Eye Good. Left Eye Good. Interpretation Right Eye Normal. Left Eye Normal. Interval Change Right Eye Stable. Left Eye Stable. [facility] 04-14-2024 Note HNO ID: [id number] Author: FABRICE STONE PA-C Service: ? Author Type: Physician Blueprint Duplicator Type: Progress Notes Filed: 04/14/2024 15:05 Note Text: [facility] Fabrice Stone [address] [place] [address] Subjective Last OV: 10/13/23 HPI: Car Santoyo is a 38 year old female who presents for follow up of pos MARKUS, arthralgia, rash. She reports she has pain all over. Hands feel swollen, legs feel swollen. Everything feels swollen. Her knees are the worst, but knees are bad. She reports the swelling feeling has been ongoing for about a month, usually goes away pretty quickly but has been staying. 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 Long distances without stopping. She takes a vitamin D supplement occasionally, feels like she is getting kidney stones from it. She reports she kind of has rashes. She had a scratch on her arm and scratched it in her sleep and got a rash from that. She has tried oral iron in the past but does not tolerate it - causes significant GI upset. Next exam is scheduled for 05/2024. Rheumatologic disease summary: First OV date: 10/23/22 Diagnosis: pos MARKUS, rash, arthralgia, fibro Serologies: SCL-70 1.8, MARKUS 1:640, DSDNA neg, ADULT CARE PROVIDER-Sm neg, SSA/SSB neg, centromere neg, chromatin neg, CCP neg, crithidia neg, endomysial neg, IgM 242 (elevated), IgG normal, IgA low 16, Salima-1 neg, RF neg, vit D low Erosions: none Current therapy: Plaquenil 400 mg daily Prior therapy: MTX (nausea), pred (worsened pain), medrol (improvement), SSZ (mood changes, itching) Initial rheumatology visit HPI (10/23/22 Dr. Gomez): 37 year old female seen for joint pain. Knee pain. Needs replaced. Saw ortho. Not on Plaquenil or MTX. Reviewed last note main [facility] rheum. 2019. Photosensitive rash, joint pain. Started on Plaquenil. Nausea with MTX. prednisone (worsened joint pain) and medrol (resolved joint pain). gastric biopsy with chronic inactive gastritis. Started on SSZ. Had to stop after about 2-3 weeks of use due to rage attacks, sore throat, itching, drowsiness and increased appetite. All symptoms resolved off SSZ Fibromyalgia Family h/o autoimmune disease - none Smoking - Interval Review of Systems CONSTITUTIONAL: Recent Weight change: No Fever: No EENT: Dryness in eyes: No Dryness of mouth: No Oral ulcers: No CARDIOVASCULAR: Pain in chest: No RESPIRATORY: Shortness of breath: No Cough: No GASTROINTESTINAL: Nausea: No Vomiting: No Changes in bowel movements: No Heartburn: No MUSCULOSKELETAL: Per HPI INTEGUMENTARY: Rash: No NEUROLOGICAL SYSTEM: Headaches: No All other ROS reviewed, pertinent positives in HPI PAST MEDICAL HISTORY Diagnosis Date Anxiety Asthma GERD (gastroesophageal reflux disease) Graves disease 2009 only treated for 2 years Lupus PAST SURGICAL HISTORY Procedure Laterality Date COLONOSCOPY SCREENING 10/22/2018 HYSTEROSCOPY ENDOMETRIAL ABLATION 01/14/2024 KNEE SURGERY HX 03/10/2014 PAST SURGICAL HISTORY OF ABLATION, ENDOMETRIAL TUBAL LIGATION HX 03/10/2008 History Review: I have reviewed and modified as needed, the following during this visit: Allergies, Past Medical History, Past Surgical History, Past Family History, Past Social History. Physical Exam BP 114/75 Pulse 83 Temp 36.6 ?C (97.8 ?F) (Temporal) Resp 14 Ht 166.4 cm (5' 5.51) Wt 129.5 kg (285 lb 6.2 oz) LMP 01/07/2024 (Approximate) BMI 46.75 kg/m? GENERAL: Well appearing, alert, comfortable, in no acute distress, well-hydrated, well nourished. HEENT: Negative for external ears normal. Canals are clear. Eye Exam normal. External nose normal, no nasal ulcer or throat ulcer. NECK: NECK Supple, no adenopathy CARDIAC: regular rate and rhythm, No murmur asculated., and Equal peripheral pulses RESPIRATORY: Lungs clear to auscultation. No wheezing, rhonchi, rales NEURO: Motor and sensory exam normal MOTOR: Normal; including tone, gait, stressed gait, power and coordination. SKIN: Negative for alopecia, skin rash, malar rash, skin lesion, skin ulcer, pits, thickening, color changes, telangiectasias, nail changes, nail ridging, nail pitting, onycholysis; papular rash R forearm MUSCULOSKELETAL: tenderness of the PIPs and DIPs; no synovitis Pertinent Serologies: SCL-70 1.8, MARKUS 1:640, DSDNA neg, ADULT CARE PROVIDER-Sm neg, SSA/SSB neg, centromere neg, chromatin neg, CCP neg, crithidia neg, endomysial neg, IgM 242 (elevated), IgG normal, IgA low 16, Salima-1 neg, RF neg, vit D low Recent Lab Results: WBC (k/uL) Date Value 10/13/2023 6.54 RBC (m/uL) Date Value 10/13/2023 5.04 Hemoglobin (g/dL) Date Value 10/13/2023 11.5 Hematocrit (%) Date Value 10/13/2023 37.8 Platelet Count (k/uL) Date Value 10/13/2023 374 Creatinine (mg/dL) Date Value 10/13/2023 0.73 Calcium (more content not included)... [facility] 04-14-2024 History of Present illness Narrative Images from the original note were not included. [facility] Fabrice Stone [address] [place] [id number] Subjective Last OV: 10/13/23 HPI: Car Santoyo is a 38 year old female who presents for follow up of pos MARKUS, arthralgia, rash. She reports she has pain all over. Hands feel swollen, legs feel swollen. Everything feels swollen. Her knees are the worst, but knees are bad. She reports the swelling feeling has been ongoing for about a month, usually goes away pretty quickly but has been staying. 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 Long distances without stopping. She takes a vitamin D supplement occasionally, feels like she is getting kidney stones from it. She reports she kind of has rashes. She had a scratch on her arm and scratched it in her sleep and got a rash from that. She has tried oral iron in the past but does not tolerate it - causes significant GI upset. Next exam is scheduled for 05/2024. Rheumatologic disease summary: First OV date: 10/23/22 Diagnosis: pos MARKUS, rash, arthralgia, fibro Serologies: SCL-70 1.8, MARKUS 1:640, DSDNA neg, ADULT CARE PROVIDER-Sm neg, SSA/SSB neg, centromere neg, chromatin neg, CCP neg, crithidia neg, endomysial neg, IgM 242 (elevated), IgG normal, IgA low 16, Salima-1 neg, RF neg, vit D low Erosions: none Current therapy: Plaquenil 400 mg daily Prior therapy: MTX (nausea), pred (worsened pain), medrol (improvement), SSZ (mood changes, itching) Initial rheumatology visit HPI (10/23/22 Dr. Gomez): 37 year old female seen for joint pain. Knee pain. Needs replaced. Saw ortho. Not on Plaquenil or MTX. Reviewed last note main [facility] rheum. 2019. Photosensitive rash, joint pain. Started on Plaquenil. Nausea with MTX. prednisone (worsened joint pain) and medrol (resolved joint pain). gastric biopsy with chronic inactive gastritis. Started on SSZ. Had to stop after about 2-3 weeks of use due to rage attacks, sore throat, itching, drowsiness and increased appetite. All symptoms resolved off SSZ Fibromyalgia Family h/o autoimmune disease - none Smoking - Interval Review of Systems CONSTITUTIONAL: Recent Weight change: No Fever: No EENT: Dryness in eyes: No Dryness of mouth: No Oral ulcers: No CARDIOVASCULAR: Pain in chest: No RESPIRATORY: Shortness of breath: No Cough: No GASTROINTESTINAL: Nausea: No Vomiting: No Changes in bowel movements: No Heartburn: No MUSCULOSKELETAL: Per HPI INTEGUMENTARY: Rash: No NEUROLOGICAL SYSTEM: Headaches: No All other ROS reviewed, pertinent positives in HPI PAST MEDICAL HISTORY Diagnosis Date Anxiety Asthma GERD (gastroesophageal reflux disease) Graves disease 2009 only treated for 2 years Lupus PAST SURGICAL HISTORY Procedure Laterality Date COLONOSCOPY SCREENING 10/22/2018 HYSTEROSCOPY ENDOMETRIAL ABLATION 01/14/2024 KNEE SURGERY HX 03/10/2014 PAST SURGICAL HISTORY OF ABLATION, ENDOMETRIAL TUBAL LIGATION HX 03/10/2008 History Review: I have reviewed and modified as needed, the following during this visit: Allergies, Past Medical History, Past Surgical History, Past Family History, Past Social History. Physical Exam BP 114/75 Pulse 83 Temp 36.6 C (97.8 F) (Temporal) Resp 14 Ht 166.4 cm (5' 5.51) Wt 129.5 kg (285 lb 6.2 oz) LMP 01/07/2024 (Approximate) BMI 46.75 kg/m GENERAL: Well appearing, alert, comfortable, in no acute distress, well-hydrated, well nourished. HEENT: Negative for external ears normal. Canals are clear. Eye Exam normal. External nose normal, no nasal ulcer or throat ulcer. NECK: NECK Supple, no adenopathy CARDIAC: regular rate and rhythm, No murmur asculated., and Equal peripheral pulses RESPIRATORY: Lungs clear to auscultation. No wheezing, rhonchi, rales NEURO: Motor and sensory exam normal MOTOR: Normal; including tone, gait, stressed gait, power and coordination. SKIN: Negative for alopecia, skin rash, malar rash, skin lesion, skin ulcer, pits, thickening, color changes, telangiectasias, nail changes, nail ridging, nail pitting, onycholysis; papular rash R forearm MUSCULOSKELETAL: tenderness of the PIPs and DIPs; no synovitis Pertinent Serologies: SCL-70 1.8, MARKUS 1:640, DSDNA neg, ADULT CARE PROVIDER-Sm neg, SSA/SSB neg, centromere neg, chromatin neg, CCP neg, crithidia neg, endomysial neg, IgM 242 (elevated), IgG normal, IgA low 16, Salima-1 neg, RF neg, vit D low Recent Lab Results: WBC (k/uL) Date Value 10/13/2023 6.54 RBC (m/uL) Date Value 10/13/2023 5.04 Hemoglobin (g/dL) Date Value 10/13/2023 11.5 Hematocrit (%) Date Value 10/13/2023 37.8 Platelet Count (k/uL) Date Value 10/13/2023 374 Creatinine (mg/dL) Date Value 10/13/2023 0.73 Calcium, Total (mg/dL) Date Value 10/13/2023 8.9 Alkaline Phosphatase (U/L) Date Value 10/13/2023 99 AST (U/L) Date Value 10/13/2023 15 ALT (U/L) Date Value 10/13/2023 13 Latest Ref Rng & Units 02/10/2019 03/22/2019 ESR, WSR WSR 0 - 20 mm/hr 8 16 Latest Ref Rng & Units 06/17/2018 CRP CRP 0.0 - 0.9 mg/dL 0.6 Recent Radiology Results: None Assessment / Plan: (R76.8) Positive MARKUS (antinuclear antibody) (primary encounter diagnosis) (M25.50) Pain in joint, multiple sites (R21) Rash and nonspecific skin eruption (Z79.899) Long-term use of Plaquenil (M79.7) Fibromyalgia The patient presents today for follow up. She does not meet criteria for SLE. Small rash on R forearm, ? Related to itching - derm referral placed. Recommend biopsy for confirmation / r/o of lupus-type rash. Continue Plaquenil. ? Underlying UCTD vs evolving SLE. Vitamin D level is low. Recommend weekly dosing - sent to her pharmacy. Update labs in about 1-2 months after starting the supplement. Labs ordered for monitoring for medication toxicity. Patient advised to hold any immunosuppressant medication if sick or on antibiotics. Patient advised to contact the clinic with questions. Last rheumatology OV note reviewed. Discussed the above in detail with the patient. All questions were answered. Medications: vitamin D 70229 international unit(s) weekly Testing: as below Follow up: 6 months Pt instructed to contact the clinic with concerns or questions. Office Visit on 04/14/24 C-REACTIVE PROTEIN SEDIMENTATION RATE, WESTERGREN COMPREHENSIVE METABOLIC PANEL COMPLETE BLOOD COUNT AND DIFFERENTIAL IRON AND TIBC CONSULT TO DERMATOLOGY Fabrice Stone PA-C I spent a total of 35 minutes on the date of the service which included preparing to see the patient, [id number] patient care, completing clinical documentation, obtaining and/or reviewing separately obtained history, performing a medically appropriate examination, counseling and educating the patient/family/caregiver, ordering medications, tests, or procedures, and communicating results to the patient/family/caregiver. documented in this encounter [facility] 02-10-2024 Telephone encounter Note Yes, that is what we ordered by anesthesia may have ordered other meds. Why does he ask? [facility] 02-10-2024 Miscellaneous Notes Yes, that is what we ordered by anesthesia may have ordered other meds. Why does he ask? Pts calling, he would like a list of the medication that his was given int hospital both pre and post op. Prema Serrano RN documented in this encounter [facility] 02-10-2024 Telephone encounter Note Pts calling, he would like a list of the medication that his was given int hospital both pre and post op. Prema Serrano RN [facility] 01-14-2024 Note HNO ID: [id number] Author: OPAL APPIAH APRN.CRNA Service: Nursing Author Type: Nurse Director Group Sales Type: Anesthesia Procedure Notes Filed: 01/14/2024 09:34 Note Text: ANESTHESIOLOGY PROCEDURE NOTE Airway General Information Procedure Start Time/Medication Administration: 01/14/2024 8:59 AM Procedure End Time: 01/14/2024 8:59 AM Patient location during procedure: OR Patient identity confirmed: arm band and patient sedated or unresponsive Staffing Anesthesiologist: Brunilda Velarde MD HEEL TURNER: Opal Appiah APRN.HEEL TURNER Performed by: JUDITH Indications and Patient Condition Indications for airway management: anesthesia Preoxygenated: yes anesthesia circuit Patient position: reverse Trendelenburg Method: rapid sequence Cricoid Pressure: No Final Airway Details Final airway type: endotracheal airway Final Endotracheal Airway: ETT Cuffed: yes Successful intubation technique: video laryngoscopy Devices used: Vendavo Endotracheal tube insertion site: oral Blade size: #3 ETT size (mm): 7.5 Measured from: lips Measurement (cm): 23 Placement verified by: chest auscultation and capnometry Cormack-Lehane Classification: grade I - full view of glottis Number of attempts at approach: 1 Failed airway: no Unrecognized esophageal intubation: no Airway not difficult SIGNATURE: Opal Appiah APRN.HEEL TURNER PATIENT NAME: Car Santoyo DATE: January 14, 2024 TIME: 9:31 AM CSN: [id number] [facility] 01-13-2024 Note HNO ID: [id number] Author: TYLER MARIA APRN.CNP Service: Anesthesiology Author Type: Nurse Practitioner Type: Progress Notes Filed: 01/13/2024 13:17 Note Text: PAT VITALY spoke to CC VITALY and expressed concern that patient reported below in PAT. Patient reports that after colonoscopy in 2019, she coded on the table and was discharged home. She reports that she ended up in the ER that same evening and was diagnosed with aspiration pneumonia. Reviewed PAT concerns with anesthesia and reviewed anesthesia records from colonoscopy 10/22/2018. No anesthesia concerns at this time. Will assess further DOS. [facility] 01-13-2024 History and physical note Images from the original note were not included. [facility] HISTORY AND PHYSICAL EXAMINATION SERVICE DATE: 01/13/2024 SERVICE TIME: 10:00 AM PRIMARY CARE PHYSICIAN: Ap Donahue MD Assessment Patient has the following medical conditions which may affect checo-operative course: Pre-op examination see note for medical conditions which may affect checo-operative course that were addressed at today's visit. Abnormal uterine bleeding Surgery scheduled 01/14/24. Mild intermittent asthma without complication Albuterol. Patient uses rescue inhaler once a month, but more frequently in the colder months. Denies hospitalization in the last year due to respiratory issues. Instructed to use inhaler as prescribed and to being inhaler to surgery. Obesity, Class III, BMI >= 40 BMI 47.59 Lupus (systemic lupus erythematosus) (HCC) Plaquenil- instructed to follow prescribing physician's pre-op instructions. Follows with Rheumatology every 6 months. Graves disease No medication. She reports she was previously on medication years ago. She reports having thyroid nodules that she gets US for every 2 years at [facility]. No results in Epic or Care Everywhere. Aspiration pneumonia (HCC) Patient reports that after colonoscopy in 2019, she coded on the table and was discharged home. She reports that she ended up in the ER that same evening and was diagnosed with aspiration pneumonia. Email communication sent to anesthesia office. Fraire Activity Status Index: METS: Climb a flight of stairs or walk up a hill (5.50 METs) DASI Score: 5.5 Patient denies any chest pain or undue shortness of breath with the above physical activity. ARISCAT Score: Age: <=50 Preoperative SpO2: >=96% Respiratory infection in the last month: No Preoperative anemia: Yes Surgical incision: peripheral Duration of surgery: <2 hrs Emergency procedure: No ARISCAT Score: 11 ANESTHESIA FINDINGS: Intubation History: No history of difficult intubation. No abnormal airway history Significant Anesthesia Considerations: patient states that during a colonoscopy/EGD she coded on the table and had aspiration pneumonia. potential postop nausea/vomiting Airway History: No history of difficult airway No abnormal airway history I - PHYSICAL EVALUATION AIRWAY Patient intubated: No. DENTAL Dental findings: teeth intact. II - ANESTHESIA PLAN Anesthetic Plan: general [place] Monitoring Plan Post Procedure Analgesic Plan Prepared for Surgery: CONSULTS: Patient does not require consults for optimization at this time Planned Anesthetic: general The Following Tests/Procedures Have Been Initiated: No orders entered in [facility] per surgeon. REASON FOR VISIT: Car Santoyo is a 38 year old female who is scheduled for Procedure(s): HYSTEROSCOPY, D & C (N/A) HYSTEROSCOPY WITH ENDOMETRIAL ABLATION (N/A) at the request of Dr. Sandrita Chen for routine H&P. My final recommendation will be communicated back to the requesting physician by way of shared medical record or letter. Subjective The patient has the following: COVID-19 Immunization Status Overdue - Covid-19 Vaccine ( season) Never done No completion, postpone, frequency change, or communication history exists for this topic. CHIEF COMPLAINT: The reason for this visit is to perform a comprehensive review of the patients past medical history, assess their current health status and obtain any additional testing required based on anesthesia guidelines. To assess and identify potential anesthesia problems, particularly those that may suggest potential complications or contraindications to the planned procedure. HPI: Patient is a 38 year old female who presents for presurgical testing. Patient has a history of abnormal uterine bleeding. She reports having heavy menstruals. She reports saturating a heavy pad within 1.5 hours. She denies any current bleeding. Denies any pain at PAT visit. Denies any recent fever or chills. Patient denies any other problems or concerns at this time. Risks and benefits of the procedure discussed by Surgeon and patient agreed to proceed with planned procedure. REVIEW OF SYSTEMS: General: Negative for: weight loss >10% of BW in last 6 months, malaise and fever. Neurological: Negative for: seizures and strokes. Respiratory: Positive for: asthma. Negative for: COPD, pneumonia within 6 weeks, URI < 2 weeks and obstructive sleep apnea. Cardiovascular: Negative for: atrial fibrillation, CAD, chest pain, CHF, DVT/PE, hyperlipidemia and hypertension. GI: Negative for: GERD and liver disease. : Negative for: frequent urination, hematuria and urgency. 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 Endocrine: Positive for: hyperthyroidism. Negative for: diabetes mellitus. Hematology: No history of bleeding or clotting disorder. Patient is not taking anti-coagulation or platelet medications. No history of hematological symptoms or problems. Oncology: No history of CA metastasis, chemo within 30 days, or radiotherapy within 90 days. No history of oncological symptoms or problems. Psych: Positive for: anxiety and depression. Musculoskeletal: Positive for: back pain and joint pain. Skin: Negative for lesions, rash and itching. PAST MEDICAL HISTORY Diagnosis Date Anxiety Asthma GERD (gastroesophageal reflux disease) Graves disease 2010 only treated for 2 years Lupus PAST SURGICAL HISTORY Procedure Laterality Date COLONOSCOPY SCREENING 10/22/2018 KNEE SURGERY HX 03/10/2014 TUBAL LIGATION HX 03/10/2008 FAMILY HISTORY Problem Relation Age of Onset Thyroid Mother Psychiatry Mother depression Heart Maternal Grandfather of AL Heart Paternal Grandmother AL Hypertension Paternal Grandfather Heart Paternal Grandfather AL Allergies Paternal Uncle Asthma Paternal Uncle Diabetes Paternal Uncle No Ocular Disease No Family History Social History Tobacco Use Smoking status: Never Smokeless tobacco: Never Vaping Use Vaping status: Never Used Substance Use Topics Alcohol use: Yes Comment: occasional Drug use: Not Currently Frequency: 7.0 times per week Types: Marijuana Comment: medical gummies Prior to Admission medications as of 01/13/24 0948 Medication Sig Last Dose Taking hydrOXYchloroQUINE (PLAQUENIL) 200 mg tablet Take 200 mg by mouth. Yes pregabalin (LYRICA) 75 mg capsule Yes traZODone (DESYREL) 50 mg tablet Yes fluticasone (FLONASE) 50 mcg/actuation nasal spray Nasal for 30 Yes cetirizine (ZYRTEC) 10 mg tablet Oral for 10 Yes diphenhydramine HCl (BENADRYL ALLERGY ORAL) Benadryl Allergy Oral Yes ALBUTEROL 90 MCG/ACTUATION AEROSOL INHALER 2 puffs every four hours as needed for cough, wheezing , chest tightness or shortness of breath and 15-20 minutes pre-exercise. Use with spacer. Yes MEDICATION, NON-DATABASE [place] medical marijuana card, gummies Syringe with Needle, Disp, (MONOJECT TB SAFETY SYRINGE) 1 mL 25 gauge x 5/8 syrg Use as directed to inject methotrexate. No medication comments found. ALLERGIES No Known Allergies Objective PHYSICAL EXAM: General: alert and oriented, healthy appearance, obese and pale. Pertinent negatives noted - not distressed. Skin: normal color, no rash or lesions. HEENT: EOM intact and pupils equal round. Cardiovascular: regular rate and rhythm, normal S1 and S2, no rub, murmurs, or gallop. Respiratory: normal breath sounds, no wheezes or crackles. No chest wall deformity or tenderness. Abdomen: bowel sounds present. Extremities: no deformity, no edema or tenderness, no joint swelling or clubbing. Neurological: normal cognition and motor skills. Gait normal. No weakness or sensory deficit. PAIN ASSESSMENT: VITALS: BP 109/74 Pulse 66 Temp 98.6 Resp 18 Ht 5' 5 (1.65m) Wt 286 lb (129.7kg) SpO2 97% LMP 01/07/2024 BMI 47.59 kg/(m^2). Diagnostic tests reviewed for today's visit: Lab Value Units Date High Low HB 11.5 g/dL 10/13/2023 15.5 11.5 HCT 37.8 % 10/13/2023 46.0 36.0 WBC 6.54 k/uL 10/13/2023 11.00 3.70 PLT 374 k/uL 10/13/2023 400 150 NA 142 mmol/L 10/13/2023 144 136 K 3.9 mmol/L 10/13/2023 5.1 3.7 GLUC 79 mg/dL 10/13/2023 99 74 BUN 7 mg/dL 10/13/2023 21 7 CREAT 0.73 mg/dL 10/13/2023 0.96 0.58 PTSEC No results within date range. INR No results within date range. APTT No results within date range. ALT 13 U/L 10/13/2023 38 7 AST 15 U/L 10/13/2023 35 13 TBILI 0.2 mg/dL 10/13/2023 1.3 0.2 TSH No results within date range. Lab Value Units Date High Low HCGQT No results within date range. UHCG No results within date range. HCG, BODY* No results within date range. Lab Value Units Date High Low ABORHD No results within date range. ABSCREEN No results within date range. No results found for: HBA1C No results found for this or any previous visit (from the past 8760 hour(s)). No results found for this or any previous visit (from the past 25472 hour(s)). Implantable Devices: None Assessment/Plan Abnormal uterine bleeding [N93.9] PLAN Planned Procedure: Procedure(s): HYSTEROSCOPY, D & C (N/A) HYSTEROSCOPY WITH ENDOMETRIAL ABLATION (N/A) I spent a total of 50 minutes on the date of the service which included preparing to see the patient, [id number] patient care, completing clinical documentation, obtaining and/or reviewing separately obtained history, performing a medically appropriate examination, and counseling and educating the patient/family/caregiver. Instructions Given to Patient: Instructions located in the after visit summary. Patient given verbal and written preop instructions and voices comprehension and compliance. SIGNATURE: Hermelinda Yates APRN.CNP PATIENT NAME: Car Santoyo DATE: January 13, 2024 TIME: 10:00 AM PAGER/CONTACT #: [facility] 01-13-2024 History and physical note Images from the original note were not included. [facility] HISTORY AND PHYSICAL EXAMINATION SERVICE DATE: 01/13/2024 SERVICE TIME: 10:00 AM PRIMARY CARE PHYSICIAN: Ap Donahue MD Assessment Patient has the following medical conditions which may affect checo-operative course: Pre-op examination see note for medical conditions which may affect checo-operative course that were addressed at today's visit. Abnormal uterine bleeding Surgery scheduled 01/14/24. Mild intermittent asthma without complication Albuterol. Patient uses rescue inhaler once a month, but more frequently in the colder months. Denies hospitalization in the last year due to respiratory issues. Instructed to use inhaler as prescribed and to being inhaler to surgery. Obesity, Class III, BMI >= 40 BMI 47.59 Lupus (systemic lupus erythematosus) (HCC) Plaquenil- instructed to follow prescribing physician's pre-op instructions. Follows with Rheumatology every 6 months. Graves disease No medication. She reports she was previously on medication years ago. She reports having thyroid nodules that she gets US for every 2 years at [facility]. No results in [facility] or Care Everywhere. Aspiration pneumonia (HCC) Patient reports that after colonoscopy in 2019, she coded on the table and was discharged home. She reports that she ended up in the ER that same evening and was diagnosed with aspiration pneumonia. Email communication sent to anesthesia office. Fraire Activity Status Index: METS: Climb a flight of stairs or walk up a hill (5.50 METs) DASI Score: 5.5 Patient denies any chest pain or undue shortness of breath with the above physical activity. ARISCAT Score: Age: <=50 Preoperative SpO2: >=96% Respiratory infection in the last month: No Preoperative anemia: Yes Surgical incision: peripheral Duration of surgery: <2 hrs Emergency procedure: No ARISCAT Score: 11 ANESTHESIA FINDINGS: Intubation History: No history of difficult intubation. No abnormal airway history Significant Anesthesia Considerations: patient states that during a colonoscopy/EGD she coded on the table and had aspiration pneumonia. potential postop nausea/vomiting Airway History: No history of difficult airway No abnormal airway history I - PHYSICAL EVALUATION AIRWAY Patient intubated: No. DENTAL Dental findings: teeth intact. II - ANESTHESIA PLAN Anesthetic Plan: general [place] Monitoring Plan Post Procedure Analgesic Plan Prepared for Surgery: CONSULTS: Patient does not require consults for optimization at this time Planned Anesthetic: general The Following Tests/Procedures Have Been Initiated: No orders entered in [employer] per surgeon. REASON FOR VISIT: Car Santoyo is a 38 year old female who is scheduled for Procedure(s): HYSTEROSCOPY, D & C (N/A) HYSTEROSCOPY WITH ENDOMETRIAL ABLATION (N/A) at the request of Dr. Sandrita Chen for routine H&P. My final recommendation will be communicated back to the requesting physician by way of shared medical record or letter. Subjective The patient has the following: COVID-19 Immunization Status Overdue - Covid-19 Vaccine ( season) Never done No completion, postpone, frequency change, or communication history exists for this topic. CHIEF COMPLAINT: The reason for this visit is to perform a comprehensive review of the patients past medical history, assess their current health status and obtain any additional testing required based on anesthesia guidelines. To assess and identify potential anesthesia problems, particularly those that may suggest potential complications or contraindications to the planned procedure. HPI: Patient is a 38 year old female who presents for presurgical testing. Patient has a history of abnormal uterine bleeding. She reports having heavy menstruals. She reports saturating a heavy pad within 1.5 hours. She denies any current bleeding. Denies any pain at PAT visit. Denies any recent fever or chills. Patient denies any other problems or concerns at this time. Risks and benefits of the procedure discussed by Surgeon and patient agreed to proceed with planned procedure. REVIEW OF SYSTEMS: General: Negative for: weight loss >10% of BW in last 6 months, malaise and fever. Neurological: Negative for: seizures and strokes. Respiratory: Positive for: asthma. Negative for: COPD, pneumonia within 6 weeks, URI < 2 weeks and obstructive sleep apnea. Cardiovascular: Negative for: atrial fibrillation, CAD, chest pain, CHF, DVT/PE, hyperlipidemia and hypertension. GI: Negative for: GERD and liver disease. : Negative for: frequent urination, hematuria and urgency. 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 Endocrine: Positive for: hyperthyroidism. Negative for: diabetes mellitus. Hematology: No history of bleeding or clotting disorder. Patient is not taking anti-coagulation or platelet medications. No history of hematological symptoms or problems. Oncology: No history of CA metastasis, chemo within 30 days, or radiotherapy within 90 days. No history of oncological symptoms or problems. Psych: Positive for: anxiety and depression. Musculoskeletal: Positive for: back pain and joint pain. Skin: Negative for lesions, rash and itching. PAST MEDICAL HISTORY Diagnosis Date Anxiety Asthma GERD (gastroesophageal reflux disease) Graves disease 2009 only treated for 2 years Lupus PAST SURGICAL HISTORY Procedure Laterality Date COLONOSCOPY SCREENING 10/22/2018 KNEE SURGERY HX 03/10/2014 TUBAL LIGATION HX 03/10/2008 FAMILY HISTORY Problem Relation Age of Onset Thyroid Mother Psychiatry Mother depression Heart Maternal Grandfather of AL Heart Paternal Grandmother AL Hypertension Paternal Grandfather Heart Paternal Grandfather AL Allergies Paternal Uncle Asthma Paternal Uncle Diabetes Paternal Uncle No Ocular Disease No Family History Social History Tobacco Use Smoking status: Never Smokeless tobacco: Never Vaping Use Vaping status: Never Used Substance Use Topics Alcohol use: Yes Comment: occasional Drug use: Not Currently Frequency: 7.0 times per week Types: Marijuana Comment: medical gummies Prior to Admission medications as of 01/13/24 0948 Medication Sig Last Dose Taking hydrOXYchloroQUINE (PLAQUENIL) 200 mg tablet Take 200 mg by mouth. Yes pregabalin (LYRICA) 75 mg capsule Yes traZODone (DESYREL) 50 mg tablet Yes fluticasone (FLONASE) 50 mcg/actuation nasal spray Nasal for 30 Yes cetirizine (ZYRTEC) 10 mg tablet Oral for 10 Yes diphenhydramine HCl (BENADRYL ALLERGY ORAL) Benadryl Allergy Oral Yes ALBUTEROL 90 MCG/ACTUATION AEROSOL INHALER 2 puffs every four hours as needed for cough, wheezing , chest tightness or shortness of breath and 15-20 minutes pre-exercise. Use with spacer. Yes MEDICATION, NON-DATABASE [place] medical marijuana card, gummies Syringe with Needle, Disp, (MONOJECT TB SAFETY SYRINGE) 1 mL 25 gauge x 5/8 syrg Use as directed to inject methotrexate. No medication comments found. ALLERGIES No Known Allergies Objective PHYSICAL EXAM: General: alert and oriented, healthy appearance, obese and pale. Pertinent negatives noted - not distressed. Skin: normal color, no rash or lesions. HEENT: EOM intact and pupils equal round. Cardiovascular: regular rate and rhythm, normal S1 and S2, no rub, murmurs, or gallop. Respiratory: normal breath sounds, no wheezes or crackles. No chest wall deformity or tenderness. Abdomen: bowel sounds present. Extremities: no deformity, no edema or tenderness, no joint swelling or clubbing. Neurological: normal cognition and motor skills. Gait normal. No weakness or sensory deficit. PAIN ASSESSMENT: VITALS: BP 109/74 Pulse 66 Temp 98.6 Resp 18 Ht 5' 5 (1.65m) Wt 286 lb (129.7kg) SpO2 97% LMP 01/07/2024 BMI 47.59 kg/(m^2). Diagnostic tests reviewed for today's visit: Lab Value Units Date High Low HB 11.5 g/dL 10/13/2023 15.5 11.5 HCT 37.8 % 10/13/2023 46.0 36.0 WBC 6.54 k/uL 10/13/2023 11.00 3.70 PLT 374 k/uL 10/13/2023 400 150 NA 142 mmol/L 10/13/2023 144 136 K 3.9 mmol/L 10/13/2023 5.1 3.7 GLUC 79 mg/dL 10/13/2023 99 74 BUN 7 mg/dL 10/13/2023 21 7 CREAT 0.73 mg/dL 10/13/2023 0.96 0.58 PTSEC No results within date range. INR No results within date range. APTT No results within date range. ALT 13 U/L 10/13/2023 38 7 AST 15 U/L 10/13/2023 35 13 TBILI 0.2 mg/dL 10/13/2023 1.3 0.2 TSH No results within date range. Lab Value Units Date High Low HCGQT No results within date range. UHCG No results within date range. HCG, BODY* No results within date range. Lab Value Units Date High Low ABORHD No results within date range. ABSCREEN No results within date range. No results found for: HBA1C No results found for this or any previous visit (from the past 8760 hour(s)). No results found for this or any previous visit (from the past 02060 hour(s)). Implantable Devices: None Assessment/Plan Abnormal uterine bleeding [N93.9] PLAN Planned Procedure: Procedure(s): HYSTEROSCOPY, D & C (N/A) HYSTEROSCOPY WITH ENDOMETRIAL ABLATION (N/A) I spent a total of 50 minutes on the date of the service which included preparing to see the patient, [id number] patient care, completing clinical documentation, obtaining and/or reviewing separately obtained history, performing a medically appropriate examination, and counseling and educating the patient/family/caregiver. Instructions Given to Patient: Instructions located in the after visit summary. Patient given verbal and written preop instructions and voices comprehension and compliance. SIGNATURE: Hermelinda Yates APRN.CNP PATIENT NAME: Car Santoyo DATE: January 13, 2024 TIME: 10:00 AM PAGER/CONTACT #: documented in this encounter [facility] 01-12-2024 Instructions Hermelinda Yates APRN.CNP - 01/12/2024 4:17 PM EST PATIENT PREOPERATIVE INSTRUCTIONS Your surgeon has scheduled for your procedure at this surgery center: [facility]: [phone], [address] [id number] Please enter through the main entrance and proceed to the blue elevators. The surgery [facility] is located to the left of the blue elevator. Please read below carefully for your personalized instructions. SURGERY DATE : 01/14/2024 Your surgeon's office will provide you with your ARRIVAL TIME for surgery. - If you have not received an arrival time by the afternoon before your surgery date, please follow up with your surgeon's office. - If you are scheduled for a Friday surgery, please make sure you have your arrival time by Friday afternoon. Please be aware that emergency situations arise, which may delay or change your surgical time. If this happens, your surgeon's office will notify you as soon as possible and regret any inconvenience. Requirement for Vaccinations : 72-hour period between getting vaccine and date of surgery. Dietary Restrictions: - Nothing to eat or drink after midnight. This is important because if you do, your surgery may have to be cancelled Blood Thinning Medications: - Stop NSAIDS (Ibuprofen, Advil, Aleve, Motrin, Celebrex, Mobic, etc.) 7 days before surgery, as directed by your surgeon. You may take Tylenol (Acetaminophen) or any of your pain medications that do not contain aspirin or NSAIDS as needed. IF YOU TAKE ANY OF THE FOLLOWING BLOOD THINNERS, PLEASE CONTACT YOUR SURGEON AND THE PHYSICIAN WHO PRESCRIBES IT FOR YOU IN ORDER TO GET PERIOPERATIVE INSTRUCTIONS SOON POSSIBLE. BLOOD THINNERS: Aspirin , Coumadin, Plavix, Eliquis, Pradaxa, Xarelto, Lovenox, Brilinta, Effient, Savaysa, Arixtra, etc - Stop Vitamin E, fish oil, multivitamins, Marijuana, CBD oil and other over the counter herbals and dietary supplements 7 days before surgery. -This would not apply to cancer patients who are prescribed Marinol or any other prescription form on marijuana or CBD. Medications: Approved medications to take the morning of surgery with a sip of water: BP, HCTZ, Heart, thyroid, psych, seizure, and pain medications excluding NSAIDS. Use inhalers as prescribed. Please bring inhalers. Pre Surgery Med Instructions Medication instructions ALBUTEROL 90 MCG/ACTUATION AEROSOL INHALER Use as prescribed and bring inhaler to surgery cetirizine (ZYRTEC) 10 mg tablet Continue until night before surgery diphenhydramine HCl (BENADRYL ALLERGY ORAL) Continue until night before surgery fluticasone (FLONASE) 50 mcg/actuation nasal spray Continue until night before surgery hydrOXYchloroQUINE (PLAQUENIL) 200 mg tablet As per surgeon's recommendation pregabalin (LYRICA) 75 mg capsule Continue until night before surgery traZODone (DESYREL) 50 mg tablet Continue until night before surgery Pain Medications: Tylenol for pain as needed and if you are not allergic to. If you start any new medications after today's visit, please contact the surgeon's office. Important Reminders: - If you use CPAP/BIPAP, bring the machine with you to the surgery center. - If you are prescribed inhalers for breathing, continue using them AND bring them to the surgery center. - Candy, mints, gum and tobacco products are NOT permitted the morning of surgery. - Hearing aids, dentures and glasses may be worn the morning of surgery. - NO jewelry, body piercings, makeup, hairpins or contacts are to be worn the day of surgery. - Oral hygiene and a shower or bath is required the evening before or the morning of surgery. Use the [employer] body wash supplied to you along with the instruction. - NO lotion, creams, powders or deodorants on the skin the day of surgery - Wear loose, comfortable clothing that will accommodate bandages. - Your length of stay will be determined by your surgeon - You will need to have someone else (Family or friend) drive you home once discharged from the hospital. You are not allowed to drive yourself home after surgery. - YOU MUST HAVE A RESPONSIBLE DIGITAL LEARNING PLATFORMS MANAGER TAKE YOU HOME. A MILK HOUSE WORKER, CAB OR UBER DIGITAL LEARNING PLATFORMS MANAGER CANNOT BE MADE A RESPONSIBLE DIGITAL LEARNING PLATFORMS MANAGER. - You cannot stay in a hotel alone after outpatient surgery. You will not be permitted to have your surgery, if you do not have someone to take care of you. - It is recommended patients have a 72-hour period between getting their vaccine and date of surgery. - If you develop symptoms such as a fever, cold, or flu, or have other changes to your health within TWO DAYS of scheduled surgery or the morning of surgery, please contact the surgery center above. Personal Belongings: - Leave ALL valuables and money at home or with family members. - You will need a form of ID and insurance card to check in the morning of surgery. - You will have to wear a hospital gown during your stay but if you wish to bring undergarments for after surgery you may. If you already have an Advance Directive, please fax a copy to [phone] or email to for it to be added to your chart. If you do not have an Advance Directive, you can find the appropriate form and more information at [email or web address]. We recommend that you complete the Advance Directive form found on the website and bring it with you the day of your surgery. It can be witnessed and scanned into your chart that day. Hermelinda Yates APRN.CNP 01/13/24 documented in this encounter [facility] 12-22-2023 Telephone encounter Note Left Pt Vm to call back to schedule surgery Hermelinda Darnell December 22, 2023 2:51 PM [facility] 12-22-2023 Miscellaneous Notes Left Pt Vm to call back to schedule surgery Hermelinda Darnell December 22, 2023 2:51 PM documented in this encounter [facility] 12-18-2023 Note HNO ID: [id number] Author: SANDRITA CHEN MD Service: ? Author Type: Physician Type: Progress Notes Filed: 12/18/2023 16:02 Note Text: HPI: Car Santoyo is a 38 year old who presents for her phone preop appt. [employer] nl. Contraception: tubal sterilization HISTORY: OB History T0 L0 SAB0 IAB0 Ectopic0 Multiple0 Live Births0 PAST MEDICAL HISTORY Diagnosis Date Anxiety Asthma GERD (gastroesophageal reflux disease) Graves disease 2010 only treated for 2 years Lupus PAST SURGICAL HISTORY Procedure Laterality Date COLONOSCOPY SCREENING 10/22/2018 KNEE SURGERY HX 03/10/2014 TUBAL LIGATION HX 03/10/2008 REVIEW OF SYSTEMS: General : No weight loss, malaise or fevers. Abdomen: No abdominal pain, nausea, vomiting, diarrhea, or constipation. No bloating, early satiety, indigestion, or increased flatulence. Bladder: No dysuria, gross hematuria, urinary frequency, urinary urgency, or incontinence. Breast: No breast lumps, nipple d/c, overlying skin changes, redness or skin retraction. PHYSICAL EXAM: AUB- plan GEA, discussed r/b/a at length, rec 1 wk of avoiding long periods driving or in truck Total time in direct patient contact = 15 min. Greater than 50% of the time was spent in counseling and/or coordination of care. Sandrita Chen MD, MD [facility] 12-18-2023 History of Present illness Narrative HPI: Car Santoyo is a 38 year old who presents for her phone preop appt. [place]. Contraception: tubal sterilization HISTORY: OB History T0 L0 SAB0 IAB0 Ectopic0 Multiple0 Live Births0 PAST MEDICAL HISTORY Diagnosis Date Anxiety Asthma GERD (gastroesophageal reflux disease) Graves disease 2010 only treated for 2 years Lupus PAST SURGICAL HISTORY Procedure Laterality Date COLONOSCOPY SCREENING 10/22/2018 KNEE SURGERY HX 03/10/2014 TUBAL LIGATION HX 03/10/2008 REVIEW OF SYSTEMS: General : No weight loss, malaise or fevers. Abdomen: No abdominal pain, nausea, vomiting, diarrhea, or constipation. No bloating, early satiety, indigestion, or increased flatulence. Bladder: No dysuria, gross hematuria, urinary frequency, urinary urgency, or incontinence. Breast: No breast lumps, nipple d/c, overlying skin changes, redness or skin retraction. PHYSICAL EXAM: AUB- plan GEA, discussed r/b/a at length, rec 1 wk of avoiding long periods driving or in truck Total time in direct patient contact = 15 min. Greater than 50% of the time was spent in counseling and/or coordination of care. Sandrita Chen MD, MD documented in this encounter [facility] 11-27-2023 Note HNO ID: [id number] Author: SANDRITA CHEN MD Service: ? Author Type: Physician Type: Procedures Filed: 11/27/2023 11:31 Note Text: ENDOMETRIAL BIOPSY PROCEDURE Date/Time: 11/27/2023 11:30 AM Performed by: Sandrita Chen MD Authorized by: Sandrita Chen MD Diagnosis: (N93.9) Abnormal uterine bleeding (AUB) (primary encounter diagnosis) Patient's last menstrual period was 11/17/2023 (exact date). Informed Consent Consent Obtained: Written [place] Protocol A moment to CARE was completed. SIGN IN Sign in communication not applicable due to emergent procedure. Personnel directly involved with the procedure wore the appropriate PPE. Special Equipment: Yes Patient/Surrogate Stated/Verified: Patient name, Date of , Relevant allergies and Intended procedure TIME OUT Intended patient and procedure match the source document(s). Consent documented and matches the intended procedure. No relevant labs, photos, and/or imaging studies were applicable for review. No correct side/site applicable for marking and visibility. No medications required for procedure. No fire risk assessment and interventions applicable. No implant(s) inserted. Pre-Procedure Details: Site Prep: Povidone Iodine (Betadine) Analgesia (see MAR): Medications: N/A Procedure Details: External Genitalia: Normal in appearance without lesions Vagina: Normal in appearance without lesions Procedure: endometrial biopsy with Pipelle A bivalve speculum was placed in the vagina. Cervix cleaned and prepped A paracervical block was not performed. noAn intracervical block was not performed. The cervix was not dilated. Uterus sounded. Uterus sound depth (cm): 9 Curettes used: 1 Findings: Pelvic exam was not performed. Patient Education: side effects discussed with patient Follow-up includes calling patient with results, follow-up appointment. Indication: Abnormal uterine bleeding Post-Procedure Details: Patient tolerated the procedure with difficulty Estimated Blood Loss: None Specimens Sent: EMB SIGN OUT All specimen containers correctly labeled. All instruments, equipment, possible retained foreign bodies accounted for. Post-procedure follow-up management communicated and Plan of Care Visit completed when applicable Fabricio preop appt virtually. Sandrita Chen MD, [facility] 11-27-2023 Procedure note Associated Ord er(s): ENDOMETRIAL BIOPSY PROCEDURE (W NOTE) Pre-Procedure Diagnose(s): Abnormal uterine bleeding (AUB) Post-Procedure Diagnose(s): Abnormal uterine bleeding (AUB) ENDOMETRIAL BIOPSY PROCEDURE Date/Time: 11/27/2023 11:30 AM Performed by: Sandrita Chen MD Authorized by: Sandrita Chen MD Diagnosis: (N93.9) Abnormal uterine bleeding (AUB) (primary encounter diagnosis) Patient's last menstrual period was 11/17/2023 (exact date). Informed Consent Consent Obtained: Written [place] Protocol A moment to CARE was completed. SIGN IN Sign in communication not applicable due to emergent procedure. Personnel directly involved with the procedure wore the appropriate PPE. Special Equipment: Yes Patient/Surrogate Stated/Verified: Patient name, Date of , Relevant allergies and Intended procedure TIME OUT Intended patient and procedure match the source document(s). Consent documented and matches the intended procedure. No relevant labs, photos, and/or imaging studies were applicable for review. No correct side/site applicable for marking and visibility. No medications required for procedure. No fire risk assessment and interventions applicable. No implant(s) inserted. Pre-Procedure Details: Site Prep: Povidone Iodine (Betadine) Analgesia (see MAR): Medications: N/A Procedure Details: External Genitalia: Normal in appearance without lesions Vagina: Normal in appearance without lesions Procedure: endometrial biopsy with Pipelle A bivalve speculum was placed in the vagina. Cervix cleaned and prepped A paracervical block was not performed. noAn intracervical block was not performed. The cervix was not dilated. Uterus sounded. Uterus sound depth (cm): 9 Curettes used: 1 Findings: Pelvic exam was not performed. Patient Education: side effects discussed with patient Follow-up includes calling patient with results, follow-up appointment. Indication: Abnormal uterine bleeding Post-Procedure Details: Patient tolerated the procedure with difficulty Estimated Blood Loss: None Specimens Sent: EMB SIGN OUT All specimen containers correctly labeled. All instruments, equipment, possible retained foreign bodies accounted for. Post-procedure follow-up management communicated and Plan of Care Visit completed when applicable Fabricio preop appt virtually. Sandrita Chen MD, MD [facility] Work Phone: 11-27-2023 Instructions Sandrita Chen MD - 11/27/2023 11:30 AM EDT YOUR RECOVERY After your biopsy you may have: Vaginal bleeding (less than a normal menstrual period) Mild cramping Do NOT put anything in the vagina for 1 week after your endometrial biopsy. This includes: tampons douches and refraining from having sexual intercourse If you have any discomfort, you may take an over the counter pain medication (motrin, advil, ibuprofen, tylenol, etc). If this does not relieve your discomfort, contact the office. It is okay to wear a sanitary pad until the discharge and spotting stops. RISKS Although problems seldom occur with endometrial biopsies, there can be some complications. You may feel faint during and shortly after the procedure as well as have some bleeding after the procedure. There is also a risk of infection after the procedure. These complications are rare and can be easily treated. You should contact you doctor is you have any of the following: Heavy bleeding (more than your normal period) Bleeding with clots Severe abdominal pain Fever (more than 100.4F) Foul smelling vaginal discharge RESULTS We will have the results of your biopsy in 1-2 weeks. If you do not hear the results of your biopsy after 2 weeks, please contact the office for the results. If you have any additional questions or concerns please do not hesitate to contact the office. documented in this encounter [facility] 11-27-2023 Note Sandrita Chen MD 11/27/2023 11:31 AM ENDOMETRIAL BIOPSY PROCEDURE Date/Time: 11/27/2023 11:30 AM Performed by: Sandrita Chen MD Authorized by: Sandrita Chen MD Diagnosis: (N93.9) Abnormal uterine bleeding (AUB) (primary encounter diagnosis) Patient's last menstrual period was 11/17/2023 (exact date). Informed Consent Consent Obtained: Written [place] Protocol A moment to CARE was completed. SIGN IN Sign in communication not applicable due to emergent procedure. Personnel directly involved with the procedure wore the appropriate PPE. Special Equipment: Yes Patient/Surrogate Stated/Verified: Patient name, Date of , Relevant allergies and Intended procedure TIME OUT Intended patient and procedure match the source document(s). Consent documented and matches the intended procedure. No relevant labs, photos, and/or imaging studies were applicable for review. No correct side/site applicable for marking and visibility. No medications required for procedure. No fire risk assessment and interventions applicable. No implant(s) inserted. Pre-Procedure Details: Site Prep: Povidone Iodine (Betadine) Analgesia (see MAR): Medications: N/A Procedure Details: External Genitalia: Normal in appearance without lesions Vagina: Normal in appearance without lesions Procedure: endometrial biopsy with Pipelle A bivalve speculum was placed in the vagina. Cervix cleaned and prepped A paracervical block was not performed. noAn intracervical block was not performed. The cervix was not dilated. Uterus sounded. Uterus sound depth (cm): 9 Curettes used: 1 Findings: Pelvic exam was not performed. Patient Education: side effects discussed with patient Follow-up includes calling patient with results, follow-up appointment. Indication: Abnormal uterine bleeding Post-Procedure Details: Patient tolerated the procedure with difficulty Estimated Blood Loss: None Specimens Sent: EMB SIGN OUT All specimen containers correctly labeled. All instruments, equipment, possible retained foreign bodies accounted for. Post-procedure follow-up management communicated and Plan of Care Visit completed when applicable [facility] 11-27-2023 Procedure note Associated Ord er(s): ENDOMETRIAL BIOPSY PROCEDURE (W NOTE) Pre-Procedure Diagnose(s): Abnormal uterine bleeding (AUB) Post-Procedure Diagnose(s): Abnormal uterine bleeding (AUB) ENDOMETRIAL BIOPSY PROCEDURE Date/Time: 11/27/2023 11:30 AM Performed by: Sandrita Chen MD Authorized by: Sandrita Chen MD Diagnosis: (N93.9) Abnormal uterine bleeding (AUB) (primary encounter diagnosis) Patient's last menstrual period was 11/17/2023 (exact date). Informed Consent Consent Obtained: Written [place] Protocol A moment to CARE was completed. SIGN IN Sign in communication not applicable due to emergent procedure. Personnel directly involved with the procedure wore the appropriate PPE. Special Equipment: Yes Patient/Surrogate Stated/Verified: Patient name, Date of , Relevant allergies and Intended procedure TIME OUT Intended patient and procedure match the source document(s). Consent documented and matches the intended procedure. No relevant labs, photos, and/or imaging studies were applicable for review. No correct side/site applicable for marking and visibility. No medications required for procedure. No fire risk assessment and interventions applicable. No implant(s) inserted. Pre-Procedure Details: Site Prep: Povidone Iodine (Betadine) Analgesia (see MAR): Medications: N/A Procedure Details: External Genitalia: Normal in appearance without lesions Vagina: Normal in appearance without lesions Procedure: endometrial biopsy with Pip[place] A bivalve speculum was placed in the vagina. Cervix cleaned and prepped A paracervical block was not performed. noAn intracervical block was not performed. The cervix was not dilated. Uterus sounded. Uterus sound depth (cm): 9 Curettes used: 1 Findings: Pelvic exam was not performed. Patient Education: side effects discussed with patient Follow-up includes calling patient with results, follow-up appointment. Indication: Abnormal uterine bleeding Post-Procedure Details: Patient tolerated the procedure with difficulty Estimated Blood Loss: None Specimens Sent: EMB SIGN OUT All specimen containers correctly labeled. All instruments, equipment, possible retained foreign bodies accounted for. Post-procedure follow-up management communicated and Plan of Care Visit completed when applicable [facility] preop appt virtually. Sandrita Chen MD, MD documented in this encounter [facility] 11-21-2023 History of Present illness Narrative HPI: Car Santoyo is a 38 year old who presents after a nl US, ES 6 mm. 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 Pap in 07/2023 was ASCUS, but HPV neg. Contraception: tubal sterilization HISTORY: OB History T0 L0 SAB0 IAB0 Ectopic0 Multiple0 Live Births0 PAST MEDICAL HISTORY Diagnosis Date Anxiety Asthma GERD (gastroesophageal reflux disease) Graves disease 2010 only treated for 2 years Lupus (HCC) PAST SURGICAL HISTORY Procedure Laterality Date COLONOSCOPY SCREENING 10/22/2018 KNEE SURGERY HX 03/10/2014 TUBAL LIGATION HX 03/10/2008 REVIEW OF SYSTEMS: General : No weight loss, malaise or fevers. Abdomen: No abdominal pain, nausea, vomiting, diarrhea, or constipation. No bloating, early satiety, indigestion, or increased flatulence. Bladder: No dysuria, gross hematuria, urinary frequency, urinary urgency, or incontinence. Breast: No breast lumps, nipple d/c, overlying skin changes, redness or skin retraction. PHYSICAL EXAM: GENERAL: Well developed, well nourished in no apparent distress ASSESSMENT/PLAN: 1. Abnormal uterine bleeding (AUB) - ICD9: 626.9, ICD10: N93.9 [facility] endo bx at convenience and preop appt virtually Medical Decision Making: Problems: Moderate: 1+ chronic illnesses with change Data: Unique test result(s) reviewed: 3+ Unique test(s) ordered: 1 Risk: Moderate: Moderate risk from testing/treatment Medical Decision Making Level: 4 - Moderate Sandrita Chen MD, MD documented in this encounter [facility] 10-21-2023 Telephone encounter Note Vit d low. Rest all labs normal Advise 2000 international unit(s) daily otc [facility] 10-21-2023 Miscellaneous Notes Vit d low. Rest all labs normal Advise 2000 international unit(s) daily otc documented in this encounter [facility] 10-13-2023 History of Present illness Narrative RHEUMATOLOGY PROGRESS NOTE Patient is here for a follow up visit for Patient presents with: Joint Pain: Knees and hips HPI: Car Santoyo is a 37 year old female who presents joint pain Rash in page She goes to pain management Brief Rheumatological history - Knee pain. Needs replaced. Saw ortho. Not on Plaquenil or MTX. Reviewed last note main [facility] rheum. 2019. Photosensitive rash, joint pain. Started on Plaquenil. Nausea with MTX. prednisone (worsened joint pain) and medrol (resolved joint pain). gastric biopsy with chronic inactive gastritis. Started on SSZ. Had to stop after about 2-3 weeks of use due to rage attacks, sore throat, itching, drowsiness and increased appetite. All symptoms resolved off SSZ Fibromyalgia Family h/o autoimmune disease - none Smoking - Rheumatology REVIEW OF SYSTEMS: Constitutional: Recent Weight Change: No Fatigue: YES Fever: No Night sweats: No Heent: Alopecia: No H/o Inflammatory eye disease (iritis/scleritis): No Hearing loss: No Frequent sinusitis: No Oral ulcers: No Sicca: No Parotid swelling: No Hoarseness: No Dysphagia: No Heme/lymph: Lymphadenopathy: No Hematological abnormalities (anemia, thrombocytopenia, leukopenia): No Abnormal bleeding: No Skin: Malar or discoid lesions: No Photosensitivity: YES since she was in middle school. First thought to be due to ringworm. Other rashes: No Raynaud's phenomenon: No Hives: No Tightness: No Nodules/bumps: No Easy Bruising: No Nail changes: No H/o psoriasis: No Gastroenterology: Nausea: YES Vomiting: No Change in bowel movements: No Heartburn: No Respiratory: Dry cough/SOB: No Cardiovascular: Pain in chest: No Musculoskeletal: Per HPI Joint pain or swelling: No Prolonged morning stiffness: No Back pain or neck pain: No Muscle weakness: No Genitourinary: Vaginal dryness: No Rash/ulcers: No Neurological: Headaches: No Sensitivity or pain of hands and/or feet: YES Psychiatry: Anxiety: YES not on meds Depression: YES not on meds Poor sleep: YES chronic. Doing better with medical marijuana H/o loss: No H/o thrombosis: No Increased susceptibility to infection: No PAST MEDICAL HISTORY No date: Anxiety No date: Asthma No date: GERD (gastroesophageal reflux disease) 2010: Graves disease Comment: only treated for 2 years No date: Lupus (HCC) PAST SURGICAL HISTORY 10/22/2018: COLONOSCOPY SCREENING 03/10/2014: KNEE SURGERY HX 03/10/2008: TUBAL LIGATION HX History Review: I have reviewed and modified as needed, the following during this visit: Allergies, Past Medical History, Past Surgical History, Past Family History, Past Social History. BP 114/78 Pulse 71 Temp 36.6 C (97.8 F) (Temporal) Ht 167.6 cm (5' 6) Wt 128.5 kg (283 lb 6.4 oz) LMP 07/24/2023 (Exact Date) SpO2 99% BMI 45.74 kg/m Physical Exam GENERAL: Well appearing, alert, comfortable, in no acute distress, well-hydrated, well nourished. HEENT: Negative for external ears normal. Canals are clear. Both TMs visualized and are normal. Eye Exam normal. External nose normal, no nasal ulcer or throat ulcer. NECK: NECK Supple, no adenopathy; thyroid symmetric, normal size, no bruits CARDIAC: regular rate and rhythm, No murmur asculated., and Equal peripheral pulses RESPIRATORY: Lungs clear to auscultation. No wheezing, rhonchi, rales VASCULAR: RRR without murmur, gallop, or rubs. No ectopy. NEURO: Motor and sensory exam normal MOTOR: Normal; including tone, gait, stressed gait, power and coordination. SKIN: Negative for alopecia, skin rash, malar rash, skin lesion, skin ulcer, pits, thickening, color changes, telangiectasias, nail changes, nail ridging, nail pitting, onycholysis MUSCULOSKELETAL: DIPS: Normal PIPS: Normal MCPs: Normal Wrists: Normal Elbows: Normal Shoulders: Normal C-Spine: Normal Hips: Normal Knees: Normal Ankles: Normal MTPs / Toes: Normal Arches: Normal Lab Results: Glucose 86 10/23/2022 ALT 10 10/23/2022 WBC 6.75 10/23/2022 HGB 12.8 10/23/2022 Platelet Count 384 10/23/2022 WSR 16 03/22/2019 CRP 0.6 06/17/2018 Serology: Latest Reference Range & Units 06/17/18 13:41 Hep C Antibody IA Negative Negative Hep B Surface Ag Negative Negative Hep B Surface Ab, Qual Negative Negative Hep B Core Ab, Total Negative Negative IgA 78 - 391 mg/dL 32 (L) MARKUS Negative Negative MARKUS Titer Negative Negative MARKUS Pattern Not applicable for negative result. DNA Antibody w/Confirmation <30 IU/mL <12 ADULT CARE PROVIDER Antibody <1.0 AI <0.2 Ribosomal ADULT CARE PROVIDER <1.0 AI <0.2 SSB Antibody <1.0 AI <0.2 Sm Antibody <1.0 AI <0.2 SSA Antibody <1.0 AI <0.2 Scleroderma Ab, IgG <1.0 AI 1.8 (H) Salima 1 Antibody <1.0 AI <0.2 Chromatin Antibody <1.0 AI <0.2 Centromere Ab <1.0 AI <0.2 Rheumatoid Factor <16 IU/mL <10 C4 13 - 46 mg/dL 27 C3 86 - 166 mg/dL 157 CCP Antibody, IgG <20 Units <15 Transglutaminase Ab, IgA <20 Units 2 Transglutaminase Ab, IgG <20 Units 2 Endomysial Ab, IgA <1:10 <1:10 Endomysial Antibody, IgG <1:10 <1:10 (L): Data is abnormally low (H): Data is abnormally high Radiology: FINDINGS: Right knee: Small suprapatellar joint effusion. No acute fracture. Mild medial compartmental joint space narrowing. Mild lateral patellar subluxation with mild patellofemoral compartmental joint space narrowing. Small tricompartmental osteophyte production. Left knee: Small suprapatellar joint effusion. No acute fracture. Mild medial compartmental joint space narrowing with small marginal osteophyte formation. Mild lateral patellar subluxation with mild patellofemoral compartmental joint space narrowing and small marginal osteophyte formation. Latest Reference Range & Units 10/23/22 15:41 10/23/22 15:46 Creatinine, Ur Random (UCRR) 20.0 - 300.0 mg/dL 44.8 Protein, Urine Random 0 - 20 mg/dL <4 IgG 700 - 1,600 mg/dL 1,278 IgA 70 - 400 mg/dL 16 (L) IgM 40 - 230 mg/dL 242 (H) IgE <114.0 kU/l 39.7 MARKUS Negative Positive ! MARKUS Titer 1:640 MARKUS Pattern Nuclear fine speckled DNA Antibody <30 IU/mL <12 Crithidia lucillae Negative Negative Anti-ADULT CARE PROVIDER <1.0 AI <0.2 Anti-SSB <1.0 AI <0.2 Anti-Sm <1.0 AI <0.2 Sm Antibody Negative Negative Anti-SSA <1.0 AI 0.8 Salima 1 Antibody <1.0 AI <0.2 Rheumatoid Factor <16 IU/mL <10 C4 13 - 46 mg/dL 25 C3 86 - 166 mg/dL 150 CCP Antibody, IgG <20 Units <15 IgD, Quant <=15.3 mg/dL <1.3 ADULT CARE PROVIDER Antibody QUAL Negative Negative SSA Antibody Qual Negative Negative SALIMA 1 ANTIBODY QUAL Negative Negative CCP Antibody IgG Qualitative Negative Negative SSB Antibody Qual Negative Negative (L): Data is abnormally low (H): Data is abnormally high !: Data is abnormal FINDINGS: Right knee: Small suprapatellar joint effusion. No acute fracture. Mild medial compartmental joint space narrowing. Mild lateral patellar subluxation with mild patellofemoral compartmental joint space narrowing. Small tricompartmental osteophyte production. Left knee: Small suprapatellar joint effusion. No acute fracture. Mild medial compartmental joint space narrowing with small marginal osteophyte formation. Mild lateral patellar subluxation with mild patellofemoral compartmental joint space narrowing and small marginal osteophyte formation. FINDINGS: There are five [id number] lumbar vertebrae. No fracture or subluxations are noted. T11-12 and T12-L1 disc space narrowing is demonstrated. There is mild osteophyte formation. RESULT: Joint spaces in the hand and wrist are maintained bilaterally. No chondrocalcinosis. Sacroiliac joints: Minimal degenerative change of the sacroiliac joints which are maintained. Maintained pubic symphysis and bilateral hip joints. No acute fracture or dislocation. There are no bony erosions. Assessment and Plan (R76.8) Positive MARKUS (antinuclear antibody) (primary encounter diagnosis) (E55.9) Vitamin D deficiency (M25.50) Pain in joint, multiple sites 38-year-old female is here for follow up. Patient has chronic photosensitive rash and pain over her joints. She was diagnosed with knee osteoarthritis and recommended knee replacement surgeries. She was diagnosed with lupus in the past however MARKUS was negative in 2019 and did not have skin biopsy. She had side effects to methotrexate and sulfasalazine. Plaquenil may have helped her however she is unsure. Evaluation with below labs and x-rays. Her symptoms sound noninflammatory likely due to osteoarthritis and fibromyalgia. She will benefit from a skin biopsy. Skin rash is better with Plaquenil. She was referred to dermatology. resume hydroxychloroquine. Also started Lyrica. Office Visit on 10/13/23 C3 COMPLEMENT C4 COMPLEMENT DNA ANTIBODY DS BLD CREATINE KINASE/CK COMPLETE BLOOD COUNT AND DIFFERENTIAL COMPREHENSIVE METABOLIC PANEL VITAMIN D 25 HYDROXY URINALYSIS WITH MICROSCOPIC, REFLEX CULTURE CREATININE RANDOM URINE PROTEIN RANDOM URINE Medication orders placed this encounter hydrOXYchloroQUINE (PLAQUENIL) 200 mg tablet Sig: Take 1 tablet by mouth two times a day. Dispense: 180 tablet Refill: 2 No follow-ups on file. Nikki Gomez MD documented in this encounter [facility] 08-08-2023 Telephone encounter Note Pharmacy requesting the following refill. Requested Prescriptions Pending Prescriptions Disp Refills hydrOXYchloroQUINE (PLAQUENIL) 200 mg tablet [Pharmacy Med Name: Hydroxychloroquine Sulfate 200 MG Oral Tablet] 60 tablet 0 Sig: Take 1 tablet by mouth twice daily Patient last appointment: 04/07/2023 Next Appointment: 10/06/2023 Patient Phone numbers: [phone] (home) Request is for script(s) to be escript to pharmacy. [facility] [address] [place] [id number] [phone] [id number] Mayda Perez LPN [facility] 08-08-2023 Miscellaneous Notes Pharmacy requesting the following refill. Requested Prescriptions Pending Prescriptions Disp Refills hydrOXYchloroQUINE (PLAQUENIL) 200 mg tablet [Pharmacy Med Name: Hydroxychloroquine Sulfate 200 MG Oral Tablet] 60 tablet 0 Sig: Take 1 tablet by mouth twice daily Patient last appointment: 04/07/2023 Next Appointment: 10/06/2023 Patient Phone numbers: [phone] (home) Request is for script(s) to be escript to pharmacy. [facility] [address] [place] [phone] [phone] [address] Mayda Perez LPN documented in this encounter [facility] 08-07-2023 Telephone encounter Note LVM of results being received and recommendations. Enc to be seen yearly for pelvic and br ex. Vita Garza RN Ascus negative HRHPV. Per guidelines routine screenings. Please inform pt Celi Vallecillo APRN.TECHNICAL INTERN [facility] 08-07-2023 Miscellaneous Notes LVM of results being received and recommendations. Enc to be seen yearly for pelvic and br ex. Vita Garza RN Ascus negative HRHPV. Per guidelines routine screenings. 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 Hgb 10/30 was 12.8. Menses: cycles every 30 days and 7 days of flow. Contraception: tubal sterilization HPV vaccine: No Last Pap: 06/27/2015 normal HPV: 06/21/2015 negative History of abnormal pap: No Last mammogram: never Sexually active: Yes OB History T0 L0 SAB0 IAB0 Ectopic0 Multiple0 Live Births0 Sleep Scientist History LMP: 07/24/2023 (Exact Date), Having periods Age at Menarche: 10 Age at First : Age at Menopause: Sleep Scientist History Comments: Sexual Activity: Not Asked; Male; not asked Contraception: Inserts PAST MEDICAL HISTORY Diagnosis Date Anxiety Asthma GERD (gastroesophageal reflux disease) Graves disease 2010 only treated for 2 years Lupus (HCC) PAST SURGICAL HISTORY Procedure Laterality Date COLONOSCOPY SCREENING 10/22/2018 KNEE SURGERY HX 03/10/2014 TUBAL LIGATION HX 03/10/2008 FAMILY HISTORY Problem Relation Age of Onset Thyroid Mother Psychiatry Mother depression Heart Maternal Grandfather of AL Heart Paternal Grandmother AL Hypertension Paternal Grandfather Heart Paternal Grandfather AL Allergies Paternal Uncle Asthma Paternal Uncle Diabetes Paternal Uncle No Ocular Disease No Family History SOCIAL HISTORY Social History Tobacco Use Smoking status: Never Smokeless tobacco: Never Vaping Use Vaping Use: Never used Substance Use Topics Alcohol use: Yes Comment: occasional Drug use: Yes Frequency: 7.0 times per week Types: Marijuana Comment: medical gummies REVIEW OF SYSTEMS Abdomen: No abdominal pain, nausea, vomiting, diarrhea, or constipation. No bloating, early satiety, indigestion, or increased flatulence. Bladder: No dysuria, gross hematuria, urinary frequency, urinary urgency, or incontinence. Breast: No breast lumps, nipple d/c, overlying skin changes, redness or skin retraction. Allergies and current medication updated:Yes EXAM: BP 115/77 Ht 5' 5 (1.65m) Wt 280 lb (127.0kg) LMP 07/24/2023 BMI 46.59 kg/(m^2). GENERAL: pleasant, female in no apparent distress HEENT: Normocephalic, atraumatic, mucus membranes moist, and no lesions NECK: Supple, full range of motion, no adenopathy, and thyroid normal DERMATOLOGY: Normal, without lesions, non-icteric, and non-hirsute BREAST: soft, non-tender, symmetric, no dominant mass, normal nipple-areolar complex, no lymphadenopathy, and no nipple discharge CHEST: Normal inspiratory effort ABDOMEN: soft, non-tender, and no masses PELVIC: external genitalia normal, normal Bartholin's glands, urethra, [place]'s glands, no vulvar lesions, no cervical lesions, good vaginal support, physiologic discharge present, normal appearing perineal body and perianal region BIMANUAL: uterus normal size, shape and consistency, no adnexal masses, non-tender, and no cervical motion tenderness RECTOVAGINAL: deferred. NEURO: alert and oriented x3,exam grossly non-focal EXTREMITIES: normal ASSESSMENT/PLAN: 1) Health maintenance: Pap done with HPV. Mammogram starting age 40. Nutrition, exercise and routine health maintenance exams reviewed. 2) Contraception: tubal sterilization. Contraceptive options reviewed and information provided. 3) AUB- US in 4 wks 4) Follow up one year or sooner as needed Sandrita Chen MD, MD documented in this encounter [facility] 04-14-2023 History of Present illness Narrative Associated Order(s): Large Joint Arthro/Inj: bilateral knee joints Post-Procedure Diagnose(s): Subluxation of patellofemoral joint, unspecified laterality, subsequent encounter Large Joint Arthro/Inj: bilateral knee joints Informed Consent Consent Obtained: Verbal [place] Protocol A moment to CARE was completed. SIGN IN Sign in communication not applicable due to emergent procedure. Personnel directly involved with the procedure wore the appropriate PPE. Special Equipment: N/A Patient/Surrogate Stated/Verified: Patient name, Date of , Relevant allergies and Intended procedure TIME OUT Intended patient and procedure match the source document(s). Consent documented and matches the intended procedure. Relevant labs, photos, and/or imaging studies have been reviewed. Correct side/site marked and visible. Medications required for procedure verified. No fire risk assessment and interventions applicable. No implant(s) inserted. 04/14/2023 10:54 AM The procedure site was prepped in the usual sterile fashion. Site: bilateral knee joints Medications (Right): 6 mg betamethasone acetate-betamethasone sodium phosphate 6 mg/mL Medications (Left): 6 mg betamethasone acetate-betamethasone sodium phosphate 6 mg/mL Anesthetics (Right): 5 mL lidocaine (PF) 10 mg/mL (1 %) Anesthetics (Left): 5 mL lidocaine (PF) 10 mg/mL (1 %) Outcome: Tolerated well, no immediate complications Post-injection instructions were reviewed with the patient and the patient voiced understanding of these instructions. SIGN OUT No instruments, equipment or retained foreign bodies applicable. AMB ROOMING INTAKE FLOWSHEET DATA Pain Pain Level: 7 Pain Location: Other: See Comment (bilateral knees) Description: Aching, Other: See comment (subluxing) Duration Amount of Time: (ongoing) Frequency: Continuous Intervention/Comfort measure: Heat Patient his 6 months post visit patellar subluxation left knee, chronic pain bilateral knees with injections given. She would like injections into both knees today. documented in this encounter [facility] 10-23-2022 History of Present illness Narrative Radiology Service Progress Note PATIENT NAME: Car Santoyo DATE OF SERVICE: October 23, 2022 TIME: 3:41 PM PATIENT IDENTITY VERIFICATION COMPLETED USING TWO (2) IDENTIFIERS: Name and Date of confirmed by patient verbally. FALL SCREENING: Has the patient had 2 falls in the last year or 1 fall with injury or currently using an Ambulatory Assistive Device (Walker, Cane, Wheelchair, Crutches, etc.)? No PATIENT GENDER DATA: Female. status: : No status: NO. PATIENT RELEVANT IMPLANT DATA REVIEWED: Not Applicable RADIOLOGY DEPARTMENT: General X-ray: Exam(s) Completed: Spine X-Ray(s): Lumbar AP / LAT / L5-S1 Pelvis X-Ray: sacroiliac joints Upper Extremity X-Ray(s): Hand, bilateral PERIPHERAL IV DATA: Not applicable SIGNED BY: RT Jewel(R) October 23, 2022 3:41 PM documented in this encounter [facility] 10-23-2022 History of Present illness Narrative VIRTUAL VISIT PROGRESS NOTE This is a virtual visit using [employer] video visit. It required patient-provider interaction for the medical decision making as documented below. I have communicated my name and active licensure. The patient's identity and physical location were verified at the time of this visit. Either the patient or their legal sales representative public utilities has been informed of the risks and benefits of -- and alternatives to -- treatment through a remote evaluation and consents to proceed with the evaluation remotely. Car Santoyo is a 37 year old female seen for joint pain. Knee pain. Needs replaced. Saw ortho. Not on Plaquenil or MTX. Reviewed last note main [facility] rheum. 2019. Photosensitive rash, joint pain. Started on Plaquenil. Nausea with MTX. prednisone (worsened joint pain) and medrol (resolved joint pain). gastric biopsy with chronic inactive gastritis. Started on SSZ. Had to stop after about 2-3 weeks of use due to rage attacks, sore throat, itching, drowsiness and increased appetite. All symptoms resolved off SSZ Fibromyalgia Family h/o autoimmune disease - none Smoking - Rheumatology REVIEW OF SYSTEMS: Constitutional: Recent Weight Change: No Fatigue: YES Fever: No Night sweats: No Heent: Alopecia: No H/o Inflammatory eye disease (iritis/scleritis): No Hearing loss: No Frequent sinusitis: No Oral ulcers: No Sicca: No Parotid swelling: No Hoarseness: No Dysphagia: No Heme/lymph: Lymphadenopathy: No Hematological abnormalities (anemia, thrombocytopenia, leukopenia): No Abnormal bleeding: No Skin: Malar or discoid lesions: No Photosensitivity: YES since she was in middle school. First thought to be due to ringworm. Other rashes: No Raynaud's phenomenon: No Hives: No Tightness: No Nodules/bumps: No Easy Bruising: No Nail changes: No H/o psoriasis: No Gastroenterology: Nausea: YES Vomiting: No Change in bowel movements: No Heartburn: No Respiratory: Dry cough/SOB: No Cardiovascular: Pain in chest: No Musculoskeletal: Per HPI Joint pain or swelling: No Prolonged morning stiffness: No Back pain or neck pain: No Muscle weakness: No Genitourinary: Vaginal dryness: No Rash/ulcers: No Neurological: Headaches: No Sensitivity or pain of hands and/or feet: YES Psychiatry: Anxiety: YES not on meds Depression: YES not on meds Poor sleep: YES chronic. Doing better with medical marijuana H/o loss: No H/o thrombosis: No Increased susceptibility to infection: No HISTORY REVIEWED (electronic chart updated): PAST MEDICAL HISTORY Diagnosis Date Anxiety Asthma GERD (gastroesophageal reflux disease) Graves disease 2010 only treated for 2 years Lupus (HCC) PAST SURGICAL HISTORY Procedure Laterality Date KNEE SURGERY HX 2014 TUBAL LIGATION HX 2009 FAMILY HISTORY Problem Relation Age of Onset Thyroid Mother Psychiatry Mother depression Hypertension Paternal Grandfather Heart Paternal Grandfather AL Heart Maternal Grandfather of AL Heart Paternal Grandmother AL Allergies Paternal Uncle Asthma Paternal Uncle Diabetes Paternal Uncle Social History Tobacco Use Smoking status: Never Smokeless tobacco: Never Vaping Use Vaping Use: Never used Substance Use Topics Alcohol use: Yes Comment: occasional Drug use: Yes Frequency: 7.0 times per week Types: Marijuana Comment: medical gummies Current Outpatient Medications Medication Sig Syringe with Needle, Disp, (MONOJECT TB SAFETY SYRINGE) 1 mL 25 gauge x 5/8 syrg Use as directed to inject methotrexate. diphenhydramine HCl (BENADRYL ALLERGY ORAL) Benadryl Allergy Oral ALBUTEROL 90 MCG/ACTUATION AEROSOL INHALER 2 puffs every four hours as needed for cough, wheezing , chest tightness or shortness of breath and 15-20 minutes pre-exercise. Use with spacer. No current facility-administered medications for this visit. ALLERGIES Allergen Reactions Environmental Aller* REVIEW OF SYSTEMS: All other ROS: negative As noted in HPI PHYSICAL EXAMINATION: VIDEO EXAM: (if completed, performed via video enabled technology) GENERAL: alert and appropriate, in no distress, well-hydrated, well nourished, and happy, smiling, interactive Latest Reference Range & Units 06/17/18 13:41 Hep C Antibody IA Negative Negative Hep B Surface Ag Negative Negative Hep B Surface Ab, Qual Negative Negative Hep B Core Ab, Total Negative Negative IgA 78 - 391 mg/dL 32 (L) MARKUS Negative Negative MARKUS Titer Negative Negative MARKUS Pattern Not applicable for negative result. DNA Antibody w/Confirmation <30 IU/mL <12 ADULT CARE PROVIDER Antibody <1.0 AI <0.2 Ribosomal ADULT CARE PROVIDER <1.0 AI <0.2 SSB Antibody <1.0 AI <0.2 Sm Antibody <1.0 AI <0.2 SSA Antibody <1.0 AI <0.2 Scleroderma Ab, IgG <1.0 AI 1.8 (H) Salima 1 Antibody <1.0 AI <0.2 Chromatin Antibody <1.0 AI <0.2 Centromere Ab <1.0 AI <0.2 Rheumatoid Factor <16 IU/mL <10 C4 13 - 46 mg/dL 27 C3 86 - 166 mg/dL 157 CCP Antibody, IgG <20 Units <15 Transglutaminase Ab, IgA <20 Units 2 Transglutaminase Ab, IgG <20 Units 2 Endomysial Ab, IgA <1:10 <1:10 Endomysial Antibody, IgG <1:10 <1:10 (L): Data is abnormally low (H): Data is abnormally high FINDINGS: Right knee: Small suprapatellar joint effusion. No acute fracture. Mild medial compartmental joint space narrowing. Mild lateral patellar subluxation with mild patellofemoral compartmental joint space narrowing. Small tricompartmental osteophyte production. Left knee: Small suprapatellar joint effusion. No acute fracture. Mild medial compartmental joint space narrowing with small marginal osteophyte formation. Mild lateral patellar subluxation with mild patellofemoral compartmental joint space narrowing and small marginal osteophyte formation. ASSESSMENT: (R21) Rash and nonspecific skin eruption (primary encounter diagnosis) (E55.9) Vitamin D deficiency (M25.50) Pain in joint, multiple sites (R53.81, R53.83) Malaise and fatigue (M79.7) Fibromyalgia PLAN: 37-year-old female is here for evaluation management recommendation. Patient has chronic photosensitive rash and pain over her joints. She was diagnosed with knee osteoarthritis and recommended knee replacement surgeries. She was diagnosed with lupus in the past however MARKUS was negative in 2019 and did not have skin biopsy. She had side effects to methotrexate and sulfasalazine. Plaque union may have helped her however she is unsure. Evaluation with below labs and x-rays. Her symptoms sound noninflammatory likely due to osteoarthritis and fibromyalgia however we will evaluate with below x-rays. She will benefit from a skin biopsy. Referred to dermatology. May consider hydroxychloroquine. There are no Patient Instructions on file for this visit. I spent a total of 30 minutes on the date of the service which included preparing to see the patient, [id number] patient care, completing clinical documentation, obtaining and/or reviewing separately obtained history, performing a medically appropriate examination, ordering medications, tests, or procedures, and communicating results to the patient/family/caregiver Nikki Gomez MD [facility] on 10/23/22 XR HAND GENERAL 3V PA/LAT/OBL LEFT XR HAND GENERAL 3V PA/LAT/OBL RIGHT XR LUMBAR GENERAL 3V AP/LAT/L5-S1 XR SACROILIAC JOINTS 2V AP PELVIS/FERGUESON MARKUS BY IFA SCREEN CRITHIDIA LUCILIAE IGG IGM IGE BLD IGA BLD IMMUNOGLOBULIN D QUANT, SERUM C3 COMPLEMENT BLD C4 COMPLEMENT BLD DNA ANTIBODY DS BLD ADULT CARE PROVIDER ANTIBODY BLOOD CHOW IGG AB SJOGREN ABS SSA/SSB RHEUMATOID FACTOR BL CCP ANTIBODY IGG CK CREATINE KINASE SALIMA-1 AB CBC + DIFF COMP METABOLIC PANEL VITAMIN D 25 HYDROXY URINALYSIS WITH MICROSCOPIC, REFLEX CULTURE CREATININE RANDOM UR PROTEIN RANDOM UR CONSULT TO DERMATOLOGY No orders of the defined types were placed in this encounter. Platform used - my chart documented in this encounter [facility] 10-09-2022 Discharge summary Note Date/Time October 09, 2022 2:[address] [facility] Physical Therapy [facility] [address] [place] [address]. [address] [place] [address] / REHABILITATION SERVICES DISCHARGE SUMMARY MR#: [id number] Acct: [id number] Name: CAR SANTOYO Rep #: [id number] : 1985 37 From: Sandrita Cantu DPT, OCS, CSCS Referring Dr.: Dr. Syed Casper MD Status: REG R Insurance: [facility] SELF PAY INSURANCE Discharge Summary D/C summary: It has been my pleasure to treat CAR SANTOYO referred by Dr. Syed Casper MD, with the diagnosis of Back Pain for a total of 14 visit(s). Discharge Date: Please see the following information for a summary of their discharge status. Subjective Subjective: I am better than at beginning. feels much stronger in core strengthadn balance but pain still present. 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 Does 2x/week. Hurts on off days at 5/10 no matter what she does. Sleep is OK most of time but wakes every 4-5 hours. Had visit with doctor this morning but she cancelled it. Is awaiting MRI but doctor forgot to order it. Feels MRI and injections are next step but none approved yet. May seek another pain doctor. Going to [facility] [employer] 3x/week. Pain Back: Pain Intensity (Out of 10): 5 BLE: Pain Intensity (Out of 10): 5 Overall Improvement % Improvement: 25 Objective Objective/Function: Walks slowly but without antalgia today. LB arom mod to max limited in ext with pain centrally, min limited flexion without hesitation, SB are full and painfree. Overall strength and funciton are slowly better but pain not improving. Pt missed doctor appointment this am but is awaiting MRI and injections and this kenzie good next step due to her lack of improvement. Goals Goal 1:: Return DEMo her HEP Goal Progress: gym with list Goal 2:: Initiate a water based dynamic stabilization with emphasize on abdominals Goal Progress: gym Goal 3:: Reduce Oswestry score by 105 Goal Progress: Not Progressing Plan Plan: d/c to I gym program.list given D/C Information d/c sentence: If there are questions or concerns regarding this patient's physical therapy, please feel free to call me at [phone]. Thank you for the referral of thispatient. Sincerely, Sandrita Cantu, KWAME, OCS, CSCS Balance/Gait/Functional tests Balance/Special Test Scores Oswestry Low Back Score: 25 <Electronically signed by Sandrita Cantu DPT, OCS, CSCS> 10/09/22 1420 CC: Dr. Ap Donahue MD; Dr. Syed Casper MD ~ EBG Signed [facility] Work Phone: [phone]) 278-275107-18-2023 Miscellaneous Notes* Telephone Encounter - Jassi Strong RN - 09/24/2022 12:52 PM EDT ORTHO CARE COORDINATION QUICK NOTE Patient has been identified by name and date of : Yes Spoke with patient and SO regarding appointment with Dr. Joseph on . They indicated she wasreferred by her ortho PA-C to Dr. Joseph for joint preservation consult. They were not aware that Dr. Joseph is a surgeon and that this consult would involve surgical consultation. Explained to them that Dr. Joseph does specialize in joint preservation, but that this involves surgical approaches to joint preservation. Patient is not interested in surgery at this time. She wouldlike to work on non-op measures to help her knees last as long as they can before surgery is needed. They are aware that Dr. Joseph's protocol for surgical consultation includes weight optimization. Patient's current BMI is 48. Offered them to schedule with another non-op ortho provider to address patient's BL knees in the meantime, but they declined. They will discuss the matter further with established ortho provider patient is seeing. Jassi Strong RN September 24, 2022 12:57 PM Total Time Spent prior authorization nurse: 15 minutes documented in this encounterOhiohealth05-08-2023 History of Present illness Narrative* Cheli Allen PA-C - 07/15/2022 12:05 PM EDT Cheli Allen PA-C Department of Orthopaedics Orthopaed[facility] [address] [facility] [address] Dept: [phone] Dept July 15, 2022 CHIEF COMPLAINT: New and Knee Pain of the Left Knee and New and Knee Pain of the Right Knee Ms. Car Santoyo is a 36 year old female who presents with instability of her left patella. Patient states that sometime ago she dislocated her left knee while pushing down the clutch in her vehicle, ever since that incident the kneecap subluxes with simple activities such as walking or squatting. Patient states that the subluxation is very uncomfortable and that she has a difficult time getting the knee back to go back again. She was seeking Dr. George, she tried several oral anti-inflammatories including meloxicam and also participated in physical therapy but did not notice any improvement in her pain. She is using kinesiology tape which initially was beneficial but is no longer helping. She had an MRI of her left knee this past September which did still show some lateral cartilage defects, bony edema medial tibial plateau as well as subluxation of her left patella. She had some type of injury to the right knee sometime ago and had to have a ligament surgery. She complains of some pain in the anterior aspect of the right knee but is not getting any type of subluxation like sheis on the left. Patient tells me that she has lupus, in the past she was taking methotrexate but isno longer being treated. She did recently take an oral steroid prescribed by her primary care provider, did not help knee pain. She is in the process of establishing care with a new rn digestive. The patient was referred to pain management by her PCP. Patient is not a tobacco user. ASSESSMENT: S83.002A Patellar subluxation, left, initial encounter (primary encounter diagnosis) M17.12 Primary osteoarthritis of left knee M17.31 Post-traumatic osteoarthritis of right knee M25.561, M25.562, G89.29 Chronic pain of both knees PLAN: Patient certainly has some lateral subluxation of the patella but also degenerative changes. Offered a corticosteroid injection, the patient declined stating that the knee is not bothersome until the patella starts to sublux. We will get her into our surgeons to discuss additional options forthe knee. Ms. Car Santoyo was advised as to contrast therapies and/or to take analgesics/anti-inflammatories as needed and all contraindications were reviewed. OBJECTIVE: Ms. Car Santoyo is a pleasant 36 year old in no apparent distress. Gen:LMP 10/10/2018 nl development, obese, no deformities ENT: Normocephalic, normal hearing, moist mucosa CV: Pulses:DP/PT= 2+ and symmetric, capillary refill < 2 secs, no peripheral edema/varicosities Skin: no rash, bruising or lesions. Good turgor. Psych: cooperative and appropriate, alert and oriented x 3, good mood and affect. Musculoskeletal: KNEE EXAM: Left: Alignment: Neutral Range of motion is 0 degrees in extension and 120 degrees of flexion. Extension La degrees Pain with ROM: Yes Effusion: Slight Tender to the palpation of Patellar tendon Pain with patellar compression: Yes, palpable crepitance Stability: Anterior/Posterior stable and Varus/Valgus stable Hip Exam: flexion to 100+ degrees, full extension, internal/external rotation adequate, and no painwith log roll Neurovascular Status: Sensation Intact, Moves foot and ankle up & down, and 2+ dorsalis pedis Right: Alignment: Neutral Range of motion is 0 degrees in extension and 120 degrees of flexion. Extension La degrees Pain with ROM: Yes Effusion: Slight Tender to the palpation of Patellar tendon Pain with patellar compression: Yes, palpable crepitance Stability: Anterior/Posterior stable and Varus/Valgus stable Hip Exam: flexion to 100+ degrees, full extension, internal/external rotation adequate, and no painwith log roll Neurovascular Status: Sensation Intact, Moves foot and ankle up & down, and 2+ dorsalis pedis Imaging: * * *Final Report* * * DATE OF EXAM: Jul 15 2022 10:53AM WRX [id number] - XR KNEE 4V AP/PA/LAT/MERCH PIERCE / PROCEDURE REASON: multiple diagnoses * * * * Physician Interpretation * * * * TITLE: XR KNEE 4V AP/PA/LAT/MERCH PIERCE CLINICAL INDICATION: Knee pain TECHNIQUE: 4 view radiographic study of the bilateral knees COMPARISON: Radiograph dated March 12, 2014 FINDINGS: Right knee: Small suprapatellar joint effusion. No acute fracture. Mild medial compartmental joint space narrowing. Mild lateral patellar subluxation with mild patellofemoral compartmental joint space narrowing. Small tricompartmental osteophyte production. Left knee: Small suprapatellar joint effusion. No acute fracture. Mild medial compartmental joint space narrowing with small marginal osteophyte formation. Mild lateral patellar subluxation with mild patellofemoral compartmental joint space narrowing and small marginal osteophyte formation. IMPRESSION IMPRESSION: Degenerative changes as described. Valet Runner: LINDA Transcribe Date/Time: Jul 17 2022 12:20P Dictated by : MING MORAN MD This examination was interpreted and the report reviewed and electronically signed by: MING MORAN MD on Jul 17 2022 12:24PM EST MRI- see epic MRI left knee October 05, 2021 Impression: focal chondral defect of the lateral femoral condyle and small focal chondral defect inthe lateral tibial plateau. Lateral subluxation and mild lateral tilt of the patella. Very small focus of subchondral bony edema in the medial tibial plateau, a stress phenomenon. Supporting Subjective Information Below: Past Surgical History: PAST SURGICAL HISTORY Procedure Laterality Date KNEE SURGERY HX 2014 TUBAL LIGATION HX 2008 Medications: Current Outpatient Medications Medication Sig diphenhydramine HCl (BENADRYL ALLERGY ORAL) Benadryl Allergy Oral ALBUTEROL 90 MCG/ACTUATION AEROSOL INHALER 2 puffs every four hours as needed for cough, wheezing ,chest tightness or shortness of breath and 15-20 minutes pre-exercise. Use with spacer. methotrexate sodium 25 mg/mL soln INJECT 10 MG (0.4ML) SUBCUTANEOUSLY ONCE WEEKLY leucovorin (LEUCOVORIN) 5 mg tablet Take once weekly, 10 to 12 hours after methotrexate administration Syringe with Needle, Disp, (MONOJECT TB SAFETY SYRINGE) 1 mL 25 gauge x 5/8 syrg Use as directed to inject methotrexate. No current facility-administered medications for this visit. Allergies: Environmental Allergies [Other] ROS: General (negative for fatigue, malaise, weight loss/gain) HEENT (negative for headache, earache, recent vision changes, sinus pain, sore throat) Respiratory (no recent shortness of breath, hemoptysis) CV (negative for chest tightness, palpitations) Musculoskeletal (see HPI) Psych (no depression, anxiety) This note was partially generated using Gild voice recognition system, and there may be some incorrect words, spellings, and punctuation that were not noted in checking the note before saving. Cheli Allen PA-C * Caryn Valenzuela RN - 07/15/2022 11:08 AM EDT Patient presents with: Left Knee - New, Knee Pain Right Knee - New, Knee Pain AMB ROOMING INTAKE FLOWSHEET DATA Risk Screening Do you have concerns about personal safety or safety in the home?: No Pain Pain Level: 6 Pain Location: Knee-Left Description: Cramping, Radiating Frequency: Continuous documented in this encounterOhiohealth05-08-2023 History of Present illness Narrative* Milton Zamora RT(R) - 07/15/2022 10:20 AM EDT Radiology Service Progress Note PATIENT NAME: Car Santoyo DATE OF SERVICE: July 15, 2022 TIME: 10:35 AM PATIENT IDENTITY VERIFICATION COMPLETED USING TWO (2) IDENTIFIERS: Name and Date of confirmedby patient verbally. FALL SCREENING: Has the patient had 2 falls in the last year or 1 fall with injury or currently using an Ambulatory Assistive Device (Walker, Cane, Wheelchair, Crutches, etc.)? No PATIENT GENDER DATA: Female. status: : No status: NO. PATIENT RELEVANT IMPLANT DATA REVIEWED: Not Applicable RADIOLOGY DEPARTMENT: General X-ray: Exam(s) Completed: Lower Extremity X- Ray(s): Knee, AP / Lat / Tunne / Merchant Bilateral and Wt. Bearing PERIPHERAL IV DATA: Not applicable SIGNED BY: RT Ridge(R) July 15, 2022 10:35 AM documented in this encounterOhiohealthEvaluation note* Diagnosis Onset Date Resolution Status Derangement of left knee acu te [facility] Work Phone: Evaluation note* Diagnosis Onset Date Resolution Status Articular cartilage disorder of left knee acute Derangement of left knee acu te Subluxation of left patella acute Articular cartilage disorder of left knee acute Subluxation of left patella acute [facility] Work Phone: Evaluation note* Diagnosis Onset Date Resolution Status Bilateral knee pain acute Fibromyalgia acute Sleep concern noneactive Long-term current use of steroids noneactive Encounter for monitoring amitriptyline therapy noneactive Establishing care with new doctor, encounter for noneactive Multiple joint pain noneacti ve Mild depression noneactive [facility] Work Phone: Evaluation note* Diagnosis Onset Date Resolution Status Bilateral knee pain acute Fibromyalgia acute Sleep concern noneactive Long-term current use of steroids noneactive Encounter for monitoring amitriptyline therapy noneactive Establishing care with new doctor, encounter for noneactive Multiple joint pain noneacti ve Mild depression noneactive Bilateral knee pain acute Fibromyalgia acute Sleep concern noneactive Irregular menstrual cycle no neactive Multiple joint pain noneacti ve Rash and nonspecific skin eruption noneactive Enlarged thyroid noneactive Kidney stone noneactive Mild depression noneactive [facility] Work Phone: Evaluation note* Diagnosis Pain in both knees, unspecified chronicity- Primary [facility]* Diagnosis Patellar subluxation, left, initial encounter- Primary Primary osteoarthritis of left knee Primary localized osteoarthrosis, lower leg Post-traumatic osteoarthritis of right knee Secondary localized osteoarthrosis, lower leg Chronic pain of both knees documented in this encounter [facility]* Diagnosis Onset Date Resolution Status Bilateral knee pain acute Fibromyalgia acute Sleep concern noneactive Irregular menstrual cycle no neactive Multiple joint pain noneacti ve Rash and nonspecific skin eruption noneactive Enlarged thyroid noneactive Kidney stone noneactive Mild depression noneactive Bilateral knee pain acute Fibromyalgia acute Irregular menstrual cycle no neactive Multiple joint pain noneacti ve Leg cramps noneactive Mild depression noneactive Bilateral knee pain acute Fibromyalgia acute Ear itching noneactive Heartburn noneactive Irregular menstrual cycle no neactive Multiple joint pain noneacti ve Chronic low back pain without sciatica noneactive Mild depression noneactive Eye problem noneactive [facility] Work Phone: Evaluation note* Diagnosis Rash and nonspecific skin eruption- Primary Rash and other nonspecific skin eruption Vitamin D deficiency Unspecified vitamin D deficiency Pain in joint, multiple sites Malaise and fatigue Other malaise and fatigue Fibromyalgia Mylagia and myositis, unspecified documented in this encounter [facility]* Diagnosis Rash and nonspecific skin eruption Rash and other nonspecific skin eruption documented in this encounter [facility]* Diagnosis Pain in both knees, unspecified chronicity documented in this encounter [facility]* Diagnosis Primary osteoarthritis of left knee- Primary Primary localized osteoarthrosis, lower leg Subluxation of patellofemoral joint, unspecified laterality, subsequent encounter documented in this encounter [facility]* Diagnosis Encounter for gynecological examination (general) (routine) without abnormal findings- Primary Screening for cervical cancer Screening for malignant neoplasm of the cervix Abnormal uterine bleeding (AUB) documented in this encounter [facility]* Diagnosis Positive MARKUS (antinuclear antibody)- Primary Other and unspecified nonspecific immunological findings Vitamin D deficiency Unspecified vitamin D deficiency Pain in joint, multiple sites [facility] this encounter [facility]* Diagnosis Morbid obesity (HCC) Morbid obesity Graves disease 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 crisis or storm Anxiety and depression Dysthymic disorder Mild intermittent asthma without complication Unspecified asthma Autoimmune disease (HCC) Autoimmune disease, not elsewhere classified Abnormal uterine bleeding (AUB)- Primary documented in this encounter [facility]* Diagnosis Morbid obesity (HCC) Morbid obesity Graves disease 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 crisis or storm Anxiety and depression Dysthymic disorder Mild intermittent asthma without complication Unspecified asthma Autoimmune disease (HCC) Autoimmune disease, not elsewhere classified Abnormal uterine bleeding (AUB)- Primary [facility] this encounter [facility]* Diagnosis Morbid obesity (HCC) Morbid obesity Graves disease 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 crisis or storm Anxiety and depression Dysthymic disorder Mild intermittent asthma without complication Unspecified asthma Autoimmune disease (HCC) Autoimmune disease, not elsewhere classified Abnormal uterine bleeding (AUB) documented [facility] encounter [facility]* Diagnosis Morbid obesity (HCC) Morbid obesity Graves disease 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 crisis or storm Anxiety and depression Dysthymic disorder Mild intermittent asthma without complication Unspecified asthma Autoimmune disease (HCC) Autoimmune disease, not elsewhere classified Abnormal uterine bleeding (AUB)- Primary [facility]* Diagnosis Morbid obesity (HCC) Morbid obesity Graves disease 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 crisis or storm Anxiety and depression Dysthymic disorder Mild intermittent asthma without complication Unspecified asthma Autoimmune disease (HCC) Autoimmune disease, not elsewhere classified Abnormal uterine bleeding (AUB)- Primary [facility]* Diagnosis Morbid obesity (HCC) Morbid obesity Graves disease 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 crisis or storm Anxiety and depression Dysthymic disorder Mild intermittent asthma without complication Unspecified asthma Autoimmune disease (HCC) Autoimmune disease, not elsewhere classified Abnormal uterine bleeding- Primary Unspecified disorder of menstruation and other abnormal bleeding from female genital tract Abnormal uterine bleeding Unspecified disorder of menstruation and other abnormal bleeding from female genital tract [facility] Diagnosis Morbid obesity (HCC) Morbid obesity Graves disease 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 crisis or storm Anxiety and depression Dysthymic disorder Mild intermittent asthma without complication Unspecified asthma Autoimmune disease (HCC) Autoimmune disease, not elsewhere classified Obesity, Class III, BMI >= 40 Morbid obesity Pre-op examination- Primary Preoperative examination, unspecified Abnormal uterine bleeding Unspecified disorder of menstruation and other abnormal bleeding from female genital tract Mild intermittent asthma without complication Unspecified asthma Obesity, Class III, BMI >= 40 Morbid obesity Other forms of systemic lupus erythematosus, unspecified organ involvement status (HCC) Graves disease 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 crisis or storm Aspiration pneumonia, unspecified aspiration pneumonia type, unspecified laterality, unspecified part of lung (HCC) Abnormal uterine bleeding Unspecified disorder of menstruation and other abnormal bleeding from female genital tract * Assessment & Plan Note - Hermelinda Yates APRN.CNP - 01/13/2024 10:24 AM EST Associated Problem(s): Aspiration pneumonia (HCC) Patient reports that after colonoscopy in 2019, she coded on the table and was discharged home. She reports that she ended up in the ER that same evening and was diagnosed with aspiration pneumonia. Email communication sent to anesthesia office. * Assessment & Plan Note - Hermelinda Yates APRN.CNP - 01/13/2024 9:55 AM EST Associated Problem(s): Graves disease No medication. She reports she was previously on medication years ago. She reports having thyroid nodules that she gets US for every 2 years at [facility]. No results in Epic or Care Everywhere. * Assessment & Plan Note - Hermelinda Yates APRN.CNP - 01/13/2024 9:53 AM EST Associated Problem(s): Lupus (systemic lupus erythematosus) (HCC) Plaquenil- instructed to follow prescribing physician's pre-op instructions. Follows with Rheumatology every 6 months. * Assessment & Plan Note - Hermelinda Yates APRN.CNP - 01/12/2024 4:23 PM EST Associated Problem(s): Obesity, Class III, BMI >= 40 BMI 47.59 * Assessment & Plan Note - Hermelinda Yates APRN.CNP - 01/12/2024 4:22 PM EST Associated Problem(s): Mild intermittent asthma without complication Albuterol. Patient uses rescue inhaler once a month, but more frequently in the colder months. Denies hospitalization in the last year due to respiratory issues. Instructed to use inhaler as prescribed and to being inhaler to surgery. * Assessment & Plan Note - Hermelinda Yates APRN.CNP - 01/12/2024 4:22 PM EST Associated Problem(s): Abnormal uterine bleeding Surgery scheduled 01/14/24. * Assessment & Plan Note - Hermelinda Yates APRN.CNP - 01/12/2024 4:21 PM EST Associated Problem(s): Pre-op examination see note for medical conditions which may affect checo-operative course that were addressed at today's visit. [facility] Diagnosis Morbid obesity (HCC) Morbid obesity Graves disease 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 crisis or storm Anxiety and depression Dysthymic disorder Mild intermittent asthma without complication Unspecified asthma Autoimmune disease (HCC) Autoimmune disease, not elsewhere classified Pre-op examination- Primary Preoperative examination, unspecified Abnormal uterine bleeding Unspecified disorder of menstruation and other abnormal bleeding from female genital tract Mild intermittent asthma without complication Unspecified asthma Obesity, Class III, BMI >= 40 Morbid obesity Other forms of systemic lupus erythematosus, unspecified organ involvement status (HCC) Graves disease 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 crisis or storm Aspiration pneumonia, unspecified aspiration pneumonia type, unspecified laterality, unspecified part of lung (HCC) Positive MARKUS (antinuclear antibody)- Primary Other and unspecified nonspecific immunological findings Pain in joint, multiple sites Rash and nonspecific skin eruption Rash and other nonspecific skin eruption Long-term use of Plaquenil Encounter for long-term (current) use of other medications Fibromyalgia Mylagia and myositis, unspecified documented in this encounter [facility]* Diagnosis Morbid obesity (HCC) Morbid obesity Graves disease 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 crisis or storm Anxiety and depression Dysthymic disorder Mild intermittent asthma without complication Unspecified asthma Autoimmune disease (HCC) Autoimmune disease, not elsewhere classified Pre-op examination- Primary Preoperative examination, unspecified Abnormal uterine bleeding Unspecified disorder of menstruation and other abnormal bleeding from female genital tract Mild intermittent asthma without complication Unspecified asthma Obesity, Class III, BMI >= 40 Morbid obesity Other forms of systemic lupus erythematosus, unspecified organ involvement status (HCC) Graves disease 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 crisis or storm Aspiration pneumonia, unspecified aspiration pneumonia type, unspecified laterality, unspecified part of lung (HCC) Iron deficiency anemia, unspecified iron deficiency anemia type- Primary documented in this encounter [facility] note* Diagnosis Morbid obesity (HCC) Morbid obesity Graves disease 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 crisis or storm Anxiety and depression Dysthymic disorder Mild intermittent asthma without complication (HCC) Unspecified asthma Autoimmune disease (HCC) Autoimmune disease, not elsewhere classified Pre-op examination- Primary Preoperative examination, unspecified Abnormal uterine bleeding Unspecified disorder of menstruation and other abnormal bleeding from female genital tract Mild intermittent asthma without complication (HCC) Unspecified asthma Obesity, Class III, BMI >= 40 Morbid obesity Other forms of systemic lupus erythematosus, unspecified organ involvement status (HCC) Graves disease 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 crisis or storm Aspiration pneumonia, unspecified aspiration pneumonia type, unspecified laterality, unspecified part of lung (HCC) High risk medication use- Primary Encounter for long-term (current) use of other medications Regular astigmatism of both eyes Regular astigmatism Amblyopia suspect, left eye [facility]* Diagnosis Morbid obesity (HCC) Morbid obesity Graves disease 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 crisis or storm Anxiety and depression Dysthymic disorder Mild intermittent asthma without complication (HCC) Unspecified asthma Autoimmune disease (HCC) Autoimmune disease, not elsewhere classified Pre-op examination- Primary Preoperative examination, unspecified Abnormal uterine bleeding Unspecified disorder of menstruation and other abnormal bleeding from female genital tract Mild intermittent asthma without complication (HCC) Unspecified asthma Obesity, Class III, BMI >= 40 Morbid obesity Other forms of systemic lupus erythematosus, unspecified organ involvement status (HCC) Graves disease 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 crisis or storm Aspiration pneumonia, unspecified aspiration pneumonia type, unspecified laterality, unspecified part of lung (HCC) MARKUS positive- Primary Other and unspecified nonspecific immunological findings Hypermobility syndrome Rash and other nonspecific skin eruption Primary osteoarthritis involving multiple joints Long-term use of Plaquenil Encounter for long-term (current) use of other medications Undifferentiated connective tissue disease (HCC) Unspecified diffuse connective tissue disease documented in this encounter [facility] Discharge instructions Additional Instructions Please return for any worsening of symptoms.[facility] Work Phone: Reason for referral (narrative)* Diagnostic Procedure Only (Routine) - Pending Review Specialty Diagnoses / Procedures Referred By David li Referred To Contact XR IMAGING Diagnoses Pain in both knees, unspecified chronicity Procedures XR KNEE GENERAL 4V AP BOTH/PA BOTH/LAT/MERC BILATERAL RADIOLOGIC EXAM KNEE COMPLETE 4/MORE VIEWS Cheli Allen PA-C [address] [place] [address] Xr Imaging Referral ID Status Reason Start Date Expiration Date Visits Requested Visits Authorized [id number] Pending Review Auto-Generat ed Referral 07/11/2022 08/10/2023 1 1 [facility] for referral (narrative)* Diagnostic Procedure Only (Routine) - Closed Specialty Diagnoses / Procedures Referred By David li Referred To Contact XR IMAGING Diagnoses Rash and nonspecific skin eruption Procedures XR SACROILIAC JOINTS 2V AP PELVIS/FERGUESON RADIOLOGIC EXAMINATION SACROILIAC JNTS <3 VIEWS Nikki Gomez MD [address] [place] [address] [place] [address] Referral ID Status Reason Start Date Expiration Date V isits Requested Visits Authorized [id number] Closed Auto-Generate d Referral 10/23/2022 11/22/2023 1 1 * Diagnostic Procedure Only (Routine) - Closed Specialty Diagnoses / Procedures Referred By Contac t Referred To Contact XR IMAGING Diagnoses Rash and nonspecific skin eruption Procedures XR LUMBAR GENERAL 3V AP/LAT/L5-S1 RADEX SPINE LUMBOSACRAL 2/3 VIEWS Nikki Gomez MD [address] [place] [address] [place] [address] Referral ID Status Reason Start Date Expiration Date V isits Requested Visits Authorized [id number] Closed Auto-Generate d Referral 10/23/2022 11/22/2023 1 1 * Diagnostic Procedure Only (Routine) - Closed Specialty Diagnoses / Procedures Referred By Contac t Referred To Contact XR IMAGING Diagnoses Rash and nonspecific skin eruption Procedures XR HAND GENERAL 3V PA/LAT/OBL RIGHT RADEX HAND MINIMUM 3 VIEWS Nikki Gomez MD [address] [place] [address] [place] [address] Referral ID Status Reason Start Date Expiration Date V isits Requested Visits Authorized [id number] Closed Auto-Generate d Referral 10/23/2022 11/22/2023 1 1 * Diagnostic Procedure Only (Routine) - Closed Specialty Diagnoses / Procedures Referred By Contac t Referred To Contact XR IMAGING Diagnoses Rash and nonspecific skin eruption Procedures XR HAND GENERAL 3V PA/LAT/OBL LEFT RADEX HAND MINIMUM 3 VIEWS Nikki Gomez MD [address] [place] [address] [place] [address] Referral ID Status Reason Start Date Expiration Date V isits Requested Visits Authorized [id number] Closed Auto-Generate d Referral 10/23/2022 11/22/2023 1 1 * Consult, Test, Treat (Routine) - Authorized Specialty Diagnoses / Procedures Referred By Contac t Referred To Contact Dermatology Diagnoses Rash and nonspecific skin eruption Procedures CONSULT TO DERMATOLOGY OFFICE/OUTPATIENT [facility] MDM 60-74 MINUTES Nikki Gomez MD [address] [place] [address] Referral ID Status Reason Start Date Expiration Date Visits Requested Visits Authorized [id number] Authorized PCP Requested Referral 10/23/2022 10/23/2023 1 1 [facility] for referral (narrative)* Diagnostic Procedure Only (Routine) - Closed Specialty Diagnoses / Procedures Referred By Contac t Referred To Contact XR IMAGING Diagnoses Rash and nonspecific skin eruption Procedures XR SACROILIAC JOINTS 2V AP PELVIS/FERGUESON RADIOLOGIC EXAMINATION SACROILIAC JNTS <3 VIEWS Nikki Gomez MD [address] [place] [address] [place] [address] Referral ID Status Reason Start Date Expiration Date V isits Requested Visits Authorized [id number] Closed Auto-Generate d Referral 10/23/2022 11/22/2023 1 1 * Diagnostic Procedure Only (Routine) - Closed Specialty Diagnoses / Procedures Referred By Contac t Referred To Contact XR IMAGING Diagnoses Rash and nonspecific skin eruption Procedures XR LUMBAR GENERAL 3V AP/LAT/L5-S1 RADEX SPINE LUMBOSACRAL 2/3 VIEWS Nikki Gomez MD [address] [place] [address] [place] [address] Referral ID Status Reason Start Date Expiration Date V isits Requested Visits Authorized [id number] Closed Auto-Generate d Referral 10/23/2022 11/22/2023 1 1 * Diagnostic Procedure Only (Routine) - Closed Specialty Diagnoses / Procedures Referred By Contac t Referred To Contact XR IMAGING Diagnoses Rash and nonspecific skin eruption Procedures XR HAND GENERAL 3V PA/LAT/OBL RIGHT RADEX HAND MINIMUM 3 VIEWS Nikki Gomez MD [address] [place] [address] [place] [address] Referral ID Status Reason Start Date Expiration Date V isits Requested Visits Authorized [id number] Closed Auto-Generate d Referral 10/23/2022 11/22/2023 1 1 * Diagnostic Procedure Only (Routine) - Closed Specialty Diagnoses / Procedures Referred By Contac t Referred To Contact XR IMAGING Diagnoses Rash and nonspecific skin eruption Procedures XR HAND GENERAL 3V PA/LAT/OBL LEFT RADEX HAND MINIMUM 3 VIEWS Nikki Gomez MD [address] [place] [address] [place] [address] Referral ID Status Reason Start Date Expiration Date V isits Requested Visits Authorized [id number] Closed Auto-Generate d Referral 10/23/2022 11/22/2023 1 1 [facility] for referral (narrative)* Diagnostic Procedure Only (Routine) - Closed Specialty Diagnoses / Procedures Referred By Contac t Referred To Contact XR IMAGING Diagnoses Pain in both knees, unspecified chronicity Procedures XR KNEE GENERAL 4V AP BOTH/PA BOTH/LAT/MERC BILATERAL RADIOLOGIC EXAM KNEE COMPLETE 4/MORE VIEWS Cheli Allen PA-C [address] [place] [address] [place] [address] Referral ID Status Reason Start Date Expiration Date V isits Requested Visits Authorized [id number] Closed Auto-Generate d Referral 07/11/2022 08/10/2023 1 1 [facility] for referral (narrative)* Diagnostic Procedure Only (Routine) - Authorized Specialty Diagnoses / Procedures Referred By Contac t Referred To Contact [facility] Diagnoses Abnormal uterine bleeding (AUB) Procedures PELVIC US WHI US PELVIC NONOBSTETRIC REAL-TIME IMAGE COMPLETE Sandrita Chen MD [address] [facility] [address] [place] [address] [facility] [address] [place] [address] Referral ID Status Reason Start Date Expiration Date Visits Requested Visits Authorized [id number] Authorized Auto-Generat ed Referral 11/06/2023 11/05/2024 1 1 [facility] for visit Narrative* Diagnostic Procedure Only (Routine) - Closed Specialty Diagnoses / Procedures Referred By Contac t Referred To Contact XR IMAGING Diagnoses Rash and nonspecific skin eruption Procedures XR SACROILIAC JOINTS 2V AP PELVIS/FERGUESON RADIOLOGIC EXAMINATION SACROILIAC JNTS <3 VIEWS Nikki Gomez MD [address] [facility] [address] [place] [address] [place] [address] Referral ID Status Reason Start Date Expiration Date V isits Requested Visits Authorized [id number] Closed Auto-Generate d Referral 10/23/2022 11/22/2023 1 1 [facility] for visit Narrative* Diagnostic Procedure Only (Routine) - Closed Specialty Diagnoses / Procedures Referred By Contac t Referred To Contact XR IMAGING Diagnoses Pain in both knees, unspecified chronicity Procedures XR KNEE GENERAL 4V AP BOTH/PA BOTH/LAT/MERC BILATERAL RADIOLOGIC EXAM KNEE COMPLETE 4/MORE VIEWS Cheli Allen PA-C [address] [place] [address] [place] [address] Referral ID Status Reason Start Date Expiration Date V isits Requested Visits Authorized [id number] Closed Auto-Generate d Referral 07/11/2022 08/10/2023 1 [facility] Diagnostic Procedure Only (Routine) - Closed Specialty Diagnoses / Procedures Referred By David t Referred To Contact [facility] Diagnoses Abnormal uterine bleeding (AUB) Procedures PELVIC US WHI US PELVIC NONOBSTETRIC REAL-TIME IMAGE COMPLETE Sandrita Chen MD [address] [place] [address] [facility] [address] [place] [address] Referral ID Status Reason Start Date Expiration Date V isits Requested Visits Authorized [id number] Closed Auto-Generate d Referral 11/06/2023 11/05/2024 1 1 [facility] Summary Purpose Family History No Family History Records Found Relationship Condition Age at Onset Recorded Date/T jorgito Not Specified Psychiatric care Unknown Diabetes mellitus Unknown Anxiety Unknown Depression Unknown Attempted suicide Unknown Disorder of thyroid Unknown Relationship Condition Age at Onset Recorded Date/T jorgito mother Anxiety Unknown Depression Unknown Psychiatric care Unknown Attempted suicide Unknown Disorder of thyroid Unknown father Diabetes mellitus Unknown Advance Directives No Advanced Directives Records Found Advance Directive Response Recorded Date/ Time Advance Directives No April 13, 2014 3:19pm Living Will No November 25, 2018 12:03pm Power of Tobacco Grower No November 12:03pm Advance Directive Response Recorded Date/ Time Advance Directives No April 13, 2014 2:19pm Living Will No November 25, 2018 11:03am Power of Tobacco Grower No November 11:03am Advance Directive Response Recorded Date/ Time Advance Directives No April 13, 2014 3:19pm Living Will No May 24, 2022 4:11pm Power of Tobacco Grower No May 24 4:11pm Chief Complaint and Reason for Visit Chief Complaint left knee xray NODULE Reason for Visit Derangement of left knee Chief Complaint left knee xray NODULE DEREANGEMENT OF LEFT KNEE Reason for Visit Derangement of left knee Chief Complaint LEFT KNEE LEFT KNEE DEFECT OF LAT FEM CONDYL,TIBIAL PLATEAU,SUBLUX LKN Reason for Visit Articular cartilage disorder of left knee Derangement of left knee Subluxation of left patella Articular cartilage disorder of left knee Subluxation of left patella Chief Complaint DEFECT OF LAT FEM CO NDYL,TIBIAL PLATEAU,SUBLUX LKN 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 CARE, PT NEEDS NPP FLANK PAIN 6 wk FU GOITER Other cervical disc degeneration, unspecified cerv Reason for Visit Bilateral knee pain Fibromyalgia Sleep concern Long-term current use of steroids Encounter for monitoring amitriptyline therapy Establishing care with new doctor, encounter for Multiple joint pain Mild depression Bilateral knee pain Fibromyalgia Sleep concern Irregular menstrual cycle Multiple joint pain Rash and nonspecific skin eruption Enlarged thyroid Kidney stone Mild depression Chief Complaint 6 wk FU GOITER Other cervical disc degeneration, unspecified cerv 6 WK FU MED FU AND RHEUMATOLOGY REFERRAL BACK PAIN RX HERE Reason for Visit Bilateral knee pain Fibromyalgia Sleep concern Irregular menstrual cycle Multiple joint pain Rash and nonspecific skin eruption Enlarged thyroid Kidney stone Mild depression Bilateral knee pain Fibromyalgia Irregular menstrual cycle Multiple joint pain Leg cramps Mild depression Bilateral knee pain Fibromyalgia Ear itching Heartburn Irregular menstrual cycle Multiple joint pain Chronic low back pain without sciatica Mild depression Eye problem Reason for Referral Specialty Diagnoses / Procedures Referred By David li Referred To Contact Dermatology Diagnoses Rash and nonspecific skin eruption Procedures CONSULT TO DERMATOLOGY OFFICE/OUTPATIENT [facility] 60 MINUTES Fabrice Stone PA-C [address] [place] [address] Referral ID Status Reason Start Date Expiration Date Visits Requested Visits Authorized [id number] Authorized PCP Requested Referral 04/14/2024 04/14/2025 1 1 Additional Source Comments INFORMATION SOURCE (unrecogn ized section and content) DATE CREATED AUTHOR 10/28/2018 [facility] DATE CREATED AUTHOR AUTHOR'S ORGANIZ ATION 07/27/2024 [facility] DATE CREATED AUTHOR AUTHOR'S ORGANIZ ATION 11/25/2024 [facility] DATE CREATED AUTHOR AUTHOR'S ORGANIZ ATION 12/01/2024 [facility] Goals (unrecognized section and content) Goals may be documented in a n alternate sectionGoals may be documented in an alternate sectionGoals may be documented in an alternate sectionGoals may be documented in an alternate sectionGoals may be documented in an alternate sectionGoals may be documented in an alternate sectionGoals may be documented in an alternate sectionGoals may be documented in an alternate section Care Teams (unrecognized sec tion and content) Team Status: Active Member Role Status Dates Dr. Adriano Uriostegui MD Family Provider Active Dr. Ap Donahue MD Primary Care Provider Active Team Status: Inactive Member Role Status Dates Dr. Adriano Uriostegui MD Referring Provider Active Dr. Ap Donahue MD Primary Care Provider, Attendi ng Provider Active Team Status: Inactive Member Role Status Dates Dr. Adriano Uriostegui MD Primary Care Provider Active Ria Sousa NP-C Attending Provider, Referring P krystina Active Team Status: Inactive Member Role Status Dates Dr. Ap Donahue MD Primary Care Provider, Attendi ng Provider Active Team Status: Inactive Member Role Status Dates Dr. Ap Donahue MD Primary Care Provider Active Dr. Jerome Yao DO Emergency Provider Active Team Status: Inactive Member Role Status Dates Dr. Ap Donahue MD Primary Care Pro vider, Attending Provider, Referring Provider Active Team Status: Inactive Member Role Status Dates Dr. Ap Donahue MD Primary Care Provider Active Dr. Jerome Yao DO Attending Provider, Emergency Provider Active Team Status: Active Member Role Status Dates Dr. Ap Donahue MD Primary Care Provider Active Dr. Syed Casper MD Attending Provider, Referring Pr ovider Active Team Status: Inactive Member Role Status Dates Dr. Ap Donahue MD Primary Care Provider Active Dr. Syed Casper MD Attending Provider, Referring Pr ovider Active Hospice Nurse Practitioner Relationship Specialty Start Date End Date Adriano Uriostegui MD PCP - General Family Medicine 05/30/15 Hospice Nurse Practitioner Relationship Specialty Start Date End Date Adriano Uriostegui MD PCP - General Family Medicine 05/30/15 Hospice Nurse Practitioner Relationship Specialty Start Date End Date Adriano Uriostegui MD PCP - General Family Medicine 05/30/15 Hospice Nurse Practitioner Relationship Specialty Start Date End Date Ap Donahue MD [address] [place] [address] PCP - General Internal Medicine 10/08/22 Hospice Nurse Practitioner Relationship Specialty Start Date End Date Ap Donahue MD [address] [place] [address] PCP - General Internal Medicine 10/08/22 Hospice Nurse Practitioner Relationship Specialty Start Date End Date Adriano Uriostegui MD PCP - General Family Medicine 05/30/15 10/07/22 Hospice Nurse Practitioner Relationship Specialty Start Date End Date Ap Donahue MD [address] [place] [address] PCP - General Internal Medicine 10/08/22 Hospice Nurse Practitioner Relationship Specialty Start Date End Date Ap Donahue MD [address] [place] [address] PCP - General Internal Medicine 10/08/22 Hospice Nurse Practitioner Relationship Specialty Start Date End Date Ap Donahue MD [address] [place] [address] PCP - General Internal Medicine 10/08/22 Hospice Nurse Practitioner Relationship Specialty Start Date End Date Ap Donahue MD [address] [place] [address] PCP - General Internal Medicine 10/08/22 Hospice Nurse Practitioner Relationship Specialty Start Date End Date Ap Donahue MD [address] [facility] [place] [address] PCP - General Internal Medicine 10/08/22 Hospice Nurse Practitioner Relationship Specialty Start Date End Date Ap Donahue MD [address] [facility] [place] [address] PCP - General Internal Medicine 10/08/22 Hospice Nurse Practitioner Relationship Specialty Start Date End Date Ap Donahue MD [address] [facility] [place] [address] PCP - General Internal Medicine 10/08/22 Hospice Nurse Practitioner Relationship Specialty Start Date End Date Ap Donahue MD [address] [facility] [place] [address] PCP - General Internal Medicine 10/08/22 Hospice Nurse Practitioner Relationship Specialty Start Date End Date Ap Donahue MD [address] [facility] [place] [address] PCP - General Internal Medicine 10/08/22 Hospice Nurse Practitioner Relationship Specialty Start Date End Date Ap Donahue MD [address] [facility] [place] [address] PCP - General Internal Medicine 10/08/22 Hospice Nurse Practitioner Relationship Specialty Start Date End Date Ap Donahue MD [address] [facility] [place] [address] PCP - General Internal Medicine 10/08/22 Hospice Nurse Practitioner Relationship Specialty Start Date End Date Ap Donahue MD [address] [facility] [place] [address] PCP - General Internal Medicine 10/08/22 Hospice Nurse Practitioner Relationship Specialty Start Date End Date Ap Donahue MD [address] [facility] [place] [address] PCP - General Internal Medicine 10/08/22 Hospice Nurse Practitioner Relationship Specialty Start Date End Date Ap Donahue MD [address] [facility] [place] [address] PCP - General Internal Medicine 10/08/22 Hospice Nurse Practitioner Relationship Specialty Start Date End Date Ap Donahue MD [address] [facility] [place] [address] PCP - General Internal Medicine 10/08/22 Hospice Nurse Practitioner Relationship Specialty Start Date End Date Ap Donahue MD [address] [facility] [place] [address] PCP - General Internal Medicine 10/08/22 Hospice Nurse Practitioner Relationship Specialty Start Date End Date Ap Donahue MD [address] [facility] [place] [address] PCP - General Internal Medicine 10/08/22 Hospice Nurse Practitioner Relationship Specialty Start Date End Date Ap Donahue MD [address] [facility] [place] [address] PCP - General Internal Medicine 10/08/22 Nikki Gomez MD [address] [facility] [address] [place], [place] [address] Internal Medicine 10/06/24 Source Comments (unrecognize d section and content) In the event this informatio n is protected by the Federal Confidentiality of Alcohol and Drug Abuse Patient Records regulations: The Federal rules restrict any use of the information to criminally investigate or prosecute any alcohol or drug abuse patient.[facility]In the event this information is protected by the Federal Confidentiality of Alcohol and Drug Abuse Patient Records regulations: The Federal rules restrict any use of the information to criminally investigate or prosecute any alcohol or drug abuse patient.[facility]In the event this information is protected by the Federal Confidentiality of Alcohol and Drug Abuse Patient Records regulations: The Federal rules restrict any use of the information to criminally investigate or prosecute any alcohol or drug abuse patient.[facility]In the event this information is protected by the Federal Confidentiality of Alcohol and Drug Abuse Patient Records regulations: The Federal rules restrict any use of the information to criminally investigate or prosecute any alcohol or drug abuse patient.[facility]In the event this information is protected by the Federal Confidentiality of Alcohol and Drug Abuse Patient Records regulations: The Federal rules restrict any use of the information to criminally investigate or prosecute any alcohol or drug abuse patient.[facility]In the event this information is protected by the Federal Confidentiality of Alcohol and Drug Abuse Patient Records regulations: The Federal rules restrict any use of the information to criminally investigate or prosecute any alcohol or drug abuse patient.[facility]In the event this information is protected by the Federal Confidentiality of Alcohol and Drug Abuse Patient Records regulations: The Federal rules restrict any use of the information to criminally investigate or prosecute any alcohol or drug abuse patient.[facility]In the event this information is protected by the Federal Confidentiality of Alcohol and Drug Abuse Patient Records regulations: The Federal rules restrict any use of the information to criminally investigate or prosecute any alcohol or drug abuse patient.[facility]In the event this information is protected by the Federal Confidentiality of Alcohol and Drug Abuse Patient Records regulations: The Federal rules restrict any use of the information to criminally investigate or prosecute any alcohol or drug abuse patient.[facility]In the event this information is protected by the Federal Confidentiality of Alcohol and Drug Abuse Patient Records regulations: The Federal rules restrict any use of the information to criminally investigate or prosecute any alcohol or drug abuse patient.[facility]In the event this information is protected by the Federal Confidentiality of Alcohol and Drug Abuse Patient Records regulations: The Federal rules restrict any use of the information to criminally investigate or prosecute any alcohol or drug abuse patient.[facility]In the event this information is protected by the Federal Confidentiality of Alcohol and Drug Abuse Patient Records regulations: The Federal rules restrict any use of the information to criminally investigate or prosecute any alcohol or drug abuse patient.[facility]In the event this information is protected by the Federal Confidentiality of Alcohol and Drug Abuse Patient Records regulations: The Federal rules restrict any use of the information to criminally investigate or prosecute any alcohol or drug abuse patient.[facility]In the event this information is protected by the Federal Confidentiality of Alcohol and Drug Abuse Patient Records regulations: The Federal rules restrict any use of the information to criminally investigate or prosecute any alcohol or drug abuse patient.[facility]In the event this information is protected by the Federal Confidentiality of Alcohol and Drug Abuse Patient Records regulations: The Federal rules restrict any use of the information to criminally investigate or prosecute any alcohol or drug abuse patient.[facility]In the event this information is protected by the Federal Confidentiality of Alcohol and Drug Abuse Patient Records regulations: The Federal rules restrict any use of the information to criminally investigate or prosecute any alcohol or drug abuse patient.[facility]In the event this information is protected by the Federal Confidentiality of Alcohol and Drug Abuse Patient Records regulations: The Federal rules restrict any use of the information to criminally investigate or prosecute any alcohol or drug abuse patient.[facility]In the event this information is protected by the Federal Confidentiality of Alcohol and Drug Abuse Patient Records regulations: The Federal rules restrict any use of the information to criminally investigate or prosecute any alcohol or drug abuse patient.[facility]In the event this information is protected by the Federal Confidentiality of Alcohol and Drug Abuse Patient Records regulations: The Federal rules restrict any use of the information to criminally investigate or prosecute any alcohol or drug abuse patient.[facility]In the event this information is protected by the Federal Confidentiality of Alcohol and Drug Abuse Patient Records regulations: The Federal rules restrict any use of the information to criminally investigate or prosecute any alcohol or drug abuse patient.[facility]In the event this information is protected by the Federal Confidentiality of Alcohol and Drug Abuse Patient Records regulations: The Federal rules restrict any use of the information to criminally investigate or prosecute any alcohol or drug abuse patient.[facility]In the event this information is protected by the Federal Confidentiality of Alcohol and Drug Abuse Patient Records regulations: The Federal rules restrict any use of the information to criminally investigate or prosecute any alcohol or drug abuse patient.[facility]In the event this information is protected by the Federal Confidentiality of Alcohol and Drug Abuse Patient Records regulations: The Federal rules restrict any use of the information to criminally investigate or prosecute any alcohol or drug abuse patient.[facility]In the event this information is protected by the Federal Confidentiality of Alcohol and Drug Abuse Patient Records regulations: The Federal rules restrict any use of the information to criminally investigate or prosecute any alcohol or drug abuse patient.[facility]In the event this information is protected by the Federal Confidentiality of Alcohol and Drug Abuse Patient Records regulations: The Federal rules restrict any use of the information to criminally investigate or prosecute any alcohol or drug abuse patient.[facility]In the event this information is protected by the Federal Confidentiality of Alcohol and Drug Abuse Patient Records regulations: The Federal rules restrict any use of the information to criminally investigate or prosecute any alcohol or drug abuse patient.[facility]In the event this information is protected by the Federal Confidentiality of Alcohol and Drug Abuse Patient Records regulations: The Federal rules restrict any use of the information to criminally investigate or prosecute any alcohol or drug abuse patient.[facility] Reason for Visit (unrecogniz ed section and content) Reason Comments New Knee Pain Reason Onset Date Comments Appointment 09/24/2022 Reason Comments Joint Pain Reason Comments Established Patient Pain Reason Comments New Patient Discuss ablation Reason Comments Results Reason Comments Refill Request Reason Comments Joint Pain Knees and hips Reason Comments Orders Reason Comments Follow Up Ultrasound Reason Comments Procedure EMB Reason Comments Telemedicine Discuss results of E MB Reason Comments Patient Update Left Pt Vm to call b ack to schedule surgery Hermelinda DarnellOctober 2023 2:51 PM Reason Comments Patient Update Reason Comments Positive MARKUS Reason Comments Plaquenil Check 400mg daily Reason Comments Joint Pain Inactive Administered Medications - up to 3 most recent administrations Administered Medications (un recognized section and content) Medication Order MAR Action Action Date Dose Rate Site betamethasone acetate-betamethasone sodium phosphate 6 mg injection (CELESTONE) 6 mg, Injection - FOR ORTHO USE ONLY, ONCE, 1 dose, Starting on Fri04/14/23 at 1054, Until Fri04/14/23 at 1054 Given 04/14/2023 10:54 AM EST 6 mg Knee , Left betamethasone acetate-betamethasone sodium phosphate 6 mg injection (CELESTONE) 6 mg, Injection - FOR ORTHO USE ONLY, ONCE, 1 dose, Starting on 04/14/23 at 1054, Until 04/14/23 at 1054 Given 04/14/2023 10:54 AM EST 6 mg Knee , Right lidocaine (PF) 10 mg/mL (1 %) 5 mL injection (XYLOCAINE) 5 mL, Injection - FOR ORTHO USE ONLY, ONCE, 1 dose, Starting on 04/14/23 at 1054, Until 04/14/23 at 1054 Given 04/14/2023 10:54 AM EST 5 mL Knee , Left lidocaine (PF) 10 mg/mL (1 %) 5 mL injection (XYLOCAINE) 5 mL, Injection - FOR ORTHO USE ONLY, ONCE, 1 dose, Starting on 04/14/23 at 1054, Until Fri04/14/23 at 1054 Given 04/14/2023 10:54 AM EST 5 mL Knee , Right FOR RECORDS PERTAINING TO PATIENTS WHO ARE OR HAVE BEEN ENROLLED IN A CHEMICAL DEPENDENCY/SUBSTANCEABUSE PROGRAM, SOME INFORMATION MAY BE OMITTED. This clinical summary was aggregated from multiple sources. Caution should be exercised in using it in the provision of clinical care. This summary normalizes information from multiple sources, and as a consequence, information in this document may materially change the coding, format and clinical context of patient data. In addition, data may be omitted in some cases. CLINICAL DECISIONS SHOULD BE BASED ON THE PRIMARY CLINICAL RECORDS. [facility] provides no warranty or guarantee of the accuracy or completeness of information in this document.
--- OUTSIDE RECORDS SUMMARY | 2024-12-01 13:24 | XMS RPT_ITS | CCD ---
Author Organization [facility] Care Team Providers Care Coining Press Operator Name Role Phone Dr. Adriano Uriostegui Primary [...] Adriano Uriostegui MD Primary Care Provider [phone] Ap Donahue MD Primary Care Provider [phone] ROWAN, AP G Primary Care Unavailable NANCY LUKE Attending Unavailable ROWAN, AP G Primary Care Unavailable FABRICE STONE Referring Unavailable Nikki Gomez MD Unavailable [phone] NIKKI GOMEZ Attending Unavailable NIKKI GOMEZ Referring [...] Primary Care Unavailable Rowan, Ap Attending Unavailable Preemption, Ap Primary Care Unavailable Rowan, Ap Referring Unavailable Rowan, Ap Referring Unavailable Preemption, Ap Attending Unavailable Rowan, Ap Primary Care Unavailable Preemption, Ap Referring Unavailable Preemption, Ap Attending Unavailable Rowan, Ap Primary Care Unavailable Preemption, Ap Attending Unavailable Preemption, Ap Referring Unavailable Preemption, Ap Primary Care Unavailable Preemption, Ap Referring Unavailable Rowan, Ap Primary Care Unavailable Preemption, Ap Attending Unavailable Rowan, Ap Primary Care Unavailable Dick Gordon Attending Unavailable Rowan, Ap Attending Unavailable Rowan, Ap Referring Unavailable Preemption, Ap Primary Care Unavailable Preemption, Ap Primary Care Unavailable Dick Gordon Attending Unavailable Preemption, Ap Attending Unavailable Rowan, Ap Primary Care Unavailable Rowan, Ap Referring Unavailable Rowan, Ap Attending Unavailable Preemption, Ap Primary Care Unavailable Preemption, Ap Referring Unavailable Rowan, Ap Attending Unavailable Rowan, Ap Referring Unavailable Preemption, Ap Primary Care Unavailable Rowan, Ap Attending Unavailable Preemption, Ap Referring Unavailable Rowan, Ap Primary Care Unavailable Preemption, Ap Attending Unavailable Rowan, Ap Referring Unavailable Preemption, Ap Primary Care Unavailable Preemption, Ap Attending Unavailable Preemption, Ap Referring Unavailable Rowan, Ap Primary Care Unavailable Rowan, Ap Attending Unavailable Preemption, Ap Referring Unavailable Preemption, Ap Primary Care Unavailable Allergies Allergy Classification Reported Allergen(s) Allergy Type Date of Onset Reaction(s) Facility Pollen (2 sources) Grass pollen Substance Allergy 4 Cough [facility] Work Phone: (6 sources) environmental allergies [Other] Propensity to adverse reactions 6 [facility] Work Phone: (13 sources) Grass pollen; Translations: [GRASS POLLEN] Drug Allergy 4 Cough [facility] Work Phone: Medications Current Medications Medication Drug [...] NON-DATABASE (17 sources) End: 04-14-2024 MEDICATION, NON-DATABASE [employer] medical marijuana card, gummies 04/14/2024 Discontinued (Other) MEDICATION, NON- DATABASE [employer] medical marijuana card, gummies Active MEDICATION, NON- DATABASE [employer] medical marijuana card, gummies 0 Active Comment on above: [place] [employer] marilaly na card, gummies meloxicam 7.5 mg [...] sources) Drug therapy finding; Translations: [Other exterminator termite (current) drug therapy] Onset: 11-24-2024 04-14-2024 Episodic Other aftercare (1 source) Taking high risk medication; Translations: [Other exterminator termite (current) drug therapy] 07-26-2024 Episodic Other connective [...] Episodic Other aftercare (3 sources) Other exterminator termite (current) drug therapy; Translations: [High risk medication [...] PT 11-30-2024 Inital Evaluation (1) - PT [facility] [address] [place] [address]. [address] [place] [address] / REHABILITATION SERVICES INITIAL EVALUATION MR#: [id number] Acct: [id number] Name: CAR SANTOYO Rep #: [id number] : 1985 39 From: William Hamilton PT, ATC Referring Dr.: Dr. Ap Donahue MD Status: R EG RCR Insurance: [facility] SELF PAY [employer]URANCE Patient's Visit Information Visit [...] to negotiate. 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 For Medicare only, by signing this I certify the plan of care. Please let me know if there are questions or concerns regarding this plan of care. Physician Signature: Date : 11/30/24 1320 CC: Dr. Ap Donahue MD [facility] Signed Normal [facility] CBC W/Diff, Automatedon 11-08 Absolute Lymph 1.42 X10 3/uL Normal 0.83-4.51 [facility] Comment on above: Performed By: #### L 500.4050, L503.6030, L503.6550, L506.1001, L100.0100 #### [facility] [address] [place], [address] Absolute Neut 2.5 X10 3/uL Normal 2.0-7.7 [facility] Comment on above: Performed By: #### L 500.4050, L503.6030, L503.6550, L506.1001, L100.0100 #### [facility] [address] [place], [address] Basophils/100 WBC (Bld) 0.9 % Normal 0-1 [facility] Comment on above: Performed By: #### L 500.4050, L503.6030, L503.6550, L506.1001, L100.0100 #### [facility] [address] [place], [address] Eosinophils/100 WBC (Bld) 4.3 % Normal 0-5 [facility] Comment on above: Performed By: #### L 500.4050, L503.6030, L503.6550, L506.1001, L100.0100 #### [facility] [address] [place], [address] Erythrocyte distribution width (RBC) [Ratio] 15.8 % High 11.6-14.6 [facility] Comment on above: Performed By: #### L 500.4050, L503.6030, L503.6550, L506.1001, L100.0100 #### [facility] [address] [place], [address] Hematocrit (Bld) [Volume fraction] 37.5 % Normal 37-47 [facility] Comment on above: Performed By: #### L 500.4050, L503.6030, L503.6550, L506.1001, L100.0100 #### [facility] [address] [place], [address] Hemoglobin (Bld) [Mass/Vol] 11.8 g/dL Low 12.0-15.0 [facility] Comment on above: Performed By: #### L 500.4050, L503.6030, L503.6550, L506.1001, L100.0100 #### [facility] [address] [place], [address] IG% 0.200 Normal 0.0-0.9 [facility] Comment on above: Result Comment: IG% - Immature Granulocytes (promyelocytes, myelocytes and metamyelocytes) > 1% indicates that a LEFT SHIFT is Present. Performed By: #### L 500.4050, L503.6030, L503.6550, L506.1001, L100.0100 #### [facility] [address], [address] Lymphocytes/100 WBC (Bld) 32.0 % Normal 19-41 [facility] Comment on above: Performed By: #### L 500.4050, L503.6030, L503.6550, L506.1001, L100.0100 #### [facility] [address] [place], [address] MCH (RBC) [Entitic mass] 24.5 pg Low 27.0-32.0 [facility] Comment on above: Performed By: #### L 500.4050, L503.6030, L503.6550, L506.1001, L100.0100 #### [facility] [address] [place], [address] MCHC (RBC) [Mass/Vol] 31.5 g/dL Low 32-36 [facility] Comment on above: Performed By: #### L 500.4050, L503.6030, L503.6550, L506.1001, L100.0100 #### [facility] [address] [place], [address] MCV (RBC) [Entitic vol] 78.0 fL Low 81-99 [facility] Comment on above: Performed By: #### L 500.4050, L503.6030, L503.6550, L506.1001, L100.0100 #### [facility] [address] [place], [address] Monocytes/100 WBC (Bld) 7.0 % Normal 0-10 [facility] Comment on above: Performed By: #### L 500.4050, L503.6030, L503.6550, L506.1001, L100.0100 #### [facility] [address] [place], [address] Neutrophils/100 WBC (Bld) 55.6 % Normal 47-70 [facility] Comment on above: Performed By: #### L 500.4050, L503.6030, L503.6550, L506.1001, L100.0100 #### [facility] [address] [place], [address] Nucleated RBC (Bld) [#/Vol] 0 10*3/uL Normal 0-5 [facility] Comment on above: Performed By: #### L 500.4050, L503.6030, L503.6550, L506.1001, L100.0100 #### [facility] [address] [place], [address] Platelet mean volume (Bld) [Entitic vol] 10.8 fL Normal 6.2-12.0 [facility] Comment on above: Performed By: #### L 500.4050, L503.6030, L503.6550, L506.1001, L100.0100 #### [facility] [address] [place], [address] Platelets (Bld) [#/Vol] 300 10*3/uL Normal 150-450 [facility] Comment on above: Performed By: #### L 500.4050, L503.6030, L503.6550, L506.1001, L100.0100 #### [facility] [address] [place], [address] RBC (Bld) [#/Vol] 4.81 10*6/uL Normal 4.2-5.4 [facility] Comment on above: Performed By: #### L 500.4050, L503.6030, L503.6550, L506.1001, L100.0100 #### [facility] [address] [place], [address] RDW SD 45.0 fl High 35.1-43.9 [facility] Comment on above: Performed By: #### L 500.4050, L503.6030, L503.6550, L506.1001, L100.0100 #### [facility] [address] [place], [address] WBC (Bld) [#/Vol] 4.4 10*3/uL Normal 4.4-11.0 [facility] Comment on above: Performed By: #### L 500.4050, L503.6030, L503.6550, L506.1001, L100.0100 #### [facility] [address] [place], [address] Comprehensive Metabolic Prof [facility] 11-18-2024 Albumin [Mass/Vol] 3.9 g/dL Normal 3.5-5.0 [facility] Comment on above: Performed By: #### L 500.4050, L503.6030, L503.6550, L506.1001, L100.0100 #### [facility] [address] [place], [address] Albumin/Globulin [Mass ratio] 1.3 {ratio} Normal 0.9-2.4 [facility] Comment on above: Performed By: #### L 500.4050, L503.6030, L503.6550, L506.1001, L100.0100 #### [facility] [address] [place], [address] ALK PHOS 66 U/L Normal 35-104 [facility] Comment on above: Performed By: #### L 500.4050, L503.6030, L503.6550, L506.1001, L100.0100 #### [facility] [address] [place], [address] ALT [Catalytic activity/Vol] 11 U/L Normal <=34 [facility] Comment on above: Performed By: #### L 500.4050, L503.6030, L503.6550, L506.1001, L100.0100 #### [facility] [address] [place], [address] AST [Catalytic activity/Vol] 16 U/L Normal <=31 [facility] Comment on above: Performed By: #### L 500.4050, L503.6030, L503.6550, L506.1001, L100.0100 #### [facility] [address] [place], [address] Bilirubin [Mass/Vol] 0.38 mg/dL Normal 0.00-1.30 [facility] Comment on above: Performed By: #### L 500.4050, L503.6030, L503.6550, L506.1001, L100.0100 #### [facility] [address] [place], [address] BUN/CRE 11.1 RATIO Normal 10-20 [facility] Comment on above: Performed By: #### L 500.4050, L503.6030, L503.6550, L506.1001, L100.0100 #### [facility] [address] [place], [address] Calcium [Mass/Vol] 8.7 mg/dL Normal 7.6-11.0 [facility] Comment on above: Performed By: #### L 500.4050, L503.6030, L503.6550, L506.1001, L100.0100 #### [facility] [address] [place], [address] Chloride [Moles/Vol] 106 mmol/L Normal 98-108 [facility] Comment on above: Performed By: #### L 500.4050, L503.6030, L503.6550, L506.1001, L100.0100 #### [facility] [address] [place], [address] CO2 [Moles/Vol] 24.3 mmol/L Normal 21.0-32.0 [facility] Comment on above: Performed By: #### L 500.4050, L503.6030, L503.6550, L506.1001, L100.0100 #### [facility] [address] [place], [address] Creatinine [Mass/Vol] 0.76 mg/dL Normal 0.70-1.20 [facility] Comment on above: Performed By: #### L 500.4050, L503.6030, L503.6550, L506.1001, L100.0100 #### [facility] [address] [place], [address] GAP 9 Normal 5-15 [facility] Comment on above: Performed By: #### L 500.4050, L503.6030, L503.6550, L506.1001, L100.0100 #### [facility] [address] [place], [address] GFR/1.73 sq M.predicted among non-blacks MDRD (S/P/Bld) [Vol rate/Area] 102 mL/min/{1.73_m2} Normal >60 [facility] Comment on above: Result Comment: mL/m in/1.73m2 CKD-EPI Creatinine Equation (2020) Performed By: #### L 500.4050, L503.6030, L503.6550, L506.1001, L100.0100 #### [facility] [address] [place], [address] Globulin (S) [Mass/Vol] 3.0 g/dL Normal 2.2-4.2 [facility] Comment on above: Performed By: #### L 500.4050, L503.6030, L503.6550, L506.1001, L100.0100 #### [facility] [address] [place], [address] Glucose [Mass/Vol] 81 mg/dL Normal 70-99 [facility] Comment on above: Performed By: #### L 500.4050, L503.6030, L503.6550, L506.1001, L100.0100 #### [facility] [address] [place], [address] Potassium [Moles/Vol] 3.9 mmol/L Normal 3.3-5.1 [facility] Comment on above: Performed By: #### L 500.4050, L503.6030, L503.6550, L506.1001, L100.0100 #### [facility] [address] [place], [address] Sodium [Moles/Vol] 139 mmol/L Normal 133-145 [facility] Comment on above: Performed By: #### L 500.4050, L503.6030, L503.6550, L506.1001, L100.0100 #### [facility] [address] [place], [address] T PROT 6.9 g/dL Normal 5.9-8.4 [facility] Comment on above: Performed By: #### L 500.4050, L503.6030, L503.6550, L506.1001, L100.0100 #### [facility] [address] [place], [address] Urea nitrogen [Mass/Vol] 8 mg/dL Normal 4-19 [facility] Comment on above: Performed By: #### L 500.4050, L503.6030, L503.6550, L506.1001, L100.0100 #### [facility] [address] [place], [address] Ferritinon 11-18-2024 Ferritin [Mass/Vol] 13 ng/mL Low 22-378 [facility] Comment on above: Performed By: #### L 500.4050, L503.6030, L503.6550, L506.1001, L100.0100 ####[facility] [address] [place], [address] Iron+Iron Binding Capacityon 11-18-2024 Iron [Mass/Vol] 36 ug/dL Low 50-170 [facility] Comment on above: Performed By: #### L 500.4050, L503.6030, L503.6550, L506.1001, L100.0100 ####[facility] [address] [place], [address] IRON SATURATION 10.0 Low 13-59 [facility] Comment on above: Performed By: #### L 500.4050, L503.6030, L503.6550, L506.1001, L100.0100 ####[facility] [address] [place], [address] TIBC 365 ug/dL Normal 250-450 [facility] Comment on above: Performed By: #### L 500.4050, L503.6030, L503.6550, L506.1001, L100.0100 ####[facility] [address] [place], [address] UIBC 329 ug/dL Normal 228-428 [facility] Comment on above: Performed By: #### L 500.4050, L503.6030, L503.6550, L506.1001, L100.0100 ####[facility] [address] [place], [address] Vitamin D,25 Hydroxyon 11-18 Vitamin D 25-OH 24.6 ng/mL Low 30-100 [facility] Comment on above: Result Comment: Holley min D Status Deficiency: <20 ng/mL (50nmol/L) Insufficiency: 20-30 ng/mL (50-75 nmol/L) Sufficiency: 30-100 ng/mL (75-250 nmol/L) Toxicity: >100 ng/mL (>250 nmol/L) Performed By: #### L 500.4050, L503.6041, L503.6550, L506.1001, L100.0100 ####[facility] [address] [place], [address] Internal Medicine Office Vis iton 11-16-2024 Internal Medicine Office Visit [facility] [address] [address] [place] [address] OFFICE VISIT Date of Service: 11/18/24 MR#: [id number] Acct: [id number] Name: CAR SANTOYO Rep #: [id number] : 1985 Provider: Dr. Ap gonsalez MD Age/Sex: 39/F [place] [facility]: Signed Intake Vital Signs 08/17/24 12:45 [...] MED FOLLOW UP Chief Complaint: 3M F/U Animal Chiropractor Required: No Accompanied by: Is patient in [...] little. She continues to follow with the interpreter and gets plaquenil through them. She does get regular eye exams with the medication. She reports she wasn't able to see the orthopedist stating the [facility] was not in network. She states [...] as ne (more content not included)... Normal [facility] Internal Medicine Office Vis tyrone 08-10-2024 Internal Medicine Office Visit [facility] [address] [place] [address] [place] [address] OFFICE VISIT Date of Service: 08/11/24 MR#: [id number] Acct: [id number] Name: CAR SANTOYO Rep #: [id number] [...] 3 M FU Chief Complaint: 3M F/U Animal Chiropractor Required: No Accompanied by: Is patient in [...] help and continues to follow with the interpreter. She does still feel her medications are [...] resolved. The patient reports she saw the bill distributor for her weight. She states she feels like she is eating all of the time and just doesn't feel full. She has been doing better in terms of eating healthy. ROS Const Constitutional: Positive for headache(s), weight change (4 pound weight gain) and sleep problems; No body ache, excessive sweating, fatigue, fever(s), frequent falls, snoring, weakness or caballero (more content not included)... Normal [facility] OCT MACULA CIRRUS OU (BOTH E YES)on 07-26-2024 [facility] Radiology Study observation (narrative) [facility] VISUAL FIELD 10-2 OU (BOTH E YES)on 07-26-2024 [facility] Radiology Study observation (narrative) [facility] MR/BMS.BPon 07-08-2024 MR/BMS.BP [address], [address] [place] [address] OFFICE VISIT Date of Service: 07/08/24 MR#: [id number] Acct: [id number] Name: CAR SANTOYO Rep #: [id number] : 1985 Provider: Dr. Dick Lucas se, DO Age/Sex: 38/F [place] [facility] [place] [place] Status: Signed Intake Vital Signs 05/27/24 08:36 [...] other current occupational status: employed current occupation: [employer] Smoking Status: Never smoker Electronic Cigarette Use: [...] Psych Appeara (more content not included)... Normal [facility] Rubeola IgG Abon 06-04-2024 RUBEOLA Ab, IgG 223.0 AU/mL Normal Immune >16.4 [facility] Comment on above: Result Comment: Nega tive <13.5 Equivocal 13.5 - 16.4 Positive >16.4 Presence of antibodies to Rubeola is presumptive evidence of immunity except when acute infection is suspected. Performed at: - [facility] [id number] Mlt: Johan Pang PhD, Phone: [phone] Performed By: #### L 503.7688, L100.0100, L3100.3300, L506.1001, L503.0750 ####[facility] [address] [place], [address] CBC W/Diff, Automatedon 05-09 Absolute Lymph 1.19 X10 3/uL Normal 0.83-4.51 [facility] Comment on above: Performed By: #### L 503.6030, L100.0100, L3100.3300, L506.1001, L503.6550 ####[facility] [address] [place], [address] Absolute Neut 2.8 X10 3/uL Normal 2.0-7.7 [facility] Comment on above: Performed By: #### L 503.6030, L100.0100, L3100.3300, L506.1001, L503.6550 ####[facility] [address] [place], [address] Basophils/100 WBC (Bld) 0.9 % Normal 0-1 [facility] Comment on above: Performed By: #### L 503.6030, L100.0100, L3100.3300, L506.1001, L503.6550 ####[facility] [address] [place], [address] Eosinophils/100 WBC (Bld) 2.4 % Normal 0-5 [facility] Comment on above: Performed By: #### L 503.6030, L100.0100, L3100.3300, L506.1001, L503.6550 ####[facility] [address] [place], [address] Erythrocyte distribution width (RBC) [Ratio] 16.9 % High 11.6-14.6 [facility] Comment on above: Performed By: #### L 503.6030, L100.0100, L3100.3300, L506.1001, L503.6550 ####[facility] [address] [place], [address] Hematocrit (Bld) [Volume fraction] 36.3 % Low 37-47 [facility] Comment on above: Performed By: #### L 503.6030, L100.0100, L3100.3300, L506.1001, L503.6550 ####[facility] [address] [place], [address] Hemoglobin (Bld) [Mass/Vol] 11.3 g/dL Low 12.0-15.0 [facility] Comment on above: Performed By: #### L 503.6030, L100.0100, L3100.3300, L506.1001, L503.6550 ####[facility] [address] [place], [address] IG% 0.200 Normal 0.0-0.9 [facility] Comment on above: Result Comment: IG% - Immature Granulocytes (promyelocytes, myelocytes and metamyelocytes) > 1% indicates that a LEFT SHIFT is Present. Performed By: #### L 503.6030, L100.0100, L3100.3300, L506.1001, L503.6550 ####[facility] [address] [place], [address] Lymphocytes/100 WBC (Bld) 26.4 % Normal 19-41 [facility] Comment on above: Performed By: #### L 503.6030, L100.0100, L3100.3300, L506.1001, L503.6550 ####[facility] [address] [place], [address] MCH (RBC) [Entitic mass] 23.4 pg Low 27.0-32.0 [facility] Comment on above: Performed By: #### L 503.6030, L100.0100, L3100.3300, L506.1001, L503.6550 ####[facility] [address] [place], [address] MCHC (RBC) [Mass/Vol] 31.1 g/dL Low 32-36 [facility] Comment on above: Performed By: #### L 503.6030, L100.0100, L3100.3300, L506.1001, L503.6550 ####[facility] [address] [place], [address] MCV (RBC) [Entitic vol] 75.2 fL Low 81-99 [facility] Comment on above: Performed By: #### L 503.6030, L100.0100, L3100.3300, L506.1001, L503.6550 ####[facility] [address] [place], [address] Monocytes/100 WBC (Bld) 8.2 % Normal 0-10 [facility] Comment on above: Performed By: #### L 503.6030, L100.0100, L3100.3300, L506.1001, L503.6550 ####[facility] [address] [place], [address] Neutrophils/100 WBC (Bld) 61.9 % Normal 47-70 [facility] Comment on above: Performed By: #### L 503.6030, L100.0100, L3100.3300, L506.1001, L503.6550 ####[facility] [address] [place], [address] Nucleated RBC (Bld) [#/Vol] 0 10*3/uL Normal 0-5 [facility] Comment on above: Performed By: #### L 503.6030, L100.0100, L3100.3300, L506.1001, L503.6550 ####[facility] [address] [place], [address] Platelet mean volume (Bld) [Entitic vol] 11.1 fL Normal 6.2-12.0 [facility] Comment on above: Performed By: #### L 503.6030, L100.0100, L3100.3300, L506.1001, L503.6550 ####[facility] [address] [place], [address] Platelets (Bld) [#/Vol] 264 10*3/uL Normal 150-450 [facility] Comment on above: Performed By: #### L 503.6030, L100.0100, L3100.3300, L506.1001, L503.6550 ####[facility] [address] [place], [address] RBC (Bld) [#/Vol] 4.83 10*6/uL Normal 4.2-5.4 [facility] Comment on above: Performed By: #### L 503.6030, L100.0100, L3100.3300, L506.1001, L503.6550 ####[facility] [address] [place], [address] RDW SD 45.3 fl High 35.1-43.9 [facility] Comment on above: Performed By: #### L 503.6030, L100.0100, L3100.3300, L506.1001, L503.6550 ####[facility] [address] [place], [address] WBC (Bld) [#/Vol] 4.5 10*3/uL Normal 4.4-11.0 [facility] Comment on above: Performed By: #### L 503.6030, L100.0100, L3100.3300, L506.1001, L503.6550 ####[facility] [address] [place], [address] Ferritinon 06-03-2024 Ferritin [Mass/Vol] 7 ng/mL Low 22-378 [facility] Comment on above: Performed By: #### L 503.6030, L100.0100, L3100.3300, L506.1001, L503.6550 ####[facility] [address] [place], [address] Iron+Iron Binding Capacityon 06-03-2024 Iron [Mass/Vol] 27 ug/dL Low 50-170 [facility] Comment on above: Performed By: #### L 503.6030, L100.0100, L3100.3300, L506.1001, L503.6550 ####[facility] [address] [place], [address] IRON SATURATION 8.0 Low 13-59 [facility] Comment on above: Performed By: #### L 503.6030, L100.0100, L3100.3300, L506.1001, L503.6550 ####[facility] [address] [place], [address] TIBC 357 ug/dL Normal 250-450 [facility] Comment on above: Performed By: #### L 503.6030, L100.0100, L3100.3300, L506.1001, L503.6550 ####[facility] [address] [place], [address] UIBC 330 ug/dL Normal 228-428 [facility] Comment on above: Performed By: #### L 503.6030, L100.0100, L3100.3300, L506.1001, L503.6550 ####[facility] [address] [place], [address] L506.1001on 06-03-2024 Vitamin D 25-OH 19.9 ng/mL Low 30-100 [facility] Comment on above: Result Comment: Holley min D Status Deficiency: <20 ng/mL (50nmol/L) Insufficiency: 20-30 ng/mL (50-75 nmol/L) Sufficiency: 30-100 ng/mL (75-250 nmol/L) Toxicity: >100 ng/mL (>250 nmol/L) Performed By: #### L 503.6030, L100.0100, L3100.3300, L506.1001, L503.6550 ####[facility] [address] [place], [address] Internal Medicine Office Vis iton 06-02-2024 Internal Medicine Office Visit [facility] [address] [place] [address] OFFICE VISIT Date of Service: 06/03/24 MR#: [id number] Acct: [id number] Name: CAR SANTOYO Rep #: [id number] : 1985 Provider: Dr. Ap gonsalez MD Age/Sex: 38/F [place] [facility] [place] Status: Signed Intake Vital Signs 05/20/24 09:39 [...] air Intake Visit Reasons: IRON INFUSION DISCUSSION Animal Chiropractor Required: No Is patient in pain?: No [...] Note: States she wants to go through [facility] to do iron infusion rather [facility] states the interpreter ( Fabrice roberts) ordered it and she has never done them before. The drive would be too far to do. Has always had anemia. [facility] Medical History ADHD Hx of renal calculi [...] The patient had labs done by her interpreter and was told she had iron deficiency. [...] stating they wanted her to go to [place]. The patient would like to have her immunity tested for measles as she is traveling for work and has been in areas where it has been high. She was seen in the ED at [place] on 05/16 and was treated for pneumonia. [...] cough, shortness (more content not included)... Normal [facility] MR/BMS.BPon 05-27-2024 MR/BMS.BP [facility] [address], [address] [place] [address] OFFICE VISIT Date of Service: 05/27/24 MR#: [id number] Acct: [id number] Name: CAR SANTOYO Rep #: [id number] : 1985 Provider: Dr. Dick Lucas se, Age/Sex: 38/F [place] [facility] [place] Status: Signed Intake Vital Signs 02/10/24 12:50 [...] guilt or (more content not included)... Normal [facility] ALLIED HEALTHon 05-16-2024 ALLIED HEALTH HNO ID: [id number] Author: THONG GRANADOS RT(R) Service: Radiology Author [...] PATIENT PRESENTS WITH AN IMPLANTABLE OR ATTACHED NUT CRACKER: No RADIOLOGY DEPARTMENT: General X-ray: Exam(s) Completed: Chest X-Ray PERIPHERAL IV DATA: Not applicable SIGNED BY: RT Kar(R) May 16, 2024 4:01 PM Normal [facility] Basic metabolic 2000 panelon 05-16-2024 Anion gap [Moles/Vol] 10 mmol/L Normal 8-15 [facility] Comment on above: Order Comment: Speci tuan Type: BLOOD SPECIMENOrdering Facility: [facility] Address: [address] [place] [address] Performed By: #### 2 4321-2 ####[facility] LABCLIA [id number] [place] [address] [place] Calcium [Mass/Vol] 8.5 mg/dL Normal 8.5-10.2 [facility] Comment on above: Order Comment: Amanda dickerson Type: BLOOD SPECIMENOrdering Facility: [facility] Address: [address] [place] [address] Performed By: #### 2 4321-2 ####[facility] [place] LABCLIA [id number] [place] [address] [place] Chloride [Moles/Vol] 103 mmol/L Normal 98-107 [facility] Comment on above: Order Comment: Speci men Type: BLOOD SPECIMENOrdering Facility: [facility] Address: [address] [place] [address] Performed By: #### 2 4321-2 ####[facility] [place] LABCLIA [id number] [place] [address] [place] CO2 [Moles/Vol] 25 mmol/L Normal 22-30 [facility] Comment on above: Order Comment: Speci men Type: BLOOD SPECIMENOrdering Facility: [facility] Address: [address] [place] [address] Performed By: #### 2 4321-2 ####[facility] LABCLIA [id number] [place] [address] [place] Creatinine [Mass/Vol] 0.72 mg/dL Normal 0.58-0.96 [facility] Comment on above: Order Comment: Speci men Type: BLOOD SPECIMENOrdering Facility: [facility] Address: [address] [place] [address] Performed By: #### 2 4321-2 ####[facility] LABCLIA [id number] [place] [address] [facility] Creatinine and Glomerular filtration rate.predicted panel (S/P/Bld) 109 mL/min/1.73m??? Normal >=60 [facility] Comment on above: Order Comment: Speci men Type: BLOOD SPECIMENOrdering Facility: [facility] Address: [address] [place] [address] Result Comment: Puja mated Glomerular Filtration Rate [...] actual GFR. Performed By: #### 2 4321-2 ####[facility] LABCLIA [id number] [place] [address] [place] Glucose [Mass/Vol] 79 mg/dL Normal 74-99 [facility] Comment on above: Order Comment: Speci tuan Type: BLOOD SPECIMENOrdering Facility: [facility] Address: [address] [place] [address] Result Comment: The [place] Diabetes Association (ADA) provides guidance for cutoff [...] Standards of Medical Care in Diabetes 2016, [place] Diabetes Association. Diabetes Care. 2016.39(Suppl 1). Performed By: #### 2 4321-2 ####[facility] [place] LABCLIA [id number] [place] [address] [place] Potassium [Moles/Vol] 3.9 mmol/L Normal 3.7-5.1 [facility] Comment on above: Order Comment: Speccarmen dickerson Type: BLOOD SPECIMENOrdering Facility: [facility] Address: [address] [place] [address] Performed By: #### 2 4321-2 ####[facility] LABCLIA [id number] [place] [address] [place] Sodium [Moles/Vol] 138 mmol/L Normal 136-144 [facility] Comment on above: Order Comment: Amanda dickerson Type: BLOOD SPECIMENOrdering Facility: [facility] Address: [address] [place] [address] Performed By: #### 2 4321-2 ####[facility] LABCLIA [id number] [place] [address] [place] [address] [facility] Urea nitrogen [Mass/Vol] 4 mg/dL Low 7-21 [facility] Comment on above: Order Comment: Amanda dickerson Type: BLOOD SPECIMENOrdering Facility: [facility] Address: [facility] [place] [address] Performed By: #### 2 4321-2 ####[facility] [place] LABCLIA [id number] [place] [address] [place] CBC W Auto Differential pane l (Bld)on 05-16-2024 Basophils (Bld) [#/Vol] 0.04 10*3/uL Normal <0.11 [facility] Comment on above: Order Comment: Speci men Type: BLOOD SPECIMENOrdering Facility: [facility] Address: [address] [place] [address] Performed By: #### 5 7021-8 ####[facility] [place] LABCLIA [id number] [place] [address] [place] Basophils/100 WBC (Bld) 0.7 % Normal [facility] Comment on above: Order Comment: Speci men Type: BLOOD SPECIMENOrdering Facility: [facility] Address: [address] [place] [address] Performed By: #### 5 7021-8 ####[facility] [place] LABCLIA [id number] [place] [address] [place] Differential cell count method Nom (Bld) Auto Normal [facility] Comment on above: Order Comment: Speci men Type: BLOOD SPECIMENOrdering Facility: [facility] Address: [address] [place] [address] Performed By: #### 5 7021-8 ####[facility] [place] LABCLIA [id number] [place] [address] [place] Eosinophils (Bld) [#/Vol] 0.21 10*3/uL Normal <0.46 [facility] Comment on above: Order Comment: Speci men Type: BLOOD SPECIMENOrdering Facility: [facility] Address: [address] [place] [address] Performed By: #### 5 7021-8 ####[facility] [place] LABCLIA [id number] [place] [address] [place] Eosinophils/100 WBC (Bld) 3.8 % Normal [facility] Comment on above: Order Comment: Speci men Type: BLOOD SPECIMENOrdering Facility: [facility] Address: [address] [place] [address] Performed By: #### 5 7021-8 ####[facility] [place] LABCLIA [id number] [facility] [place] [address] [place] Erythrocyte distribution width (RBC) [Ratio] 17.3 % High 11.5-15.0 [facility] Comment on above: Order Comment: Speci men Type: BLOOD SPECIMENOrdering Facility: [facility] Address: [address] [place] [address] Performed By: #### 5 7021-8 ####[facility] [place] LABCLIA [id number] [facility] [address] [place] Hematocrit (Bld) [Volume fraction] 34.6 % Low 36.0-46.0 [facility] Comment on above: Order Comment: Speci men Type: BLOOD SPECIMENOrdering Facility: [facility] Address: [address] [place] [address] Performed By: #### 5 7021-8 ####[facility] LABCLIA [id number] [facility] [place] [address] [place] Hemoglobin (Bld) [Mass/Vol] 11.0 g/dL Low 11.5-15.5 [facility] Comment on above: Order Comment: Speci men Type: BLOOD SPECIMENOrdering Facility: [facility] Address: [address] [place] [address] Performed By: #### 5 7021-8 ####[facility] LABCLIA [id number] [facility] [place] [address] [place] Immature granulocytes (Bld) [#/Vol] 10*3/uL Normal <0.10 [facility] Comment on above: Order Comment: Speci men Type: BLOOD SPECIMENOrdering Facility: [facility] Address: [address] [place] [address] Performed By: #### 5 7021-8 ####[facility] [place] LABCLIA [id number] [facility] [place] [address] [place] Immature granulocytes/100 WBC (Bld) 0.2 % Normal [facility] Comment on above: Order Comment: Speci men Type: BLOOD SPECIMENOrdering Facility: [facility] Address: [address] [place] [address] Performed By: #### 5 7021-8 ####[facility] [place] LABCLIA [id number] [place] [address] [facility] Lymphocytes (Bld) [#/Vol] 0.58 10*3/uL Low 1.00-4.00 [facility] Comment on above: Order Comment: Speci men Type: BLOOD SPECIMENOrdering Facility: [facility] Address: [address] [place] [address] Performed By: #### 5 7021-8 ####[facility] LABCLIA [id number] [place] [id number] [facility] Lymphocytes/100 WBC (Bld) 10.4 % Normal [facility] Comment on above: Order Comment: Speci men Type: BLOOD SPECIMENOrdering Facility: [facility] Address: [address] [place] [address] Performed By: #### 5 7021-8 ####[facility] LABCLIA [id number] [place] [address] [place] MCH (RBC) [Entitic mass] 23.7 pg Low 26.0-34.0 [facility] Comment on above: Order Comment: Speci men Type: BLOOD SPECIMENOrdering Facility: [facility] Address: [address] [place] [address] Performed By: #### 5 7021-8 ####[facility] [place] LABCLIA [id number] [place] [address] [place] MCHC (RBC) [Mass/Vol] 31.8 g/dL Normal 30.5-36.0 [facility] Comment on above: Order Comment: Speci men Type: BLOOD SPECIMENOrdering Facility: [facility] Address: [address] [place] [address] Performed By: #### 5 7021-8 ####[facility] [place] LABCLIA [id number] [place] [address] [facility] [place] MCV (RBC) [Entitic vol] 74.4 fL Low 80.0-100.0 [facility] Comment on above: Order Comment: Speci men Type: BLOOD SPECIMENOrdering Facility: [facility] Address: [address] [place] [address] Performed By: #### 5 7021-8 ####[facility] [place] LABCLIA [id number] [facility] [place] [address] [place] Monocytes (Bld) [#/Vol] 0.38 10*3/uL Normal <0.87 [facility] Comment on above: Order Comment: Speci men Type: BLOOD SPECIMENOrdering Facility: [facility] Address: [address] [place] [address] Performed By: #### 5 7021-8 ####[facility] [place] LABCLIA [id number] [place] [address] [facility] [place] Monocytes/100 WBC (Bld) 6.8 % Normal [facility] Comment on above: Order Comment: Speci men Type: BLOOD SPECIMENOrdering Facility: [facility] Address: [address] [place] [address] Performed By: #### 5 7021-8 ####[facility] [place] LABCLIA [id number] [place] [address] [facility] [place] Neutrophils (Bld) [#/Vol] 4.38 10*3/uL Normal 1.45-7.50 [facility] Comment on above: Order Comment: Speci men Type: BLOOD SPECIMENOrdering Facility: [facility] Address: [address] [place] [address] Performed By: #### 5 7021-8 ####[facility] [place] LABCLIA [id number] [facility] [place] [address] [facility] [place] Neutrophils/100 WBC (Bld) 78.1 % Normal [facility] Comment on above: Order Comment: Speci men Type: BLOOD SPECIMENOrdering Facility: [facility] Address: [address] [place] [address] Performed By: #### 5 7021-8 ####[facility] [place] LABCLIA [id number] [place] [address] [place] Nucleated RBC (Bld) [#/Vol] Normal [facility] Comment on above: Order Comment: Speci men Type: BLOOD SPECIMENOrdering Facility: [facility] Address: [address] [place] [address] Performed By: #### 5 7021-8 ####[facility] [place] LABCLIA [id number] [place] [address] [place] Nucleated RBC/100 WBC (Bld) [Ratio] Normal [facility] Comment on above: Order Comment: Speci men Type: BLOOD SPECIMENOrdering Facility: [facility] Address: [address] [place] [address] Performed By: #### 5 7021-8 ####[facility] [place] LABCLIA [id number] [place] [address] [place] Platelet mean volume (Bld) [Entitic vol] 9.7 fL Normal 9.0-12.7 [facility] Comment on above: Order Comment: Speci men Type: BLOOD SPECIMENOrdering Facility: [facility] Address: [address] [place] [address] Performed By: #### 5 7021-8 ####[facility] [place] LABCLIA [id number] [place] [address] [place] Platelets (Bld) [#/Vol] 257 10*3/uL Normal 150-400 [facility] Comment on above: Order Comment: Speci men Type: BLOOD SPECIMENOrdering Facility: [facility] Address: [address] [place] [address] Performed By: #### 5 7021-8 ####[facility] [place] LABCLIA [id number] [place] [address] [place] RBC (Bld) [#/Vol] 4.65 10*6/uL Normal 3.90-5.20 [facility] Comment on above: Order Comment: Amanda dickerson Type: BLOOD SPECIMENOrdering Facility: [facility] Address: [address] [place] [id number] Performed By: #### 5 7021-8 ####[facility] ERWIN BURNHAM [id number] [place] [address] [facility] WBC (Bld) [#/Vol] 5.60 10*3/uL Normal 3.70-11.00 [facility] Comment on above: Order Comment: Aideecarmen dickerson Type: BLOOD SPECIMENOrdering Facility: [facility] Address: [address] [place] [id number] Performed By: #### 5 7021-8 ####[facility] ERWIN BURNHAM [id number] [place] [address] [facility] CTA CHEST (NON GATED) W IVCO N PEon 05-16-2024 CTA CHEST (NON GATED) W IVCON PE * * *Final Report* * * DATE OF EXAM: May 16 2024 5:29PM [facility] 0564 - CTA CHEST (NON GATED) W [...] infection. 3. Hiatal hernia. 4. Borderline splenomegaly. 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: [facility] Transcribe Date/Time: May 16 2024 6:27P Dictated by : LEO BECK MD This examination was interpreted and the report reviewed and electronically signed by: LEO BECK MD on May 16 2024 6:35PM EST [id number] Normal [facility] D dimer FEU PPP-mCncon 05-16 Fibrin D-dimer FEU (PPP) [Mass/Vol] 530 ng/mL FEU High <500 [facility] Comment on above: Order Comment: Speci men Type: BLOOD SPECIMENOrdering Facility: [facility] Address: [address] [place] [address] Performed By: #### 4 8065-7 ####[facility] [id number] [place] [address] [place] ECG COMPLETEon 05-16-2024 ECG COMPLETE Ventricular Rate : 7 9 BPM Atrial Rate : 79 BPM P-R Interval : 154 ms QRS Duration : 94 ms Q-T Interval : 372 ms QTC Calculation(Bazett) : 426 ms Calculated P Maryneal : 67 degrees Calculated R Maryneal : 56 degrees Calculated T Maryneal : 46 degrees NORMAL SINUS RHYTHM NORMAL ECG WHEN COMPARED WITH ECG OF 22-Oct-2018 13:53, NO SIGNIFICANT CHANGE WAS FOUND Confirmed by MD CARDENAS VINAYAK ([id number]) on 05/19/2024 4:18:46 PM NAME : CAR SANTOYO PID : [id number] : 1985 Gender : Female Race : ORD : [id number] Procedure Date : May 16 2024 15:35:44 Edit Date : May 19 2024 16:18:47 Diagnosis: NORMAL SINUS RHYTHM NORMAL ECG WHEN COMPARED WITH ECG OF 22-Oct-2018 13:53, NO SIGNIFICANT CHANGE WAS FOUND Confirmed by MD CARDENAS VINAYAK ([id number]) on 05/19/2024 4:18:46 PM Test Reason : Chest Pain Location : 191 : [facility] ED Overread By : MD CARDENAS VINAYAK Edited By : MD CARDENAS VINAYAK Referred By : , Acquired by : SANDRITA REID [facility] ED NOTEon 05-16-2024 ED NOTE HNO ID: [id number] Author: DARREN MILTON RN Service: ? Author Type: Registered Nurse Type: ED Notes Filed: 05/16/2024 16:43 Note Text: RT paged for DuJemmaanaya [facility] ED NOTE HNO ID: [id number] Author: DARREN MILTON RN Service: ? Author Type: Registered Nurse Type: ED Notes Filed: 05/16/2024 16:32 Note Text: Patient informed: the name of medication, why we are giving it, possible side effects, what they may expect to feel, and was offered a chance to ask questions, prior to the administration of Solu-Medrol [facility] ED NOTE HNO ID: [id number] Author: DARREN MILTON RN Service: ? Author [...] I cough. Pt reports non-productive cough. Normal [facility] ED PROV NOTEon 05-16-2024 ED PROV NOTE HNO ID: [id number] Author: DUGLAS FISHER MD Service: Emergency Medicine [...] be short of breath. 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 [...] Mother depression - Heart Maternal Grandfather of [place] - Heart Paternal Grandmother [place] - Hypertension Paternal Grandfather - Heart Paternal Grandfather [place] - Allergies Paternal Uncle - Asthma Paternal [...] Dimer cutof (more content not included)... Normal [facility] HIGH SENSITIVITY TROPONIN To n 05-16-2024 Troponin T.cardiac High sensitivity method [Mass/Vol] <6 Normal <12 [facility] Comment on above: Order Comment: Speci men Type: BLOOD SPECIMENOrdering Facility: [facility] Address: [address] [place] [address] Performed By: #### H STNT ####[facility] [place] LABCLIA [id number] [place] [address] [facility] XR CHEST 1V FRONTALon 2024 XR CHEST [...] Other: . IMPRESSION: No acute radiographic abnormality. 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 Ap gonsalez MD Age/Sex: 38/F [place] [facility] [place] Status: Signed Intake Vital Signs 02/10/24 12:50 [...] 3 M FU Chief Complaint: 3M F/U Animal Chiropractor Required: No Accompanied by: Self Is patient [...] help and continues to follow with the interpreter. She reports her heartburn has been doing [...] and exercise and a referral to a bill distributor was provided. Discussed GLP-1 inhibitors, but she [...] an O (more content not included)... Normal [facility] CBC W Auto Differential pane l (Bld)on 04-26-2024 Basophils (Bld) [#/Vol] 0.05 10*3/uL Normal <0.11 [facility] Comment on above: Order Comment: Amanda dickerson Type: BLOOD SPECIMEN [facility] Address: [address] [place] [address] Performed By: #### 5 7021-8 #### [facility] CLIA [id number] [address] [place] [address] [place] Basophils/100 WBC (Bld) 0.9 % Normal [facility] Comment on above: Order Comment: Amanda dickerson Type: BLOOD SPECIMEN [facility] Facility: [facility] Address: [address] [place] [address] Performed By: #### 5 7021-8 #### [facility] CLIA [id number] [address] [place] [address] [place] Differential cell count method Nom (Bld) Auto Normal [facility] Comment on above: Order Comment: Amanda dickerson Type: BLOOD SPECIMEN [facility]ing [facility]: [facility] Address: [address] [place] [address] Performed By: #### 5 7021-8 #### [facility] CLIA [id number] [address] [place] [address] [place] Eosinophils (Bld) [#/Vol] 0.31 10*3/uL Normal <0.46 [facility] Comment on above: Order Comment: Speci men Type: BLOOD SPECIMEN Ordering Facility: [facility] Address: [address] [place] [address] Performed By: #### 5 7021-8 #### [facility] CLIA [id number] [address] [place] [address] [place] Eosinophils/100 WBC (Bld) 5.5 % Normal [facility] Comment on above: Order Comment: Speci men Type: BLOOD SPECIMEN Ordering Facility: [facility] Address: [address] [place] [address] Performed By: #### 5 7021-8 #### [facility] CLIA [id number] [address] [place] [address] [place] Erythrocyte distribution width (RBC) [Ratio] 17.6 % High 11.5-15.0 [facility] Comment on above: Order Comment: Speci men Type: BLOOD SPECIMEN Ordering Facility: [facility] Address: [address] [place] [address] Performed By: #### 5 7021-8 #### [facility] CLIA [id number] [address] [place] [address] [place] Hematocrit (Bld) [Volume fraction] 35.9 % Low 36.0-46.0 [facility] Comment on above: Order Comment: Speci men Type: BLOOD SPECIMEN Ordering Facility: [facility] Address: [address] [place] [address] Performed By: #### 5 7021-8 #### [facility] [id number] [address] [place] [address] [place] Hemoglobin (Bld) [Mass/Vol] 11.5 g/dL Normal 11.5-15.5 [facility] Comment on above: Order Comment: Speci men Type: BLOOD SPECIMEN Ordering Facility: [facility] Address: [address] [place], [place] [address] Performed By: #### 5 7021-8 #### [facility] CLIA [id number] [address] [place] [address] [place] Immature granulocytes (Bld) [#/Vol] 10*3/uL Normal <0.10 [facility] Comment on above: Order Comment: Speci men Type: BLOOD SPECIMEN Ordering Facility: [facility] Address: [address] [place] [address] Performed By: #### 5 7021-8 #### [facility] CLIA [id number] [address] [place] [address] [place] Immature granulocytes/100 WBC (Bld) 0.2 % Normal [facility] Comment on above: Order Comment: Speci men Type: BLOOD SPECIMEN Ordering Facility: [facility] Address: [address] [place] [address] Performed By: #### 5 7021-8 #### [facility] CLIA [id number] [address] [place] [address] [place] Lymphocytes (Bld) [#/Vol] 1.55 10*3/uL Normal 1.00-4.00 [facility] Comment on above: Order Comment: Speci men Type: BLOOD SPECIMEN Ordering Facility: [facility] Address: [address] [place], [place] [address] Performed By: #### 5 7021-8 #### [facility] CLIA [id number] [address] [place] [address] [place] Lymphocytes/100 WBC (Bld) 27.3 % Normal [facility] Comment on above: Order Comment: Speci men Type: BLOOD SPECIMEN Ordering Facility: [facility] Address: [address] [place] [address] Performed By: #### 5 7021-8 #### [facility] CLIA [id number] [address] [place] [address] [place] MCH (RBC) [Entitic mass] 23.6 pg Low 26.0-34.0 [facility] Comment on above: Order Comment: Speci men Type: BLOOD SPECIMEN Ordering Facility: [facility] Address: [address] [place] [address] Performed By: #### 5 7021-8 #### [facility] CLIA [id number] [address] [place] [address] [place] MCHC (RBC) [Mass/Vol] 32.0 g/dL Normal 30.5-36.0 [facility] Comment on above: Order Comment: Speci men Type: BLOOD SPECIMEN Ordering Facility: [facility] Address: [address] [place] [address] Performed By: #### 5 7021-8 #### [facility] CLIA [id number] [address] [place] [address] [place] MCV (RBC) [Entitic vol] 73.6 fL Low 80.0-100.[address] [facility] Comment on above: Order Comment: Speci men Type: BLOOD SPECIMEN Ordering Facility: [facility] Address: [address] [place] [address] Performed By: #### 5 7021-8 #### [facility] CLIA [id number] [address] [place] [address] [place] Monocytes (Bld) [#/Vol] 0.48 10*3/uL Normal <0.87 [facility] Comment on above: Order Comment: Speci men Type: BLOOD SPECIMEN Ordering Facility: [facility] Address: [address] [place] [address] Performed By: #### 5 7021-8 #### [facility] CLIA [id number] [address] [place] [address] [place] Monocytes/100 WBC (Bld) 8.5 % Normal [facility] Comment on above: Order Comment: Speci men Type: BLOOD SPECIMEN Ordering Facility: [facility] Address: [address] [place] [address] Performed By: #### 5 7021-8 #### [facility] CLIA [id number] [address] [place] [address] [place] Neutrophils (Bld) [#/Vol] 3.27 10*3/uL Normal 1.45-7.50 [facility] Comment on above: Order Comment: Speci men Type: BLOOD SPECIMEN Ordering Facility: [facility] Address: [address] [place] [address] Performed By: #### 5 7021-8 #### [facility] CLIA [id number] [address] [place] [address] [place] Neutrophils/100 WBC (Bld) 57.6 % Normal [facility] Comment on above: Order Comment: Speci men Type: BLOOD SPECIMEN Ordering Facility: [facility] Address: [address] [place] [address] Performed By: #### 5 7021-8 #### [facility] CLIA [id number] [address] [place] [address] [place] Nucleated RBC (Bld) [#/Vol] 10*3/uL Normal <0.01 [facility] Comment on above: Order Comment: Speci men Type: BLOOD SPECIMEN Ordering Facility: [facility] Address: [address] [place] [address] Performed By: #### 5 7021-8 #### [facility] CLIA [id number] [address] [place] [address] [place] Nucleated RBC/100 WBC (Bld) [Ratio] 0.0 /100 WBC Normal [facility] Comment on above: Order Comment: Speci men Type: BLOOD SPECIMEN Ordering Facility: [facility] Address: [address] [place] [address] Performed By: #### 5 7021-8 #### [facility] CLIA [id number] [address] [place] [address] [place] Platelet mean volume (Bld) [Entitic vol] 10.1 fL Normal 9.0-12.7 [facility] Comment on above: Order Comment: Speci men Type: BLOOD SPECIMEN Ordering Facility: [facility] Address: [address] [place] [address] Performed By: #### 5 7021-8 #### [facility] CLIA [id number] [address] [place] [address] [place] Platelets (Bld) [#/Vol] 296 10*3/uL Normal 150-400 [facility] Comment on above: Order Comment: Speci men Type: BLOOD SPECIMEN Ordering Facility: [facility] Address: [address] [place] [address] Performed By: #### 5 7021-8 #### [facility] CLIA [id number] [address] [place] [address] [place] RBC (Bld) [#/Vol] 4.88 10*6/uL Normal 3.90-5.20 [facility] Comment on above: Order Comment: Speci men Type: BLOOD SPECIMEN Ordering Facility: [facility] Address: [address] [place] [address] Performed By: #### 5 7021-8 #### [facility] CLIA [id number] [address] [place] [address] [place] WBC (Bld) [#/Vol] 5.67 10*3/uL Normal 3.70-11.00 [facility] Comment on above: Order Comment: Speci men Type: BLOOD SPECIMEN Ordering Facility: [facility] Address: [address] [place] [address] Performed By: #### 5 7021-8 #### [facility] CLIA [id number] [address] [place] [address] [place] CRP SerPl-mCncon 04-26-2024 CRP [Mass/Vol] mg/L Normal <0.9 [facility] Comment on above: Order Comment: Speci men Type: BLOOD SPECIMEN Ordering Facility: [facility] Address: [address] [place] [address] Performed By: #### 1 988-5, 13251-8 #### [facility] CLIA [id number] [address] [place], [place] [address] [place] [address] [place] Comprehensive metabolic 2000 panelon 04-26-2024 Albumin [Mass/Vol] 4.1 g/dL Normal 3.9-4.9 [facility] Comment on above: Order Comment: Speci men Type: BLOOD SPECIMEN Ordering Facility: [facility] Address: [address] [place] [address] Performed By: #### 2 4323-8 #### [facility] CLIA [id number] [address] [place] [address] [place] ALP [Catalytic activity/Vol] 66 U/L Normal 34-123 [facility] Comment on above: Order Comment: Speci men Type: BLOOD SPECIMEN Ordering Facility: [facility] Address: [address] [place] [address] Performed By: #### 2 4323-8 #### [facility] CLIA [id number] [address] [place] [address] [place] ALT [Catalytic activity/Vol] 9 U/L Normal 7-38 [facility] Comment on above: Order Comment: Speci men Type: BLOOD SPECIMEN Ordering Facility: [facility] Address: [address] [place] [address] Performed By: #### 2 4323-8 #### [facility] CLIA [id number] [address] [place] [address] [place] Anion gap [Moles/Vol] 8 mmol/L Normal 8-15 [facility] Comment on above: Order Comment: Speci men Type: BLOOD SPECIMEN Ordering Facility: [facility] Address: [address] [place] [address] Performed By: #### 2 4323-8 #### [facility] CL[facility] [id number] [address] [place] [address] [place] AST [Catalytic activity/Vol] 12 U/L Low 13-35 [facility] Comment on above: Order Comment: Speci men Type: BLOOD SPECIMEN Ordering Facility: [facility] Address: [address] [place] [address] Performed By: #### 2 4323-8 #### [facility] CLIA [id number] [address] [place] [address] [place] Bilirubin [Mass/Vol] 0.4 mg/dL Normal 0.2-1.3 [facility] Comment on above: Order Comment: Speci men Type: BLOOD SPECIMEN Ordering Facility: [facility] Address: [address] [place] [address] Performed By: #### 2 4323-8 #### [facility] CLIA [id number] [address] [place] [address] [place] Calcium [Mass/Vol] 9.2 mg/dL Normal 8.5-10.2 [facility] Comment on above: Order Comment: Speci men Type: BLOOD SPECIMEN Ordering Facility: [facility] Address: [address] [place] [address] Performed By: #### 2 4323-8 #### [facility] CLIA [id number] [address] [place] [address] [place] Chloride [Moles/Vol] 105 mmol/L Normal 98-107 [facility] Comment on above: Order Comment: Speci men Type: BLOOD SPECIMEN Ordering Facility: [facility] Address: [address] [place] [address] Performed By: #### 2 4323-8 #### [facility] CLIA [id number] [address] [place] [address] [place] CO2 [Moles/Vol] 26 mmol/L Normal 22-30 [facility] Comment on above: Order Comment: Amanda dickerson Type: BLOOD SPECIMEN Ordering Facility: [facility] Address: [address] [place] [address] Performed By: #### 2 4323-8 #### [facility] [id number] [address] [place] [address] [place] Creatinine [Mass/Vol] 0.71 mg/dL Normal 0.58-0.96 [facility] Comment on above: Order Comment: Amanda dickerson Type: BLOOD SPECIMEN Ordering Facility: [facility] Address: [address] [place] [address] Performed By: #### 2 4323-8 #### [facility] [id number] [address] [place] [address] [place] Creatinine and Glomerular filtration rate.predicted panel (S/P/Bld) 111 mL/min/1.73m??? Normal >=60 [facility] Comment on above: Order Comment: Amanda dickerson Type: BLOOD SPECIMEN Ordering Facility: [facility] Address: [address] [place] [address] Result Comment: Puja mated Glomerular Filtration Rate [...] GFR. Performed By: #### 2 4323-8 #### [facility] [id number] [address] [place] [address] [place] Glucose [Mass/Vol] 71 mg/dL Low 74-99 [facility] Comment on above: Order Comment: Amanda dickerson Type: BLOOD SPECIMEN Ordering Facility: [facility] Address: [address] [place] [address] Result Comment: The [place] Diabetes Association (ADA) provides guidance for cutoff [...] Standards of Medical Care in Diabetes 2016, [place] [employer] Association. Diabetes Care. 2016.39(Suppl 1). Performed By: #### 2 4323-8 #### [facility] [id number] [address] [place] [address] [place] Potassium [Moles/Vol] 3.9 mmol/L Normal 3.7-5.1 [facility] Comment on above: Order Comment: Speci men Type: BLOOD SPECIMEN Ordering Facility: [facility] Address: [address] [place] [address] Performed By: #### 2 4323-8 #### [facility] [id number] [address] [place] [address] [place] Protein [Mass/Vol] 7.1 g/dL Normal 6.3-8.0 [facility] Comment on above: Order Comment: Speci men Type: BLOOD SPECIMEN Ordering Facility: [facility] Address: [address] [place] [address] Performed By: #### 2 4323-8 #### [facility] [id number] [address] [place] [address] [place] Sodium [Moles/Vol] 139 mmol/L Normal 136-144 [facility] Comment on above: Order Comment: Speci men Type: BLOOD SPECIMEN Ordering Facility: [facility] Address: [address] [place] [address] Performed By: #### 2 4323-8 #### [facility] CLIA [id number] [address] [place] [address] [place] Urea nitrogen [Mass/Vol] 11 mg/dL Normal 7-21 [facility] Comment on above: Order Comment: Speci men Type: BLOOD SPECIMEN Ordering Facility: [facility] Address: [address] [place] [address] Performed By: #### 2 4323-8 #### [facility] CLIA [id number] [address] [place] [address] [place] ESR Westergren method (Bld) [Velocity]on 04-26-2024 ESR (Bld) [Velocity] 8 mm/h Normal 0-20 [facility] Comment on above: Order Comment: Speci men Type: BLOOD SPECIMEN Ordering Facility: [facility] Address: [address] [place] [address] Performed By: #### 4 537-7 #### [facility] CLIA [id number] [address] [place] [address] [place] Iron and Iron binding capaci ty panelon 04-26-2024 Iron [Mass/Vol] 30 ug/dL Low 41-186 [facility] Comment on above: Order Comment: Speci men Type: BLOOD SPECIMEN Ordering Facility: [facility] Address: [address] [place] [address] Performed By: #### 1 988-5, 63866-6 #### [facility] CLIA [id number] [address] [place] [address] [place] Iron binding capacity [Mass/Vol] 389 ug/dL High 232-386 [facility] Comment on above: Order Comment: Speci men Type: BLOOD SPECIMEN Ordering Facility: [facility] Address: [address] [place] [address] Performed By: #### 1 988-5, 65845-4 #### [facility] CLIA [id number] [address] [place], [place] [address] [place] [address] [place] Iron/TIBC [Molar ratio] 7.7 % Low 15.0-57.[address] [facility] Comment on above: Order Comment: Speci men Type: BLOOD SPECIMEN Ordering Facility: [facility] Address: [address] [place] [address] Performed By: #### 1 988-5, 57412-0 #### [facility] CLIA [id number] [address] [place] [address] [place] CNOVon 04-14-2024 CNOV Office Visit (RHBATH ) CAR SANTOYO ([id number]) 1985 F Date Time Provider Department 04/14/24 2:00 PM FABRICE STONE During your visit today, we recorded the following information about you: Temperature Pulse Respiration Blood pressure 97.8 degrees 83/minute 14/minute 114/75 Weight Height 129.5 kg 1.664 m Fabrice Stone PA-C 04/14/2024 3:05 PM Signed [facility] General Arthritis and Rheumatology Fabrice Stone [address] [place] [address] Subjective Last OV: 10/13/23 HPI: Car Santoyo [...] been staying. 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 Long distances without stopping. She takes a [...] Serologies: SCL-70 1.8, MARKUS 1:640, DSDNA neg, TECHNOLOGY AUDITOR-Sm neg, SSA/SSB neg, centromere neg, chromatin neg, [...] Serologies: SCL-70 1.8, MARKUS 1:640, DSDNA neg, TECHNOLOGY AUDITOR-Sm neg, SSA/SSB neg, centromere neg, chromatin neg, CCP neg, crithidia neg, endomysial neg, IgM 242 (elevated), IgG normal, IgA low 16, Salima-1 neg, RF neg, vit D low Recent Lab Results: (more content not included)... Normal [facility] Glenn 02-10-2024 LAITHN Telephone (OBGWMA) RUBACAR ([id number]) 1985 F Date Time Provider Department 02/10/24 [...] Status:Closed by SANDRITA CHEN on 02/10/24 Normal [facility] Internal Medicine Office Vis iton 02-09-2024 Internal Medicine Office Visit [facility] [address] [address] [place] [address] OFFICE VISIT Date of Service: 02/10/24 MR#: [id number] Acct: [id number] Name: CAR SANTOYO Rep #: [id number] : 1985 Provider: Dr. Ap gonsalez MD Age/Sex: 38/F [place] [facility] [place]: Signed Intake Vital Signs 08/13/23 14:56 [...] 3 M FU Chief Complaint: 3M F/U Animal Chiropractor Required: No Accompanied by: Self Is patient [...] help and continues to follow with the interpreter. She recently had surgery and reports during [...] snoring, w (more content not included)... Normal [facility] ANES POSTPROC EVALon 024 ANES POSTPROC EVAL HNO ID: [id number] Author: CLEM MARQUEZ MD Service: Anesthesiology Author Type: Anesthesiologist Type: Anesthesia Postprocedure Evaluation Filed: 01/14/2024 11:00 Note Text: POST ANESTHESIA EVALUATION NOTE : 1985 Procedure Summary Date: 01/14/24 Room / Location: [facility] OR Anesthesia Start: 853 Anesthesia Stop: [...] January 14, 2024 TIME: 10:59 AM CSN: [id number] [facility] ANES PRE-OPon 01-14-2024 ANES PRE-OP HNO ID: [id number] Author: BRUNILDA VELARDE MD Service: Anesthesiology Author Type: Anesthesiologist Type: Anesthesia Preprocedure Evaluation Filed: 01/14/2024 09:24 Note Text: ANESTHESIOLOGY DAY OF SURGERY NOTE : 1985 Procedure Information Anesthesia Start Date/Time: 01/14/24 0854 Procedures: HYSTEROSCOPY, D AND C (Uterus) HYSTEROSCOPY WITH ENDOMETRIAL ABLATION (Uterus) Location: [facility] / [facility] Surgeons: Sandrita Chen MD Estimated body [...] and consent discussed: yes. Patient / Responsible Constitution Party agrees to proceed: yes Patient / Surrogate [...] January 14, 2024 TIME: 9:22 AM CSN: [id number] Normal [facility] OPERATIVE NOon 01-14-2024 OPERATIVE NO HNO ID: [id number] Author: SANDRITA CHEN MD Service: Gynecology Author [...] tooth tenaculum. Cervix was dilated to 14 Upper Sor[place] with Hughes dilator. A 5 mm 12-degree [...] < 10 mL Specimens: Endometrial curettings Normal [facility] SURGICAL PATHOLOGYon 024 CASE REPORT Normal [facility] Comment on above: Order Comment: Speci men Type: TISSUE SPECIMENOrdering Facility: [facility] Address: [address] [place] [address] Result Comment: Surg ica Pathology Report Case: [id number] Authorizing Provider: Sandrita Chen MD Collected: 01/14/2024 09:26 AM Ordering Location: [facility] Received: 01/14/2024 12:08 PM Pathologist: Mervat Yun MD Specimen: Endometrium, Curettings Performed By: #### S ####[facility] [id number] [address] [place] CLINICAL HISTORY Normal [facility] Comment on above: Order Comment: Speci men Type: TISSUE SPECIMENOrdering Facility: [facility] Address: [address] [place] [address] Result Comment: Pre- op diagnosis: Abnormal uterine bleeding [N93.9] Performed By: #### S ####[facility] [id number] [address] FINAL DIAGNOSIS Normal [facility] Comment on above: Order Comment: Speci men Type: TISSUE SPECIMENOrdering Facility: [facility] Address: [address] [place] [address] Result Comment: A. E ndometrium, curettage: -- Fragments of proliferative phase endometrium. -- Benign endocervical stroma and epithelium. Performed By: #### S ####[facility] [id number] [address] FINAL PERFORMING LAB Normal [facility] Comment on above: Order Comment: Speci men Type: TISSUE SPECIMENOrdering Facility: [facility] Address: [address] [place] [address] Result Comment: Diag nostic interpretation performed at [facility], [address] [place] [address] CLIA# [id number] Curtain Roller Assembler: Sandrita Salamanca M.D. Performed By: #### S ####[facility] [id number] [address] GROSS DESCRIPTION Normal [facility] Comment on above: Order Comment: Speci men Type: TISSUE SPECIMENOrdering Facility: [facility] Address: [address] [place] [address] Result Comment: A. E ndometrium, Curettings Received in formalin labeled as endometrium curettings are multiple segments of red soft tissue aggregating to 2.0 x 1.0 x 0.3 cm. The specimen is totally submitted in formalin in 1 cassette. Gross examination performed at [facility], [address] [place] [address] CLIA#[id number] [facility] January 14, 2024 3:16 PM Performed By: #### S ####[facility]ORY[facility] [id number] [place] [address] [place] HISTORY PHYSICALon HISTORY PHYSICAL HNO ID: [id number] Author: EHRMELINDA YATES APRN.CHARGE MASTER COORDINATOR Service: ? Author Type: Nurse Practitioner Type: [...] gets US for every 2 years at [facility]. No results in Epic or Care [...] Have Been Initiated: No orders entered in [facility] per surgeon. REASON FOR VISIT: Car [...] Negative for: frequent urination, hematuria and urgency. UNDERPRESSER HAND: See HPI. Endocrine: Positive for: hyperthyro (more content not included)... Normal [facility] CNPNon 12-22-2023 CNPN Telephone (AGOBGRN) CAR SANTOYO ([id number]) 1985 F Date Time Provider Department 12/22/23 [...] Encounter Status:Closed by HERMELINDA DARNELL on 12/22/23 [facility] CNOVon 11-27-2023 CNOV Office Visit (AGOBST ) CAR SANTOYO ([id number]) 1985 F Date Time Provider Department 11/27/23 [...] (exact date). Informed Consent Consent Obtained: Written [place] Protocol A moment to CARE was completed. [...] Chen MD, MD Referring Provider: SANDRITA CHEN [[id number]] Allergies As of Date: 11/27/2023 Noted Allergy Reaction GRASS POLLEN 04/07/2023 3 - Cough Date Reviewed: 11/27/2023 Reviewed by: Radha Lion LPN - Fully Assessed Reason for Visit: Procedure [88] Cmt: EMB Primary Visit Diagnosis:Abnormal uterine bleeding (AUB) [N93.9] Order(s):ENDOMETRIAL BIOPSY PROCEDURE (W NOTE) [PRO73] Order #: [id number] SURGICAL PATHOLOGY [[id number]] Order #: [id number]. #[id number] Prescriptions as of 11/27/2023 - hydrOXYchloroQUINE (PLAQUENIL) [...] Disp, ( (more content not included)... Normal [facility] ENDOMETRIAL BIOPSY PROCEDURE (W NOTE)on 11-27-2023 [facility] SURGICAL PATHOLOGYon 024 CASE REPORT [facility] Comment on above: Order Comment: Amanda dickerson Type: TISSUE SPECIMENOrdering Facility: [facility] Address: [address] [place] [address] Result Comment: Surg ica Pathology Report Case: [id number] Authorizing Provider: Sandrita Chen MD Collected: 11/27/2023 11:31 AM Ordering Location: [facility] Received: 11/28/2023 12:02 PM General Obstetrics & Gynecology Pathologist: Nir Cole DO Specimen: Endometrium, Biopsy Performed By: #### S ####[facility] LABORATORYCLIA [id number] [place] [address] [place] CLINICAL HISTORY 11/17/23 Normal [facility] Comment on above: Order Comment: Speci men Type: TISSUE SPECIMENOrdering Facility: [facility] Address: [address] [place] [address] Performed By: #### S ####[facility] LABORATORYCLIA [id number] [address] FINAL DIAGNOSIS Normal [facility] Comment on above: Order Comment: Speci men Type: TISSUE SPECIMENOrdering Facility: [facility] Address: [address] [place] [address] Result Comment: A. E ndometrium, biopsy: - Proliferative phase endometrium. - Benign endocervical glandular epithelium. Performed By: #### S ####[facility] LABORATORYCLIA [id number] [address] FINAL PERFORMING LAB Normal [facility] Comment on above: Order Comment: Speci men Type: TISSUE SPECIMENOrdering Facility: [facility] Address: [address] [place] [address] Result Comment: Diag nostic interpretation performed at [facility], [address] [place] [address] CLIA# [id number] Curtain Roller Assembler: Sandrita Salamanca M.D. Performed By: #### S ####[facility]ORATORYCLIA [id number] [address] GROSS DESCRIPTION Normal [facility] Comment on above: Order Comment: Speci men Type: TISSUE SPECIMENOrdering Facility: [facility] Address: [address] [place] [address] Result Comment: A. E ndometrium, Biopsy Received in formalin labeled endometrium biopsy are multiple irregular pink-lopez soft tissue fragments aggregating to 2 x 1.5 x 0.3 cm. The specimen is submitted entirely in A1. Gross examination performed at [facility], [address] [place] [address] CLIA#[id number] [facility] November 28, 2023 1:03 PM Performed By: #### S ####[facility]ATORYCLIA [id number] [place] [address] [place] US Pelvison 11-21-2023 [...] Read By: Sandrita Chen M.D. MATERNAL MEDICINE [facility] Radiology Study observation (narrative) [facility] 25-hydroxyvitamin D3 [Mass/V ol]on 10-13-2023 Interpretation and review of laboratory results Abnormal [facility] CBC W Auto Differential pane l (Bld)on 10-13-2023 Basophils (Bld) [#/Vol] 0.06 10*3/uL [facility] Basophils/100 WBC (Bld) 0.9 % [facility] Differential cell count method Nom (Bld) Auto [facility] Eosinophils (Bld) [#/Vol] 0.24 10*3/uL [facility] Eosinophils/100 WBC (Bld) 3.7 % [facility] Erythrocyte distribution width (RBC) [Ratio] 16.6 % High 11.5 - 15.0 % [facility] Hematocrit (Bld) [Volume fraction] 37.8 % 36.0 - 46.0 % [facility] Hemoglobin (Bld) [Mass/Vol] 11.5 g/dL 11.5 - 15.5 g/dL [facility] Immature granulocytes (Bld) [#/Vol] 0.03 10*3/uL [facility] Immature granulocytes/100 WBC (Bld) 0.5 % [facility] Interpretation and review of laboratory results Abnormal [facility] Lymphocytes (Bld) [#/Vol] 2.15 10*3/uL [facility] Lymphocytes/100 WBC (Bld) 32.9 % [facility] MCH (RBC) [Entitic mass] 22.8 pg Low 26. 0 - 34.0 pg [facility] MCHC (RBC) [Mass/Vol] 30.4 g/dL Low 30.5 - 36.0 g/dL [facility] MCV (RBC) [Entitic vol] 75.0 fL Low 80.0 - 100.0 fL [facility] Monocytes (Bld) [#/Vol] 0.48 10*3/[facility] Monocytes/100 WBC (Bld) 7.3 % [facility] Neutrophils (Bld) [#/Vol] 3.58 10*3/uL [facility] Neutrophils/100 WBC (Bld) 54.7 % [facility] Nucleated RBC (Bld) [#/Vol] NINF [facility] Nucleated RBC/100 WBC (Bld) [Ratio] 0.0 % /100 WBC [facility] Platelet mean volume (Bld) [Entitic vol] 10.9 fL 9.0 - 12.7 fL [facility] Platelets (Bld) [#/Vol] 374 10*3/uL [facility] RBC (Bld) [#/Vol] 5.04 10*6/uL 3.90 - 5.2 0 m/uL [facility] WBC (Bld) [#/Vol] 6.54 10*3/uL [facility] CK [Catalytic activity/Vol]o n 10-13-2023 Interpretation and review of laboratory results Normal [facility] CREATINE KINASE/CKon 024 CK [Catalytic activity/Vol] 55 U/L 42 - 196 U/L [facility] Comprehensive metabolic 2000 panelon 10-13-2023 Albumin [Mass/Vol] 3.7 g/dL Low 3.9 - 4.9 g/dL [facility] ALP [Catalytic activity/Vol] 99 U/L 34 - 123 U/L [facility] ALT With P-5'-P [Catalytic activity/Vol] 13 U/L 7 - 38 U/L [facility] Anion gap [Moles/Vol] 13 mmol/L 8 - 15 mmol/L [facility] AST With P-5'-P [Catalytic activity/Vol] 15 U/L 13 - 35 U/L [facility] Bilirubin [Mass/Vol] 0.2 mg/dL 0.2 - 1 .3 mg/dL [facility] Calcium [Mass/Vol] 8.9 mg/dL 8.5 - 10. 2 mg/dL [facility] Chloride [Moles/Vol] 106 mmol/L 98 - 10 7 mmol/L [facility] CO2 [Moles/Vol] 23 mmol/L 22 - 30 mmol/L [facility] Creatinine [Mass/Vol] 0.73 mg/dL 0.58 - 0.96 mg/dL [facility] GFR/1.73 sq M.predicted among non-blacks MDRD (S/P/Bld) [Vol rate/Area] 107 mL/min/{1.73_m2} - PINF [facility] Comment on above: Estimated Glomerular Filtration Rate [...] [Mass/Vol] 79 mg/dL 74 - 99 mg/dL [facility] Comment on above: The [place] Diabete s Association (ADA) provides guidance for [...] Standards of Medical Care in Diabetes 2016, [place] [employer]. Diabetes Care. 2016.39(Suppl 1). Interpretation and review of laboratory results Abnormal [facility] Potassium [Moles/Vol] 3.9 mmol/L 3.7 - 5.1 mmol/L [facility] Protein [Mass/Vol] 6.9 g/dL 6.3 - 8.0 g/dL [facility] Sodium [Moles/Vol] 142 mmol/L 136 - 144 mmol/L [facility] Urea nitrogen [Mass/Vol] 7 mg/dL 7 - 21 mg/d L [facility] No Panel Informationon 10-12 [facility] VITAMIN D 25 HYDROXYon 10-12 25-hydroxyvitamin D3 [Mass/Vol] 18.7 ng/mL Low 30.0 - PINF ng/mL [facility] Comment on above: Classification of 25 [place] Vitamin D status: Deficiency: <= 20.0 ng/ml. Insufficiency: 21.0-29.0 ng/ml. Sufficiency: >= 30.0 ng/ml. Urinalysis complete panel (U )on 10-24-2022 Bilirubin Ql (U) Negative Negative [facility] Clarity (Unsp spec) Clear Clear [facility] Color (U) Colorless Yellow [facility] Epithelial cells LM.HPF (Urine sed) [#/Area] Few [facility] Glucose Test strip (U) [Mass/Vol] Negative Trace, Negative [facility] Hemoglobin Ql (U) Negative Negative, Trace [facility] Ketones Ql (U) Negative Trace, Negative [facility] Leukocyte esterase Test strip Ql (U) Negative Negative, 25 Srinivasa/uL [facility] Nitrite Ql (U) Negative Negative [facility] pH (U) 6.5 [pH] 5.0 - 8.0 [facility] Protein (U) [Mass/Vol] Negative Trace , Negative [facility] RBC LM.HPF (Urine sed) [#/Area] 0-3 /HPF 0-3 /HPF [facility] Specific gravity (U) [Rel density] 1.007 1.005 - 1.030 [facility] Urobilinogen Ql (U) Negative Negative [facility] WBC LM.HPF (Urine sed) [#/Area] 0-5 /HPF 0-5 /HPF [facility] CBC W Auto Differential pane l (Bld)on 10-23-2022 Basophils (Bld) [#/Vol] 0.05 10*3/uL <0.11 k/uL [facility] Basophils/100 WBC (Bld) 0.7 % [facility] Differential cell count method Nom (Bld) Auto [facility] Eosinophils (Bld) [#/Vol] 0.24 10*3/uL <0.46 k/uL [facility] Eosinophils/100 WBC (Bld) 3.6 % [facility] Erythrocyte distribution width (RBC) [Ratio] 15.5 % High 11.5 - 15.0 % [facility] Hematocrit (Bld) [Volume fraction] 39.9 % 36.0 - 46.0 % [facility] Hemoglobin (Bld) [Mass/Vol] 12.8 g/dL 11.5 - 15.5 g/dL [facility] Immature granulocytes (Bld) [#/Vol] <0.10 k/uL [facility] Immature granulocytes/100 WBC (Bld) 0.3 % [facility] Lymphocytes (Bld) [#/Vol] 1.82 10*3/uL 1.00 - 4.00 k/uL [facility] Lymphocytes/100 WBC (Bld) 27.0 % [facility] MCH (RBC) [Entitic mass] 24.2 pg Low 26. 0 - 34.0 pg [facility] MCHC (RBC) [Mass/Vol] 32.1 g/dL 30.5 - 36.0 g/dL [facility] MCV (RBC) [Entitic vol] 75.4 fL Low 80.0 - 100.0 fL [facility] Monocytes (Bld) [#/Vol] 0.47 10*3/uL <0.87 k/uL [facility] Monocytes/100 WBC (Bld) 7.0 % [facility] Neutrophils (Bld) [#/Vol] 4.15 10*3/uL 1.45 - 7.50 k/uL [facility] Neutrophils/100 WBC (Bld) 61.4 % [facility] Nucleated RBC (Bld) [#/Vol] <0.01 k/uL [facility] Nucleated RBC/100 WBC (Bld) [Ratio] 0.0 /100 WBC [facility] Platelet mean volume (Bld) [Entitic vol] 9.9 fL 9.0 - 12.7 fL [facility] Platelets (Bld) [#/Vol] 384 10*3/uL 150 - 400 k/uL [facility] RBC (Bld) [#/Vol] 5.29 10*6/uL High 3.90 - 5.2 0 m/uL [facility] WBC (Bld) [#/Vol] 6.75 10*3/uL 3.70 - 11. 00 k/uL [facility] Comprehensive metabolic 2000 panelon 10-23-2022 Albumin [Mass/Vol] 3.8 g/dL Low 3.9 - 4.9 g/dL [facility] ALP [Catalytic activity/Vol] 80 U/L 34 - 123 U/L [facility] ALT [Catalytic activity/Vol] 10 U/L 7 - 38 U/L [facility] Anion gap [Moles/Vol] 10 mmol/L 9 - 18 mmol/L [facility] AST [Catalytic activity/Vol] 10 U/L Low 13 - 35 U/L [facility] Bilirubin [Mass/Vol] 0.3 mg/dL 0.2 - 1 .3 mg/dL [facility] Calcium [Mass/Vol] 9.2 mg/dL 8.5 - 10. 2 mg/dL [facility] Chloride [Moles/Vol] 106 mmol/L High 97 - 10 5 mmol/L [facility] CO2 [Moles/Vol] 21 mmol/L Low 22 - 30 mmol/L [facility] Creatinine [Mass/Vol] 0.80 mg/dL 0.58 - 0.96 mg/dL [facility] Estimated Glomerular Filtration Rate 97 mL/min/1.73m >=60 mL/min/1.73m [facility] Glucose [Mass/Vol] 86 mg/dL 74 - 99 mg/dL [facility] Potassium [Moles/Vol] 4.0 mmol/L 3.7 - 5.1 mmol/L [facility] Protein [Mass/Vol] 6.9 g/dL 6.3 - 8.0 g/dL [facility] Sodium [Moles/Vol] 137 mmol/L 136 - 144 mmol/L [facility] Urea nitrogen [Mass/Vol] 8 mg/dL 7 - 21 mg/d L [facility] Creatinine Unsp time (U) [Ma ss/Vol]on 10-23-2022 Creatinine (U) [Mass/Vol] 44.8 mg/dL 20.0 - 300.0 mg/dL [facility] IGA BLDon 10-23-2022 IgA [Mass/Vol] 16 mg/dL Low 70 - 400 mg/dL [facility] IGGon 10-23-2022 IgG [Mass/Vol] 1278 mg/dL 700 - 1,600 mg/dL [facility] IGMon 10-23-2022 IgM [Mass/Vol] 242 mg/dL High 40 - 230 mg/dL [facility] No Panel Informationon 10-23 [facility] PROTEIN RANDOM URon 10-24-19 Protein (U) [Mass/Vol] 0 - 20 mg/dL [facility] VITAMIN D 25 HYDROXYon 10-23 25-hydroxyvitamin D3 [Mass/Vol] 20.6 ng/mL Low 31.0 - 80.0 ng/mL [facility] XR HAND GENERAL 3V PA/LAT/OB L LEFTon 10-23-2022 [facility] XR HAND GENERAL 3V PA/LAT/OB L RIGHTon 10-23-2022 [facility] XR SACROILIAC JOINTS 2V AP P RICHELLE/FERGUESONon 10-23-2022 [facility] XR KNEE GENERAL 4V AP BOTH/P A BOTH/LAT/MERC BILATERALon 07-15-2022 [facility] Absolute lymphocyte countOrd ered By: Jessica Satnos on 05-24-2022 Lymphocytes Auto (Unsp spec) [#/Vol] 1.46 10*3/uL 0.83-4.51 [facility] Basophil percentageOrdered B y: Jessica Santos on 05-24-2022 Basophils/100 WBC (Bld) 0.7 % 0-1 [facility] Eosinophils/100 WBC (Bld) 3.0 % 0-5 [facility] Neutrophils (Bld) [#/Vol] 4.7 10*3/uL 2.0-7.7 [facility] Neutrophils/100 WBC (Bld) 69.0 % 47-70 [facility] WBC (Bld) [#/Vol] 6.7 10*3/uL 4.4-11.0 [facility] Chloride [Moles/Vol] 107 mmol/L 98-107 [facility] Glucose [Mass/Vol] 105 mg/dL 74-106 [facility] Comment on above: Fasting Glucose resu lt from 100 to 125 mg/dL suggests IMPAIRED HOMEOSTASIS per A.D.A. criteria. Potassium [Moles/Vol] 3.9 mmol/L 3.5-5.1 [facility] Sodium [Moles/Vol] 139 mmol/L 136-145 [facility] Basophil percentageOrdered B y: ED PROVIDER on 05-24-2022 Basophil percentage 0-5 SEEN /hpf 0-5 [facility] Beta hCG serum qualOrdered B y: ED PROVIDER on 05-24-2022 Beta HCG ( test) Ql Negative [facility] Bilirubin Test strip Ql (U)O rdered By: ED PROVIDER on 05-24-2022 Bilirubin Ql (U) Negative Negative [facility] Blood erythrocytes count (nu mber/volume)Ordered By: Jessica Santos on 05-24-2022 RBC (Bld) [#/Vol] 5.52 10*6/uL 4.2-5.4 [facility] Blood hemoglobin measurement (mass/volume)Ordered By: Jessica Santos on 05-24-2022 Hemoglobin (Bld) [Mass/Vol] 13.2 g/dL 12.0-15.0 [facility] Blood lymphocytes/100 leukoc ytesOrdered By: Jessica Santos on 05-24-2022 Lymphocytes/100 WBC (Bld) 21.7 % 19-41 [facility] Blood monocytes/100 leukocyt esOrdered By: Jessica Santos on 05-24-2022 Monocytes/100 WBC (Bld) 5.2 % 0-10 [facility] Blood platelet mean volumeOr dered By: Jessica Santos on 05-24-2022 Platelet mean volume (Bld) [Entitic vol] 10.8 fL 6.2-12.0 [facility] Determination of erythrocyte mean corpuscular volume (MCV)Ordered By: Jessica Santos on 05-24-2022 MCV (RBC) [Entitic vol] 77.0 fL 81-99 [facility] Hematocrit Auto (Bld) [Volum e fraction]Ordered By: Jessica Santos on 05-24-2022 Hematocrit (Bld) [Volume fraction] 42.5 % 37-47 [facility] Ketones Test strip Ql (U)Ord ered By: ED PROVIDER on 05-24-2022 Ketones Ql (U) 5 mg/dl Negative [facility] Laboratory - Chemistry and C hemistry - challengeOrdered By: Jessica Santos on 05-24-2022 CO2 [Moles/Vol] 25.0 mmol/L 21.0-32.0 [facility] Urea nitrogen/Creatinine [Mass ratio] 11.7 mg/mg 10-20 [facility] - Hematology and Cell countsOrdered By: Jessica Santos on 05-24-2022 Erythrocyte distribution width (RBC) [Entitic vol] 45.4 fL 35.1-43.9 [facility] Erythrocyte distribution width (RBC) [Ratio] 16.1 % 11.6-14.6 [facility] Immature granulocytes/100 WBC (Bld) 0.400 % 0.0-0.9 [facility] Comment on above: IG% - Immature Granu locytes (promyelocytes, myelocytes and metamyelocytes) > 1% indicates that a LEFT SHIFT is Present. MCH (RBC) [Entitic mass] 23.9 pg 27.0-32.0 [facility] Nucleated RBC/100 WBC (Bld) [Ratio] 0 % 0-5 [facility] MCHC Auto (RBC) [Mass/Vol]Or dered By: Jessica Santos on 05-24-2022 MCHC (RBC) [Mass/Vol] 31.1 g/dL 32-36 [facility] Mucus LM Ql (Urine sed)Order ed By: ED PROVIDER on 05-24-2022 Mucus Ql (Urine sed) 2+ /hpf [facility] Nitrite Test strip Ql (U)Ord ered By: ED PROVIDER on 05-24-2022 Nitrite Ql (U) Negative Negative [facility] No Panel InformationOrdered By: Jessica Santos on 05-24-2022 Estimated Creatinine Clearance Calc 81.54 ml/min [facility] Estimated GFR (MDRD) Amer 96 mL/min >60 [facility] Comment on above: GFR Calc Estimated GFR (MDRD) Non-Af Amer 79 mL/min >60 [facility] Comment on above: Non- GFR Calc Platelets bldOrdered By: [place] Santos on 05-24-2022 Platelets (Bld) [#/Vol] 368 10*3/uL 150-450 [facility] Protein Test strip Ql (U)Ord ered By: ED PROVIDER on 05-24-2022 Protein Ql (U) 30 mg/dl Negative [facility] Serum or plasma calcium edith urement (mass/volume)Ordered By: Jessica Santos on 05-24-2022 Calcium [Mass/Vol] 9.0 mg/dL 8.5-10.1 [facility] Serum or plasma creatinine m easurement (mass/volume)Ordered By: Jessica Santos on 05-24-2022 Creatinine [Mass/Vol] 0.85 mg/dL 0.55-1.02 [facility] Comment on above: The validity of the calculated GFR & GFRAA in patients over 70 years has not been determined. Clinical correlation is essential. Serum or plasma urea nitroge n measurement (mass/volume)Ordered By: Jessica Santos on 05-24-2022 Urea nitrogen [Mass/Vol] 10 mg/dL 7-18 [facility] Squamous epithelial cells de tection in urine sediment by light microscopyOrdered By: ED PROVIDER on 05-24-2022 Epithelial cells.squamous LM Ql (Urine sed) 0 SEEN /hpf 5-10 [facility] Thin prep Papanicolaou smear with manual screeningOrdered By: Jessica Santos on 05-24-2022 Thin prep Papanicolaou smear with manual screening 7 5-15 [facility] Urine blood detectionOrdered By: ED PROVIDER on 05-24-2022 RBC Ql (U) 250 /ul Negative [facility] RBC Ql (U) 25-50 SEEN /hpf 0-5 [facility] Urine clarityOrdered By: ED PROVIDER on 05-24-2022 Clarity (U) Sl. Cloudy Clear [facility] Urine color determinationOrd ered By: ED PROVIDER on 05-24-2022 Color (U) Yellow Yellow [facility] Urine glucose detectionOrder ed By: ED PROVIDER on 05-24-2022 Glucose Ql (U) Normal mg/dl Normal [facility] Urine leukocyte esterase det ection by dipstickOrdered By: ED PROVIDER on 05-24-2022 Leukocyte esterase Test strip Ql (U) 25 /ul Negative [facility] Urine pHOrdered By: ED PROVI DARRICK on 05-24-2022 pH (U) 6.5 [pH] 5.0 - 8.0 [facility] Urine sediment bacteria coun t by microscopy (number/high power field)Ordered By: ED PROVIDER on 05-24-2022 Bacteria LM.HPF (Urine sed) [#/Area] 1 /[HPF] None Seen [facility] Urine specific gravity measu rementOrdered By: ED PROVIDER on 05-24-2022 Specific gravity (U) [Rel density] 1.020 1.002-1.030 [facility] Urobilinogen Auto test strip Ql (U)Ordered By: ED PROVIDER on 05-24-2022 Urobilinogen Ql (U) 1 mg/dl Normal [facility] Absolute lymphocyte countOrd ered By: Dr. Donahue on 05-06-2022 Lymphocytes Auto (Unsp spec) [#/Vol] 1.63 10*3/uL 0.83-4.51 [facility] Basophil percentageOrdered B y: Dr. Donahue on 05-06-2022 Basophil percentage 0.8 AI 0.0-0.9 [facility] Basophil percentage < 0.2 AI 0.0-0.9 [facility] Basophils/100 WBC (Bld) 0.5 % 0-1 [facility] Bilirubin [Mass/Vol] 0.40 mg/dL 0.20-1.00 [facility] Comment on above: For patients on eltr ombopag therapy, use of Dimension [place] TBIL is not recommended. Chloride [Moles/Vol] 107 mmol/L 98-107 [facility] Eosinophils/100 WBC (Bld) 3.4 % 0-5 [facility] Glucose [Mass/Vol] 77 mg/dL 74-106 [facility] Neutrophils (Bld) [#/Vol] 4.2 10*3/uL 2.0-7.7 [facility] Neutrophils/100 WBC (Bld) 64.2 % 47-70 [facility] Potassium [Moles/Vol] 3.8 mmol/L 3.5-5.1 [facility] Protein [Mass/Vol] 7.3 g/dL 6.4-8.2 [facility] Sodium [Moles/Vol] 136 mmol/L 136-145 [facility] WBC (Bld) [#/Vol] 6.5 10*3/uL 4.4-11.0 [facility] Blood erythrocytes count (nu mber/volume)Ordered By: Dr. Donahue on 05-06-2022 RBC (Bld) [#/Vol] 5.12 10*6/uL 4.2-5.4 [facility] Blood hemoglobin measurement (mass/volume)Ordered By: Dr. Donahue on 05-06-2022 Hemoglobin (Bld) [Mass/Vol] 12.4 g/dL 12.0-15.0 [facility] Blood lymphocytes/100 leukoc ytesOrdered By: Dr. Donahue on 05-06-2022 Lymphocytes/100 WBC (Bld) 25.0 % 19-41 [facility] Blood monocytes/100 leukocyt esOrdered By: Dr. Donahue on 05-06-2022 Monocytes/100 WBC (Bld) 6.6 % 0-10 [facility] Blood platelet mean volumeOr dered By: Dr. Donahue on 05-06-2022 Platelet mean volume (Bld) [Entitic vol] 10.3 fL 6.2-12.0 [facility] Determination of erythrocyte mean corpuscular volume (MCV)Ordered By: Dr. Donahue on 05-06-2022 MCV (RBC) [Entitic vol] 77.9 fL 81-99 [facility] Erythrocyte sedimentation ra teOrdered By: Dr. Donahue on 05-06-2022 ESR (Bld) [Velocity] 17 mm/h 0-30 [facility] Hematocrit Auto (Bld) [Volum e fraction]Ordered By: Dr. Donahue on 05-06-2022 Hematocrit (Bld) [Volume fraction] 39.9 % 37-47 [facility] - Chemistry and C hemistry - challengeOrdered By: Dr. Donahue on 05-06-2022 ALP [Catalytic activity/Vol] 82 U/L 45-117 [facility] ALT [Catalytic activity/Vol] 17 U/L 13-56 [facility] CO2 [Moles/Vol] 27.0 mmol/L 21.0-32.0 [facility] Free T4 [Mass/Vol] 1.11 ng/dL 0.76-1.46 [facility] Globulin (S) [Mass/Vol] 4.0 g/dL 2.2-4.2 [facility] Urea nitrogen/Creatinine [Mass ratio] 17.3 mg/mg 10-20 [facility] - Hematology and Cell countsOrdered By: Dr. Donahue on 05-06-2022 Erythrocyte distribution width (RBC) [Entitic vol] 46.3 fL 35.1-43.9 [facility] Erythrocyte distribution width (RBC) [Ratio] 16.4 % 11.6-14.6 [facility] Immature granulocytes/100 WBC (Bld) 0.300 % 0.0-0.9 [facility] Comment on above: IG% - Immature Granu locytes (promyelocytes, myelocytes and metamyelocytes) > 1% indicates that a LEFT SHIFT is Present. MCH (RBC) [Entitic mass] 24.2 pg 27.0-32.0 [facility] Nucleated RBC/100 WBC (Bld) [Ratio] 0 % 0-5 [facility] MCHC Auto (RBC) [Mass/Vol]Or dered By: Dr. Donahue on 05-06-2022 MCHC (RBC) [Mass/Vol] 31.1 g/dL 32-36 [facility] No Panel InformationOrdered By: Dr. Donahue on 05-06-2022 Anti-Nuclear Antibody Screen Positive Negative [facility] Centromere B Antibody <0.2 AI 0.0-0.9 [facility] Estimated GFR (MDRD) Amer 122 mL/min >60 [facility] Comment on above: GFR Calc Estimated GFR (MDRD) Non-Af Amer 101 mL/min >60 [facility] [facility] Comment on above: Non- GFR Calc TECHNOLOGY AUDITOR Antibody 0.2 AI 0.0-0.9 [facility] Thyroid Stimulating Hormone (TSH) 2.08 uIU/mL 0.358-3.74 [facility] Total Triiodothyronine 1.28 ng/mL 0.6-1.81 [facility] Platelets bldOrdered By: Dr. Donahue on 05-06-2022 Platelets (Bld) [#/Vol] 323 10*3/uL 150-450 [facility] Serum DNA double strand anti body assay (units/volume)Ordered By: Dr. Donahue on 05-06-2022 DNA double strand Ab Qn (S) 4 [IU]/mL 0-9 [facility] Comment on above: Negative <5 Equivoca l 5 - 9 Positive >9 Serum Salima-1 antibody assay (u nits/volume)Ordered By: Dr. Donahue on 05-06-2022 Salima-1 extractable nuclear Ab Qn (S) 0.9 AI 0.0-0.9 [facility] Serum Scl-70 extractable nuc lear antibody assay (units/volume)Ordered By: Dr. Donahue on 05-06-2022 SCL-70 extractable nuclear Ab Qn (S) 1.4 AI 0.0-0.9 [facility] Serum Chow extractable nucl ear antibody detectionOrdered By: Dr. Donahue on 05-06-2022 Chow extractable nuclear Ab Ql (S) 1.7 AI 0.0-0.9 [facility] Serum or plasma C reactive p rotein measurement (mass/volume)Ordered By: Dr. Donahue on 05-06-2022 CRP [Mass/Vol] 3.51 mg/L 0.0-3.0 [facility] Comment on above: C-Reactive Protein ( CRP) provides useful information for thediagnosis, therapy and monitoring of inflammatory processesand associated diseases. For the evaluation of Relative Riskfor Cardiovascular Disease, a High Sensitivity CRP (HSCRP)should be ordered. Serum or plasma albumin edith urement (mass/volume)Ordered By: Dr. Donahue on 05-06-2022 Albumin [Mass/Vol] 3.3 g/dL 3.2-5.0 [facility] Serum or plasma albumin/glob ulin mass ratioOrdered By: Dr. Donahue on 05-06-2022 Albumin/Globulin [Mass ratio] 0.8 {ratio} 0.9-2.4 [facility] Serum or plasma calcium edith urement (mass/volume)Ordered By: Dr. Donahue on 05-06-2022 Calcium [Mass/Vol] 8.8 mg/dL 8.5-10.1 [facility] Serum or plasma creatinine m easurement (mass/volume)Ordered By: Dr. Donahue on 05-06-2022 Creatinine [Mass/Vol] 0.69 mg/dL 0.55-1.02 [facility] Comment on above: The validity of the calculated GFR & GFRAA in patients over 70 years has not been determined. Clinical correlation is essential. Serum or plasma urea nitroge n measurement (mass/volume)Ordered By: Dr. Donahue on 05-06-2022 Urea nitrogen [Mass/Vol] 12 mg/dL 7-18 [facility] Thin prep Papanicolaou smear with manual screeningOrdered By: Dr. Donahue on 05-06-2022 Thin prep Papanicolaou smear with manual screening 9 U/L 15-37 [facility] Thin prep Papanicolaou smear with manual screening 2 5-15 [facility] CTA ABD/PELV W IVCONon 10-22 CTA ABD/PELV W IVCON * * *Final Report* * * DATE OF EXAM: Oct 22 2018 3:25PM [facility] 0311 - CTA ABD/PELV W IVCON / [...] chest, abdomen and pelvis with intravenous contrast. 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: PSCB Transcribe Date/Time: Oct 22 2018 3:32P Dictated by : BRITTNI MORRIS MD This examination was interpreted and the report reviewed and electronically signed by: BRITTNI MORRIS MD on Oct 22 2018 3:52PM EST Normal [facility] CTA CHEST (NONGATED) W IVCON on 10-22-2018 CTA CHEST (NONGATED) W IVCON * * *Final Report* * * DATE OF EXAM: Oct 22 2018 3:25PM [facility] 0123 - CTA CHEST (NONGATED) W IVCON [...] chest, abdomen and pelvis with intravenous contrast. 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: LINDA Transcribe Date/Time: Oct 22 2018 3:32P Dictated by : BRITTNI MORRIS MD This examination was interpreted and the report reviewed and electronically signed by: BRITTNI MORRIS MD on Oct 22 2018 3:52PM EST Normal [facility] Comprehensive Panelon 2018 Albumin [Mass/Vol] 3.5 g/dL Normal 3.4-5.0 [facility] Comment on above: Performed By: #### L P14 #### [facility] [address] [place] [address] ALP [Catalytic activity/Vol] 94 U/L Normal 46-116 [facility] Comment on above: Performed By: #### L P14 #### [facility] [address] [place] [address] ALT-SGPT Blood 26 U/L Normal 14-63 [facility] Comment on above: Performed By: #### L P14 #### [facility] [address] [place] [address] Anion gap [Moles/Vol] 14 mmol/L Normal 8-20 [facility] Comment on above: Performed By: #### L P14 #### [place] [address] AST-SGOT Blood 23 U/L Normal 15-37 [facility] Comment on above: Performed By: #### L P14 #### [place] [address] Bilirubin Ql (U) 0.6 mg/dL Normal 0.2-1.0 [facility] Comment on above: Performed By: #### L P14 #### [place] [address] Calcium [Mass/Vol] 9.0 mg/dL Normal 8.5-10.1 [facility] Comment on above: Performed By: #### L P14 #### [facility] [address] [place] [address] CO2 Blood 26 mEq/L Normal 21-32 [facility] Comment on above: Performed By: #### L P14 #### [facility] [address] [place] [address] Creatinine [Mass/Vol] 0.68 mg/dL Normal 0.51-0.95 [facility] Comment on above: Performed By: #### L P14 #### [address] [place] [address] Glucose [Mass/Vol] 106 mg/dL High 70-99 [facility] Comment on above: Performed By: #### L P14 #### [facility] [address] [place], [place] [address] Protein [Mass/Vol] 7.6 g/dL Normal 6.4-8.2 [facility] Comment on above: Performed By: #### L P14 #### [facility] [address] [place] [address] Urea nitrogen [Mass/Vol] 6 mg/dL Low 7-18 [facility] Comment on above: Performed By: #### L P14 #### [facility] [address] [place] [address] Urea nitrogen/Creatinine [Mass ratio] 9 mg/mg Low 10-20 [facility] Comment on above: Performed By: #### L P14 #### [place] [address] Chloride [Moles/Vol] 101 mmol/L Normal 98-[address] [facility] Comment on above: Result Comment: Test ing performed on an [place] i-STAT. Performed By: #### L P14 #### [place] [address] Potassium [Moles/Vol] 3.7 mmol/L Normal 3.5-4.9 [facility] Comment on above: Result Comment: Test ing performed on an [place] i-STAT. Performed By: #### L P14 #### [place] [address] Sodium [Moles/Vol] 137 mmol/L Low 138-146 [facility] Comment on above: Result Comment: Test ing performed on an [place] i-STAT. Performed By: #### L P14 #### [place] [id number] Cult Bloodon 10-22-2018 Cult Blood Test performed at [facility] No growth The blood cultures are under-filled. Adding volumes lower or higher than the trencher driver?s recommended volume* may adversely affect recovery and/or detection of organisms. (*refer to individual bottle labels for correct volumes). Normal [facility] Comment on above: Performed By: #### L P14 #### [facility] [address] [place] [address] Cult Blood Test performed at [facility] No growth The blood cultures are under-filled. Adding volumes lower or higher than the trencher driver?s recommended volume* may adversely affect recovery and/or detection of organisms. (*refer to individual bottle labels for correct volumes). Normal [facility] Comment on above: Performed By: #### L P14 #### [place] [address] Hemogram/Manual Diffon 10-22 Abs. Baso 0.00 thou/cmm Normal 0.00-0.08 [facility] Comment on above: Performed By: #### L MCBD #### [place] [address] Abs. Eosin 0.00 thou/cmm Normal 0.00-0.41 [facility] Comment on above: Performed By: #### L MCBD #### [place] [address] Abs. Lymph 0.41 thou/cmm Low 1.50-3.65 [facility] Comment on above: Performed By: #### L MCBD #### [place] [address] Abs. Wirt 0.28 thou/cmm Normal 0.20-1.00 [facility] Comment on above: Performed By: #### L MCBD #### [place] [address] Abs. Neut (ANC) 13.11 thou/cmm High 3.00-5.67 [facility] Comment on above: Performed By: #### L MCBD #### [place] [address] Basophil 0.0 % Normal [facility] Comment on above: Performed By: #### L MCBD #### [place] [address] Diff Type Manual Diff Normal [facility] Comment on above: Performed By: #### L MCBD #### [facility] [address] [place] [address] Eosinophil 0.0 % Normal [facility] Comment on above: Performed By: #### L MCBD #### [facility] [address] [place] [address] Lymphocyte 3.0 % Normal [facility] Comment on above: Performed By: #### L MCBD #### [facility] [address] [place] [address] Monocyte 2.0 % Normal [facility] Comment on above: Performed By: #### L MCBD #### [facility] [address] [place] [address] Platelets (Bld) [#/Vol] Normal Normal [facility] Comment on above: Performed By: #### L MCBD #### [facility] [address] [place] [address] RBC morphology finding Nom (Bld) Normal Normal [facility] Comment on above: Performed By: #### L MCBD #### [facility] [address] [place] [address] Seg Neutrophil 95.0 % Normal [facility] Comment on above: Performed By: #### L MCBD #### [facility] [address] [place] [address] Erythrocyte distribution width (RBC) [Ratio] 15.1 % Normal 11.5-15.9 [facility] Comment on above: Performed By: #### L MCBD #### [facility] [address] [place] [address] Hematocrit (Bld) [Volume fraction] 38.7 % Normal 37.0-47.0 [facility] Comment on above: Performed By: #### L MCBD #### [facility] [address] [place] [address] Hemoglobin (Bld) [Mass/Vol] 12.4 g/dL Normal 12.0-16.0 [facility] Comment on above: Performed By: #### L MCBD #### [facility] [address] [place] [address] MCH (RBC) [Entitic mass] 23.7 pg Low 27.0-31.0 [facility] Comment on above: Performed By: #### L MCBD #### [facility] [address] [place], [place] [address] MCHC (RBC) [Mass/Vol] 32.0 % Normal 32.0-36.0 [facility] Comment on above: Performed By: #### L MCBD #### [facility] [address] [place] [address] MCV (RBC) [Entitic vol] 74.0 fl Low 81.0-99.0 [facility] Comment on above: Performed By: #### L MCBD #### [facility] [address] [place] [address] Platelet mean volume (Bld) [Entitic vol] 9.9 fl Normal 7.1-10.5 [facility] Comment on above: Performed By: #### L MCBD #### [place] [address] Platelets (Bld) [#/Vol] 345 thou/cmm Normal 150-400 [facility] Comment on above: Performed By: #### L MCBD #### [place] [address] RBC (Bld) [#/Vol] 5.23 mil/cmm Normal 4.20-5.40 [facility] Comment on above: Performed By: #### L MCBD #### [place] [address] WBC (Bld) [#/Vol] 13.8 thou/cmm High 4.8-10.[address] [facility] Comment on above: Performed By: #### L MCBD #### [place] [address] Lactic acidon 10-22-2018 Lactate [Moles/Vol] 1.1 mmol/L Normal 0.4-2.0 [facility] Comment on above: Performed By: #### L P14 #### [place] [address] Lactate [Moles/Vol] 2.3 mmol/L Critically high 0.4-2.0 [facility] Comment on above: Performed By: #### L LA #### [facility] [address] [place], [place] [address] Lipase Bloodon 10-22-2018 Lipase Blood 91 U/L Normal 73-393 [facility] Comment on above: Performed By: #### L LIP #### [facility] [address] [place], [place] [address] MDRD eGFRon 10-22-2018 GFR/1.73 sq M predicted among non-blacks MDRD (S/P/Bld) [Vol rate/Area] mL/min/{1.73_m2} Normal >60mL/min/1. 73m2 [facility] Comment on above: Result Comment: If t he patient is , multiply the result by 1.210. Performed By: #### L GFR #### [facility] [address] [place], [place] [address] Protimeon 10-22-2018 INR Coag (PPP) [Relative time] 1.04 {INR} Normal 0.90-1.30 [facility] Comment on above: Result Comment: Note : Reference Range Change Vitamin K Antagonist (VKA) Therapeutic Range: INR 2 to 3 (Target INR of 2.5) Note: For patients treated with VKA drugs, such as warfarin, the [employer] 2012 Guideline recommends [...] [phone] Performed By: #### L PT #### [facility] [address] [place] [address] PT Coag (PPP) [Time] 10.6 s Normal 9.7-13.[address] [facility] Comment on above: Result Comment: . Performed By: #### L PT #### [place] [address] Troponin Ion 10-22-2018 Troponin I.cardiac [Mass/Vol] ng/mL Normal <=0.07 [facility] Comment on above: Performed By: #### L TRP #### [place] [address] Urinalysis Routineon 019 Appearance (U) CLEAR Normal [facility] Comment on above: Performed By: #### L URIN #### [place] [address] Bacteria LM.HPF (Urine sed) [#/Area] FEW Abnormal None [facility] Comment on above: Performed By: #### L URIN #### [place] [address] Bilirubin Urine see below Normal Negative [facility] Comment on above: Result Comment: Dome cted (Unable to confirm). Performed By: #### L URIN #### [place] [address] Color (U) DARK YELLOW Normal [facility] Comment on above: Performed By: #### L URIN #### [place] [address] Ep Cells Urine 0-2 Normal 0-5 [facility] Comment on above: Performed By: #### L URIN #### [place] [address] Glucose Ql (U) Negative Normal Negative [facility] Comment on above: Performed By: #### L URIN #### [place] [address] Hemoglobin,Urine Negative Normal Negative [facility] Comment on above: Performed By: #### L URIN #### [address], [place] [address] Ketone Urine 2+ Abnormal Negative [facility] Comment on above: Performed By: #### L URIN #### [place] [address] Leukocytes Esterase Negative Normal Negative [facility] Comment on above: Performed By: #### L URIN #### [place] [address] Nitrites Urine Negative Normal Negative [facility] Comment on above: Performed By: #### L URIN #### [place] [address] pH (U) 6.5 [pH] Normal 5.0-8.0 [facility] Comment on above: Performed By: #### L URIN #### [place] [address] Protein (U) [Mass/Vol] TRACE Abnormal Negative [facility] Comment on above: Performed By: #### L URIN #### [place] [address] RBC LM.HPF (Urine sed) [#/Area] NONE Normal 0-3 [facility] Comment on above: Performed By: #### L URIN #### [place] [address] Specific Leonard, Ur 1.020 Normal 1.005-1.030 [facility] Comment on above: Performed By: #### L URIN #### [place] [address] Urobilinogen,Ur 0.2 EU/dL Normal 0.2-1.0 [facility] Comment on above: Performed By: #### L URIN #### [place] [address] WBC LM.HPF (Urine sed) [#/Area] NONE Normal 0-5 [facility] Comment on above: Performed By: #### L URIN #### [place] [address] Urine HCG, Qual.on 9 Beta HCG ( test) Ql (U) Negative Normal Negative [facility] Comment on above: Performed By: #### L HCG2 #### [facility] [address] [place] [address] Large Joint Arthro/Inj: bila teral knee joints [facility] Vital Signs Date Time Vital Sign Value Performing Clinician Facility 04-14-2024 13:57-0500 Body height 166.4 cm Fabrice Welda PA-C Work Phone: [facility] 04-14-2024 13:57-0500 Body mass index (BMI) [Ratio] 46.75 kg/m2 Fabrice Bertha PA-C Work Phone: [facility] 04-14-2024 13:57-0500 Body temperature 97.81 [degF] Fabrice Welda PA-C Work Phone: [facility] 04-14-2024 13:57-0500 Body weight 129.45 kg Fabrice Welda PA-C Work Phone: [facility] 04-14-2024 13:57-0500 Diastolic blood pressure 75 mm[Hg] Fabrice Bertha PA-C Work Phone: [facility] Comment on above: Right wrist 04-14-2024 13:57-0500 Heart rate 83 /min Fabrice Bertha PA-C Work Phone: [facility] 04-14-2024 13:57-0500 Respiratory rate 14 /min Fabrice Welda PA-C Work Phone: [facility] 04-14-2024 13:57-0500 Systolic blood pressure 114 mm[Hg] Fabrice Welda PA-C Work Phone: [facility] Comment on above: Right wrist 01-13-2024 10:02-0500 Body height 165.1 [address] 1 [facility] 01-13-2024 10:02-0500 Body mass index (BMI) [Ratio] 47.59 kg/m2 Pst 1 [facility] 01-13-2024 10:02-0500 Body temperature 98.6 [degF] Pst 1 [facility] 01-13-2024 10:02-0500 Body weight 129.73 kg Pst 1 [facility] 01-13-2024 10:02-0500 Diastolic blood pressure 74 mm[Hg] Pst 1 [facility] 01-13-2024 10:02-0500 Heart rate 66 /min Pst 1 [facility] 01-13-2024 10:02-0500 Respiratory rate 18 /min [facility] 01-13-2024 10:02-0500 SaO2% (BldA) [Mass fraction] 97 % Pst 1 [facility] 01-13-2024 10:02-0500 Systolic blood pressure 109 mm[Hg] Pst 1 [facility] 12-18-2023 15:23-0400 Body height 165.1 cm Sandrita Chen MD Work Phone: [facility] 12-18-2023 15:23-0400 Body mass index (BMI) [Ratio] 47.59 kg/m2 Sandrita Chen MD Work Phone: [facility] 12-18-2023 15:23-0400 Body weight 129.73 kg Sandrita Chen MD Work Phone: [facility] 11-27-2023 10:53-0400 Body height 167.6 cm Sandrita Chen MD Work Phone: [facility] 11-27-2023 10:53-0400 Body mass index (BMI) [Ratio] 46.76 kg/m2 Sandrita Chen MD Work Phone: [facility] 11-27-2023 10:53-0400 Body weight 131.41 kg Sandrita Chen MD Work Phone: [facility] 11-27-2023 10:53-0400 Diastolic blood pressure 82 mm[Hg] Sandrita Chen MD Work Phone: [facility] 11-27-2023 10:53-0400 Systolic blood pressure 126 mm[Hg] Sandrita Chen MD Work Phone: [facility] 11-21-2023 11:11-0400 Body height 167.6 cm Sandrita Chen MD Work Phone: [facility] 11-21-2023 11:11-0400 Body mass index (BMI) [Ratio] 46.81 kg/m2 Sandrita Chen MD Work Phone: [facility] 11-21-2023 11:11-0400 Body weight 131.54 kg Sandrita Chen MD Work Phone: [facility] 11-21-2023 11:11-0400 Diastolic blood pressure 96 mm[Hg] Sandrita Chen MD Work Phone: [facility] 11-21-2023 11:11-0400 Systolic blood pressure 126 mm[Hg] Sandrita Chen MD Work Phone: [facility] 10-13-2023 08:08-0400 Body height 167.6 cm Nikki Gomez MD Work Phone: [facility] 10-13-2023 08:08-0400 Body mass index (BMI) [Ratio] 45.74 kg/m2 Nikki Gomez MD Work Phone: [facility] 10-13-2023 08:08-0400 Body temperature 97.81 [degF] Nikki Gomez MD Work Phone: [facility] 10-13-2023 08:08-0400 Body weight 128.55 kg Nikki Gomez MD Work Phone: [facility] 10-13-2023 08:08-0400 Diastolic blood pressure 78 mm[Hg] Nikki Gomez MD Work Phone: [facility] 10-13-2023 08:08-0400 Heart rate 71 /min Nikki Gomez MD Work Phone: [facility] 10-13-2023 08:08-0400 SaO2% (BldA) [Mass fraction] 99 % Nikki Gomez MD Work Phone: [facility] 10-13-2023 08:08-0400 Systolic blood pressure 114 mm[Hg] Nikki Gomez MD Work Phone: [facility] 08-01-2023 13:11-0400 Body height 165.1 cm Sandrita Chen MD Work Phone: [facility] 08-01-2023 13:11-0400 Body mass index (BMI) [Ratio] 46.59 kg/m2 Sandrita Chen MD Work Phone: [facility] 08-01-2023 13:11-0400 Body weight 127.01 kg Sandrita Chen MD Work Phone: [facility] 08-01-2023 13:11-0400 Diastolic blood pressure 77 mm[Hg] Sandrita Chen MD Work Phone: [facility] 08-01-2023 13:11-0400 Systolic blood pressure 115 mm[Hg] Sandrita Chen MD Work Phone: [facility] 10-08-2022 13:09-0400 Body height 1676.[address] Ap Donahue Work Phone: [facility] 10-08-2022 13:09-0400 Body mass index (BMI) [Ratio] 0.4 kg/m2 Dr. Ap Donahue Work Phone: [facility] 10-08-2022 13:09-0400 Body temperature 99 [degF] Dr. Ap Donahue Work Phone: [facility] 10-08-2022 13:09-0400 Body weight 127.[address] pA Donahue Work Phone: [facility] 10-08-2022 13:09-0400 Diastolic blood pressure 88 mm[Hg] Dr. Ap Donahue Work Phone: [facility] 10-08-2022 13:09-0400 Heart rate 65 /min Dr. Ap Donahue Work Phone: [facility] 10-08-2022 13:09-0400 Respiratory rate 16 /min Dr. Ap Donahue Work Phone: [facility] 10-08-2022 13:09-0400 SaO2% (BldA) [Mass fraction] 98 % Dr. Ap Donahue Work Phone: [facility] 10-08-2022 13:09-0400 Systolic blood pressure 138 mm[Hg] Dr. Ap Donahue Work Phone: [facility] 08-06-2022 10:38-0400 Body mass index (BMI) [Ratio] 47.4 kg/m2 Dr. Ap Donahue Work Phone: [facility] 08-06-2022 10:38-0400 Body temperature 95.9 [degF] Dr. Ap Donahue Work Phone: [facility] 08-06-2022 10:38-0400 Body weight 129.[address] Ap Donahue Work Phone: [facility] 08-06-2022 10:38-0400 Diastolic blood pressure 84 mm[Hg] Dr. Ap Donahue Work Phone: [facility] 08-06-2022 10:38-0400 Heart rate 70 /min Dr. Ap Donahue Work Phone: [facility] 08-06-2022 10:38-0400 Respiratory rate 18 /min Dr. Ap Donahue Work Phone: [facility] 08-06-2022 10:38-0400 SaO2% (BldA) [Mass fraction] 100 % Dr. Ap Donahue Work Phone: [facility] 08-06-2022 10:38-0400 Systolic blood pressure 114 mm[Hg] Dr. Ap Donahue Work Phone: [facility] 06-24-2022 10:34-0400 Body height 165.[address] Adriano Uriostegui Work Phone: [facility] 06-24-2022 10:34-0400 Body mass index (BMI) [Ratio] 46.5 kg/m2 Dr. Adriano Uriostegui Work Phone: [facility] 06-24-2022 10:34-0400 Body temperature 97.1 [degF] Dr. Adriano Uriostegui Work Phone: [facility] 06-24-2022 10:34-0400 Body weight 126.[address] Adriano Uriostegui Work Phone: [facility] 06-24-2022 10:34-0400 Diastolic blood pressure 84 mm[Hg] Dr. Adriano Uriostegui Work Phone: [facility] 06-24-2022 10:34-0400 Heart rate 73 /min Dr. Adriano Uriostegui Work Phone: [phone] [place] [address] 06-24-2022 10:34-0400 Respiratory rate 18 /min Dr. Adriano Uriostegui Work Phone: [facility] 06-24-2022 10:34-0400 SaO2% (BldA) [Mass fraction] 99 % Dr. Adriano Uriostegui Work Phone: [facility] 06-24-2022 10:34-0400 Systolic blood pressure 106 mm[Hg] Dr. Adriano Uriostegui Work Phone: [facility] 05-24-2022 17:50-0400 Diastolic blood pressure 90 mm[Hg] Dr. Adriano Uriostegui Work Phone: [facility] 05-24-2022 17:50-0400 Heart rate 65 /min Dr. Adriano Uriostegui Work Phone: [facility] 05-24-2022 17:50-0400 Respiratory rate 18 /min Dr. Adriano Uriostegui Work Phone: [facility] 05-24-2022 17:50-0400 Systolic blood pressure 137 mm[Hg] Dr. Adriano Uriostegui Work Phone: [facility] 05-24-2022 14:17-0400 Body height 165.[address] Adriano Uriostegui Work Phone: [facility] 05-24-2022 14:17-0400 Body mass index (BMI) [Ratio] 46.5 kg/m2 Dr. Adriano Uriostegui Work Phone: [facility] 05-24-2022 14:17-0400 Body temperature 98 [degF] Dr. Adriano Uriostegui Work Phone: [facility] 05-24-2022 14:17-0400 Body weight 126.[address] Adriano Uriostegui Work Phone: [facility] 05-24-2022 14:17-0400 SaO2% (BldA) [Mass fraction] 100 % Dr. Adriano Uriostegui Work Phone: [facility] 05-06-2022 09:39-0500 Body height 165.[address] Adriano Uriostegui Work Phone: [facility] 05-06-2022 09:39-0500 Body mass index (BMI) [Ratio] 46.4 kg/m2 Dr. Adriano Uriostegui Work Phone: [facility] 05-06-2022 09:39-0500 Body temperature 98.2 [degF] Dr. Adriano Uriostegui Work Phone: [facility] 05-06-2022 09:39-0500 Body weight 126.[address] Adriano Uriostegui Work Phone: [facility] 05-06-2022 09:39-0500 Diastolic blood pressure 78 mm[Hg] Dr. Adriano Uriostegui Work Phone: [facility] 05-06-2022 09:39-0500 Heart rate 73 /min Dr. Adriano Uriostegui Work Phone: [facility] 05-06-2022 09:39-0500 Respiratory rate 16 /min Dr. Adriano Uriostegui Work Phone: [facility] 05-06-2022 09:39-0500 SaO2% (BldA) [Mass fraction] 98 % Dr. Adriano Uriostegui Work Phone: [facility] 05-06-2022 09:39-0500 Systolic blood pressure 132 mm[Hg] Dr. Adriano Uriostegui Work Phone: [facility] 09-24-2021 08:58-0400 Body height 165.[address] Adriano Uriostegui Work Phone: [facility] Work Phone: 09-24-2021 08:58-0400 Body mass index (BMI) [Ratio] 47 kg/m2 Dr. Adriano Uriostegui Work Phone: [facility] Work Phone: 09-24-2021 08:58-0400 Body weight 128.[address] Adriano Uriostegui Work Phone: [facility] Work Phone: Encounters Encounter Date Encounter Type Care Provider Facility Start: 12-23-2024 ambulatory Ap Preemption Facility :[facility] Start: 12-01-2024 ambulatory Ap Preemption Facility :[facility] Start: 11-30-2024 ambulatory Ap Rowan Facility :[facility] Start: 11-24-2024 End: 11-24-2024 Patient encounter procedure Nikki Gomez MD Work Phone: [facility] General Rheumatology and Arthritis Comment on above: MARKUS positive (Primar y Dx); Hypermobility syndrome; Rash and other nonspecific skin eruption; Primary osteoarthritis involving multiple joints; Long-term use of Plaquenil; Undifferentiated connective tissue disease (HCC) Start: 11-24-2024 End: 11-24-2024 Telemedicine consultation with patient Nikki Gomez MD Work Phone: [facility] General Rheumatology and Arthritis Start: 11-24-2024 End: 11-24-2024 ambulatory NIKKI GOMEZ Facility:[facility] Start: 11-18-2024 End: 11-18-2024 ambulatory Ap Rowan Facility:[facility] Start: 11-18-2024 End: 11-18-2024 ambulatory Ap Preemption Facility:[facility] Start: 10-21-2024 ambulatory NIKKI GOMEZ Facilit y:[facility] Start: 09-28-2024 End: 09-28-2024 Refill Fabrice Stone PA-C Work Phone: [facility] Rheumatology and Arthritis Comment on above: Refill Request Start: 08-17-2024 End: 08-17-2024 ambulatory Ap Preemption Facility:[facility] Start: 08-11-2024 End: 08-11-2024 ambulatory Ap Preemption Facility:[facility] Start: 07-26-2024 End: 07-26-2024 Patient encounter procedure Nancy Luke OD Work Phone: Ophthalmology Comment on above: High risk medication use (Primary Dx); Regular astigmatism of both eyes; Amblyopia suspect, left eye Start: 07-26-2024 End: 07-26-2024 ambulatory AP G ROWAN Facility:[facility] Start: 07-22-2024 End: 08-07-2024 ambulatory Ap Preemption Facility:[facility] Start: 07-08-2024 End: 07-08-2024 ambulatory Ap Preemption Facility:[facility] Start: 06-08-2024 Encounter for antibo dy response examination Ap Preemption [facility] Start: 06-03-2024 End: 06-03-2024 ambulatory Ap Rowan Facility:[facility] Start: 06-03-2024 End: 06-03-2024 ambulatory Ap Rowan Facility:[facility] Start: 05-27-2024 End: 05-27-2024 ambulatory Ap Preemption Facility:[facility] Start: 05-20-2024 End: 06-07-2024 ambulatory Ap Rowan Facility:[facility] Start: 05-16-2024 End: 05-16-2024 Emergency department patient visit AP G ROWAN Facility:[facility] Start: 04-29-2024 End: 04-29-2024 ambulatory Ap Rowan Facility:[facility] Start: 04-28-2024 End: 04-28-2024 Follow-up encounter Fabrice Stone PA-C Work Phone: [facility] Rheumatology and Arthritis Comment on above: Iron deficiency anem ia, unspecified iron deficiency anemia type (Primary Dx) Start: 04-26-2024 End: 04-26-2024 ambulatory AP DONAHUE Facility:[facility] Start: 04-14-2024 End: 04-14-2024 Office outpatient visit 25 minutes Fabrice Stone PA-C Work Phone: [facility] Rheumatology and Arthritis Comment on above: Positive MARKUS (antinu clear antibody) (Primary Dx); Pain in joint, multiple sites; Rash and nonspecific skin eruption; Long-term use of Plaquenil; Fibromyalgia Start: 04-14-2024 End: 04-14-2024 ambulatory FABRICE STONE Facility:[facility] Start: 02-10-2024 End: 02-10-2024 Telephone encounter Sandrita Chen MD Work Phone: [facility] Obstetrics and Gynecology Comment on above: Patient Update Start: 02-10-2024 End: 02-10-2024 ambulatory Ap Donahue [place] [place] Start: 01-14-2024 End: 01-14-2024 ambulatory SANDRITA CHEN Facility:[facility] Start: 01-13-2024 End: 01-13-2024 Admission to establishment [facility] 1 Pre Surgical Testing Start: 01-13-2024 End: 01-13-2024 Preprocedural examination done Pst 1 [facility] Work Phone: Start: 01-13-2024 End: 01-13-2024 ambulatory [...] Encounter for other preprocedural examination NIKKI GOMEZ [facility] Start: 01-12-2024 Preprocedural examin ation done Pst 1 [facility] Start: 12-23-2023 End: 12-23-2023 Orders Only Sandrita Chen MD Work Phone: [facility] Obstetrics & Gynecology Comment on above: Abnormal uterine ble eding (Primary Dx) Start: 12-22-2023 End: 12-22-2023 Telephone encounter Sandrita Chen MD Work Phone: [facility] Obstetrics & Gynecology Comment on above: Patient Update (Left Pt Vm to call back to schedule surgery Hermelinda Darnell/December 22, 2023 2:51 PM//) Start: 12-18-2023 End: 12-18-2023 Patient encounter procedure Sandrita Chen MD Work Phone: [facility] Obstetrics & Gynecology Comment on above: Abnormal uterine ble eding (AUB) (Primary Dx) Start: 12-18-2023 End: 12-18-2023 Telemedicine consultation with patient Sandrita Chen MD Work Phone: [facility] Obstetrics & Gynecology Start: 12-18-2023 End: 12-18-2023 ambulatory SANDRITA CHEN Facility:[facility] Start: 11-27-2023 End: 11-27-2023 Patient encounter procedure Sandrita Chen MD Work Phone: [facility] Obstetrics & Gynecology Comment on above: Abnormal uterine ble eding (AUB) (Primary Dx) Start: 11-27-2023 End: 11-27-2023 ambulatory SANDRITA CHEN Facility:[facility] Start: 11-21-2023 End: 11-21-2023 Patient encounter procedure Sandrita Chen MD Work Phone: [facility] Obstetrics & Gynecology Comment on above: Abnormal uterine ble eding (AUB) (Primary Dx) Abnormal uterine ble eding (AUB) Start: 11-06-2023 End: 11-06-2023 Telephone encounter Sandrita Chen MD Work Phone: [facility] Obstetrics and Gynecology Comment on above: Orders Start: 10-21-2023 Telephone encounter Nikki mckeon MD Work Phone: [facility] General Rheumatology and Arthritis Comment on above: Results Start: 10-13-2023 End: 10-13-2023 Patient encounter procedure Nikki Gomez MD Work Phone: [facility] General Rheumatology and Arthritis Comment on above: Positive MARKUS (antinu clear antibody) (Primary Dx); Vitamin D deficiency; Pain in joint, multiple sites Start: 08-08-2023 Refill Nikki marlow MD Work Phone: [facility] General Rheumatology and Arthritis Comment on above: Refill Request Start: 08-07-2023 Telephone encounter Celi lam APRN.CNP Work Phone: [facility] Obstetrics & Gynecology Comment on above: Results Start: 08-01-2023 End: 08-01-2023 Patient encounter procedure [facility] Provider [facility] Department Comment on above: Encounter for gyneco logical examination (general) (routine) without abnormal findings (Primary Dx); Screening for cervical cancer; Abnormal uterine bleeding (AUB) Start: 08-01-2023 End: 08-01-2023 Patient encounter status Sandrita Chen MD Work Phone: [facility] Work Phone: Start: 04-14-2023 End: 04-14-2023 Patient encounter procedure Cheli Allen PA-C Work Phone: Orthopaedics Comment on above: Primary osteoarthrit is of left knee (Primary Dx); Patellar subluxation, left, initial encounter; Subluxation of patellofemoral joint, unspecified laterality, subsequent encounter Start: 10-23-2022 End: 10-23-2022 Subsequent hospital visit by physician L[facility] Avril Hackett Work Phone: Radiology Comment on above: Rash and nonspecific skin eruption [R21] Start: 10-23-2022 End: 10-23-2022 ambulatory Nikki Gomez MD Work Phone: [facility] General Rheumatology and Arthritis Comment on above: Rash and nonspecific skin eruption (Primary Dx); Vitamin D deficiency; Pain in joint, multiple sites; Malaise and fatigue; Fibromyalgia Start: 10-23-2022 End: 10-23-2022 Telemedicine consultation with patient Nikki Gomez MD Work Phone: [facility] Start: 10-09-2022 End: 10-09-[address] Ap Donahue Work Phone: [facility] Work Phone: Start: 10-09-2022 End: 10-09-[address] Ap Donahue Work Phone: [facility]-Physical Therapy Work Phone: Start: 10-08-2022 End: 10-08-[address] Ap Donahue Work Phone: [facility] Internal Medicine Work Phone: Start: 09-24-2022 Telephone encounter Nhan otero MD Work Phone: Orthopaedics Comment on above: Appointment Start: 08-06-2022 End: 08-06-[address] Ap Donahue Work Phone: [facility] Internal [facility] Work Phone: Start: 07-15-2022 End: 07-15-2022 Patient encounter procedure Cheli VILLEDA-C Work Phone: Orthopaedics Comment on above: Patellar subluxation , left, initial encounter (Primary Dx); Primary osteoarthritis of left knee; Post-traumatic osteoarthritis of right knee; Chronic pain of both knees Start: 07-15-2022 End: 07-15-2022 Subsequent hospital visit by physician [facility] Work Phone: Radiology Comment on above: Pain in both knees, unspecified chronicity [M25.561, M25.562] Start: 07-11-2022 Orders Only Cheli fontenot PA-C Work Phone: Orthopaedics Comment on above: Pain in both knees, unspecified chronicity (Primary Dx) Start: 06-26-2022 End: 06-26-[address] Adriano Uriostegui Work Phone: [facility] Work Phone: Start: 06-26-2022 End: 06-26-[address] Adriano Uriostegui Work Phone: [facility]-Radiology, [facility] Start: 06-25-2022 End: 06-25-[address] Adriano Uriostegui Work Phone: [facility] Work Phone: Start: 06-25-2022 End: 06-25-[address] Adriano Uriostegui Work Phone: [facility]-Ultrasound, [facility] Start: 06-24-2022 End: 06-24-[address] Adriano Uriostegui Work Phone: [facility] Internal Medicine Start: 05-24-2022 End: 05-24-2022 Emergency department patient visit Dr. Adriano Uriostegui Work Phone: [facility]-Emergency Department Start: 05-06-2022 End: 05-06-[address] Adriano Uriostegui Work Phone: [facility] Work Phone: Start: 05-06-2022 End: 05-06-[address] Adriano Uriostegui Work Phone: [facility]-Laboratory, [facility] Start: 05-06-2022 End: 05-06-[address] Adriano Uriostegui Work Phone: [facility] Internal Medicine Start: 03-07-2022 End: 03-07-[address] Adriano Uriostegui Work Phone: [facility] Work Phone: Start: 03-07-2022 End: 03-07-[address] Adriano Uriostegui Work Phone: [facility]-Physical Therapy Start: 12-04-2021 End: 12-04-[address] Adriano Uriostegui Work Phone: [facility] Orthopaedic Specia Start: 11-13-2021 End: 11-13-[address] Adriano Uriostegui Work Phone: [facility] Orthopaedic Specia Start: 10-05-2021 End: 10-05-[address] Adriano Uriostegui Work Phone: [facility]-MRI - [facility] Start: 09-24-2021 End: 09-24-[address] Adriano Uriostegui Work Phone: [facility]-Ultrasound, [facility] Start: 09-24-2021 End: 09-24-[address] Adriano Uriostegui Work Phone: [facility] Orthopaedic Specia Procedures Date Procedure Procedure Detail [...] 07-31-2028 Screening for malignant neoplasm of cervix [facility] Start: 07-28-2025 End: 07-28-2025 Patient encounter procedure 07/28/2025 1:00 PM EDT Office Visit [facility] [address] [place] [address] Nancy Luke, OD [address] [place] [address] 1 YR F/U for plaquenil testing (30 min) Ophthalmology Comment on above: 1 YR F/U for plaquenil testing (30 min) Start: 07-07-2025 End: 07-07-2025 Patient encounter procedure 07/07/2025 11:20 AM EDT Office Visit [facility] [place] [facility] [address] [facility] [address] [place], [place] [id number] Nikki Gomez MD [address] [place], [place] [id number] 7-8 months in office [facility] General Rheumatology and Arthritis Comment on above: 7-8 months in office Start: 11-08-2024 Influenza vaccination [facility] Start: 10-21-2024 End: 10-21-2024 Patient encounter procedure 10/21/2024 11:00 AM EDT Office Visit [facility] [place] [facility] [address] [place], [place] [id number] Nikki Gomez MD [address] [place] [address] Gomez [facility] [place] [facility] Comment on above: [address] Gomez Start: 07-31-2024 Screening for malignant neoplasm of cervix Cervical Cancer Screening [facility] Start: 2024 Screening for malignant neoplasm of breast Mammogram Screening [facility] Start: 05-13-2024 End: 05-13-2024 Patient encounter procedure 05/13/2024 3:15 PM EST Office Visit [facility] [address] [address] Nancy Luke, OD [address] [place] [address] 1yr for planquenil exam () Ophthalmology Comment on above: 1yr for planquenil exam ( mac) Start: 04-14-2024 End: 07-14-2024 C reactive protein [Mass/volume] in Serum or Plasma C-REACTIVE PROTEIN Lab Routine Positive MARKUS (antinuclear antibody) Pain in joint, multiple sites Rash and nonspecific skin eruption Long-term use of Plaquenil Fibromyalgia Expected: 04/14/2024, Expires: 07/14/2024 [facility] Work Phone: Comment on above: Expected: 04/14/2024, Expires: Start: 04-14-2024 End: 07-14-2024 CBC W Auto Differential panel - Blood COMPLETE BLOOD COUNT AND DIFFERENTIAL Lab Routine Positive MARKUS (antinuclear antibody) Pain in joint, multiple sites Rash and nonspecific skin eruption Long-term use of Plaquenil Fibromyalgia Expected: 04/14/2024, Expires: 07/14/2024 [facility] Comment on above: Expected: 04/14/2024, Expires: Start: 04-14-2024 End: 07-14-2024 Comprehensive metabolic 2000 panel - Serum or Plasma COMPREHENSIVE METABOLIC PANEL Lab Routine Positive MARKUS (antinuclear antibody) Pain in joint, multiple sites Rash and nonspecific skin eruption Long-term use of Plaquenil Fibromyalgia Expected: 04/14/2024, Expires: 07/14/2024 [facility] Comment on above: Expected: 04/14/2024, Expires: Start: 04-14-2024 End: 07-14-2024 Erythrocyte sedimentation rate SEDIMENTATION RATE, WESTERGREN Lab Routine Positive MARKUS (antinuclear antibody) Pain in joint, multiple sites Rash and nonspecific skin eruption Long-term use of Plaquenil Fibromyalgia Expected: 04/14/2024, Expires: 07/14/2024 [facility] Comment on above: Expected: 04/14/2024, Expires: Start: 04-14-2024 End: 07-14-2024 Iron and Iron binding capacity panel - Serum or Plasma IRON AND TIBC Lab Routine Positive MARKUS (antinuclear antibody) Pain in joint, multiple sites Rash and nonspecific skin eruption Long-term use of Plaquenil Fibromyalgia Expected: 04/14/2024, Expires: 07/14/2024 [facility] Comment on above: Expected: 04/14/2024, Expires: Start: 04-14-2024 End: 04-14-2024 Patient encounter procedure [facility] Rheumatology and Arthritis Comment on above: 6 mo f/up in office w/PAChidi pe Start: 01-27-2024 End: 01-27-2024 Patient encounter procedure 01/27/2024 11:00 AM EST Office Visit [facility] Obstetrics & Gynecology [address] [facility] [address] [place] [address] Sandrita Chen MD [address] [place] [address] Post Op- SX 01/14/24-HX D&C Endo Ablation [facility] Obstetrics & Gynecology Comment on above: Post Op- SX 01/14/24-HX D&C Endo Ablatio n Start: 01-14-2024 End: 01-14-2024 Admission to same day surgery center 01/14/2024 9:00 AM EST - 01/14/2024 10:35 AM EST Surgery [place] [facility] OR [address] [facility] [place] [address] Sandrita Chen MD [address] [place] [address] HYSTEROSCOPY, D & C [place] SURGERY OR [...] EST Hospital Encounter [place] [facility] [place] [address] Sandrita Chen MD [address] [place] [address] Abnormal uterine bleeding [N93.9] [facility] Comment on above: Abnormal uterine bleeding [N93.9] Start: 01-07-2024 End: 01-07-2024 ambulatory 01/07/2024 10:00 AM EDT PAT Pre Surgical Testing [address] [facility] [place] [address] 1. HYSTEROSCOPY, D & C Pre Surgical Testing Comment on above: 1. HYSTEROSCOPY, D & C Start: 12-18-2023 End: 12-18-2023 Patient encounter procedure 12/18/2023 4:00 PM EDT [facility] Obstetrics & Gynecology [address] [facility] [address] [place] [id number] Sandrita Chen MD [address] [place] [address] results [facility] Obstetrics & Gynecology Comment on above: results Start: 11-27-2023 End: 11-27-2023 Patient encounter procedure 11/27/2023 10:30 AM EDT Office Visit [facility] Obstetrics & Gynecology [address] [place] [id number] Sandrita Chen MD [address] [place] [address] endo bx [facility] Obstetrics & Gynecology Comment on above: endo bx Start: 11-21-2023 End: 11-21-2023 Patient encounter procedure [facility] Obstetrics & Gynecology Comment on above: Pelvic Ultrasound Pelvic Ultrasound fo llow up Start: 11-09-2023 Covid-19 Vaccine ( season) Covid-19 Vaccine ( season) [facility] Start: 11-09-2023 Covid-19 Vaccine ( season) Covid-19 Vaccine ( season) [facility] Start: 11-09-2023 Influenza vaccination [facility] Start: 11-06-2023 End: 11-05-2024 US Pelvis PELVIC US [facility] Anc Imaging Routine Abnormal uterine bleeding (AUB) Expected: 11/06/2023, Expires: 11/05/2024 [facility] Work Phone: Comment on above: Expected: 11/06/2023, Expires: Start: 10-13-2023 End: 01-12-2024 Complement C3 [Mass/volume] in Serum or Plasma [facility] Work Phone: Comment on above: Expected: 10/13/2023, Expires: Start: 10-13-2023 End: 01-12-2024 Complement C4 [Mass/volume] in Serum or Plasma [facility] Comment on above: Expected: 10/13/2023, Expires: Start: 10-13-2023 End: 01-12-2024 Creatinine [Mass/volume] in Urine collected for unspecified duration CREATININE RANDOM URINE Lab Routine Positive MARKUS (antinuclear antibody) Vitamin D deficiency Expected: 10/13/2023, Expires: 01/12/2024 [facility] Comment on above: Expected: 10/13/2023, Expires: Start: 10-13-2023 End: 01-12-2024 DNA ANTIBODY DS BLD [facility] Comment on above: Expected: 10/13/2023, Expires: Start: 10-13-2023 End: 01-12-2024 Protein [Mass/volume] in Urine PROTEIN RANDOM URINE Lab Routine Positive MARKUS (antinuclear antibody) Vitamin D deficiency Expected: 10/13/2023, Expires: 01/12/2024 [facility] Comment on above: Expected: 10/13/2023, Expires: Start: 10-13-2023 End: 01-12-2024 Urinalysis complete panel - Urine URINALYSIS WITH MICROSCOPIC, REFLEX CULTURE Lab Routine Positive MARKUS (antinuclear antibody) Vitamin D deficiency Expected: 10/13/2023, Expires: 01/12/2024 [facility] Comment on above: Expected: 10/13/2023, Expires: Start: 10-06-2023 End: 10-06-2023 Patient encounter procedure 10/06/2023 11:00 AM EDT Office Visit [facility] Rheumatology and Arthritis [address] [facility] [address] [place] [address] Nikki Gomez MD [address] [facility] [address] [place] [address] 6 months in office [facility] Rheumatology and Arthritis Comment on above: 6 months in office Start: 08-29-2023 End: 08-29-2023 [facility] Comment on above: aub u/s prior Start: 11-08-2022 Covid-19 Vaccine () Covid-19 Vaccine () [facility] Start: 11-08-2022 Influenza vaccination [facility] Start: 10-23-2022 End: 12-23-2022 MARKUS BY IFA SCREEN [facility] Work Phone: Comment on above: Expected: 10/23/2022, Expires: 3 Start: 10-23-2022 End: 12-23-2022 Complement C3 [Mass/volume] in Serum or Plasma [facility] Work Phone: Comment on above: Expected: 10/23/2022, Expires: 3 Start: 10-23-2022 End: 12-23-2022 Complement C4 [Mass/volume] in Serum or Plasma [facility] Work Phone: Comment on above: Expected: 10/23/2022, Expires: 3 Start: 10-23-2022 End: 12-23-2022 Creatine kinase [Enzymatic activity/volume] in Serum or Plasma [facility] Work Phone: Comment on above: Expected: 10/23/2022, Expires: 3 Start: 10-23-2022 End: 12-23-2022 Cyclic citrullinated peptide IgG Ab [Units/volume] in Serum or Plasma [facility] Work Phone: Comment on above: Expected: 10/23/2022, Expires: 3 Start: 10-23-2022 End: 12-23-2022 DNA ANTIBODY DS BLD [facility] Work Phone: Comment on above: Expected: 10/23/2022, Expires: 3 Start: 10-23-2022 End: 12-23-2022 DNA double strand Ab [Presence] in Serum by Immunofluorescence (IF) Maryse deutsch [facility] Work Phone: Comment on above: Expected: 10/23/2022, Expires: 3 Start: 10-23-2022 End: 12-23-2022 IgE [Units/volume] in Serum or Plasma [facility] Work Phone: Comment on above: Expected: 10/23/2022, Expires: 3 Start: 10-23-2022 End: 12-23-2022 IMMUNOGLOBULIN D QUANT, SERUM [facility] Work Phone: Comment on above: Expected: 10/23/2022, Expires: 3 Start: 10-23-2022 End: 12-23-2022 Salima-1 extractable nuclear Ab [Units/volume] in Serum [facility] Work Phone: Comment on above: Expected: 10/23/2022, Expires: 3 Start: 10-23-2022 End: 12-23-2022 Rheumatoid factor [Units/volume] in Serum or Plasma [facility] Work Phone: Comment on above: Expected: 10/23/2022, Expires: 3 Start: 10-23-2022 End: 12-23-2022 Ribonucleoprotein extractable nuclear Ab [Units/volume] in Serum [facility] Work Phone: Comment on above: Expected: 10/23/2022, Expires: 3 Start: 10-23-2022 End: 12-23-2022 SJOGREN ABS SSA/SSB [facility] Work Phone: Comment on above: Expected: 10/23/2022, Expires: 3 Start: 10-23-2022 End: 12-23-2022 Chow extractable nuclear IgG Ab [Units/volume] in Serum [facility] Work Phone: Comment on above: Expected: 10/23/2022, Expires: 3 Start: 06-24-2022 [place] [facility] Work Phone: Start: 05-24-2022 [facility] Start: 05-06-2022 Patient referral [facility] Work Phone: Start: 05-06-2022 Evaluation of diagnostic study results [facility] Start: 04-11-2021 HPV TESTING HPV TESTING [facility] Start: 06-18-2020 PAP TESTING PAP TESTING [facility] Start: 06-18-2020 Screening for malignant neoplasm of cervix [facility] Start: 07-26-2011 HPV Vaccine (1 - Risk 3-dose SCDM series) HPV Vaccine (1 - Risk 3-dose SCDM series) [facility] Start: 07-26-2003 Hepatitis B Vaccine (1 of 3 - 19+ 3-dose series) Hepatitis B Vaccine (1 of 3 - 19+ 3-dose series) [facility] Start: 07-26-2003 SHINGRIX VACCINE (1 of 2) SHINGRIX VACCINE (1 of 2) [facility] Start: 07-26-2003 Urine microalbumin profile [facility] Start: 2002 ANNUAL PCP TEAM CHRONIC DISEASE VISIT ANNUAL PCP TEAM CHRONIC DISEASE VISIT [facility] Start: 2002 HIV SCREENING HIV SCREENING [facility] Start: 2002 HIV screening HIV Screening [facility] Start: 2002 SPIROMETRY SPIROMETRY [facility] Start: 1990 PNEUMOCOCCAL (1 - PCV) PNEUMOCOCCAL (1 - PCV) [facility] Start: 1990 [facility] Start: 01-25-1985 COVID-19 VACCINE (#1) COVID-19 VACCINE (#1) [facility] Start: 1984 HEPATITIS B (1 of 3 - 3-dose series) HEPATITIS B (1 of 3 - 3-dose series) [facility] Start: 1984 Hepatitis B Vaccine (1 of 3 - 3-dose series) Hepatitis B Vaccine (1 of 3 - 3-dose series) [facility] Start: 1984 HPV Vaccine: Recommended Based On Risk HPV Vaccine: Recommended Based On Risk [facility] MR Lower Extremity Joint [facility] Work Phone: MR Lumbar spine [facility] PAP TEST PAP TEST Lab Luis hoover Screening for cervical cancer Ordered: 08/01/2023 [facility] Work Phone: Comment on above: Ordered: 08/01/2023 Patient Education ED Kidney Ston e w/ Colic [facility] Work Phone: Patient referral [facility] Work Phone: End: 11-22-2023 Radiologic examination sacroiliac jnts <3 views XR SACROILIAC JOINTS 2V AP PELVIS/FERGUESON Radiology Routine Rash and nonspecific skin eruption 1 Occurrences starting 10/23/2022 until 11/22/2023 [facility] Work Phone: Comment on above: 1 Occurrences starting 10/23/2022 until 11/22/2023 Radiologic examinati on sacroiliac jnts <3 views XR SACROILIAC JOINTS 2V AP PELVIS/FERGUESON Radiology Routine Rash and nonspecific skin eruption 10/23/2022 3:40 PM EDT [facility] Work Phone: SURGICAL PATHOLOGY SURGICAL PATH OLOGY Lab Routine Abnormal uterine bleeding (AUB) Ordered: 11/27/2023 [facility] Work Phone: Comment on above: Ordered: 11/27/2023 End: 11-22-2023 XR HAND GENERAL 3V PA/LAT/OBL LEFT XR HAND GENERAL 3V PA/LAT/OBL LEFT Radiology Routine Rash and nonspecific skin eruption 1 Occurrences starting 10/23/2022 until 11/22/2023 [facility] Work Phone: Comment on above: 1 Occurrences starting 10/23/2022 until 11/22/2023 XR HAND GENERAL 3V PA/LAT/OBL LEFT XR HAND GENERAL 3V PA/LAT/OBL LEFT Radiology Routine Rash and nonspecific skin eruption 10/23/2022 3:35 PM EDT [facility] Work Phone: End: 11-22-2023 XR HAND GENERAL 3V PA/LAT/OBL RIGHT XR HAND GENERAL 3V PA/LAT/OBL RIGHT Radiology Routine Rash and nonspecific skin eruption 1 Occurrences starting 10/23/2022 until 11/22/2023 [facility] Work Phone: Comment on above: 1 Occurrences starting 10/23/2022 until 11/22/2023 XR HAND GENERAL 3V PA/LAT/OBL RIGHT XR HAND GENERAL 3V PA/LAT/OBL RIGHT Radiology Routine Rash and nonspecific skin eruption 10/23/2022 3:36 PM EDT [facility] Work Phone: End: 08-10-2023 XR KNEE GENERAL 4V AP BOTH/PA BOTH/LAT/MERC BILATERAL XR KNEE GENERAL 4V AP BOTH/PA BOTH/LAT/MERC BILATERAL Radiology Routine Pain in both knees, unspecified chronicity 1 Occurrences starting 07/11/2022 until 08/10/2023 [facility] Work Phone: Comment on above: 1 Occurrences starting 07/11/2022 until 08/10/2023 [facility] Payers Date Payer Category Payer Self-pay 2022 Medicaid [id number] 2015 Unknown [id number] 2015 Unknown [id number] Self-pay SELF PAY INSURANCE [id number] Unknown [id number] 2.16.8 [id number] Unknown [id number] 2.16.8 [id number] Unknown [id number] 2.16.8 [id number] Unknown [id number] 2.16.8 [id number] Unknown [id number] 2.16.8 [id number] Unknown [id number] 2.16.8 [id number] Unknown [id number] 2.16.8 [id number] Unknown [id number] 2.16.8 [id number] Unknown [id number] 2.16.8 [id number] Unknown [id number] 2.16.8 [id number] Unknown [id number] 2.16.8 [id number] Unknown [id number] 2.16.8 [id number] Unknown [id number] 2.16.8 [id number] Unknown [id number] 2.16.8 [id number] Unknown [id number] 2.16.8 [id number] Social History Date Type Detail Facility Start: 09-24-2021 End: 10-07-2022 Tobacco smoking status MSIS Unknown if ever smoked [facility] Start: 10-22-2018 None [facility] Start: 10-22-2018 Alone [facility] Start: 11-25-2018 Non-smoker [facility] Start: 1985 Sex Assigned At Female [facility] Start: 06-19-2015 End: 05-13-2023 Tobacco smoking status NHIS Never smoked tobacco [facility] Start: 06-19-2015 End: 05-13-2023 Tobacco use and exposure Smokeless tobacco non-user [facility] Start: 10-22-2018 End: 07-26-2024 Alcohol intake Current drinker of alcohol (finding) [facility] Start: 1985 Sex Assigned At Not on file [facility] Start: 10-22-2018 End: 07-15-2022 History of Social function [facility] Start: 10-22-2018 End: 07-15-2022 Tobacco use panel [facility] Start: 02-09-2012 PHQ2 Score 0 [facility] Start: 05-16-2024 Alcohol Comment rare [facility] NEGATED: Highlighted row [facility] Medical Equipment Procedure Code Equipment Code Equipment Origin al Text Equipment Identifier Dates Use as directed to inject methotrexate. [id number] Start: 02-10-2019 End: 04-14-2024 Comment on above: Use as directed to i nject methotrexate. Mental Status Date Assessment Result Facility 05-24-2022 Cognitive function Level Of Cons ciousness Awake;Alert;Appropriate;Follow s Commands [facility] Work Phone: Clinical Notes 07-15-2022 to 11-24-2024 Nikki Gomez MD - 11/24/2024 12:07 PM EDTTelephone Encounter - Siomara Godinez MA - 09/28/2024 10:54 AM EDTTelephone Encounter - Siomara Godinez MA - 09/28/2024 10:54 AM EDTPatient Instructions Note Date & Type Note Facility 11-24-2024 Note HNO ID: [id number] Author: NIKKI GOMEZ MD Service: ? Author Type: Physician Type: Progress Notes Filed: 11/24/2024 12:28 Note Text: I have communicated my name and active licensure. The patient's identity and physical location were verified at the time of this visit. Either the patient or their legal credit and collections representative has been informed of the risks and [...] result. DNA Antibody w/Confirmation <30 IU/mL <12 TECHNOLOGY AUDITOR Antibody <1.0 AI <0.2 Ribosomal TECHNOLOGY AUDITOR <1.0 AI <0.2 SSB Antibody <1.0 AI [...] <30 IU/mL <12 Crithidia lucillae Negative Negative Anti-TECHNOLOGY AUDITOR <1.0 AI <0.2 Anti-SSB <1.0 AI <0.2 Anti-Sm <1.0 AI <0.2 Sm Antibody Negative Negative Anti-SSA <1.0 AI 0.8 Salima 1 Antibody <1.0 AI <0.2 Rheumatoid Factor <16 IU/mL <10 C4 13 - 46 mg/dL 25 C3 86 - 166 mg/dL 150 CCP Antibody, IgG <20 Units <15 IgD, Quant <=15.3 mg/dL <1.3 TECHNOLOGY AUDITOR Antibody QUAL Negative Negative SSA Antibody Qual Negative Negative SALIMA 1 ANTIBODY QUAL Negative Negative CCP Antibody IgG Qualitative Negative Negative SSB Antibody Qual Negative Negative (L): Data is abnormally low (more content not included)... [facility] 11-24-2024 History of Present illness Narrative I have communicated my name and active licensure. The patient's identity and physical location were verified at the time of this visit. Either the patient or their legal credit and collections representative has been informed of the risks and [...] result. DNA Antibody w/Confirmation <30 IU/mL <12 TECHNOLOGY AUDITOR Antibody <1.0 AI <0.2 Ribosomal TECHNOLOGY AUDITOR <1.0 AI <0.2 SSB Antibody <1.0 AI [...] <30 IU/mL <12 Crithidia lucillae Negative Negative Anti-TECHNOLOGY AUDITOR <1.0 AI <0.2 Anti-SSB <1.0 AI <0.2 Anti-Sm <1.0 AI <0.2 Sm Antibody Negative Negative Anti-SSA <1.0 AI 0.8 Salima 1 Antibody <1.0 AI <0.2 Rheumatoid Factor <16 IU/mL <10 C4 13 - 46 mg/dL 25 C3 86 - 166 mg/dL 150 CCP Antibody, IgG <20 Units <15 IgD, Quant <=15.3 mg/dL <1.3 TECHNOLOGY AUDITOR Antibody QUAL Negative Negative SSA Antibody Qual [...] marginal osteophyte formation. FINDINGS: There are five ohf-axo-kazyljh lumbar vertebrae. No fracture or subluxations are [...] Pattern Nuclear fine speckled MARKUS Titer 1:640 Anti-TECHNOLOGY AUDITOR <1.0 AI <0.2 Anti-Sm <1.0 AI <0.2 [...] mg/dL <4 Rheumatoid Factor <16 IU/mL <10 TECHNOLOGY AUDITOR Antibody QUAL Negative Negative Sm Antibody Negative [...] while on hydroxychloroquine. Visit was conducted via [email or web address] Patient Location: Patient Home or Place of Residence No orders found for this visit on 11/24/24. Medication orders placed this encounter hydrOXYchloroQUINE (PLAQUENIL) 200 mg tablet Sig: Take 1 tablet by mouth two times a day. Dispense: 180 tablet Refill: 1 Recording using [employer] software for draft documentation of the visit was discussed with the patient/authorized credit and collections representative; all questions welcomed and answered. Patient/authorized credit and collections representative agreed to proceed documented in this encounter [facility] 09-28-2024 Telephone encounter Note Pharmacy faxed requesting the following refill. Requested Prescriptions Pending Prescriptions Disp Refills cholecalciferol, Vitamin D3, (VITAMIN D3) 1,250 mcg (50,000 unit) cap capsule [Pharmacy Med Name: Vitamin D3 1.25 MG (71916 UT) Oral Capsule] 4 capsule 0 Sig: Take 1 capsule by mouth once a week Patient last appointment: 04/14/2024 Next Appointment: 10/21/2024 Patient Phone numbers: [phone] (home) Request is for script(s) to be escript to pharmacy. Siomara Godinez MA [facility] 09-28-2024 Miscellaneous Notes Pharmacy faxed requesting the following refill. Requested Prescriptions Pending Prescriptions Disp Refills cholecalciferol, Vitamin D3, (VITAMIN D3) 1,250 mcg (50,000 unit) cap capsule [Pharmacy Med Name: Vitamin D3 1.25 MG (30786 UT) Oral Capsule] 4 capsule 0 Sig: Take 1 capsule by mouth once a week Patient last appointment: 04/14/2024 Next Appointment: 10/21/2024 Patient Phone numbers: [phone] (home) Request is for script(s) to be escript to pharmacy. Siomara Godinez MA documented in this encounter [facility] 07-26-2024 Note HNO ID: [id number] Author: NANCY LUKE OD Service: ? Author Type: PET CREMATORY WORKER Type: Progress Notes Filed: 07/26/2024 15:26 Note [...] OD July 26, 2024 at 3:26 PM [facility] 07-26-2024 History of Present illness Narrative 1. [...] at 3:26 PM documented in this encounter [facility] 07-26-2024 Note Date of Procedure 07/26/2024. Livestock Yard Attendant Information Microfabrication Engineer Manager: BP. Start time: 1:32 PM. Stop time: 1:34 PM. OCT Macula Interpretation Right Eye Normal without fluid. Left Eye Normal without fluid. Interval Change Right Eye Stable. Left Eye Stable. [facility] 07-26-2024 Note Date of Procedure 07/26/2024. Livestock Yard Attendant Information Microfabrication Engineer Manager: BP. Start time: 1:36 PM. Stop time: 1:48 PM. Reliability Right Eye Good. Left Eye Good. Interpretation Right Eye Normal. Left Eye Normal. Interval Change Right Eye Stable. Left Eye Stable. [facility] 04-14-2024 Note HNO ID: [id number] Author: FABRICE STONE PA-C Service: ? Author Type: Physician Jigger Artisan Type: Progress Notes Filed: 04/14/2024 15:05 Note Text: [facility] General Arthritis and Rheumatology Fabrice Stone [address] [place] [address] Subjective Last OV: 10/13/23 HPI: Car Santoyo [...] been staying. 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 Long distances without stopping. She takes a [...] Serologies: SCL-70 1.8, MARKUS 1:640, DSDNA neg, TECHNOLOGY AUDITOR-Sm neg, SSA/SSB neg, centromere neg, chromatin neg, [...] Serologies: SCL-70 1.8, MARKUS 1:640, DSDNA neg, TECHNOLOGY AUDITOR-Sm neg, SSA/SSB neg, centromere neg, chromatin neg, [...] 10/13/2023 0.73 Calcium (more content not included)... [facility] 04-14-2024 History of Present illness Narrative Images from the original note were not included. [facility] Arthritis and Rheumatology Fabrice Stone [address] [place] [id number] Subjective Last OV: 10/13/23 HPI: Car Santoyo [...] been staying. 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 Long distances without stopping. She takes a [...] Serologies: SCL-70 1.8, MARKUS 1:640, DSDNA neg, TECHNOLOGY AUDITOR-Sm neg, SSA/SSB neg, centromere neg, chromatin neg, [...] Serologies: SCL-70 1.8, MARKUS 1:640, DSDNA neg, TECHNOLOGY AUDITOR-Sm neg, SSA/SSB neg, centromere neg, chromatin neg, [...] All questions were answered. Medications: vitamin D 23951 international unit(s) weekly Testing: as below Follow [...] which included preparing to see the patient, irpr-fw-kiyl patient care, completing clinical documentation, obtaining and/or reviewing separately obtained history, performing a medically appropriate examination, counseling and educating the patient/family/caregiver, ordering medications, tests, or procedures, and communicating results to the patient/family/caregiver. documented in this encounter [facility] 02-10-2024 Telephone encounter Note Yes, that is what we ordered by anesthesia may have ordered other meds. Why does he ask? [facility] 02-10-2024 Miscellaneous Notes Yes, that is what we ordered by anesthesia may have ordered other meds. Why does he ask? Pts calling, he would like a list of the medication that his was given int hospital both pre and post op. Prema Serrano RN documented in this encounter [facility] 02-10-2024 Telephone encounter Note Pts calling, he would like a list of the medication that his was given int hospital both pre and post op. Prema Serrano RN [facility] 01-14-2024 Note HNO ID: [id number] Author: OPAL APPIAH APRN.CRNA Service: Nursing Author Type: Nurse Philosophy Instructor Type: Anesthesia Procedure Notes Filed: 01/14/2024 09:34 Note Text: ANESTHESIOLOGY PROCEDURE NOTE Airway General Information Procedure Start Time/Medication Administration: 01/14/2024 8:59 AM Procedure End Time: 01/14/2024 8:59 AM Patient location during procedure: OR Patient identity confirmed: arm band and patient sedated or unresponsive Staffing Anesthesiologist: Brunilda Velarde MD AGRICULTURAL EXTENSION EDUCATOR: Opal Appiah APRN.AGRICULTURAL EXTENSION EDUCATOR Performed by: JUDITH Indications and Patient Condition Indications for airway management: anesthesia Preoxygenated: yes anesthesia circuit Patient position: reverse Trendelenburg Method: rapid sequence Cricoid Pressure: No Final Airway Details Final airway type: endotracheal airway Final Endotracheal Airway: ETT Cuffed: yes Successful intubation technique: video laryngoscopy Devices used: Megadyne Endotracheal tube insertion site: oral Blade size: #3 ETT size (mm): 7.5 Measured from: lips Measurement (cm): 23 Placement verified by: chest auscultation and capnometry Cormack-Lehane Classification: grade I - full view of glottis Number of attempts at approach: 1 Failed airway: no Unrecognized esophageal intubation: no Airway not difficult SIGNATURE: Opal Appiah APRN.AGRICULTURAL EXTENSION EDUCATOR PATIENT NAME: Car Santoyo DATE: January 14, 2024 TIME: 9:31 AM CSN: [id number] [facility] 01-13-2024 Note HNO ID: [id number] Author: TYLER MARIA APRN.CNP Service: Anesthesiology Author [...] at this time. Will assess further DOS. [facility] 01-13-2024 History and physical note Images [...] gets US for every 2 years at [facility]. No results in Epic or Care [...] Have Been Initiated: No orders entered in [facility] per surgeon. REASON FOR VISIT: Car [...] Negative for: frequent urination, hematuria and urgency. UNDERPRESSER HAND: See HPI. Endocrine: Positive for: hyperthyroidism. Negative [...] Psychiatry Mother depression Heart Maternal Grandfather of [place] Heart Paternal Grandmother [place] Hypertension Paternal Grandfather Heart Paternal Grandfather [place] Allergies Paternal Uncle Asthma Paternal Uncle Diabetes [...] or any previous visit (from the past 27138 hour(s)). Implantable Devices: None Assessment/Plan Abnormal uterine bleeding [N93.9] PLAN Planned Procedure: Procedure(s): HYSTEROSCOPY, D & C (N/A) HYSTEROSCOPY WITH ENDOMETRIAL ABLATION (N/A) I spent a total of 50 minutes on the date of the service which included preparing to see the patient, fchg-wx-aezy patient care, completing clinical documentation, obtaining and/or reviewing separately obtained history, performing a medically appropriate examination, and counseling and educating the patient/family/caregiver. Instructions Given to Patient: Instructions located in the after visit summary. Patient given verbal and written preop instructions and voices comprehension and compliance. SIGNATURE: Hermelinda Yates APRN.CNP PATIENT NAME: Car Santoyo DATE: January 13, 2024 TIME: 10:00 AM PAGER/CONTACT #: [facility] 01-13-2024 History and physical note Images from [...] gets US for every 2 years at [facility]. No results in [facility] or Care Everywhere. Aspiration pneumonia (HCC) [...] Have Been Initiated: No orders entered in [employer] per surgeon. REASON FOR VISIT: Car Santoyo [...] Negative for: frequent urination, hematuria and urgency. UNDERPRESSER HAND: See HPI. Endocrine: Positive for: hyperthyroidism. Negative [...] Psychiatry Mother depression Heart Maternal Grandfather of [place] Heart Paternal Grandmother [place] Hypertension Paternal Grandfather Heart Paternal Grandfather [place] Allergies Paternal Uncle Asthma Paternal Uncle Diabetes [...] or any previous visit (from the past 78718 hour(s)). Implantable Devices: None Assessment/Plan Abnormal uterine bleeding [N93.9] PLAN Planned Procedure: Procedure(s): HYSTEROSCOPY, D & C (N/A) HYSTEROSCOPY WITH ENDOMETRIAL ABLATION (N/A) I spent a total of 50 minutes on the date of the service which included preparing to see the patient, voex-ji-pxtj patient care, completing clinical documentation, obtaining and/or [...] AM PAGER/CONTACT #: documented in this encounter [facility] 01-12-2024 Instructions Hermelinda Yates APRN.CNP - 01/12/2024 4:17 PM EST PATIENT PREOPERATIVE INSTRUCTIONS Your surgeon has scheduled for your procedure at this surgery center: [facility]: [phone], [address] [id number] Please enter through the main entrance and proceed to the blue elevators. The surgery [facility] center is located to the left of [...] or the morning of surgery. Use the [employer] body wash supplied to you along with [...] surgery. - YOU MUST HAVE A RESPONSIBLE ELECTRIC MOTOR CONTROL ASSEMBLER TAKE YOU HOME. A FREELANCE RECRUITER, CAB OR UBER ELECTRIC MOTOR CONTROL ASSEMBLER CANNOT BE MADE A RESPONSIBLE ELECTRIC MOTOR CONTROL ASSEMBLER. - You cannot stay in a hotel [...] Advance Directive, please fax a copy to [phone] or email to for it to be [...] Yates APRN.CNP 01/13/24 documented in this encounter [facility] 12-22-2023 Telephone encounter Note Left Pt Vm to call back to schedule surgery Hermelinda Darnell December 22, 2023 2:51 PM [facility] 12-22-2023 Miscellaneous Notes Left Pt Vm to call back to schedule surgery Hermelinda Darnell December 22, 2023 2:51 PM documented in this encounter [facility] 12-18-2023 Note HNO ID: [id number] Author: SANDRITA CHEN MD Service: ? Author Type: Physician Type: Progress Notes Filed: 12/18/2023 16:02 Note Text: HPI: Car Santoyo is a 38 year old who presents for her phone preop appt. [place] Contraception: tubal sterilization HISTORY: OB History [...] coordination of care. Sandrita Chen MD, MD [facility] 12-18-2023 History of Present illness Narrative HPI: Car Santoyo is a 38 year old who presents for her phone preop appt. [place] [facility]. Contraception: tubal sterilization HISTORY: OB History T0 [...] Chen MD, MD documented in this encounter [facility] 11-27-2023 Note HNO ID: [id number] Author: SANDRITA CHEN MD Service: ? Author Type: Physician Type: Procedures Filed: 11/27/2023 11:31 Note Text: ENDOMETRIAL BIOPSY PROCEDURE Date/Time: 11/27/2023 11:30 AM Performed by: Sandrita Chen MD Authorized by: Sandrita Chen MD Diagnosis: (N93.9) Abnormal uterine bleeding (AUB) (primary encounter diagnosis) Patient's last menstrual period was 11/17/2023 (exact date). Informed Consent Consent Obtained: Written [place] Protocol A moment to CARE was completed. [...] Fabricio preop appt virtually. Sandrita Chen MD, [facility] 11-27-2023 Procedure note Associated Ord er(s): ENDOMETRIAL BIOPSY PROCEDURE (W NOTE) Pre-Procedure Diagnose(s): Abnormal uterine bleeding (AUB) Post-Procedure Diagnose(s): Abnormal uterine bleeding (AUB) ENDOMETRIAL BIOPSY PROCEDURE Date/Time: 11/27/2023 11:30 AM Performed by: Sandrita Chen MD Authorized by: Sandrita Chen MD Diagnosis: (N93.9) Abnormal uterine bleeding (AUB) (primary encounter diagnosis) Patient's last menstrual period was 11/17/2023 (exact date). Informed Consent Consent Obtained: Written [place] Protocol A moment to CARE was completed. [...] preop appt virtually. Sandrita Chen MD, MD [facility] Work Phone: 11-27-2023 Instructions Sandrita Chen MD [...] contact the office. documented in this encounter [facility] 11-27-2023 Note Sandrita Chen MD 11/27/2023 11:31 AM ENDOMETRIAL BIOPSY PROCEDURE Date/Time: 11/27/2023 11:30 AM Performed by: Sandrita Chen MD Authorized by: Sandrita Chen MD Diagnosis: (N93.9) Abnormal uterine bleeding (AUB) (primary encounter diagnosis) Patient's last menstrual period was 11/17/2023 (exact date). Informed Consent Consent Obtained: Written [place] Protocol A moment to CARE was completed. [...] Plan of Care Visit completed when applicable [facility] 11-27-2023 Procedure note Associated Ord er(s): ENDOMETRIAL BIOPSY PROCEDURE (W NOTE) Pre-Procedure Diagnose(s): Abnormal uterine bleeding (AUB) Post-Procedure Diagnose(s): Abnormal uterine bleeding (AUB) ENDOMETRIAL BIOPSY PROCEDURE Date/Time: 11/27/2023 11:30 AM Performed by: Sandrita Chen MD Authorized by: Sandrita Chen MD Diagnosis: (N93.9) Abnormal uterine bleeding (AUB) (primary encounter diagnosis) Patient's last menstrual period was 11/17/2023 (exact date). Informed Consent Consent Obtained: Written [place] Protocol A moment to CARE was completed. [...] Chen MD, MD documented in this encounter [facility] 11-21-2023 History of Present illness Narrative HPI: [...] Chen MD, MD documented in this [facility] System 10-21-2023 Telephone encounter Note Vit d low. Rest all labs normal Advise 2000 international unit(s) daily otc [facility] 10-21-2023 Miscellaneous Notes Vit d low. Rest all labs normal Advise 2000 international unit(s) daily otc documented in this encounter [facility] 10-13-2023 History of Present illness Narrative RHEUMATOLOGY [...] result. DNA Antibody w/Confirmation <30 IU/mL <12 TECHNOLOGY AUDITOR Antibody <1.0 AI <0.2 Ribosomal TECHNOLOGY AUDITOR <1.0 AI <0.2 SSB Antibody <1.0 AI [...] <30 IU/mL <12 Crithidia lucillae Negative Negative Anti-TECHNOLOGY AUDITOR <1.0 AI <0.2 Anti-SSB <1.0 AI <0.2 Anti-Sm <1.0 AI <0.2 Sm Antibody Negative Negative Anti-SSA <1.0 AI 0.8 Salima 1 Antibody <1.0 AI <0.2 Rheumatoid Factor <16 IU/mL <10 C4 13 - 46 mg/dL 25 C3 86 - 166 mg/dL 150 CCP Antibody, IgG <20 Units <15 IgD, Quant <=15.3 mg/dL <1.3 TECHNOLOGY AUDITOR Antibody QUAL Negative Negative SSA Antibody Qual [...] marginal osteophyte formation. FINDINGS: There are five [id number] lumbar vertebrae. No fracture or subluxations are [...] Nikki Gomez MD documented in this encounter [facility] 08-08-2023 Telephone encounter Note Pharmacy requesting the following refill. Requested Prescriptions Pending Prescriptions Disp Refills hydrOXYchloroQUINE (PLAQUENIL) 200 mg tablet [Pharmacy Med Name: Hydroxychloroquine Sulfate 200 MG Oral Tablet] 60 tablet 0 Sig: Take 1 tablet by mouth twice daily Patient last appointment: 04/07/2023 Next Appointment: 10/06/2023 Patient Phone numbers: [phone] (home) Request is for script(s) to be escript to pharmacy. [facility] [address] [place] [address] [phone] [address] Mayda Perez LPN [facility] 08-08-2023 Miscellaneous Notes Pharmacy requesting the following refill. Requested Prescriptions Pending Prescriptions Disp Refills hydrOXYchloroQUINE (PLAQUENIL) 200 mg tablet [Pharmacy Med Name: Hydroxychloroquine Sulfate 200 MG Oral Tablet] 60 tablet 0 Sig: Take 1 tablet by mouth twice daily Patient last appointment: 04/07/2023 Next Appointment: 10/06/2023 Patient Phone numbers: [phone] (home) Request is for script(s) to be escript to pharmacy. [facility] [address] [place] [address] [phone] [phone] Mayda Perez LPN documented in this encounter [facility] 08-07-2023 Telephone encounter Note LVM of results being received and recommendations. Enc to be seen yearly for pelvic and br ex. Vita Garza RN Ascus negative HRHPV. Per guidelines routine screenings. Please inform pt Celi Vallecillo APRN.CHARGE MASTER COORDINATOR [facility] 08-07-2023 Miscellaneous Notes LVM of results being received and recommendations. Enc to be seen yearly for pelvic and br ex. Vita Garza RN Ascus negative HRHPV. Per guidelines routine screenings. Please inform pt Celi Vallecillo APRN.CHARGE MASTER COORDINATOR documented in this encounter [facility] 08-01-2023 History of Present illness Narrative Car is a 38 year old who presents for an annual gynecologic exam with complaints, heavy bleeding. 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 Hgb 10/30 was 12.8. Menses: cycles every 30 days and 7 days of flow. 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 Tie Adjuster History LMP: 07/24/2023 (Exact Date), Having periods Age at Menarche: 10 Age at First : Age at Menopause: Automatic Steel Tie Adjuster History Comments: Sexual Activity: Not Asked; Male; [...] Psychiatry Mother depression Heart Maternal Grandfather of [place] Heart Paternal Grandmother [place] Hypertension Paternal Grandfather Heart Paternal Grandfather [place] Allergies Paternal Uncle Asthma Paternal Uncle Diabetes [...] external genitalia normal, normal Bartholin's glands, urethra, [place]'s glands, no vulvar lesions, no cervical lesions, [...] Chen MD, MD documented in this encounter [facility] 04-14-2023 History of Present illness Narrative Associated Order(s): Large Joint Arthro/Inj: bilateral knee joints Post-Procedure Diagnose(s): Subluxation of patellofemoral joint, unspecified laterality, subsequent encounter Large Joint Arthro/Inj: bilateral knee joints Informed Consent Consent Obtained: Verbal [place] Protocol A moment to CARE was completed. [...] both knees today. documented in this encounter [facility] 10-23-2022 History of Present illness Narrative Radiology [...] 2022 3:41 PM documented in this encounter [facility] 10-23-2022 History of Present illness Narrative VIRTUAL VISIT PROGRESS NOTE This is a virtual visit using Jangl SMS video visit. It required patient-provider interaction for the medical decision making as documented below. I have communicated my name and active licensure. The patient's identity and physical location were verified at the time of this visit. Either the patient or their legal credit and collections representative has been informed of the risks and [...] depression Hypertension Paternal Grandfather Heart Paternal Grandfather [place] Heart Maternal Grandfather of [place] Heart Paternal Grandmother [place] Allergies Paternal Uncle Asthma Paternal Uncle Diabetes [...] result. DNA Antibody w/Confirmation <30 IU/mL <12 TECHNOLOGY AUDITOR Antibody <1.0 AI <0.2 Ribosomal TECHNOLOGY AUDITOR <1.0 AI <0.2 SSB Antibody <1.0 AI [...] which included preparing to see the patient, [id number] patient care, completing clinical documentation, obtaining and/or reviewing separately obtained history, performing a medically appropriate examination, ordering medications, tests, or procedures, and communicating results to the patient/family/caregiver Nikki Gomez MD [facility] on 10/23/22 XR HAND GENERAL 3V PA/LAT/OBL LEFT XR HAND GENERAL 3V PA/LAT/OBL RIGHT XR LUMBAR GENERAL 3V AP/LAT/L5-S1 XR SACROILIAC JOINTS 2V AP PELVIS/FERGUESON MARKUS BY IFA SCREEN CRITHIDIA LUCILIAE IGG IGM IGE BLD IGA BLD IMMUNOGLOBULIN D QUANT, SERUM C3 COMPLEMENT BLD C4 COMPLEMENT BLD DNA ANTIBODY DS BLD TECHNOLOGY AUDITOR ANTIBODY BLOOD CHOW IGG AB SJOGREN ABS SSA/SSB RHEUMATOID FACTOR BL CCP ANTIBODY IGG CK CREATINE KINASE SALIMA-1 AB CBC + DIFF COMP METABOLIC PANEL VITAMIN D 25 HYDROXY URINALYSIS WITH MICROSCOPIC, REFLEX CULTURE CREATININE RANDOM UR PROTEIN RANDOM UR CONSULT TO DERMATOLOGY No orders of the defined types were placed in this encounter. Platform used - my chart documented in this encounter [facility] 10-09-2022 Discharge summary Note Date/Time October 09, 2022 2:2 0pm [facility] [address] [place] [address]. [address] [place] [address] / REHABILITATION SERVICES DISCHARGE SUMMARY MR#: [id number] Acct: [id number] Name: CAR SANTOYO Rep #: [id number] : 1985 37 From: Sandrita Cantu DPT, OCS, CSCS Referring Dr.: Dr. Syed Casper MD Status: REG R Insurance: [facility] [employer] Discharge Summary D/C summary: [...] please feel free to call me at [phone]. Thank you for the referral of thispatient. Sincerely, Sandrita Cantu, KWAME, OCS, CSCS Balance/Gait/Functional tests Balance/Special Test Scores Oswestry Low Back Score: 25 <Electronically signed by Sandrita Cantu DPT, OCS, CSCS> 10/09/22 1420 CC: Dr. Ap Donahue MD; Dr. Syed Casper MD ~ EBG Signed [facility] Work Phone: 1(449) 667-199107-18-2023 Miscellaneous Notes* Telephone Encounter - Jassi Strong [...] 24, 2022 12:57 PM Total Time Spent air operations manager: 15 minutes [facility] History of Present illness Narrative* Cheli Allen PA-C - 07/15/2022 12:05 PM EDT Cheli Allen PA-C Department of Orthopaedics Orthopaedics [address] [facility] [address] Dept: [phone] Dept July 15, 2022 CHIEF COMPLAINT: New [...] process of establishing care with a new interpreter. The patient was referred to pain management [...] formation. IMPRESSION IMPRESSION: Degenerative changes as described. 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: LINDA Transcribe Date/Time: Jul 17 2022 12:20P [...] anxiety) This note was partially generated using TurboTranslations voice recognition system, and there may be [...] Cramping, Radiating Frequency: Continuous [facility] History of Present illness Narrative* Milton Zamora [...] 15, 2022 10:35 AM [facility]* Diagnosis Onset Date Resolution Status Derangement of left knee acu te [facility] Work Phone: Evaluation note* Diagnosis Onset Date Resolution Status Articular cartilage disorder of left knee acute Derangement of left knee acu te Subluxation of left patella acute Articular cartilage disorder of left knee acute Subluxation of left patella acute [facility] Work Phone: Evaluation note* Diagnosis Onset Date Resolution Status Bilateral knee pain acute Fibromyalgia acute Sleep concern noneactive Long-term current use of steroids noneactive Encounter for monitoring amitriptyline therapy noneactive Establishing care with new doctor, encounter for noneactive Multiple joint pain noneacti ve Mild depression noneactive [facility] Work Phone: Evaluation note* Diagnosis Onset [...] noneactive Kidney stone noneactive Mild depression noneactive [facility] Work Phone: Evaluation note* Diagnosis Pain in both knees, unspecified chronicity- Primary [facility]* Diagnosis Patellar subluxation, left, initial encounter- Primary Primary osteoarthritis of left knee Primary localized osteoarthrosis, lower leg Post-traumatic osteoarthritis of right knee Secondary localized osteoarthrosis, lower leg Chronic pain of both knees [facility]* Diagnosis Onset Date Resolution Status Bilateral [...] noneactive Mild depression noneactive Eye problem noneactive [facility] Work Phone: Evaluation note* Diagnosis Rash and nonspecific skin eruption- Primary Rash and other nonspecific skin eruption Vitamin D deficiency Unspecified vitamin D deficiency Pain in joint, multiple sites Malaise and fatigue Other malaise and fatigue Fibromyalgia Mylagia and myositis, unspecified [facility]* Diagnosis Rash and nonspecific skin eruption Rash and other nonspecific skin eruption [facility]* Diagnosis Pain in both knees, unspecified chronicity [facility]* Diagnosis Primary osteoarthritis of left knee- Primary Primary localized osteoarthrosis, lower leg Subluxation of patellofemoral joint, unspecified laterality, subsequent encounter documented [facility]* Diagnosis Encounter for gynecological examination (general) (routine) without abnormal findings- Primary Screening for cervical cancer Screening for malignant neoplasm of the cervix Abnormal uterine bleeding (AUB) documented [facility] this [facility]* Diagnosis Positive MARKUS (antinuclear antibody)- Primary Other and unspecified nonspecific immunological findings Vitamin D deficiency Unspecified vitamin D deficiency Pain in joint, multiple sites [facility] Diagnosis Morbid obesity (HCC) Morbid obesity Graves disease 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 crisis or storm Anxiety and depression Dysthymic disorder Mild intermittent asthma without complication Unspecified asthma Autoimmune disease (HCC) Autoimmune disease, not elsewhere classified Abnormal uterine bleeding (AUB)- Primary [facility] this [facility]* Diagnosis Morbid obesity (HCC) Morbid obesity Graves disease 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 crisis or storm Anxiety and depression Dysthymic disorder Mild intermittent asthma without complication Unspecified asthma Autoimmune disease (HCC) Autoimmune disease, not elsewhere classified Abnormal uterine bleeding (AUB)- Primary [facility] Diagnosis Morbid obesity (HCC) Morbid obesity Graves disease 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 crisis or storm Anxiety and depression Dysthymic disorder Mild intermittent asthma without complication Unspecified asthma Autoimmune disease (HCC) Autoimmune disease, not elsewhere classified Abnormal uterine bleeding (AUB) documented [facility] this [facility]* Diagnosis Morbid obesity (HCC) Morbid obesity Graves disease 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 crisis or storm Anxiety and depression Dysthymic disorder Mild intermittent asthma without complication Unspecified asthma Autoimmune disease (HCC) Autoimmune disease, not elsewhere classified Abnormal uterine bleeding (AUB)- Primary [facility]* Diagnosis Morbid obesity (HCC) Morbid obesity Graves disease 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 crisis or storm Anxiety and depression Dysthymic disorder Mild intermittent asthma without complication Unspecified asthma Autoimmune disease (HCC) Autoimmune disease, not elsewhere classified Abnormal uterine bleeding (AUB)- Primary [facility]* Diagnosis Morbid obesity (HCC) Morbid obesity [...] gets US for every 2 years at [facility]. No results in Epic or Care [...] at today's visit. [facility] Diagnosis Morbid obesity (HCC) Morbid obesity [...] and myositis, unspecified documented in this encounter [facility] note* Diagnosis Morbid obesity (HCC) Morbid obesity [...] anemia type- Primary documented in this encounter [facility] note* Diagnosis Morbid obesity (HCC) Morbid obesity [...] suspect, left eye [facility]* Diagnosis Morbid obesity (HCC) Morbid obesity [...] connective tissue disease documented in this encounter [facility] Discharge instructions Additional Instructions Please return for any worsening of symptoms.[facility] Work Phone: Reason for referral (narrative)* Diagnostic Procedure Only (Routine) - Pending Review Specialty Diagnoses / Procedures Referred By David li Referred To Contact XR IMAGING Diagnoses Pain in both knees, unspecified chronicity Procedures XR KNEE GENERAL 4V AP BOTH/PA BOTH/LAT/MERC BILATERAL RADIOLOGIC EXAM KNEE COMPLETE 4/MORE VIEWS Cheli Allen PA-C [address] [place] [address] Xr Imaging Referral ID Status Reason Start Date Expiration Date Visits Requested Visits Authorized [id number] Pending Review Auto-Generat ed Referral 07/11/2022 08/10/2023 1 1 [facility] for referral (narrative)* Diagnostic Procedure Only (Routine) - Closed Specialty Diagnoses / Procedures Referred By David li Referred To Contact XR IMAGING Diagnoses Rash and nonspecific skin eruption Procedures XR SACROILIAC JOINTS 2V AP PELVIS/FERGUESON RADIOLOGIC EXAMINATION SACROILIAC JNTS <3 VIEWS Nikki Gomez MD [address] [place] [address] [place] [address] Referral ID Status Reason Start Date Expiration Date V isits Requested Visits Authorized [id number] Closed Auto-Generate d Referral 10/23/2022 11/22/2023 1 1 * Diagnostic Procedure Only (Routine) - Closed Specialty Diagnoses / Procedures Referred By Contac t Referred To Contact XR IMAGING Diagnoses Rash and nonspecific skin eruption Procedures XR LUMBAR GENERAL 3V AP/LAT/L5-S1 RADEX SPINE LUMBOSACRAL 2/3 VIEWS Nikki Gomez MD [address] [place] [address] [place] [address] Referral ID Status Reason Start Date Expiration Date V isits Requested Visits Authorized [id number] Closed Auto-Generate d Referral 10/23/2022 11/22/2023 1 1 * Diagnostic Procedure Only (Routine) - Closed Specialty Diagnoses / Procedures Referred By Contac t Referred To Contact XR IMAGING Diagnoses Rash and nonspecific skin eruption Procedures XR HAND GENERAL 3V PA/LAT/OBL RIGHT RADEX HAND MINIMUM 3 VIEWS Nikki Gomez MD [address] [place] [address] [place] [address] Referral ID Status Reason Start Date Expiration Date V isits Requested Visits Authorized [id number] Closed Auto-Generate d Referral 10/23/2022 11/22/2023 1 1 * Diagnostic Procedure Only (Routine) - Closed Specialty Diagnoses / Procedures Referred By Contac t Referred To Contact XR IMAGING Diagnoses Rash and nonspecific skin eruption Procedures XR HAND GENERAL 3V PA/LAT/OBL LEFT RADEX HAND MINIMUM 3 VIEWS Nikki Gomez MD [address] [place] [address] [place] [address] Referral ID Status Reason Start Date Expiration Date V isits Requested Visits Authorized [id number] Closed Auto-Generate d Referral 10/23/2022 11/22/2023 1 1 * Consult, Test, Treat (Routine) - Authorized Specialty Diagnoses / Procedures Referred By Contac t Referred To Contact Dermatology Diagnoses Rash and nonspecific skin eruption Procedures CONSULT TO DERMATOLOGY OFFICE/OUTPATIENT [facility] MDM 60-74 MINUTES Nikki Gomez MD [address] [place] [address] Referral ID Status Reason Start Date Expiration Date Visits Requested Visits Authorized [id number] Authorized PCP Requested Referral 10/23/2022 10/23/2023 1 1 [facility] for referral (narrative)* Diagnostic Procedure Only (Routine) - Closed Specialty Diagnoses / Procedures Referred By Contac t Referred To Contact XR IMAGING Diagnoses Rash and nonspecific skin eruption Procedures XR SACROILIAC JOINTS 2V AP PELVIS/FERGUESON RADIOLOGIC EXAMINATION SACROILIAC JNTS <3 VIEWS Nikki Gomez MD [address] [place] [address] [place] [address] Referral ID Status Reason Start Date Expiration Date V isits Requested Visits Authorized [id number] Closed Auto-Generate d Referral 10/23/2022 11/22/2023 1 1 * Diagnostic Procedure Only (Routine) - Closed Specialty Diagnoses / Procedures Referred By Contac t Referred To Contact XR IMAGING Diagnoses Rash and nonspecific skin eruption Procedures XR LUMBAR GENERAL 3V AP/LAT/L5-S1 RADEX SPINE LUMBOSACRAL 2/3 VIEWS Nikki Gomez MD [address] [place] [address] [place] [address] Referral ID Status Reason Start Date Expiration Date V isits Requested Visits Authorized [id number] Closed Auto-Generate d Referral 10/23/2022 11/22/2023 1 1 * Diagnostic Procedure Only (Routine) - Closed Specialty Diagnoses / Procedures Referred By Contac t Referred To Contact XR IMAGING Diagnoses Rash and nonspecific skin eruption Procedures XR HAND GENERAL 3V PA/LAT/OBL RIGHT RADEX HAND MINIMUM 3 VIEWS Nikki Gomez MD [address] [place] [address] [place] [address] Referral ID Status Reason Start Date Expiration Date V isits Requested Visits Authorized [id number] Closed Auto-Generate d Referral 10/23/2022 11/22/2023 1 1 * Diagnostic Procedure Only (Routine) - Closed Specialty Diagnoses / Procedures Referred By Contac t Referred To Contact XR IMAGING Diagnoses Rash and nonspecific skin eruption Procedures XR HAND GENERAL 3V PA/LAT/OBL LEFT RADEX HAND MINIMUM 3 VIEWS Nikki Gomez MD [address] [place] [address] [place] [address] Referral ID Status Reason Start Date Expiration Date V isits Requested Visits Authorized [id number] Closed Auto-Generate d Referral 10/23/2022 11/22/2023 1 1 [facility] for referral (narrative)* Diagnostic Procedure Only (Routine) - Closed Specialty Diagnoses / Procedures Referred By Contac t Referred To Contact XR IMAGING Diagnoses Pain in both knees, unspecified chronicity Procedures XR KNEE GENERAL 4V AP BOTH/PA BOTH/LAT/MERC BILATERAL RADIOLOGIC EXAM KNEE COMPLETE 4/MORE VIEWS Cheli Allen PA-C [address] [place] [address] [place] [address] Referral ID Status Reason Start Date Expiration Date V isits Requested Visits Authorized [id number] Closed Auto-Generate d Referral 07/11/2022 08/10/2023 1 1 [facility] for referral (narrative)* Diagnostic Procedure Only (Routine) - Authorized Specialty Diagnoses / Procedures Referred By Contac t Referred To Contact [facility] Diagnoses Abnormal uterine bleeding (AUB) Procedures PELVIC US WHI US PELVIC NONOBSTETRIC REAL-TIME IMAGE COMPLETE Sandrita Chen MD [address] [facility] [address] [place] [address] [facility] [address] [place] [address] Referral ID Status Reason Start Date Expiration Date Visits Requested Visits Authorized [id number] Authorized Auto-Generat ed Referral 11/06/2023 11/05/2024 1 1 [facility] for visit Narrative* Diagnostic Procedure Only (Routine) - Closed Specialty Diagnoses / Procedures Referred By Contac t Referred To Contact XR IMAGING Diagnoses Rash and nonspecific skin eruption Procedures XR SACROILIAC JOINTS 2V AP PELVIS/FERGUESON RADIOLOGIC EXAMINATION SACROILIAC JNTS <3 VIEWS Nikki Gomez MD [address] [facility] [address] [place] [address] [place] [address] Referral ID Status Reason Start Date Expiration Date V isits Requested Visits Authorized [id number] Closed Auto-Generate d Referral 10/23/2022 11/22/2023 1 1 [facility] for visit Narrative* Diagnostic Procedure Only (Routine) - Closed Specialty Diagnoses / Procedures Referred By Contac t Referred To Contact XR IMAGING Diagnoses Pain in both knees, unspecified chronicity Procedures XR KNEE GENERAL 4V AP BOTH/PA BOTH/LAT/MERC BILATERAL RADIOLOGIC EXAM KNEE COMPLETE 4/MORE VIEWS Cheli Allen PA-C [address] [place] [address] [place] [address] Referral ID Status Reason Start Date Expiration Date V isits Requested Visits Authorized [id number] Closed Auto-Generate d Referral 07/11/2022 08/10/2023 1 1 [facility]* Diagnostic Procedure Only (Routine) - Closed Specialty Diagnoses / Procedures Referred By David t Referred To Contact [facility] Diagnoses Abnormal uterine bleeding (AUB) Procedures PELVIC US WHI US PELVIC NONOBSTETRIC REAL-TIME IMAGE COMPLETE Sandrita Chen MD [address] [place] [address] [facility] [address] [place] [address] Referral ID Status Reason Start Date Expiration Date V isits Requested Visits Authorized [id number] Closed Auto-Generate d Referral 11/06/2023 11/05/2024 1 1 [facility] Summary Purpose Family History No Family History [...] No November 25, 2018 12:03pm Power of Attending Pathologist No November 12:03pm Advance Directive Response Recorded Date/ Time Advance Directives No April 13, 2014 2:19pm Living Will No November 25, 2018 11:03am Power of Attending Pathologist No November 11:03am Advance Directive Response Recorded Date/ Time Advance Directives No April 13, 2014 3:19pm Living Will No May 24, 2022 4:11pm Power of Attending Pathologist No May 24 4:11pm Chief Complaint and [...] OF LAT FEM CO NDYL,TIBIAL PLATEAU,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 CARE, PT NEEDS NPP FLANK PAIN [...] skin eruption Procedures CONSULT TO DERMATOLOGY OFFICE/OUTPATIENT [facility] 60 MINUTES Fabrice Stone PA-C [address] [place] [address] Referral ID Status Reason Start Date Expiration Date Visits Requested Visits Authorized [id number] Authorized PCP Requested Referral 04/14/2024 04/14/2025 1 1 Additional Source Comments INFORMATION SOURCE (unrecogn ized section and content) DATE CREATED AUTHOR 10/28/2018 [facility] DATE CREATED AUTHOR AUTHOR'S ORGANIZ ATION 07/27/2024 [facility] DATE CREATED AUTHOR AUTHOR'S ORGANIZ ATION 11/25/2024 [facility] DATE CREATED AUTHOR AUTHOR'S ORGANIZ ATION 12/01/2024 [facility] Goals (unrecognized section and content) Goals [...] MD Attending Provider, Referring Pr ovider Active [employer] Relationship Specialty Start Date End Date Adriano Uriostegui MD PCP - General Family Medicine 05/30/15 [employer] Relationship Specialty Start Date End Date Adriano Uriostegui MD PCP - General Family Medicine 05/30/15 [employer] Relationship Specialty Start Date End Date Adriano Uriostegui MD PCP - General Family Medicine 05/30/15 [employer] Relationship Specialty Start Date End Date Ap Donahue MD [address] [place] [address] PCP - General Internal Medicine 10/08/22 [employer] Relationship Specialty Start Date End Date Ap Donahue MD [address] [place] [address] PCP - General Internal Medicine 10/08/22 [employer] Relationship Specialty Start Date End Date Adriano Uriostegui MD PCP - General Family Medicine 05/30/15 10/07/22 [employer] Relationship Specialty Start Date End Date Ap Donahue MD [address] [place] [address] PCP - General Internal Medicine 10/08/22 [employer] Operator Relationship Specialty Start Date End Date Ap Donahue MD [address] [place] [address] PCP - General Internal Medicine 10/08/22 [employer] Operator Relationship Specialty Start Date End Date Ap Donahue MD [address] [place] [address] PCP - General Internal Medicine 10/08/22 [employer] Operator Relationship Specialty Start Date End Date Ap Donahue MD [address] [place] [address] PCP - General Internal Medicine 10/08/22 [employer] Operator Relationship Specialty Start Date End Date Ap Donahue MD [address] [place] [address] PCP - General Internal Medicine 10/08/22 [employer] Operator Relationship Specialty Start Date End Date Ap Donahue MD [address] [place] [address] PCP - General Internal Medicine 10/08/22 [employer] Operator Relationship Specialty Start Date End Date Ap Donahue MD [address] [place] [address] PCP - General Internal Medicine 10/08/22 [employer] Operator Relationship Specialty Start Date End Date Ap Donahue MD [address] [place] [address] PCP - General Internal Medicine 10/08/22 [employer] Operator Relationship Specialty Start Date End Date Ap Donahue MD [address] [place] [address] PCP - General Internal Medicine 10/08/22 [employer] Operator Relationship Specialty Start Date End Date Ap Donahue MD [address] [place] [address] PCP - General Internal Medicine 10/08/22 [employer] Operator Relationship Specialty Start Date End Date Ap Donahue MD [address] [place] [address] PCP - General Internal Medicine 10/08/22 [employer] Operator Relationship Specialty Start Date End Date Ap Donahue MD [address] [place] [address] PCP - General Internal Medicine 10/08/22 [employer] Operator Relationship Specialty Start Date End Date Ap Donahue MD [address] [place] [address] PCP - General Internal Medicine 10/08/22 [employer] Operator Relationship Specialty Start Date End Date Ap Donahue MD [address] [place] [address] PCP - General Internal Medicine 10/08/22 [employer] Operator Relationship Specialty Start Date End Date Ap Donahue MD [address] [place] [address] PCP - General Internal Medicine 10/08/22 [employer] Operator Relationship Specialty Start Date End Date Ap Donahue MD [address] [place] [address] PCP - General Internal Medicine 10/08/22 [employer] Operator Relationship Specialty Start Date End Date Ap Donahue MD [address] [place] [address] PCP - General Internal Medicine 10/08/22 [employer] Operator Relationship Specialty Start Date End Date Ap Donahue MD [address] [place] [address] PCP - General Internal Medicine 10/08/22 Nikki Gomez MD [address] [facility] [address] [place], [place] [address] Internal Medicine 10/06/24 Source Comments (unrecognize d section and content) In the event this informatio n is protected by the Federal Confidentiality of Alcohol and Drug Abuse Patient Records regulations: The Federal rules restrict any use of the information to criminally investigate or prosecute any alcohol or drug abuse patient.[facility] the event this information is protected by the Federal Confidentiality of Alcohol and Drug Abuse Patient Records regulations: The Federal rules restrict any use of the information to criminally investigate or prosecute any alcohol or drug abuse patient.[facility] System[facility] the event this information is protected by the Federal Confidentiality of Alcohol and Drug Abuse Patient Records regulations: The Federal rules restrict any use of the information to criminally investigate or prosecute any alcohol or drug abuse patient.[facility] System[facility] the event this information is protected by the Federal Confidentiality of Alcohol and Drug Abuse Patient Records regulations: The Federal rules restrict any use of the information to criminally investigate or prosecute any alcohol or drug abuse patient.[facility] System[facility] the event this information is protected by the Federal Confidentiality of Alcohol and Drug Abuse Patient Records regulations: The Federal rules restrict any use of the information to criminally investigate or prosecute any alcohol or drug abuse patient.[facility] System[facility] the event this information is protected by the Federal Confidentiality of Alcohol and Drug Abuse Patient Records regulations: The Federal rules restrict any use of the information to criminally investigate or prosecute any alcohol or drug abuse patient.[facility] System[facility] the event this information is protected by the Federal Confidentiality of Alcohol and Drug Abuse Patient Records regulations: The Federal rules restrict any use of the information to criminally investigate or prosecute any alcohol or drug abuse patient.[facility] System[facility] the event this information is protected by the Federal Confidentiality of Alcohol and Drug Abuse Patient Records regulations: The Federal rules restrict any use of the information to criminally investigate or prosecute any alcohol or drug abuse patient.[facility] System[facility] the event this information is protected by the Federal Confidentiality of Alcohol and Drug Abuse Patient Records regulations: The Federal rules restrict any use of the information to criminally investigate or prosecute any alcohol or drug abuse patient.[facility] System[facility] the event this information is protected by the Federal Confidentiality of Alcohol and Drug Abuse Patient Records regulations: The Federal rules restrict any use of the information to criminally investigate or prosecute any alcohol or drug abuse patient.[facility] System[facility] the event this information is protected by the Federal Confidentiality of Alcohol and Drug Abuse Patient Records regulations: The Federal rules restrict any use of the information to criminally investigate or prosecute any alcohol or drug abuse patient.[facility] SystemIn the event this information is protected by the Federal Confidentiality of Alcohol and Drug Abuse Patient Records regulations: The Federal rules restrict any use of the information to criminally investigate or prosecute any alcohol or drug abuse patient.[facility] System[facility] the event this information is protected by the Federal Confidentiality of Alcohol and Drug Abuse Patient Records regulations: The Federal rules restrict any use of the information to criminally investigate or prosecute any alcohol or drug abuse patient.[facility] System[facility] the event this information is protected by the Federal Confidentiality of Alcohol and Drug Abuse Patient Records regulations: The Federal rules restrict any use of the information to criminally investigate or prosecute any alcohol or drug abuse patient.[facility] System[facility] the event this information is protected by the Federal Confidentiality of Alcohol and Drug Abuse Patient Records regulations: The Federal rules restrict any use of the information to criminally investigate or prosecute any alcohol or drug abuse patient.[facility] System[facility] the event this information is protected by the Federal Confidentiality of Alcohol and Drug Abuse Patient Records regulations: The Federal rules restrict any use of the information to criminally investigate or prosecute any alcohol or drug abuse patient.[facility] System[facility] the event this information is protected by the Federal Confidentiality of Alcohol and Drug Abuse Patient Records regulations: The Federal rules restrict any use of the information to criminally investigate or prosecute any alcohol or drug abuse patient.[facility] SystemIn the event this information is protected by the Federal Confidentiality of Alcohol and Drug Abuse Patient Records regulations: The Federal rules restrict any use of the information to criminally investigate or prosecute any alcohol or drug abuse patient.[facility] SystemIn the event this information is protected by the Federal Confidentiality of Alcohol and Drug Abuse Patient Records regulations: The Federal rules restrict any use of the information to criminally investigate or prosecute any alcohol or drug abuse patient.[facility] SystemIn the event this information is protected by the Federal Confidentiality of Alcohol and Drug Abuse Patient Records regulations: The Federal rules restrict any use of the information to criminally investigate or prosecute any alcohol or drug abuse patient.[facility] SystemIn the event this information is protected by the Federal Confidentiality of Alcohol and Drug Abuse Patient Records regulations: The Federal rules restrict any use of the information to criminally investigate or prosecute any alcohol or drug abuse patient.[facility] SystemIn the event this information is protected by the Federal Confidentiality of Alcohol and Drug Abuse Patient Records regulations: The Federal rules restrict any use of the information to criminally investigate or prosecute any alcohol or drug abuse patient.[facility] SystemIn the event this information is protected by the Federal Confidentiality of Alcohol and Drug Abuse Patient Records regulations: The Federal rules restrict any use of the information to criminally investigate or prosecute any alcohol or drug abuse patient.[facility] SystemIn the event this information is protected by the Federal Confidentiality of Alcohol and Drug Abuse Patient Records regulations: The Federal rules restrict any use of the information to criminally investigate or prosecute any alcohol or drug abuse patient.[facility] SystemIn the event this information is protected by the Federal Confidentiality of Alcohol and Drug Abuse Patient Records regulations: The Federal rules restrict any use of the information to criminally investigate or prosecute any alcohol or drug abuse patient.[facility] SystemIn the event this information is protected by the Federal Confidentiality of Alcohol and Drug Abuse Patient Records regulations: The Federal rules restrict any use of the information to criminally investigate or prosecute any alcohol or drug abuse patient.[facility] SystemIn the event this information is protected by the Federal Confidentiality of Alcohol and Drug Abuse Patient Records regulations: The Federal rules restrict any use of the information to criminally investigate or prosecute any alcohol or drug abuse patient.[facility] Reason for Visit (unrecogniz ed section and [...] BE BASED ON THE PRIMARY CLINICAL RECORDS. [facility]. provides no warranty or guarantee of the accuracy or completeness of information in this document.
== END | disposition home or self-care (01) ==
LOC: LABSPEC 10:41
PROVIDERS: PCP Internal Medicine; Visit Provider Physician Assistant
DX: M54.50 Low back pain, unspecified (principal)
CPT/HCPCS: 87086

== ENCOUNTER → 2024-12-14 | Outpatient (CLI) | payer MEDICAID, SELFPAY ==
--- NOTE | 2024-12-14 16:30 | RAD_ITS ---
PROCEDURE: CERV SPINE 4 OR 5 VIEWS 12/14/2024 REASON FOR EXAM: NECK PAIN TECHNIQUE: Procedure Code: RADSP Modality: DX Procedure: CERV SPINE 4 OR 5 VIEWS COMPARISON: Cervical spine studies dated 06/26/2022 and 01/12/2019 FINDINGS: Vertebrae: The vertebral body heights and alignment are within normal limits. There is no spondylolysis. The anterior atlantoaxial articulation is within normal limits. The dens and lateral masses are somewhat obscured by normal overlapping anatomical structures. Visualized portions appear unremarkable. Disc spaces: Disc spaces are well-maintained. There is no bony encroachment on the neural foramina. Alignment: Vertebral body alignment is within normal limits. There is no spondylolisthesis. There is normal lordotic cervical curvature. Soft tissues: Soft tissues are grossly unremarkable. There is no prevertebral soft tissue swelling. RAD/Cerv Spine 4 or 5 Views IMPRESSION: NEGATIVE CERVICAL SPINE. Reading Location: [id number]
== END | disposition home or self-care (01) ==
LOC: LAB 16:23 → RAD 16:23
PROVIDERS: PCP Internal Medicine; Referring Provider Nurse Practitioner Family; Visit Provider Nurse Practitioner Family
DX: M54.2 Cervicalgia (principal)
CPT/HCPCS: 72050; 97110

== ENCOUNTER 2024-12-29 11:30 | Outpatient (CLI) | payer MEDICAID, SELFPAY ==
[2024-12-29] MEDS: 0.9% NaCl IVPB Med Flush (100mL) 15 ML IV (11:49)
[2024-12-29] MEDS: Sodium Ferric Gluconat/Sucrose 125 MG in 0.9% Normal Saline (100mL Bag) 100 ML 110 MG IV (11:49)
[2024-12-29] MEDS: 0.9% NaCl Peripheral Flush Adult IV (11:49)
[2024-12-29 11:50] VITALS: BP 129/69; PULSE 67; RESP 16; TEMP 36.1; BMI 49.1
[2024-12-29 13:10] VITALS: BP 128/97; PULSE 68; RESP 16; TEMP 35.7; O2SAT 100
== END 2024-12-29 23:59 | disposition home or self-care (01) ==
LOC: MEDOUTP 11:30
PROVIDERS: PCP Internal Medicine; Referring Provider Internal Medicine; Visit Provider Internal Medicine
DX: D50.9 Iron deficiency anemia, unspecified (principal)
CPT/HCPCS: 96365; A4216; J2916

== ENCOUNTER 2025-01-06 12:00 | Outpatient (RCR) | payer MEDICAID, SELFPAY ==
--- NOTE | 2024-11-30 13:20 | HP.PTEVAL ---
Patient's Visit Information Visit Information Visit Information: CAR YEH is a 39 year old F referred to Physical Therapy by Dr. Virgie Donahue MD with a diagnosis of B knee pain. Date of Evaluation: 11/30/24 Physical Therapist: William Hamilton, PT, ATC Visit Plan Frequency: 2x /Week Duration: 4-6 Weeks Plan: B LE strengthening, core stab ex's, HS stretching, nustep, and HEP Subjective Subjective: Pt notes B knee pain this date. Pt reports her L knee subluxes numerous times a day. Pt reports it happens when she is walking, and when she is just standing. Pt notes she has the same pain in R knee. Pt had surgery in R knee for this very reason in the past. Pt notes she has stairs at home which ar very difgficult to negotiate. 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 Pt also notes she has difficulty with getting into her truck. Pt notes she is limited with prolonged walking secondary to pain. Pt is also limited with house chores secondary to pain. Pt reports sleep difficulty at this time secondary to pain. Pt reports she has LBP that also radiates down her L LE to the mid calf region. Pt reports minimal pain at rest 6/10, increases to 9/10 at worst. Pain L knee: Pain Intensity (Out of 10): 6 Pain Intensity Range: 9 Objective Objective: TU sec Neuro: B LE sensation is WNL to light touch. ROM: R knee 0-10-115 degrees; L knee 0-10-115 degrees MMT: L knee flex= 32, ext= 47; R knee flex= 47, ext= 47 #F Special testing: Pos McConnels sign Balance/Special Test Scores Lower Extremity Functional Score: 23 Goals Goal 1:: Decrease B knee pain x 50% to aid with sleep Goal Time Frame: 4-6 Weeks Goal 2:: Increase L knee strength to equal R knee strength x 90% to aid with work duties Goal Time Frame: 4-6 Weeks Goal 3:: I with HEP Goal Time Frame: 4-6 Weeks Goal 4:: Return to work performing all required duties without limitaton Goal Time Frame: 4-6 Weeks Rehabilitation Potential Physical Therapy Diagnosis: Pt has B knee pain and 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 B patellar femoral syndrome Rehabilitation Potential: Good Anticipated Interventions Patient/Client Instruction: Educate patient on: Condition and Plan of Care For the Purpose of:: To improve self management Therapeutic Exercise to Include: Strength training, Flexibilty training, Active ROM and Dynamic Lumbar Stabilization For the Purpose of:: To decrease pain, To improve muscle performance and motor function and To increase tolerance to activity/condition/position Cryotherapy (ice pack, ice massage): Yes For the Purpose of:: To decrease pain Text: Thank you for the opportunity to evaluate your patient. For Medicare and Medicare HMO plans, please review the plan of care and approve it. It will need to be FAXED BACK to us at [phone] for Medicare purposes. For Medicare only, by signing this I certify the plan of care. Please let me know if there are questions or concerns regarding this plan of care. Physician Signature: Date:
--- NOTE | 2025-01-06 12:29 | HP.PTREVAL ---
Re-Evaluation Intro: Dr. Virgie Donahue MD, It has been my pleasure to treat CAR YEH over the last 8 visits for B knee pain. Please see the progress note below for an update on the physical therapy plan of care! Subjective Subjective: Pt notes her pain is much improved, but she is still sore. Objective Objective/Function: B knee pain 7/10 currently, 9/10 at worst Pt has some ex's for a HEP Pt is able to perform all work duties, but is in severe pain afterwards MMT: L knee flex= 41, ext= 33; R knee flex= 46, ext= 59 #F Pt had bee making good progress, but pain is worse and more limited today Plan Plan Plan: Attempt to get date extension for remainder of 5 more visits Balance/Gait/Functional tests Balance/Special Test Scores Lower Extremity Functional Score: 36 Goals Goals Goal 1:: Decrease B knee pain x 50% to aid with sleep Goal Time Frame: 4-6 Weeks Goal Progress: Progressing Goal 2:: Increase L knee strength to equal R knee strength x 90% to aid with work duties Goal Time Frame: 4-6 Weeks Goal Progress: Not Progressing Goal 3:: I with HEP Goal Time Frame: 4-6 Weeks Goal Progress: Progressing Goal 4:: Return to work performing all required duties without limitaton Goal Time Frame: 4-6 Weeks Goal Progress: Goal Met Anticipated Interventions Anticipated Interventions Patient/Client Instruction: Educate patient on: Condition and Plan of Care For the Purpose of:: To improve self management Therapeutic Exercise to Include: Strength training, Flexibilty training, Active ROM and Dynamic Lumbar Stabilization For the Purpose of:: To decrease pain, To improve muscle performance and motor function and To increase tolerance to activity/condition/position Cryotherapy (ice pack, ice massage): Yes For the Purpose of:: To decrease pain Re-Evaluation Ending Re-evaluation ending: Please do not hesitate to contact me at [phone] by phone or if you have questions or concerns regarding this new plan of care! Sincerely, William Hamilton, PT, ATC
--- NOTE | 2025-04-04 11:50 | HP.PT.NRP ---
Patient Information Patient Information: CAR YEH was seen in my office for initial evaluation on 11/30/24. The following Plan of Care was established for this patient: POC Established Initial Frequency: 2x /Week Initial Duration: 4-6 Weeks Anticipated Interventions Patient/Client Instruction: Educate patient on: Condition and Plan of Care For the Purpose of:: To improve self management Therapeutic Exercise to Include: Strength training, Flexibilty training, Active ROM and Dynamic Lumbar Stabilization For the Purpose of:: To decrease pain, To improve muscle performance and motor function and To increase tolerance to activity/condition/position Cryotherapy (ice pack, ice massage): Yes For the Purpose of:: To decrease pain Last Seen Last Seen: This patient was last seen in our office . Pertinent comments regarding their Physical therapy will appear below: Pt has not returned in greater than 30 days and is discontinued at this time. At this point I will be discontinuing this patient from physical therapy. I would be happy to see this patient again in the future if found appropriate by the physician. Thank you! William Hamilton, PT, ATC Balance/Gait/Functional tests Balance/Special Test Scores Lower Extremity Functional Score: 36
== END 2025-01-06 19:00 | disposition home or self-care (01) ==
LOC: PT 12:00
PROVIDERS: PCP Internal Medicine; Referring Provider Internal Medicine; Visit Provider Internal Medicine
DX: M25.561 Pain in right knee (principal); M25.562 Pain in left knee; G89.29 Other chronic pain; M54.50 Low back pain, unspecified; M25.50 Pain in unspecified joint
CPT/HCPCS: 97110; 97161; 97530

== ENCOUNTER 2025-01-27 10:23 | Outpatient (CLI) | payer MEDICAID, SELFPAY ==
[2025-01-27 10:50] VITALS: BP 122/73; PULSE 68; RESP 16; TEMP 36.5; O2SAT 98
[2025-01-27] MEDS: Sodium Ferric Gluconat/Sucrose 125 MG in 0.9% Normal Saline (100mL Bag) 100 ML 110 MG IV (10:56)
[2025-01-27] MEDS: 0.9% NaCl Peripheral Flush Adult IV (10:56)
[2025-01-27 12:29] VITALS: BP 121/75; PULSE 78; RESP 16; TEMP 36.6; O2SAT 100
== END 2025-01-27 23:59 | disposition home or self-care (01) ==
LOC: MEDOUTP 10:24
PROVIDERS: PCP Internal Medicine; Referring Provider Internal Medicine; Visit Provider Internal Medicine
DX: D50.9 Iron deficiency anemia, unspecified (principal)
CPT/HCPCS: 96365; A4216; J2916

== ENCOUNTER 2025-02-23 10:59 | Outpatient (CLI) | payer MEDICAID, SELFPAY ==
[2025-02-23 11:36] LABS: Hematocrit 40.6 % (37-47); Hemoglobin 13.3 g/dL (12.0-15.0); Immature Granulocytes Count 0.010 X10^3/uL (0.0-0.0); Mean Corp Hgb Conc 32.8 g/dL (32-36); Mean Corpuscular Volume 80.1 fL (81-99); Mean Platelet Vol. 10.1 fl (6.2-12.0); NRBC Flagged by Analyzer 0 % (0-5); Platelet Count 242 K/mm3 (150-450); RBC Distribution Width CV 16.3 % (11.6-14.6); RBC Distribution Width SD 47.4 fl (35.1-43.9); Red Blood Count 5.07 M/mm3 (4.2-5.4); White Blood Count 5.5 K/mm3 (4.4-11.0)
[2025-02-23] MEDS: 0.9% NaCl Peripheral Flush Adult IV (11:42)
[2025-02-23] MEDS: 0.9% NaCl IVPB Med Flush (100mL) 15 ML IV (11:43)
[2025-02-23 11:44] VITALS: BP 124/83; PULSE 75; RESP 16; TEMP 36.1; O2SAT 100; BMI 46.5
[2025-02-23] MEDS: Sodium Ferric Gluconat/Sucrose 125 MG in 0.9% Normal Saline (100mL Bag) 100 ML 110 MG IV (11:59)
[2025-02-23 12:28] LABS: AST(SGOT) 13 U/L (<=31); Alanine Aminotransfer ALT/SGPT 11 U/L (<=34); Albumin, Serum 4.0 g/dL (3.5-5.0); Alkaline Phosphatase 58 U/L (35-104); Anion Gap 9 (5-15); BUN 10 mg/dL (4-19); BUN/Creat Ratio 13.8 RATIO (10-20); Calcium,Total 8.9 mg/dL (7.6-11.0); Carbon Dioxide 22.8 mmol/L (21.0-32.0); Chloride 106 mmol/L (98-108); Estimated Creatinine Clearance 145.43 ml/min (50-250); Globulin 3.0 g/dL (2.2-4.2); Glucose 78 mg/dL (70-99); Potassium 4.3 mmol/L (3.3-5.1); Vitamin D,25 Hydroxy 31.8 ng/mL (30-100)
[2025-02-23 13:35] VITALS: BP 107/71; PULSE 64; RESP 16; TEMP 36.1; O2SAT 97
== END 2025-02-23 23:59 | disposition home or self-care (01) ==
PROVIDERS: PCP Internal Medicine; Referring Provider Internal Medicine; Visit Provider Internal Medicine
DX: D50.9 Iron deficiency anemia, unspecified (principal); E55.9 Vitamin D deficiency, unspecified; M79.7 Fibromyalgia
CPT/HCPCS: 36415; 80053; 82306; 85025; 96365; A4216; J2916